=== PATIENT | female | born 1950 | race Caucasian/White ===

== ENCOUNTER 2017-10-06 12:39 | Emergency (ER) | payer OTHER ==
[2017-10-06] MEDS ORDERED: HYDROCODONE/APAP 5/325 MG TAB ONE (13:51)
[2017-10-06 14:01] LABS: Urine Blood 2+ (NEG); Urine Glucose 2+ (NEG); Urine Protein 3+ (NEG); Urine Specific Gravity 1.015 (1.005-1.030)
[2017-10-06 14:25] LABS: Urine Bacteria >50 /HPF (<20); Urine Culture Reflex Order REFLEXED; Urine RBC <5 /HPF (NONE SEEN); Urine Yeast PRESENT (NONE SEEN)
--- NOTE | 2017-10-06 14:38 | RAD REPORT ---
EXAM DESCRIPTION: CT - Thorax Wo Con - 10/06/2017 2:19 pm CLINICAL HISTORY: Chest pain status post September 2016 COMPARISON: February 02 TECHNIQUE: Computed axial tomography of the chest was obtained. Contrast was not requested. All CT scans are performed using dose optimization technique as appropriate and may include automated exposure control or mA/KV adjustment according to patient size. FINDINGS: The evaluation of mediastinum, pascual and vessels is limited secondary to lack of IV contras t administration. The lungs appear clear. A mediastinal hematoma is not seen. Coronary arterial calcifications are present. A pleural effusion is not present. A pericardial effusion is not seen IMPRESSION: No acute abnormality is displayed
--- NOTE | 2017-10-06 14:46 | RAD REPORT ---
EXAM DESCRIPTION: CT - Head C Spine Mpr Wo Con - 10/06/2017 2:37 pm CLINICAL HISTORY: Head and neck injury status post fall. Head and neck pain COMPARISON: June 1999 TECHNIQUE: Computed axial tomography of the head and cervical spine was obtained. Sagittal and coronal reconstruction was performed. All CT scans are performed using dose optimization technique as appropriate and may include automated exposure control or mA/KV adjustment according to patient size. FINDINGS: An intracranial bleed is not seen. The ventricles are normal in caliber. An extra-axial fl uid collection is not noted.Fluid within the visualized sinuses and mastoids is not seen A cervical fracture is not visualized. No dislocation is noted. A calcification within the left subma ndibular gland is again demonstrated IMPRESSION: No acute intracranial abnormality is seen. A cervical fracture is not visualized. If the patient continues to have symptoms to suggest intracra nial /spinal cord pathology then MRI would be recommended
--- NOTE | 2017-10-06 15:03 | ER ---
Nurse's Notes [facility] Name: Delmi Schultz Age: 66 yrs Sex: Female : 1950 Arrival Date: 10/06/2017 Time: 12:47 Bed 30 Private MD: Diagnosis: Contusion of other part of head;Sprain of ligaments of cervical spine;Contusion of back wall of thorax Presentation: 10/06 12:48 Presenting complaint: EMS states: Patient was lifting a box when she lost her balance aj1 and fell from standing, hitting her head. Patient denies LOC, vomiting. Patient reports back pain, denies any numbness and tingling. Transition of care: patient was not received from another setting of care. Onset of symptoms was October 06, 2017. Initial Sepsis Screen: Does the patient meet any 2 criteria? No. Patient's initial sepsis screen is negative. Does the patient have a suspected source of infection? No. Patient's initial sepsis screen is negative. Care prior to arrival: None. 12:48 Method Of Arrival: [facility] aj1 12:48 Acuity: VICTOR M 3 aj1 Triage Assessment: 12:55 General: Appears in no apparent distress. uncomfortable, Behavior is calm, cooperative. aj1 Pain: Complains of pain in thoracic area Pain does not radiate. Pain currently is 8 out of 10 on a pain scale. Quality of pain is described as sharp. Musculoskeletal: Range of motion: intact in all extremities. Historical: - Allergies: 12:55 No Known Allergies; aj1 - Home Meds: 12:55 Linzess oral oral [Active]; atorvastatin oral oral [Active]; gabapentin oral oral aj1 [Active]; Santyl Topical [Active]; Nexium 40 mg Oral cpDR 1 cap once daily [Active]; gabapentin 600 mg Oral tab 1 tab 3 times per day [Active]; Insulin: Novolog 10 units Sub-Q twice a day [Active]; sertraline 50 mg Oral tab 1 tab once daily [Active]; amlodipine 5 mg tab 1 tab once daily [Active]; amitriptyline 50 mg Oral tab 1 tab once daily [Active]; - PMHx: 12:55 Deaf; Diabetes - IDDM; Hypertension; Depression; GERD; neuropathy; Hyperlipidemia; aj1 - Immunization history:: Adult Immunizations up to date. - Social history:: Smoking status: unknown. Screenin:57 Abuse screen: Denies threats or abuse. Denies injuries from another. Nutritional aj1 screening: No deficits noted. Tuberculosis screening: No symptoms or risk factors identified. 13:43 Fall Risk None identified. tl3 Assessment: 12:57 General: Appears in no apparent distress. uncomfortable, Behavior is calm, cooperative, aj1 appropriate for age. Pain: Complains of pain in thoracic area Pain does not radiate. Pain currently is 8 out of 10 on a pain scale. Quality of pain is described as sharp. Neuro: Level of Consciousness is awake, alert, obeys commands, Speech is difficult to understand, garbled, patient is deaf. . Cardiovascular: Patient's skin is warm and dry. Respiratory: Airway is patent Respiratory effort is even, unlabored, Respiratory pattern is regular, symmetrical. GI: No signs and/or symptoms were reported involving the gastrointestinal system. : No signs and/or symptoms were reported regarding the genitourinary system. EENT: No signs and/or symptoms were reported regarding the EENT system. Derm: Skin is pink, warm \T\ dry. normal. Musculoskeletal: Range of motion: intact in all extremities. 13:43 Reassessment: No changes from previously documented assessment. Patient and/or family tl3 updated on plan of care and expected duration. Pain level reassessed. Patient is alert, oriented x 3, equal unlabored respirations, skin warm/dry/pink. pt c/o back pain and chest pain with deep breathing, Dr Michaud at bedside for assessment. Vital Signs: 12:55 BP 152 / 68; Pulse 84; Resp 18; Temp 98.2; Pulse Ox 95% on R/A; aj1 14:41 BP 163 / 96; Pulse 80; Resp 18; Pulse Ox 95% ; tl3 ED Course: 12:47 Patient arrived in ED. aj1 12:51 Triage completed. aj1 12:55 Arm band placed on. aj1 12:57 Patient has correct armband on for positive identification. Bed in low position. Call aj1 light in reach. Side rails up X 1. 12:57 No provider procedures requiring assistance completed. aj1 12:58 Farrukh Michaud MD is Attending Physician. gs 13:43 Kelly Trent, RN is Primary Nurse. tl3 13:43 Resting quietly. Awaiting for x-ray. tl3 13:43 Maintain EMS IV. Dressing intact. Good blood return noted. Site clean \T\ dry. tl3 14:[address] via wheelchair. kc3 14:19 CT Chest Wo Con In Process Unspecified. EDMS 14:36 CT Head C Spine In Process Unspecified. EDMS 14:41 Patient moved back from CT. tl3 Administered Medications: 13:54 Drug: [place] 5 mg-325 mg 1 tabs Route: PO; tl3 Outcome: 15:02 Discharge ordered by . dada 15:43 Patient left the ED. tl3 Addendum: 10/09/2017 07:44 Addendum: Culture Results: Positive urine culture. No further action required. Other: i w culture report was reviewed by Hermilo EM, pt had no urinary complaints at the time of visit, no further action needed . Patient was not prescribed antibiotics at discharge. Report given to LYUBOV for further evaluation and then to cargo mate for follow up with patient. Signatures: Dispatcher [employer] Brittaney Lagunas RN RN aj1 Denise Salamanca RN RN iw Farrukh Michaud MD MD gs Campbell, Kim kc3 Kelly Trent RN RN tl3
--- NOTE | 2017-10-06 15:03 | EDPHYS ---
Physician Documentation [facility] Name: Delmi Schultz Age: 66 yrs Sex: Female : 1950 Arrival Date: 10/06/2017 Time: 12:47 Bed 30 Private MD: ED Physician Farrukh Michaud HPI: 10/06 14:50 This 66 yrs old Female presents to ER via EMS with complaints of Back Pain. gs 14:50 The patient presents with pain that is acute, and an injury. The symptoms are located gs in the left subscapular area, right subscapular area and thoracic area. Onset: The symptoms/episode began/occurred acutely. The pain does not radiate. Associated signs and symptoms: Pertinent negatives: weakness. Severity of symptoms: At their worst the symptoms were moderate, in the emergency department the symptoms are unchanged. The patient has not experienced similar symptoms in the past. Historical: - Allergies: 12:55 No Known Allergies; aj1 - Home Meds: 12:55 Linzess oral oral [Active]; atorvastatin oral oral [Active]; gabapentin oral oral aj1 [Active]; Santyl Topical [Active]; Nexium 40 mg Oral cpDR 1 cap once daily [Active]; gabapentin 600 mg Oral tab 1 tab 3 times per day [Active]; Insulin: Novolog 10 units Sub-Q twice a day [Active]; sertraline 50 mg Oral tab 1 tab once daily [Active]; amlodipine 5 mg tab 1 tab once daily [Active]; amitriptyline 50 mg Oral tab 1 tab once daily [Active]; - PMHx: 12:55 Deaf; Diabetes - IDDM; Hypertension; Depression; GERD; neuropathy; Hyperlipidemia; aj1 - Immunization history:: Adult Immunizations up to date. - Social history:: Smoking status: unknown. ROS: 14:50 All other systems are negative. gs Exam: 14:50 Head/Face: Normocephalic, atraumatic. Eyes: Pupils equal round and reactive to light, gs extra-ocular motions intact. Lids and lashes normal. Conjunctiva and sclera are non-icteric and not injected. Cornea within normal limits. Periorbital areas with no swelling, redness, or edema. ENT: Nares patent. No nasal discharge, no septal abnormalities noted. Tympanic membranes are normal and external auditory canals are clear. Oropharynx with no redness, swelling, or masses, exudates, or evidence of obstruction, uvula midline. Mucous membranes moist. Neck: Trachea midline, no thyromegaly or masses palpated, and no cervical lymphadenopathy. Supple, full range of motion without nuchal rigidity, or vertebral point tenderness. No Meningismus. Cardiovascular: Regular rate and rhythm with a normal S1 and S2. No gallops, murmurs, or rubs. Normal PMI, no JVD. No pulse deficits. Respiratory: Lungs have equal breath sounds bilaterally, clear to auscultation and percussion. No rales, rhonchi or wheezes noted. No increased work of breathing, no retractions or nasal flaring. Abdomen/GI: Soft, non-tender, with normal bowel sounds. No distension or tympany. No guarding or rebound. No evidence of tenderness throughout. Skin: Warm, dry with normal turgor. Normal color with no rashes, no lesions, and no evidence of cellulitis. MS/ Extremity: Pulses equal, no cyanosis. Neurovascular intact. Full, normal range of motion. Neuro: Awake and alert, GCS 15, oriented to person, place, time, and situation. Cranial nerves II-XII grossly intact. Motor strength 5/5 in all extremities. Sensory grossly intact. Cerebellar exam normal. Normal gait. 14:50 Constitutional: The patient appears alert, awake. 14:50 Chest/axilla: Palpation: tenderness, that is moderate, of the left lateral posterior chest and right lateral posterior chest, that totally reproduces the patient's complaints. 14:50 Back: pain, that is moderate, of the thoracic area. Vital Signs: 12:55 BP 152 / 68; Pulse 84; Resp 18; Temp 98.2; Pulse Ox 95% on R/A; aj1 14:41 BP 163 / 96; Pulse 80; Resp 18; Pulse Ox 95% ; tl3 MDM: 13:39 Patient medically screened. 14:50 Differential diagnosis: chronic back pain, Fracture sprain. Data reviewed: vital signs, gs nurses notes. 10/06 13:46 Order name: UA MICROSCOPIC; Complete Time: 14:50 tl3 10/06 13:49 Order name: Urine Dipstick--Ancillary (enter results); Complete Time: 14:50 ag 10/06 13:40 Order name: CT Chest Wo Con; Complete Time: 14:50 10/06 14:22 Order name: CT Head C Spine; Complete Time: 14:50 10/06 14:27 Order name: Urine Culture EDID Administered Medications: 13:54 Drug: [place] 5 mg-325 mg 1 tabs Route: PO; tl3 Disposition: 10/06/17 15:02 Discharged to Home. Impression: Contusion of other part of head, Sprain of ligaments of cervical spine, Contusion of back wall of thorax. - Condition is Stable. - Discharge Instructions: Head Injury, Adult, Cervical Sprain. - Prescriptions for Tylenol- Codeine #4 300-60 mg Oral Tablet - take 1 tablet by ORAL route every 6 hours As needed; 10 tablet. - Medication Reconciliation Form, Thank You Letter, Antibiotic Education, Prescription Opioid Use form. - Follow up: Private Physician; When: 2 - 3 days; Reason: Re-evaluation by your physician. Signatures: Dispatcher [employer] EDID Brittaney Gomez RN RN aj1 Farrukh Michaud MD MD Kelly Trent RN RN tl3 Corrections: (The following items were deleted from the chart) 15:43 15:02 10/06/2017 15:02 Discharged to Home. Impression: Contusion of other part of head; tl3 Sprain of ligaments of cervical spine; Contusion of back wall of thorax. Condition is Stable. Forms are Medication Reconciliation Form, Thank You Letter, Antibiotic Education, Prescription Opioid Use. Follow up: Private Physician; When: 2 - 3 days; Reason: Re-evaluation by your physician.
[2017-10-06 15:47] VITALS: TEMP 98.2; O2SAT 95
[2017-10-06 15:48] VITALS: BP 163/96
== END 2017-10-06 15:43 | disposition home or self-care (01) ==
LOC: ER 12:39
DX: S13.4XXA Sprain of ligaments of cervical spine, initial encounter (principal); S00.83XA Contusion of other part of head, initial encounter; S20.229A Contusion of unspecified back wall of thorax, initial encounter; F32.9 Major depressive disorder, single episode, unspecified; I10 Essential (primary) hypertension; E11.9 Type 2 diabetes mellitus without complications; E78.5 Hyperlipidemia, unspecified; W18.39XA Other fall on same level, initial encounter; Y93.89 Activity, other specified; Y92.9 Unspecified place or not applicable; Z79.4 Long term (current) use of insulin
CPT/HCPCS: 70450; 71250; 72125; 81003; 81015; 87077; 87086; 87088; 87186; 99284

== ENCOUNTER 2017-12-25 20:22 | Emergency (ER) | payer OTHER ==
[2017-12-25] MEDS ORDERED: NA CHLORIDE 0.9% 500 ML ONE (20:55)
[2017-12-25 21:13] LABS: Absolute Lymphocytes (CBC) 1.7 K/uL (0.7-4.9); Absolute Monocytes 0.6 K/uL (0.1-1.3); Basophils % 0.3 % (0-1.3); Eosinophils % 0.4 % (0-4.4); Hematocrit 39.2 % (36.0-45.0); Lymphocytes % 14.9 % (15.3-44.8); MCH 29.1 pg (27.0-35.0); MCV 84.5 fL (80-100); MPV 9.2 fL (7.6-11.3); RBC Red Blood Cell Count 4.64 M/uL (3.86-4.86)
[2017-12-25 21:37] LABS: Potassium 3.9 mmol/L (3.5-5.1)
--- NOTE | 2017-12-25 22:04 | RAD REPORT ---
EXAM DESCRIPTION: RAD - Knee Left 3 View - 12/25/2017 9:48 pm CLINICAL HISTORY: slip and fall Pain COMPARISON: None FINDINGS: A fracture of the proximal fibular neck is suspected. Narrowing of the medial joint compar tment space is present with osteophytosis. A small suprapatellar joint effusion is present.
--- NOTE | 2017-12-25 22:07 | RAD REPORT ---
EXAM DESCRIPTION: RAD - Tib Fib Left - 12/25/2017 9:47 pm CLINICAL HISTORY: fall;Pain COMPARISON: <Comparisons> FINDINGS: Oblique fracture of the distal shaft of the tibia is present. Spiral fracture of the dista l fibula is also present. Fracture of the proximal fibular neck is also seen. Fusion hardware is note d in the ankle with an inferior screw noted to be fractured.
--- NOTE | 2017-12-25 22:09 | RAD REPORT ---
EXAM DESCRIPTION: RAD - Ankle Left 3 View - 12/25/2017 9:48 pm CLINICAL HISTORY: slip and fall;Pain COMPARISON: <Comparisons> FINDINGS: Spiral fracture of the distal tibia and fibula is present. Moderate displacement of the ti bial fracture seen with syndesmotic disruption suspected. Multiple screws are present within the ankl e resulting in bony fusion. The inferior screw appears fractured.
[2017-12-25] MEDS ORDERED: INSULIN -REGULAR HUMAN 50 UNIT/0.5 ML ML ONE (22:44)
[2017-12-25] MEDS ORDERED: FENTANYL CITR 100 MCG/2 ML ONE ×2 (22:44→23:58)
--- NOTE | 2017-12-25 23:00 | ER ---
Nurse's Notes [facility] Name: Delmi Schultz Age: 67 yrs Sex: Female : 1950 Arrival Date: 12/25/2017 Time: 20:23 Bed 26 Private MD: Diagnosis: Comminuted Fracture of Left Distal Tibia and Fibula Presentation: 12/25 20:23 Presenting complaint: EMS states: States patient fell at 1830 today at home, hurting mb3 her left leg, unable to bear weight at this time. Pt is deaf. Transition of care: patient was not received from another setting of care. Onset of symptoms was December 25, 2017 at 18:30. Risk Assessment: Do you want to hurt yourself or someone else? Patient reports no desire to harm self or others. Initial Sepsis Screen: Does the patient meet any 2 criteria? No. Patient's initial sepsis screen is negative. Does the patient have a suspected source of infection? No. Patient's initial sepsis screen is negative. Care prior to arrival: IV initiated. 20 GA, in the right antecubital area, Glucose check: 438. 20:23 Method Of Arrival: [facility] mb3 20:23 Acuity: VICTOR M 3 mb3 Triage Assessment: 20:26 General: Appears in no apparent distress. uncomfortable, obese, Behavior is calm, mb3 cooperative, appropriate for age. Pain: Complains of pain in left calf and left Achilles. EENT: No deficits noted. No signs and/or symptoms were reported regarding the EENT system. Neuro: No deficits noted. Level of Consciousness is awake, alert, obeys commands. Cardiovascular: No deficits noted. Heart tones S1 S2 present. Respiratory: No deficits noted. Airway is patent Respiratory effort is even, unlabored, Respiratory pattern is regular, symmetrical. GI: Abdomen is obese, Bowel sounds present X 4 quads. Abd is soft and non tender. : No deficits noted. Derm: Reports Has wound vac to right foot. did not observe wound. Musculoskeletal: Capillary refill < 3 seconds, Reports pain in left calf and left Achilles. 22:08 Injury Description: Bruise sustained to left calf and left Achilles. mb3 Historical: - Allergies: 20:26 No Known Allergies; mb3 - Immunization history:: Adult Immunizations up to date. - Social history:: Smoking status: Patient uses tobacco products, smokes one pack cigarettes per day. - Ebola Screening: : Patient denies travel to an Ebola-affected area in the 21 days before illness onset No symptoms or risks identified at this time. Screenin:32 Abuse screen: Denies threats or abuse. Nutritional screening: No deficits noted. mb3 Tuberculosis screening: No symptoms or risk factors identified. Fall Risk Fall in past 12 months (25 points). Secondary diagnosis (15 points) impaired mobility, IV access (20 points). Ambulatory Aid- Crutches/Cane/Walker (15 pts). Gait- Impaired (20 pts.). Mental Status- Oriented to own ability (0 pts). Total Vazquez Fall Scale indicates High Risk Score (45 or more points). Fall prevention measures have been instituted. Side Rails Up X 2 Placed Close to Nursing Station Frequent Obs/Assessments Occuring Family Present and informed to notify staff if the need to leave the bedside As available patient and family educated on Fall Prevention Program and Strategies. Assessment: 22:05 Reassessment: Patient and/or family updated on plan of care and expected duration. Pain mb3 level reassessed. Patient is alert, oriented x 3, equal unlabored respirations, skin warm/dry/pink. see triage assessment. 23:23 Reassessment: report called to Lisa Alaniz RN at [facility]. mb3 Vital Signs: 20:29 BP 117 / 75; Pulse 99; Resp 20; Temp 97.9; Pulse Ox 94% on R/A; Weight 108.86 kg; mb3 Height 5 ft. 6 in. (167.64 cm); Pain 7/10; 22:05 BP 157 / 69; Pulse 91; Resp 16; Pulse Ox 96% on R/A; mb3 23:25 BP 151 / 77; Pulse 106; Resp 18; Pulse Ox 98% on R/A; mb3 20:29 Body Mass Index 38.74 (108.86 kg, 167.64 cm) mb3 ED Course: 20:23 Patient arrived in ED. mb3 20:25 Triage completed. mb3 20:35 Hank Mas PA is PHCP. cp 20:35 Calvin Salazar MD is Attending Physician. cp 21:23 X-ray completed. Portable x-ray completed in exam room. jr1 21:27 XRAY Ankle LEFT 3 view In Process Unspecified. EDMS 21:27 XRAY Tib Fib LEFT In Process Unspecified. EDMS 21:27 XRAY Knee LEFT 3 view In Process Unspecified. EDMS 21:44 Notified Nurse Practitioner and/or Physician Production Operations Inspector of a critical lab result(s), glucose of 426. 22:03 Sharan Elliott, RN is Primary Nurse. mb3 22:07 Patient has correct armband on for positive identification. Placed in gown. Bed in low mb3 position. Call light in reach. Side rails up X 1. Pulse ox on. NIBP on. 22:09 Arm band placed on right wrist. mb3 23:25 No provider procedures requiring assistance completed. Patient transferred, IV remains mb3 in place. 12/26 00:00 CBC with Diff Sent. mb3 00:00 BMP Sent. mb3 Administered Medications: 12/25 20:53 Drug: NS 0.9% 500 ml Route: IV; Rate: bolus; Site: right antecubital; mg2 12/26 00:00 Follow up: IV Status: Completed infusion; IV Intake: 500ml mb3 12/25 22:47 Drug: Insulin Regular Human 10 units {Co-Signature: mg2 (Wilfredo Mcfarlane RN).} Route: mb3 IVP; Site: right antecubital; 12/26 00:00 Follow up: Response: No adverse reaction mb3 12/25 22:48 Drug: fentaNYL (PF) 25 mcg Route: IVP; Site: right antecubital; mb3 12/26 00:00 Follow up: Response: No adverse reaction mb3 12/25 23:57 Drug: fentaNYL (PF) 25 mcg Route: IVP; Site: right antecubital; mb3 23:59 Follow up: Response: Medication administered at discharge. mb3 Intake: 12/26 00:00 IV: 500ml; Total: 500ml. mb3 Outcome: 12/25 23:00 ER care complete, transfer ordered by . ramesh 23:24 Transferred by ground EMS to [facility], Transfer form completed. mb3 23:24 Condition: stable 23:24 Instructed on the need for transfer. 12/26 00:01 Patient left the ED. mb3 Signatures: Dispatcher [employer] EDAbi Armenta jr1 Yamile Pelaez RN RN fc Hank Mas PA PA cp Gardose, Michele, RN RN mg2 Sharan Elliott, RN RN mb3 Wilfredo Mcfarlane RN mg2
--- NOTE | 2017-12-25 23:00 | EDPHYS ---
Physician Documentation [facility] Name: Delmi Schultz Age: 67 yrs Sex: Female : 1950 Arrival Date: 12/25/2017 Time: 20:23 Bed 26 Private MD: ED Physician Calvin Salazar HPI: 12/25 20:42 This 67 yrs old Female presents to ER via EMS with complaints of Leg Injury. cp 20:42 The patient presents with decreased range of motion, an injury, pain, that is acute. cp The complaints affect the left adames and anterior aspect of left ankle. Context: The problem was sustained at home, resulted from the patient falling, a mis-step, on a slippery surface. Historical: - Allergies: 20:26 No Known Allergies; mb3 - Immunization history:: Adult Immunizations up to date. - Social history:: Smoking status: Patient uses tobacco products, smokes one pack cigarettes per day. - Ebola Screening: : Patient denies travel to an Ebola-affected area in the 21 days before illness onset No symptoms or risks identified at this time. ROS: 20:50 Constitutional: Negative for body aches, chills, fever, poor PO intake. cp 20:50 Eyes: Negative for injury, pain, redness, and discharge. cp 20:50 ENT: Negative for drainage from ear(s), ear pain, sore throat, difficulty swallowing, difficulty handling secretions. 20:50 Neck: Negative for pain with movement, pain at rest, stiffness, bony tenderness. 20:50 Cardiovascular: Negative for chest pain, palpitations. 20:50 Respiratory: Negative for cough, shortness of breath, wheezing. 20:50 Abdomen/GI: Negative for abdominal pain, nausea, vomiting, and diarrhea, constipation, black/tarry stool, rectal bleeding. 20:50 Back: Negative for pain at rest, pain with movement, radiated pain. 20:50 MS/extremity: Positive for injury or acute deformity, decreased range of motion, ecchymosis, pain, tenderness, of the left lower tib/fib. 20:50 Skin: Negative for laceration(s). 20:50 Neuro: Negative for altered mental status, headache, loss of consciousness, syncope, weakness. 20:50 All other systems are negative. Exam: 20:57 Constitutional: The patient appears in no acute distress, alert, awake, cp non-diaphoretic, non-toxic, well developed, well nourished, obese. 20:57 Head/Face: Normocephalic, atraumatic. cp 20:57 Eyes: Periorbital structures: appear normal, Pupils: equal, round, and reactive to light and accomodation, Extraocular movements: intact throughout, Conjunctiva: normal, no exudate, no injection, Sclera: no appreciated abnormality, Lids and lashes: appear normal, bilaterally. 20:57 ENT: External ear(s): are unremarkable, Nose: is normal, Mouth: Lips: moist, Oral mucosa: moist, Posterior pharynx: is normal, airway is patent. 20:57 Neck: C-spine: vertebral tenderness, is not appreciated, crepitus, is not appreciated, ROM/movement: is normal, is supple, without pain, no range of motions limitations, no nuchal rigidity. 20:57 Chest/axilla: Inspection: normal, Palpation: is normal, no crepitus, no tenderness. 20:57 Cardiovascular: Rate: normal, Rhythm: regular. 20:57 Respiratory: the patient does not display signs of respiratory distress, Respirations: normal, no use of accessory muscles, no retractions, no splinting, no tachypnea, labored breathing, is not present, Breath sounds: are clear throughout, no decreased breath sounds, no stridor, no wheezing. 20:57 Abdomen/GI: Inspection: obese Bowel sounds: active, all quadrants, Palpation: abdomen is soft and non-tender, in all quadrants. 20:57 Back: pain, is absent, ROM is normal. 20:57 Musculoskeletal/extremity: Extremities: grossly normal except: noted in the distal left tibia and fibula: decreased ROM, deformity, ecchymosis, pain, swelling, tenderness, Perfusion: the extremity is normally perfused throughout, Sensation intact. 20:57 Neuro: Orientation: to person, place \T\ time. Mentation: lucid, able to follow commands. Vital Signs: 20:29 BP 117 / 75; Pulse 99; Resp 20; Temp 97.9; Pulse Ox 94% on R/A; Weight 108.86 kg; mb3 Height 5 ft. 6 in. (167.64 cm); Pain 7/10; 22:05 BP 157 / 69; Pulse 91; Resp 16; Pulse Ox 96% on R/A; mb3 23:25 BP 151 / 77; Pulse 106; Resp 18; Pulse Ox 98% on R/A; mb3 20:29 Body Mass Index 38.74 (108.86 kg, 167.64 cm) 3 Procedures: 23:55 Splinting: Splint applied to left lower leg using Orthoglass splint, applied by tech. cp Examined by me, post splint application: neurovascular intact, Patient tolerated well. MDM: 20:35 Patient medically screened. cp 22:25 Data reviewed: vital signs, nurses notes, radiologic studies, plain films. cp 22:25 Test interpretation: by ED physician or midlevel provider: plain radiologic studies. cp 22:26 Physician consultation: Dave Knight MD was called at 22:27, was contacted at 22:27, cp after a discussion of the case, a recommendation for transfer for higher level of care is made. 22:56 Physician consultation: DR Barrios, hospitalist \\ [facility] will accept patient as cp transfer. 12/25 20:45 Order name: BMP cp 12/25 20:45 Order name: CBC with Diff cp 12/25 20:44 Order name: XRAY Ankle LEFT 3 view; Complete Time: 22:13 cp 12/25 20:44 Order name: XRAY Tib Fib LEFT; Complete Time: 22:13 cp 12/25 22:25 Interpretation: Report reviewed. 12/25 20:45 Order name: Basic Metabolic Panel; Complete Time: 22:13 EDMS 12/25 20:45 Order name: CBC with Automated Diff; Complete Time: 22:13 EDMS 12/25 20:44 Order name: XRAY Knee LEFT 3 view; Complete Time: 22:13 cp 12/25 20:45 Order name: IV; Complete Time: 20:51 cp 12/25 22:23 Order name: Splint - Posterior Leg; Complete Time: 23:58 cp 12/25 22:26 Order name: Splint: stirrup splint of lower leg; Complete Time: 23:58 cp Administered Medications: 20:53 Drug: NS 0.9% 500 ml Route: IV; Rate: bolus; Site: right antecubital; mg2 12/26 00:00 Follow up: IV Status: Completed infusion; IV Intake: 500ml [facility] 12/25 22:47 Drug: Insulin Regular Human 10 units {Co-Signature: mg2 (Wilfredo Mcfarlane RN).} Route: mb3 IVP; Site: right antecubital; 12/26 00:00 Follow up: Response: No adverse reaction [facility] 12/25 22:48 Drug: fentaNYL (PF) 25 mcg Route: IVP; Site: right antecubital; mb3 12/26 00:00 Follow up: Response: No adverse reaction [facility] 12/25 23:57 Drug: fentaNYL (PF) 25 mcg Route: IVP; Site: right antecubital; 3 23:59 Follow up: Response: Medication administered at discharge. mb3 Disposition: 12/26 03:06 Co-signature as Attending Physician, Calvin Salazar MD. pkl Disposition: 12/25/17 23:[address] [facility]. Diagnosis is Comminuted Fracture of Left Distal Tibia and Fibula. - Reason for transfer: Higher level of care. - Accepting physician is DR Barrios. - Condition is Stable. - Problem is new. - Symptoms have improved. Signatures: Dispatcher [employer] EDMS Calvin Salazar MD MD pkl Hank Mas PA PA cp Wilfredo Mcfarlane, JARRET RN mg2 Sharan Elliott RN RN mb3 Wilfredo Mcfarlane RN mg2 Corrections: (The following items were deleted from the chart) 12/25 22:25 22:23 Splint ordered. cp cp 12/26 00:01 12/25 23:00 12/25/2017 23:[address] [facility]. 3 Diagnosis is Comminuted Fracture of Left Distal Tibia and Fibula. Reason for transfer: Higher level of care. Accepting physician is DR Barrios. Condition is Stable. Problem is new. Symptoms have improved. cp
[2017-12-26 00:29] VITALS: TEMP 97.9
[2017-12-26 00:31] VITALS: BP 151/77; O2SAT 98
== END 2017-12-26 00:01 | disposition short-term general hospital (02) ==
LOC: ER 20:22
PROC: 2W3RX1Z Immobilization of Left Lower Leg using Splint (ICD-10-PCS; principal; 2017-12-26)
DX: S82.392A Other fracture of lower end of left tibia, initial encounter for closed fracture (principal); S82.832A Other fracture of upper and lower end of left fibula, initial encounter for closed fracture; W01.0XXA Fall on same level from slipping, tripping and stumbling without subsequent striking against object, initial encounter; Y93.89 Activity, other specified; Y92.009 Unspecified place in unspecified non-institutional (private) residence as the place of occurrence of the external cause; F17.210 Nicotine dependence, cigarettes, uncomplicated
CPT/HCPCS: 29515; 36415; 73562; 73590; 73610; 80048; 85025; 96361; 96374; 96375; 99285; J3010 ×2

== ENCOUNTER 2018-08-30 16:02 | Emergency (ER) | payer OTHER ==
[2018-08-30 16:54] LABS: Absolute Lymphocytes (CBC) 2.8 K/uL (0.7-4.9); Absolute Monocytes 0.5 K/uL (0.1-1.3); Absolute Neutrophil 5.7 K/uL (1.8-8.0); Basophils % 0.4 % (0-1.3); Eosinophils % 1.1 % (0-4.4); Hematocrit 39.2 % (36.0-45.0); Lymphocytes % 30.3 % (15.3-44.8); Monocytes % 5.1 % (3.3-12.3); RBC Red Blood Cell Count 4.74 M/uL (3.86-4.86)
[2018-08-30 17:01] LABS: Protime INR 0.99
[2018-08-30 17:13] LABS: ALT/SGPT 15 U/L (12-78); AST/SGOT 12 U/L (15-37); Albumin 2.8 g/dL (3.4-5.0); Alkaline Phosphatase 138 U/L (45-117); BUN Blood Urea Nitrogen 19 mg/dL (7-18); Bicarbonate 30 mmol/L (21-32); Bilirubin Direct 0.1 mg/dL (0-0.2); Bilirubin Total 0.4 mg/dL (0.2-1.0); Glucose Level 255 mg/dL (74-106); Magnesium 1.5 mg/dL (1.8-2.4); NT PRO-BNP 1018 pg/mL (<125); Potassium 4.1 mmol/L (3.5-5.1); Protein, Total 6.8 g/dL (6.4-8.2); Sodium Level 137 mmol/L (136-145); Troponin (Emerg Dept Use Only) < 0.02 ng/mL (0.0-0.045)
--- NOTE | 2018-08-30 17:21 | RAD REPORT ---
EXAM DESCRIPTION: RAD - Chest Single View - 08/30/2018 5:09 pm CLINICAL HISTORY: CHEST PAIN Chest pain. COMPARISON: Chest Single View dated 08/22/2016; Chest Single View dated 05/21/2016; Chest Single View dated 05/19/2016; Chest Single View dated 10/15/2015 FINDINGS: Portable technique limits examination quality. The lungs are grossly clear. The heart is normal in size. No displaced fractures. IMPRESSION: No acute intrathoracic process suspected.
[2018-08-30] MEDS ORDERED: Magnesium Sulfate 2gm IVPB 2 G/50 ML BAG IV ONE (17:44)
--- NOTE | 2018-08-30 18:03 | RAD REPORT ---
EXAM DESCRIPTION: CT - Stone Protocol - 08/30/2018 5:53 pm CLINICAL HISTORY: Flank pain. FLANK PAIN COMPARISON: Stone Protocol dated 05/19/2016Stone Protocol dated 05/19/2016; CTSTONE PROTOCOL dated TECHNIQUE: Axial images were obtained without oral or IV contrast. Lack of contrast limits solid org an and vascular assessment. The [id number] spans the entirety of the system partially obscuring uppermost abdomen and lung bases. Coronal reformatted images were obtained and reviewed. All CT scans are performed using dose optimization technique as appropriate and may include automated exposure control or mA/KV adjustment according to patient size. FINDINGS: The lower lung ingram are clear. Cholecystectomy clips. Imaged portions of the liver and spleen show no suspicious findings on non-contrast imaging. The panc reas and adrenal glands are normal. No pathologic lymphadenopathy in the abdomen or pelvis. No urinary tract stones or obstructive uropathy. No bowel obstruction, free air, free fluid or abscess. Moderate stool is present colon. Normal append ix noted. Lower lumbar degenerative changes are present, greatest at L5-S1. IMPRESSION: No urinary tract stones or obstructive uropathy.
[2018-08-30] MEDS ORDERED: HYDROCODONE/APAP 5/325 MG TAB ONE (18:12)
[2018-08-30] MEDS ORDERED: ENALAPRILAT 1.25 MG/ML VIAL IV ONE (18:12)
[2018-08-30 19:36] LABS: Urine Bacteria <20 /HPF (<20)
[2018-08-30 19:37] LABS: Urine Culture Reflex Order NOT NEEDED; Urine Mucus 1+ /HPF (NONE SEEN)
--- NOTE | 2018-08-30 19:51 | ER ---
Nurse's Notes [facility] Name: Delmi Schultz Age: 67 yrs Sex: Female : 1950 Arrival Date: 08/30/2018 Time: 16:05 Bed 13 Private MD: Diagnosis: Chest pain, unspecified;Hematuria Presentation: 08/30 16:08 Presenting complaint: Patient states: midsternal chest pain, SOB, and HTN since sv Thursday. Transition of care: patient was not received from another setting of care. Onset of symptoms was August 28, 2018. Care prior to arrival: None. 16:08 Method Of Arrival: Wheelchair sv 16:08 Acuity: VICTOR M 2 sv Triage Assessment: 16:26 General: Appears in no apparent distress. uncomfortable, Behavior is cooperative, bp appropriate for age, anxious. Pain: Complains of pain in chest. EENT: No deficits noted. 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 Cardiovascular: Rhythm is sinus rhythm. Respiratory: Airway is patent Respiratory effort is even, unlabored, Respiratory pattern is regular, symmetrical. GI: No signs and/or symptoms were reported involving the gastrointestinal system. : No signs and/or symptoms were reported regarding the genitourinary system. Derm: No deficits noted. Musculoskeletal: Circulation, motion, and sensation intact. Historical: - Allergies: 16:09 No Known Allergies; sv - PMHx: 16:09 Deaf; Depression; Diabetes - IDDM; GERD; Hyperlipidemia; Hypertension; neuropathy; sv - Immunization history:: Adult Immunizations up to date. - Social history:: Smoking status: Patient/guardian denies using tobacco. Screenin:27 Abuse screen: Denies threats or abuse. Denies injuries from another. Nutritional bp screening: No deficits noted. Tuberculosis screening: No symptoms or risk factors identified. Fall Risk None identified. Assessment: 16:27 General: SEE TRIAGE NOTE. bp 18:07 Reassessment: PT RETURNED FROM CT. UOP PENDING, ALL OTHER ORDERS IN PROCESS. bp 19:44 Reassessment: Patient appears in no apparent distress at this time. Patient and/or aa1 family updated on plan of care and expected duration. Pain level reassessed. Patient is alert, oriented x 3, equal unlabored respirations, skin warm/dry/pink. Pt states, "I need a pain shot in the ass of morphine.". 20:16 Reassessment: Patient appears in no apparent distress at this time. Patient is alert, aa1 oriented x 3, equal unlabored respirations, skin warm/dry/pink. Discussed d/c \\T\\ f/u instructions with pt \\T\\ family; denies questions or concerns at this time. Vital Signs: 16:09 BP 169 / 117; Pulse 84; Resp 20; Temp 96.8; Pulse Ox 97% ; Weight 108.86 kg; Height 5 sv ft. 6 in. (167.64 cm); 18:07 BP 181 / 81; Pulse 91; Resp 16; Pulse Ox 98% ; bp 19:44 BP 174 / 82; Pulse 81; Resp 16; Pulse Ox 99% ; aa1 16:09 Body Mass Index 38.74 (108.86 kg, 167.64 cm) sv ED Course: 16:05 Patient arrived in ED. mr 16:09 Triage completed. sv 16:09 Arm band placed on. sv 16:17 Jose Alejandro Hernandez, RN is Primary Nurse. bp 16:21 Farrukh Michaud MD is Attending Physician. gs 16:23 EKG done, by development technologist. reviewed by Farrukh Michaud MD. sm3 16:27 Patient has correct armband on for positive identification. Placed in gown. Bed in low bp position. Call light in reach. Side rails up X2. groundwater monitoring technician on. Pulse ox on. NIBP on. 16:40 Missed attempt(s): 22 gauge in right forearm. Bleeding controlled, band aid applied, dh3 catheter tip intact. 16:42 Missed attempt(s): 22 gauge in right hand. Bleeding controlled, band aid applied, dh3 catheter tip intact. 16:44 Initial lab(s) drawn, by me, sent to lab. Inserted saline lock: 20 gauge in right dh3 antecubital area, using aseptic technique. Blood collected. 17:08 X-ray completed. Portable x-ray completed in exam room. Patient tolerated procedure mh1 well. 17:10 XRAY Chest (1 view) In Process Unspecified. EDMS 17:[address] vm2 17:53 CT Stone Protocol In Process Unspecified. EDMS 19:50 Glory Ruff MD is Referral Physician. 20:16 No provider procedures requiring assistance completed. IV discontinued, intact, aa1 bleeding controlled, No redness/swelling at site. Pressure dressing applied. Administered Medications: 17:42 Drug: Magnesium Sulfate 2 grams Route: IVPB; Infused Over: 2 hrs; Site: right bp antecubital; 18:00 Drug: Enalaprilat 1.25 mg Route: IV; Rate: calculated rate; Site: right antecubital; bp 18:00 Drug: [place] 5 mg-325 mg 1 tabs Route: PO; bp Outcome: 19:50 Discharge ordered by MD. gs 20:16 Discharged to home via wheelchair, with family. aa1 20:16 Condition: good 20:16 Discharge instructions given to patient, family, Instructed on discharge instructions, follow up and referral plans. medication usage, Demonstrated understanding of instructions, follow-up care, medications. 20:18 Patient left the ED. aa1 Signatures: Dispatcher [employer] EDMI Shira Liang RN RN Graciela Curiel RN RN aa1 Mabel Beard Yariel Lastha 1 Carmen Jones 2 Citlali Adams 3 Farrukh Michaud MD MD Jose Alejandro Hernandez RN RN Jeanie Hays 3 Corrections: (The following items were deleted from the chart) 16:10 16:08 Acuity: VICTOR M 3 [facility]
--- NOTE | 2018-08-30 19:51 | EDPHYS ---
Physician Documentation [facility] Name: Delmi Schultz Age: 67 yrs Sex: Female : 1950 Arrival Date: 08/30/2018 Time: 16:05 Bed 13 Private MD: ED Physician Farrukh Michaud HPI: 08/30 19:40 This 67 yrs old Female presents to ER via Wheelchair with complaints of Chest gs Pain, High Blood Pressure. 19:40 The patient or guardian reports chest pain that is located primarily in the anterior gs chest wall, left. Onset: acutely. The pain does not radiate. Associated signs and symptoms: Pertinent negatives: shortness of breath. The chest pain is described as a heaviness. Duration: The patient or guardian reports multiple episodes, that are intermittent, that wax and wane, with no pattern, the episodes last approximately 2 minute(s). Modifying factors: The symptoms are alleviated by nothing. the symptoms are aggravated by nothing. Severity of pain: At its worst the pain was mild in the emergency department the pain has resolved. Historical: - Allergies: 16:09 No Known Allergies; sv - PMHx: 16:09 Deaf; Depression; Diabetes - IDDM; GERD; Hyperlipidemia; Hypertension; neuropathy; sv - Immunization history:: Adult Immunizations up to date. - Social history:: Smoking status: Patient/guardian denies using tobacco. ROS: 19:40 Abdomen/GI: Positive for RIGHT FLANK PAIN. gs 19:40 All other systems are negative. Exam: 19:40 Head/Face: Normocephalic, atraumatic. Eyes: Pupils equal round and reactive to light, gs extra-ocular motions intact. Lids and lashes normal. Conjunctiva and sclera are non-icteric and not injected. Cornea within normal limits. Periorbital areas with no swelling, redness, or edema. ENT: Nares patent. No nasal discharge, no septal abnormalities noted. Tympanic membranes are normal and external auditory canals are clear. Oropharynx with no redness, swelling, or masses, exudates, or evidence of obstruction, uvula midline. Mucous membranes moist. Neck: Trachea midline, no thyromegaly or masses palpated, and no cervical lymphadenopathy. Supple, full range of motion without nuchal rigidity, or vertebral point tenderness. No Meningismus. Chest/axilla: Normal chest wall appearance and motion. Nontender with no deformity. No lesions are appreciated. Cardiovascular: Regular rate and rhythm with a normal S1 and S2. No gallops, murmurs, or rubs. Normal PMI, no JVD. No pulse deficits. Respiratory: Lungs have equal breath sounds bilaterally, clear to auscultation and percussion. No rales, rhonchi or wheezes noted. No increased work of breathing, no retractions or nasal flaring. Abdomen/GI: Soft, non-tender, with normal bowel sounds. No distension or tympany. No guarding or rebound. No evidence of tenderness throughout. Skin: Warm, dry with normal turgor. Normal color with no rashes, no lesions, and no evidence of cellulitis. MS/ Extremity: Pulses equal, no cyanosis. Neurovascular intact. Full, normal range of motion. Neuro: Awake and alert, GCS 15, oriented to person, place, time, and situation. Cranial nerves II-XII grossly intact. Motor strength 5/5 in all extremities. Sensory grossly intact. Cerebellar exam normal. Normal gait. 19:40 Constitutional: The patient appears alert, awake. 19:40 Back: CVA tenderness, that is mild, is noted on the right. 19:40 ECG was reviewed by the Attending Physician. Vital Signs: 16:09 BP 169 / 117; Pulse 84; Resp 20; Temp 96.8; Pulse Ox 97% ; Weight 108.86 kg; Height 5 sv ft. 6 in. (167.64 cm); 18:07 BP 181 / 81; Pulse 91; Resp 16; Pulse Ox 98% ; bp 19:44 BP 174 / 82; Pulse 81; Resp 16; Pulse Ox 99% ; aa1 16:09 Body Mass Index 38.74 (108.86 kg, 167.64 cm) sv MDM: 17:17 Patient medically screened. 19:40 Differential diagnosis: acute myocardial infarction, coronary artery disease KIDNEY gs STONE. Data reviewed: vital signs, nurses notes, lab test result(s), EKG, radiologic studies. Counseling: I had a detailed discussion with the patient and/or guardian regarding: the historical points, exam findings, and any diagnostic results supporting the discharge/admit diagnosis, lab results, radiology results, PT REQUESTING PARENTERAL MEDS FOR PAIN STATED WAS UNABLE TO GIVE HER THOSE MEDS, HAD TRAMADOL AT HOME. 04/01 16:18 Order name: Basic Metabolic Panel; Complete Time: 17:17 bp 08/30 16:18 Order name: CBC with Diff; Complete Time: 17:17 bp 08/30 16:18 Order name: LFT's; Complete Time: 17:17 bp 08/30 16:18 Order name: Magnesium; Complete Time: 17:17 bp 08/30 16:18 Order name: NT PRO-BNP; Complete Time: 17:17 bp 08/30 16:18 Order name: PT-INR; Complete Time: 17:17 bp 08/30 16:18 Order name: Troponin (emerg Dept Use Only); Complete Time: 17:17 bp 08/30 16:18 Order name: XRAY Chest (1 view); Complete Time: 17:23 bp 08/30 17:36 Order name: CT Stone Protocol; Complete Time: 18:08 gs 08/30 17:36 Order name: Urine Microscopic Only; Complete Time: 19:40 gs 08/30 18:11 Order name: Troponin (emerg Dept Use Only); Complete Time: 19:40 gs 08/30 20:07 Order name: Urine Dipstick--Ancillary (enter results) ms 08/30 16:18 Order name: EKG; Complete Time: 16:18 bp 08/30 16:18 Order name: Cardiac monitoring; Complete Time: 16:49 bp 08/30 16:18 Order name: EKG - Nurse/Tech; Complete Time: 16:18 bp 08/30 16:18 Order name: IV Saline Lock; Complete Time: 16:49 bp 08/30 16:18 Order name: Labs collected and sent; Complete Time: 16:49 bp 08/30 16:18 Order name: O2 Per Protocol; Complete Time: 16:49 bp 08/30 16:18 Order name: O2 Sat Monitoring; Complete Time: 16:49 bp 08/30 17:36 Order name: Urine Dipstick-Ancillary (obtain specimen); Complete Time: 19:01 gs EC:40 Rate is 85 beats/min. Rhythm is regular. NE interval is normal. QRS interval is normal. gs QT interval is normal. T waves are Flattened. Clinical impression: NSR w/ Non-specific ST/T Changes. Interpreted by me. Administered Medications: 17:42 Drug: Magnesium Sulfate 2 grams Route: IVPB; Infused Over: 2 hrs; Site: right bp antecubital; 18:00 Drug: Enalaprilat 1.25 mg Route: IV; Rate: calculated rate; Site: right antecubital; bp 18:00 Drug: [place] 5 mg-325 mg 1 tabs Route: PO; bp Disposition: 08/30/18 19:50 Discharged to Home. Impression: Chest pain, unspecified, Hematuria. - Condition is Stable. - Discharge Instructions: Chronic Back Pain, Nonspecific Chest Pain, Hematuria, Adult. - Medication Reconciliation Form, Thank You Letter, Antibiotic Education, Prescription Opioid Use form. - Follow up: Private Physician; When: 1 - 2 days; Reason: Re-evaluation by your physician. Follow up: Glory Ruff MD; When: 2 - 3 days; Reason: Re-evaluation by your physician. Signatures: Dispatcher [employer] EDMS Shira Liang RN RN Graciela Curiel RN RN aa1 Farrukh Michaud MD MD Jose Alejandro Hernandez RN RN bp Corrections: (The following items were deleted from the chart) 19:50 19:50 08/30/2018 19:50 Discharged to Home. Impression: Chest pain, unspecified; gs Hematuria. Condition is Stable. Forms are Medication Reconciliation Form, Thank You Letter, Antibiotic Education, Prescription Opioid Use. Follow up: Private Physician; When: 1 - 2 days; Reason: Re-evaluation by your physician. gs 20:18 19:50 08/30/2018 19:50 Discharged to Home. Impression: Chest pain, unspecified; aa1 Hematuria. Condition is Stable. Forms are Medication Reconciliation Form, Thank You Letter, Antibiotic Education, Prescription Opioid Use. Follow up: Private Physician; When: 1 - 2 days; Reason: Re-evaluation by your physician. Follow up: Glory Ruff; When: 2 - 3 days; Reason: Re-evaluation by your physician. gs
[2018-08-30 20:16] LABS: Urine Blood 1+ (NEG); Urine Glucose TRACE (NEG); Urine Protein 3+ (NEG)
[2018-08-30 20:31] VITALS: TEMP 96.8
[2018-08-30 20:42] VITALS: BP 174/82; O2SAT 99
== END 2018-08-30 20:18 | disposition home or self-care (01) ==
LOC: ER 16:02
DX: R31.9 Hematuria, unspecified (principal); I10 Essential (primary) hypertension
CPT/HCPCS: 93005; 85025; 80048; 36415; 83735; 85610; 80076; 84484 ×2; 83880; 76377; 74176; 71045; 96375; 96374; 99285; J3475; 81003; 81015

== ENCOUNTER 2018-09-01 16:14 | Emergency (ER) | payer OTHER ==
[2018-09-01 21:24] LABS: Absolute Lymphocytes (CBC) 2.9 K/uL (0.7-4.9); Absolute Monocytes 0.5 K/uL (0.1-1.3); Absolute Neutrophil 4.8 K/uL (1.8-8.0); Basophils % 0.5 % (0-1.3); Eosinophils % 1.6 % (0-4.4); Hematocrit 38.3 % (36.0-45.0); Lymphocytes % 34.5 % (15.3-44.8); MPV 9.2 fL (7.6-11.3); Monocytes % 6.3 % (3.3-12.3); RBC Red Blood Cell Count 4.53 M/uL (3.86-4.86)
[2018-09-01 21:40] LABS: Protime INR 0.96
[2018-09-01 21:48] LABS: ALT/SGPT 16 U/L (12-78); AST/SGOT 10 U/L (15-37); Albumin 2.9 g/dL (3.4-5.0); Alkaline Phosphatase 158 U/L (45-117); BUN Blood Urea Nitrogen 28 mg/dL (7-18); Bicarbonate 29 mmol/L (21-32); Bilirubin Direct < 0.1 mg/dL (0-0.2); Bilirubin Total 0.3 mg/dL (0.2-1.0); Creatine Phosphokinase 88 U/L (26-192); Glucose Level 265 mg/dL (74-106); Lipase 42 U/L (73-393); NT PRO-BNP 273 pg/mL (<125); Potassium 4.3 mmol/L (3.5-5.1); Sodium Level 136 mmol/L (136-145); Troponin (Emerg Dept Use Only) < 0.02 ng/mL (0.0-0.045)
[2018-09-01] MEDS ORDERED: MORPHINE 4 MG/ML SYR ONE (22:34)
[2018-09-01] MEDS ORDERED: ONDANSETRON 4 MG/2 ML VIAL ONE (22:34)
[2018-09-01 23:45] LABS: Urine Blood 1+ (NEG); Urine Glucose TRACE (NEG); Urine Protein 3+ (NEG)
[2018-09-01 23:52] LABS: Urine Bacteria LOADED /HPF (<20); Urine Culture Reflex Order REFLEXED; Urine RBC <5 /HPF (NONE SEEN)
[2018-09-02] MEDS ORDERED: HYDRALAZINE HCL 20 MG/ML VIAL ONE (00:31)
--- NOTE | 2018-09-02 02:22 | ER ---
Nurse's Notes [facility] Name: Delmi Schultz Age: 67 yrs Sex: Female : 1950 Arrival Date: 09/01/2018 Time: 16:18 Bed 6 Private MD: Diagnosis: Elevated Blood Pressure;Dizziness;UTI Presentation: 09/01 16:31 Presenting complaint: Pt's granddaughter states "her blood pressure was 199/119 1 hr aa5 before coming here and her doctor said to bring her in". Pt c/o dizziness. Pt reports back pain that began approximately 1 week ago. Pt reports being seen here a few days ago. Transition of care: patient was not received from another setting of care. Onset of symptoms was September 01, 2018. Risk Assessment: Do you want to hurt yourself or someone else? Patient reports no desire to harm self or others. Initial Sepsis Screen: Does the patient meet any 2 criteria? No. Patient's initial sepsis screen is negative. Does the patient have a suspected source of infection? No. Patient's initial sepsis screen is negative. Care prior to arrival: None. 16:31 Method Of Arrival: Wheelchair aa5 16:31 Acuity: VICTOR M 2 jd3 Historical: - Allergies: 16:30 No Known Allergies; aa5 - Home Meds: 23:25 amitriptyline 50 mg Oral tab 1 tab once daily [Active]; amlodipine 5 mg tab 1 tab once tl2 daily [Active]; atorvastatin Oral [Active]; gabapentin 600 mg Oral tab 1 tab 3 times per day [Active]; gabapentin Oral [Active]; Insulin: Novolog 10 units Sub-Q twice a day [Active]; Lasix 40 mg Oral tab 1 tab once daily [Active]; Linzess Oral [Active]; loratadine 10 mg Oral TbDL 1 tab once daily [Active]; Nexium 40 mg Oral cpDR 1 cap once daily [Active]; Onglyza 5 mg Oral tab 1 tab once daily [Active]; Santyl Topical [Active]; sertraline 50 mg Oral tab 1 tab once daily [Active]; - PMHx: 16:30 Deaf; Depression; Diabetes - IDDM; GERD; Hyperlipidemia; Hypertension; neuropathy; aa5 - Immunization history:: Adult Immunizations up to date. - Social history:: Smoking status: Patient/guardian denies using tobacco. - Ebola Screening: : No symptoms or risks identified at this time. - Family history:: not pertinent. - Hospitalizations: : No recent hospitalization is reported. Screenin:22 Abuse screen: Denies threats or abuse. Nutritional screening: No deficits noted. tl2 Tuberculosis screening: No symptoms or risk factors identified. Fall Risk IV access (20 points). Ambulatory Aid- Crutches/Cane/Walker (15 pts). Assessment: 20:30 General: Appears in no apparent distress. uncomfortable, Behavior is appropriate for tl2 age, agitated. Pain: Complains of pain in back. Neuro: Level of Consciousness is awake, alert, obeys commands, Oriented to person, place, time, situation. Cardiovascular: Denies chest pain. Respiratory: Airway is patent Respiratory effort is even, unlabored, Respiratory pattern is regular, symmetrical. GI: No signs and/or symptoms were reported involving the gastrointestinal system. : No signs and/or symptoms were reported regarding the genitourinary system. Derm: No signs and/or symptoms reported regarding the dermatologic system. 22:00 Reassessment: Patient appears in no apparent distress at this time. Patient and/or tl2 family updated on plan of care and expected duration. Pain level reassessed. Patient is alert, oriented x 3, equal unlabored respirations, skin warm/dry/pink. 23:27 Reassessment: Patient appears in no apparent distress at this time. Patient and/or tl2 family updated on plan of care and expected duration. Pain level reassessed. Patient is alert, oriented x 3, equal unlabored respirations, skin warm/dry/pink. awaiting further orders Patient states feeling better. 09/02 00:05 Reassessment: Patient appears in no apparent distress at this time. Patient and/or tl2 family updated on plan of care and expected duration. Pain level reassessed. pt frustrated at wait time. notified of continued elevate BP, new order see JUL. 01:00 Reassessment: Patient appears in no apparent distress at this time. Patient and/or tl2 family updated on plan of care and expected duration. Pain level reassessed. BP decreasing, MD notified, will continue to monitor before discharge. Vital Signs: 09/01 16:32 BP 132 / 81; Pulse 90; Resp 18 S; Temp 97.1(TE); Pulse Ox 97% on R/A; Weight 108.86 kg aa5 (R); Pain 7/10; 20:08 BP 205 / 103; jd3 20:29 BP 188 / 116; Pulse 86; Resp 18; Pulse Ox 99% on R/A; mt 20:58 BP 188 / 95; Pulse 82; Resp 16; Pulse Ox 99% on R/A; mt 22:20 BP 158 / 117; Pulse 90; Resp 18; Pulse Ox 98% on R/A; tl2 23:22 BP 170 / 111; Pulse 88; Resp 18; Pulse Ox 98% on R/A; tl2 04 01:10 BP 167 / 72; Pulse 78; Resp 18; Pulse Ox 98% on R/A; tl2 01:50 BP 172 / 74; Pulse 87; Resp 18; Pulse Ox 98% on R/A; tl2 02:20 BP 178 / 84; Pulse 89; Resp 18; Pulse Ox 99% on R/A; tl2 ED Course: 09/01 16:18 Patient arrived in ED. mr 16:30 Arm band placed on. aa5 16:32 Triage completed. aa5 18:11 [facility]C [facility]. snw 18:12 Elias Elias MD is Attending Physician. snw 20:31 Yon Harman MD is Attending Physician. wa 21:13 Inserted saline lock: 22 gauge in right antecubital area, using aseptic technique. mt Blood collected. 21:30 Chest Single View XRAY In Process Unspecified. EDMS 21:37 Renetta Hoff, JARRET is Primary Nurse. tl2 21:48 Head Brain Wo Cont CT In Process Unspecified. EDMS 23:22 Patient has correct armband on for positive identification. Bed in low position. Call tl2 light in reach. Side rails up X2. Adult w/ patient. 09/02 02:59 No provider procedures requiring assistance completed. IV discontinued, intact, tl2 bleeding controlled, No redness/swelling at site. Pressure dressing applied. Administered Medications: 09/01 22:27 Drug: morphine 4 mg Route: IVP; Site: right antecubital; tl2 23:30 Follow up: Response: No adverse reaction; Pain is decreased tl2 22:27 Drug: Zofran 4 mg Route: IVP; Site: right antecubital; tl2 23:00 Follow up: Response: No adverse reaction tl2 09/02 00:27 Drug: hydrALAZINE 10 mg Route: IV; Rate: bolus; Site: right antecubital; tl2 01:00 Follow up: IV Status: Completed infusion tl2 Outcome: 02:22 Discharge ordered by . krystal 02:59 Discharged to home via wheelchair, with family. tl2 02:59 Condition: stable 02:59 Discharge instructions given to patient, family, Instructed on discharge instructions, follow up and referral plans. medication usage, Demonstrated understanding of instructions, follow-up care, medications, Prescriptions given X 1. 03:02 Patient left the ED. tl2 Addendum: 09/05/2018 11:20 Addendum: Culture Results: Positive urine culture. Phone call Attempt #1 no answer. h b Signatures: Dispatcher [employer] EDMS Digna Alejandro, KILN SETTER-C KILN SETTER-Csnw ChiragMabel mr ManCitlaly RN RN aa5 Ruth Alcazar RN RN hb Knox, Taylor, RN RN tl2 Deepika Lizama mt, William, MD MD wa Davies, Jonathon RN RN jd3 Corrections: (The following items were deleted from the chart) 09/01 16:33 16:31 Presenting complaint: Pt's granddaughter states "her blood pressure was 199/119 1 aa5 hr before coming here and her doctor said to bring her in". Pt c/o dizziness. aa5 20:08 16:31 Acuity: VICTOR M 3 aa5 jd3 09/02 02:58 02:57 Reassessment: Patient appears in no apparent distress at this time. Patient tl2 and/or family updated on plan of care and expected duration. Pain level reassessed. pt frustrated at wait time. notified of continued elevate BP, new order see MAR tl2
--- NOTE | 2018-09-02 02:22 | EDPHYS ---
Physician Documentation [facility] Name: Delmi Schultz Age: 67 yrs Sex: Female : 1950 Arrival Date: 09/01/2018 Time: 16:18 Bed 6 Private MD: ED Physician Yon Harman HPI: 09/02 09:00 This 67 yrs old Female presents to ER via Wheelchair with complaints of High wa Blood Pressure. 09:00 The patient has elevated blood pressure and discovered this at home. Onset: The wa symptoms/episode began/occurred today. Modifying factors: The symptoms are aggravated by nothing, The symptoms are alleviated by none. Associated signs and symptoms: Pertinent positives: dizziness, Pertinent negatives: chest pain, dyspnea, headache, lightheadedness, nausea, visual changes, vomiting, weakness. Severity of symptoms: At its worst the blood pressure was 212 mm Hg, in the emergency department the blood pressure is see nursing note. The patient has experienced similar episodes in the past, multiple times. The patient has been recently seen by a physician: with similar presenting complaints, this ED. admits to mild dizziness. Historical: - Allergies: 09/01 16:30 No Known Allergies; aa5 - Home Meds: 23:25 amitriptyline 50 mg Oral tab 1 tab once daily [Active]; amlodipine 5 mg tab 1 tab once tl2 daily [Active]; atorvastatin Oral [Active]; gabapentin 600 mg Oral tab 1 tab 3 times per day [Active]; gabapentin Oral [Active]; Insulin: Novolog 10 units Sub-Q twice a day [Active]; Lasix 40 mg Oral tab 1 tab once daily [Active]; Linzess Oral [Active]; loratadine 10 mg Oral TbDL 1 tab once daily [Active]; Nexium 40 mg Oral cpDR 1 cap once daily [Active]; Onglyza 5 mg Oral tab 1 tab once daily [Active]; Santyl Topical [Active]; sertraline 50 mg Oral tab 1 tab once daily [Active]; - PMHx: 16:30 Deaf; Depression; Diabetes - IDDM; GERD; Hyperlipidemia; Hypertension; neuropathy; aa5 - Immunization history:: Adult Immunizations up to date. - Social history:: Smoking status: Patient/guardian denies using tobacco. - Ebola Screening: : No symptoms or risks identified at this time. - Family history:: not pertinent. - Hospitalizations: : No recent hospitalization is reported. ROS: 09/02 09:02 Constitutional: Negative for fever, chills, and weight loss, Eyes: Negative for injury, wa pain, redness, and discharge, ENT: Negative for injury, pain, and discharge, Neck: Negative for injury, pain, and swelling, Cardiovascular: Negative for chest pain, palpitations, and edema, Respiratory: Negative for shortness of breath, cough, wheezing, and pleuritic chest pain, Abdomen/GI: Negative for abdominal pain, nausea, vomiting, diarrhea, and constipation, Back: Negative for injury and pain, : Negative for injury, bleeding, discharge, and swelling, MS/Extremity: Negative for injury and deformity, Skin: Negative for injury, rash, and discoloration, Psych: Negative for depression, anxiety, suicide ideation, homicidal ideation, and hallucinations. Neuro: Positive for dizziness, Negative for syncope, tingling, visual changes, weakness. All other systems are negative. Exam: 09:02 Constitutional: This is a well developed, well nourished patient who is awake, alert, wa and in no acute distress. Head/Face: Normocephalic, atraumatic. Eyes: Pupils equal round and reactive to light, extra-ocular motions intact. Lids and lashes normal. Conjunctiva and sclera are non-icteric and not injected. Cornea within normal limits. Periorbital areas with no swelling, redness, or edema. ENT: Nares patent. No nasal discharge, no septal abnormalities noted. Tympanic membranes are normal and external auditory canals are clear. Oropharynx with no redness, swelling, or masses, exudates, or evidence of obstruction, uvula midline. Mucous membranes moist. Neck: Trachea midline, no thyromegaly or masses palpated, and no cervical lymphadenopathy. Supple, full range of motion without nuchal rigidity, or vertebral point tenderness. No Meningismus. Chest/axilla: Normal chest wall appearance and motion. Nontender with no deformity. No lesions are appreciated. Cardiovascular: Regular rate and rhythm with a normal S1 and S2. No gallops, murmurs, or rubs. Normal PMI, no JVD. No pulse deficits. Respiratory: Lungs have equal breath sounds bilaterally, clear to auscultation and percussion. No rales, rhonchi or wheezes noted. No increased work of breathing, no retractions or nasal flaring. Abdomen/GI: Soft, non-tender, with normal bowel sounds. No distension or tympany. No guarding or rebound. No evidence of tenderness throughout. Back: No spinal tenderness. No costovertebral tenderness. Full range of motion. Skin: Warm, dry with normal turgor. Normal color with no rashes, no lesions, and no evidence of cellulitis. MS/ Extremity: Pulses equal, no cyanosis. Neurovascular intact. Full, normal range of motion. 09:02 Neuro: Orientation: is normal, Mentation: is normal, Cranial nerves: grossly normal, Cerebellar function: is grossly normal, Motor: is normal. Vital Signs: 09/01 16:32 BP 132 / 81; Pulse 90; Resp 18 S; Temp 97.1(TE); Pulse Ox 97% on R/A; Weight 108.86 kg aa5 (R); Pain 7/10; 20:08 BP 205 / 103; jd3 20:29 BP 188 / 116; Pulse 86; Resp 18; Pulse Ox 99% on R/A; mt 20:58 BP 188 / 95; Pulse 82; Resp 16; Pulse Ox 99% on R/A; mt 22:20 BP 158 / 117; Pulse 90; Resp 18; Pulse Ox 98% on R/A; tl2 23:22 BP 170 / 111; Pulse 88; Resp 18; Pulse Ox 98% on R/A; tl2 09/02 01:10 BP 167 / 72; Pulse 78; Resp 18; Pulse Ox 98% on R/A; tl2 01:50 BP 172 / 74; Pulse 87; Resp 18; Pulse Ox 98% on R/A; tl2 02:20 BP 178 / 84; Pulse 89; Resp 18; Pulse Ox 99% on R/A; tl2 MDM: 09/01 20:31 Patient medically screened. wa 09/02 09:03 Differential diagnosis: r/o end organ dysfxn. will attempt to improve with meds. Data va reviewed: vital signs, nurses notes. Test interpretation: by ED physician or midlevel provider: labs noted for UTI otherwise wnl.. Response to treatment: the patient's symptoms have markedly improved after treatment. 09/01 20:50 Order name: Basic Metabolic Panel; Complete Time: 23:33 09/01 20:50 Order name: CBC with Diff; Complete Time: 23:33 09/01 20:50 Order name: CPK; Complete Time: 23:33 09/01 20:50 Order name: Lactate; Complete Time: 23:34 09/01 20:50 Order name: LFT's; Complete Time: 23:33 09/01 20:50 Order name: Lipase; Complete Time: 23:33 09/01 20:50 Order name: Procalcitonin; Complete Time: 23:34 09/01 20:50 Order name: Protime (+inr); Complete Time: 23:34 09/01 20:50 Order name: Troponin (emerg Dept Use Only); Complete Time: 23:34 09/01 20:50 Order name: Urine Microscopic Only; Complete Time: 02:19 09/01 20:50 Order name: Flu; Complete Time: 23:34 09/01 20:51 Order name: BNP; Complete Time: 23:33 va 09/01 23:18 Order name: Urine Dipstick--Ancillary (enter results); Complete Time: 02:19 ar5 09/01 23:54 Order name: Urine Culture EDSC 09/01 20:50 Order name: Chest Single View XRAY va 09/01 20:50 Order name: Accucheck; Complete Time: 21:12 va 09/01 20:50 Order name: Cardiac monitoring; Complete Time: 20:57 va 09/01 20:50 Order name: EKG - Nurse/Tech; Complete Time: 20:57 va 09/01 20:50 Order name: Labs collected and sent; Complete Time: 21:12 va 09/01 20:50 Order name: O2 Per Protocol; Complete Time: 20:57 va 09/01 20:50 Order name: O2 Sat Monitoring; Complete Time: 20:57 va 09/01 20:50 Order name: Urine Dipstick-Ancillary (obtain specimen); Complete Time: 23:42 va 09/01 20:51 Order name: Head Brain Wo Cont CT wa Administered Medications: 09/01 22:27 Drug: morphine 4 mg Route: IVP; Site: right antecubital; tl2 23:30 Follow up: Response: No adverse reaction; Pain is decreased tl2 22:27 Drug: Zofran 4 mg Route: IVP; Site: right antecubital; tl2 23:00 Follow up: Response: No adverse reaction tl2 09/02 00:27 Drug: hydrALAZINE 10 mg Route: IV; Rate: bolus; Site: right antecubital; tl2 01:00 Follow up: IV Status: Completed infusion tl2 Disposition: 09/02/18 02:22 Discharged to Home. Impression: Elevated Blood Pressure, Dizziness, UTI. - Condition is Stable. - Discharge Instructions: Hypertension, [id number], Dizziness, [id number]. - Prescriptions for Keflex 500 mg Oral Capsule - take 1 capsule by ORAL route every 8 hours for 10 days; 30 capsule. - Medication Reconciliation Form, Thank You Letter, Antibiotic Education, Prescription Opioid Use form. - Follow up: Private Physician; When: 1 - 2 days; Reason: Recheck today's complaints, Re-evaluation by your physician. - Problem is an acute exacerbation. - Symptoms have improved. - Notes: follow up with your doctor for further evaluation. take antibiotics as prescribed Signatures: Dispatcher [employer] EDSC Citlaly Man RN RN aa5 Renetta Hoff RN RN tl2 Yon Harman MD MD wa Corrections: (The following items were deleted from the chart) 03:02 02:22 09/02/2018 02:22 Discharged to Home. Impression: Elevated Blood Pressure; tl2 Dizziness; UTI. Condition is Stable. Forms are Medication Reconciliation Form, Thank You Letter, Antibiotic Education, Prescription Opioid Use. Follow up: Private Physician; When: 1 - 2 days; Reason: Recheck today's complaints, Re-evaluation by your physician. Problem is an acute exacerbation. Symptoms have improved. wa
[2018-09-02 03:39] VITALS: TEMP 97.1
[2018-09-02 04:06] VITALS: BP 178/84; O2SAT 99
--- NOTE | 2018-09-02 08:17 | RAD REPORT ---
EXAM DESCRIPTION: RAD - Chest Single View - 09/01/2018 9:30 pm CLINICAL HISTORY: Hypertension, chest and back pain COMPARISON: August 30 TECHNIQUE: AP portable chest image was obtained 2126 hours . FINDINGS: No focal mass or consolidation. Interstitial pattern is similar to the comparison. Heart a nd vasculature are normal. No measurable pleural effusion and no pneumothorax. No acute bony abnormal ity seen. No acute aortic findings suspected. IMPRESSION: No acute cardiopulmonary process. No significant interval change.
--- NOTE | 2018-09-02 10:04 | RAD REPORT ---
EXAM DESCRIPTION: CT - Head Brain Wo Cont - 09/01/2018 10:11 pm TECHNIQUE: Axial scans of the brain without contrast including multiplanar computer-generated reform ations. Total Dose Length Product: 822. This exam was performed according to our departmental dose-op timization program, which includes automated exposure control, adjustment of the mA and/or kV accordi ng to patient size and/or use of iterative reconstruction technique. Comparison studies: None. COMPARISON: None. CLINICAL HISTORY: DIZZINESS. FINDINGS: Scalp: Multiple scalp nodules. Intracranial mass: None. Intracranial density: Unremarkable. Intracranial hemorrhage: No intracranial hemorrhage. Extra-axial fluid collection: None. Midline shift: None Ventricles, subarachnoid spaces and sulci: Normal for a. Calvarium: Unremarkable. Orbits: Cataract surgery. Left scleral band. Paranasal sinuses: Aerated. IMPRESSION: 1. No acute intracranial findings. Electronically signed by: Luiz Bruce MD 09/01/2018 9:52 PM CDT Due to temporary technical issues with the PACS/Fluency reporting system, reports are being signed by the in house radiologist as a courtesy to ensure prompt reporting. The interpreting radiologist is f ully responsible for the content of the report.
== END 2018-09-02 03:02 | disposition home or self-care (01) ==
LOC: ER 16:14
DX: I10 Essential (primary) hypertension (principal); N39.0 Urinary tract infection, site not specified; E11.9 Type 2 diabetes mellitus without complications; F32.9 Major depressive disorder, single episode, unspecified; E78.5 Hyperlipidemia, unspecified; Z79.4 Long term (current) use of insulin
CPT/HCPCS: 96365; 93005; 87088; 85025; 87086; 80048; 36415; 82550; 85610; 82962; 80076; 83605; 87077; 87186; 84484; 83690; 84145; 83880; 87804 ×2; 70450; 71045; 96375; 99284; J0360; J2405; 81003; 81015

== ENCOUNTER 2018-09-20 12:05 | Emergency (ER) | payer OTHER ==
[2018-09-20] MEDS ORDERED: ACETAMINOPHEN 500 MG TAB ONE (13:02)
[2018-09-20] MEDS ORDERED: KETOROLAC 30 MG/ML INJ ONE (13:02)
--- NOTE | 2018-09-20 13:32 | RAD REPORT ---
EXAM DESCRIPTION: RAD - Chest Pa And Lat (2 Views) - 09/20/2018 1:25 pm CLINICAL HISTORY: Back pain, hypertension COMPARISON: September 01, 2018 TECHNIQUE: PA and lateral views of the chest were obtained. FINDINGS: The lungs are clear. Lung markings are similar to comparison. Heart size is normal and ce ntral vasculature is within normal limits. No pleural effusion or pneumothorax seen. No acute bony finding noted. No aortic abnormality. No suspicious change from comparison. IMPRESSION: No acute cardiopulmonary process.
[2018-09-20 14:03] LABS: Urine RBC <5 /HPF (NONE SEEN)
[2018-09-20 14:04] LABS: Urine Bacteria 20-50 /HPF (<20); Urine Culture Reflex Order REFLEXED
[2018-09-20] MEDS ORDERED: CEFTRIAXONE/SWI 1gm 1 GM/10 ML SYR ONE (14:26)
--- NOTE | 2018-09-20 15:03 | EDPHYS ---
Physician Documentation [facility] Name: Delmi Schultz Age: 67 yrs Sex: Female : 1950 Arrival Date: 09/20/2018 Time: 12:07 Bed 2 Private MD: ED Physician Yon Harman HPI: 09/20 14:13 This 67 yrs old Female presents to ER via Ambulatory with complaints of Back wa Pain. 14:13 The patient presents with pain that is acute, with no known mechanism of injury. The wa symptoms are located in the R mid flank and lower back. Onset: The symptoms/episode began/occurred today. The pain does not radiate. Associated signs and symptoms: Pertinent negatives: abdominal pain, chest pain, hematuria, numbness, tingling, urinary retention, vomiting, weakness. The problem was sustained from unknown cause. Modifying factors: The patient symptoms are alleviated by nothing, the patient symptoms are aggravated by movement. Severity of symptoms: At their worst the symptoms were moderate, in the emergency department the symptoms are unchanged. The patient has experienced similar episodes in the past, a few times. The patient has not recently seen a physician. Historical: - Allergies: 12:17 No Known Allergies; aa5 - PMHx: 12:17 Deaf; Depression; Diabetes - IDDM; GERD; Hyperlipidemia; Hypertension; neuropathy; aa5 - Immunization history:: Adult Immunizations up to date. - Ebola Screening: : No symptoms or risks identified at this time. - Social history:: Smoking status: Patient/guardian denies using tobacco, Patient/guardian denies using alcohol. - Family history:: not pertinent. - Hospitalizations: : No recent hospitalization is reported. ROS: 14:55 Constitutional: Negative for fever, chills, and weight loss, Eyes: Negative for injury, wa pain, redness, and discharge, ENT: Negative for injury, pain, and discharge, Neck: Negative for injury, pain, and swelling, Cardiovascular: Negative for chest pain, palpitations, and edema, Respiratory: Negative for shortness of breath, cough, wheezing, and pleuritic chest pain, Abdomen/GI: Negative for abdominal pain, nausea, vomiting, diarrhea, and constipation, : Negative for injury, bleeding, discharge, and swelling, MS/Extremity: Negative for injury and deformity, Skin: Negative for injury, rash, and discoloration, Neuro: Negative for headache, weakness, numbness, tingling, and seizure, Psych: Negative for depression, anxiety, suicide ideation, homicidal ideation, and hallucinations. 14:55 Back: Positive for pain with movement, of the right mid back and right low back. 14:55 All other systems are negative. Exam: 14:55 Constitutional: This is a well developed, well nourished patient who is awake, alert, wa and in no acute distress. Head/Face: Normocephalic, atraumatic. Eyes: Pupils equal round and reactive to light, extra-ocular motions intact. Lids and lashes normal. Conjunctiva and sclera are non-icteric and not injected. Cornea within normal limits. Periorbital areas with no swelling, redness, or edema. ENT: Nares patent. No nasal discharge, no septal abnormalities noted. Tympanic membranes are normal and external auditory canals are clear. Oropharynx with no redness, swelling, or masses, exudates, or evidence of obstruction, uvula midline. Mucous membranes moist. Neck: Trachea midline, no thyromegaly or masses palpated, and no cervical lymphadenopathy. Supple, full range of motion without nuchal rigidity, or vertebral point tenderness. No Meningismus. Chest/axilla: Normal chest wall appearance and motion. Nontender with no deformity. No lesions are appreciated. Cardiovascular: Regular rate and rhythm with a normal S1 and S2. No gallops, murmurs, or rubs. Normal PMI, no JVD. No pulse deficits. Respiratory: Lungs have equal breath sounds bilaterally, clear to auscultation and percussion. No rales, rhonchi or wheezes noted. No increased work of breathing, no retractions or nasal flaring. Abdomen/GI: Soft, non-tender, with normal bowel sounds. No distension or tympany. No guarding or rebound. No evidence of tenderness throughout. Skin: Warm, dry with normal turgor. Normal color with no rashes, no lesions, and no evidence of cellulitis. MS/ Extremity: Pulses equal, no cyanosis. Neurovascular intact. Full, normal range of motion. Neuro: Awake and alert, GCS 15, oriented to person, place, time, and situation. Cranial nerves II-XII grossly intact. Motor strength 5/5 in all extremities. Sensory grossly intact. Cerebellar exam normal. Normal gait. Psych: Awake, alert, with orientation to person, place and time. Behavior, mood, and affect are within normal limits. 14:55 Back: pain, that is mild, of the right mid back and right low back. Vital Signs: 12:17 BP 158 / 86; Pulse 87; Resp 16 S; Temp 97.8(TE); Pulse Ox 98% on R/A; aa5 13:49 BP 148 / 84; Pulse 85; Resp 18; Pulse Ox 100% on R/A; hj 14:52 BP 153 / 101; Pulse 81; Resp 18; Pulse Ox 99% on R/A; hj 15:43 BP 150 / 96; Pulse 80; Resp 18; Pulse Ox 100% on R/A; hj MDM: 12:21 Patient medically screened. wy 14:56 Differential diagnosis: back pain. will r/o acute issue. check CXR. pain control. wa reassess. pain reproducible. consider musculoskeletal in origin. Data reviewed: vital signs, nurses notes, lab test result(s). Test interpretation: by ED physician or midlevel provider: CXR: no acute process. . 14:58 Test interpretation: by ED physician or midlevel provider: UA noted for pyuria wa consistent with UTI. . Response to treatment: the patient's symptoms have markedly improved after treatment. ED course: pain meds. rocephin IV given. 15:05 Test interpretation: by ED physician or midlevel provider: CXR nml. no acute process. wy 09/20 12:47 Order name: Urine Microscopic Only; Complete Time: 14:06 wy 09/20 13:33 Order name: Urine Dipstick--Ancillary (enter results) 09/20 12:47 Order name: Chest Pa And Lat (2 Views) XRAY; Complete Time: 13:55 wy 09/20 14:06 Order name: Urine Culture [facility] 09/20 12:47 Order name: Urine Dipstick-Ancillary (obtain specimen); Complete Time: 13:54 wy Administered Medications: 12:47 Drug: Tylenol 1000 mg Route: PO; hj 13:54 Follow up: Response: No adverse reaction 12:47 Drug: TORadol 30 mg Route: IVP; Site: right antecubital; hj 13:54 Follow up: Response: No adverse reaction; Pain is decreased 14:07 Drug: Rocephin - (cefTRIAXone) 1 grams Route: IVPB; Infused Over: 30 mins; Site: right hj antecubital; 14:16 Follow up: IV Status: Completed infusion Disposition: 09/20/18 15:01 Discharged to Home. Impression: Acute R lower back pain, Acute UTI. - Condition is Stable. - Discharge Instructions: Urinary Tract Infection, Adult, [id number], Back Pain, Adult, [id number]. - Prescriptions for Keflex 500 mg Oral Capsule - take 1 capsule by ORAL route every 8 hours for 5 days; 15 capsule. Tramadol 50 mg Oral Tablet - take 1 tablet by ORAL route every 8 hours as needed; 12 tablet. - Medication Reconciliation Form, Thank You Letter, Antibiotic Education, Prescription Opioid Use form. - Follow up: Private Physician; When: 2 - 3 days; Reason: Re-evaluation by your physician. - Problem is new. - Symptoms have improved. - Notes: take medication as prescribed Signatures: Dispatcher [employer] EDCitlaly Oliver RN RN aa5 Enrique White RN RN [facility] HospitalYon MD MD wy Corrections: (The following items were deleted from the chart) 15:44 15:01 09/20/2018 15:01 Discharged to Home. Impression: Acute R lower back pain; Acute hj UTI. Condition is Stable. Forms are Medication Reconciliation Form, Thank You Letter, Antibiotic Education, Prescription Opioid Use. Follow up: Private Physician; When: 2 - 3 days; Reason: Re-evaluation by your physician. Problem is new. Symptoms have improved. wa
--- NOTE | 2018-09-20 15:03 | ER ---
Nurse's Notes [facility] Name: Delmi Schultz Age: 67 yrs Sex: Female : 1950 Arrival Date: 09/20/2018 Time: 12:07 Bed 2 Private MD: Diagnosis: Acute R lower back pain;Acute UTI Presentation: 09/20 12:15 Presenting complaint: Pt's [id number] states "she told me that her blood pressure aa5 was 183/113 and her lower back is hurting". Transition of care: patient was not received from another setting of care. Onset of symptoms was August 2018. Risk Assessment: Do you want to hurt yourself or someone else? Patient reports no desire to harm self or others. Initial Sepsis Screen: Does the patient meet any 2 criteria? No. Patient's initial sepsis screen is negative. Does the patient have a suspected source of infection? No. Patient's initial sepsis screen is negative. Care prior to arrival: None. 12:15 Method Of Arrival: Ambulatory aa5 12:15 Acuity: VICTOR M 3 aa5 Triage Assessment: 12:24 General: Appears in no apparent distress. uncomfortable, Behavior is calm, cooperative, hj appropriate for age. Pain: Complains of pain in back, head. Musculoskeletal: Circulation, motion, and sensation intact. Historical: - Allergies: 12:17 No Known Allergies; aa5 - PMHx: 12:17 Deaf; Depression; Diabetes - IDDM; GERD; Hyperlipidemia; Hypertension; neuropathy; aa5 - Immunization history:: Adult Immunizations up to date. - Ebola Screening: : No symptoms or risks identified at this time. - Social history:: Smoking status: Patient/guardian denies using tobacco, Patient/guardian denies using alcohol. - Family history:: not pertinent. - Hospitalizations: : No recent hospitalization is reported. Screenin:24 Abuse screen: Denies threats or abuse. Denies injuries from another. Nutritional hj screening: No deficits noted. Tuberculosis screening: No symptoms or risk factors identified. Fall Risk None identified. Assessment: 12:17 General: Appears in no apparent distress. uncomfortable, Behavior is calm. Pain: hj Complains of pain in back, head. Neuro: Level of Consciousness is awake, alert, obeys commands, Oriented to person, place, time, situation, Appropriate for age deaf and on sign language; sister in law at bedside;. Cardiovascular: Capillary refill < 3 seconds Patient's skin is warm and dry. Respiratory: Airway is patent Respiratory effort is even, unlabored, Respiratory pattern is regular, symmetrical. GI: No signs and/or symptoms were reported involving the gastrointestinal system. : No signs and/or symptoms were reported regarding the genitourinary system. EENT: No signs and/or symptoms were reported regarding the EENT system. Derm: No signs and/or symptoms reported regarding the dermatologic system. Musculoskeletal: No signs and/or symptoms reported regarding the musculoskeletal system. 13:49 Reassessment: Patient and/or family updated on plan of care and expected duration. Pain hj level reassessed. awaiting results and POC;. 14:52 Reassessment: Patient and/or family updated on plan of care and expected duration. Pain hj level reassessed. Patient is alert, oriented x 3, equal unlabored respirations, skin warm/dry/pink. awaiting POC:. 15:22 Reassessment: per ED MD, to give home med, lisinopril 20 mg PO x 1;. hj Vital Signs: 12:17 BP 158 / 86; Pulse 87; Resp 16 S; Temp 97.8(TE); Pulse Ox 98% on R/A; aa5 13:49 BP 148 / 84; Pulse 85; Resp 18; Pulse Ox 100% on R/A; hj 14:52 BP 153 / 101; Pulse 81; Resp 18; Pulse Ox 99% on R/A; hj 15:43 BP 150 / 96; Pulse 80; Resp 18; Pulse Ox 100% on R/A; hj ED Course: 12:07 Patient arrived in ED. mr 12:15 Arm band placed on. aa5 12:17 Triage completed. aa5 12:19 Enrique White, RN is Primary Nurse. hj 12:21 Yon Harman MD is Attending Physician. wa 12:25 Patient has correct armband on for positive identification. Placed in gown. Bed in low hj position. Call light in reach. Side rails up X 1. Adult w/ patient. 12:32 Initial lab(s) drawn, by me. Inserted saline lock: 22 gauge in right antecubital area, jb1 using aseptic technique. Blood collected. 13:25 Chest Pa And Lat (2 Views) XRAY In Process Unspecified. EDMS 13:54 Urine Microscopic Only Sent. hj 15:42 No provider procedures requiring assistance completed. IV discontinued, intact, hj bleeding controlled, No redness/swelling at site. Pressure dressing applied. Administered Medications: 12:47 Drug: Tylenol 1000 mg Route: PO; hj 13:54 Follow up: Response: No adverse reaction hj 12:47 Drug: TORadol 30 mg Route: IVP; Site: right antecubital; hj 13:54 Follow up: Response: No adverse reaction; Pain is decreased hj 14:07 Drug: Rocephin - (cefTRIAXone) 1 grams Route: IVPB; Infused Over: 30 mins; Site: right hj antecubital; 14:16 Follow up: IV Status: Completed infusion Outcome: 15:01 Discharge ordered by . al 15:43 Discharged to home via wheelchair, with family. 15:43 Condition: stable 15:43 Discharge instructions given to patient, family, Instructed on discharge instructions, follow up and referral plans. medication usage, Demonstrated understanding of instructions, follow-up care, medications, Prescriptions given X 3. 15:44 Patient left the ED. Signatures: Dispatcher [employer] EDMS Bernardo Peña1 Mabel Beard mr Citlaly Man, RN RN aa5 Enrique White RN RN Yon Harman MD MD al
[2018-09-20 15:53] VITALS: TEMP 97.8
[2018-09-20 15:56] VITALS: BP 150/96; O2SAT 100
[2018-09-20 16:04] LABS: Urine Blood TRACE (NEG); Urine Glucose NEGATIVE (NEG); Urine Protein 3+ (NEG); Urine pH 5.5 (5.0-7.0)
== END 2018-09-20 15:44 | disposition home or self-care (01) ==
LOC: ER 12:05
DX: N39.0 Urinary tract infection, site not specified (principal); H91.90 Unspecified hearing loss, unspecified ear; F32.9 Major depressive disorder, single episode, unspecified; E78.5 Hyperlipidemia, unspecified; I10 Essential (primary) hypertension; E11.9 Type 2 diabetes mellitus without complications; K21.9 Gastro-esophageal reflux disease without esophagitis; Z79.4 Long term (current) use of insulin
CPT/HCPCS: 87088; 87086; 71046; 96375; 96374; 99284; J0696; 81003; 81015; 87077; 87186

== ENCOUNTER 2018-12-17 07:27 | Day surgery (SDC) | payer OTHER ==
[2018-12-17] MEDS ORDERED: NA CHLORIDE 0.9% 1,000 ML ONE (07:56)
[2018-12-17] MEDS ORDERED: PROPOFOL 200 MG/20 ML VIAL IV ONE (09:14)
--- NOTE | 2018-12-17 09:27 | ENDO RPT ---
[address], [address] COLONOSCOPY PROCEDURE REPORT EXAM DATE: 12/17/2018 PATIENT NAME: Delmi Schultz MR #: [id number] BIRTHDATE: 1950 ATTENDING: Gamal Kirk DR STATUS: outpatient CREATIVE WRITING ENGLISH PROFESSOR: Emmanuel Florian RN, Nya Alexis RN, and Trevin Mathur [facility] INDICATIONS: The patient is a 68 yr old Female here for a colonoscopy due to abdominal pain and colon cancer screening PROCEDURE PERFORMED: Screening Colonoscopy MEDICATIONS: Per Anesthesia. ESTIMATED BLOOD LOSS: None CONSENT: The patient understands the risks and benefits of the procedure and understands that these risks include, but are not limited to: sedation, allergic reaction, infection, perforation and/or bleeding. Alternative means of evaluation and treatment include, among others: physical exam, x-rays, and/or surgical intervention. The patient elects to proceed with this endoscopic procedure. DESCRIPTION OF PROCEDURE: During intra-op preparation period all mechanical medical equipment was checked for proper function. Hand hygiene and appropriate measures for infection prevention was taken. Procedure, possible complications, alternatives including, but not limited to possibility of bleeding, perforation, tear, infection, sepsis, need for surgery, need for blood transfusion, were explained to the patient. After the risks, benefits and alternatives of the procedure were thoroughly explained, Informed consent was verified, confirmed and timeout was successfully executed by the treatment team. The patient was placed in the left lateral position. A digital rectal exam was performed and revealed no abnormalities of the rectum. After appropriate level of anesthesia, the scope was passed. The EC-[id number] ([id number]) endoscope was introduced through the anus and advanced to the cecum, which was identified by both the appendix and ileocecal valve. The quality of the prep was fair. The instrument was then slowly withdrawn as the colon was fully examined. Scope withdrawal time was 10 minutes. COLON FINDINGS: Mild diverticulosis was noted in the sigmoid colon. No bleeding was noted from the diverticulosis. Retroflexed views revealed no abnormalities. The scope was then completely withdrawn from the patient and the procedure terminated. ADVERSE EVENTS: There were no complications. IMPRESSIONS: Mild diverticulosis was noted in the sigmoid colon RECOMMENDATIONS: 1. increase dietary water 2. low residue diet RECALL: Return in 10 year(s) for Colonoscopy. Gamal Kirk DR eSigned: Gamal Kirk DR 12/17/2018 9:27 AM cc: CPT CODES: ICD9 CODES: PATIENT NAME: Delmi Schultz MR#: [id number]
[2018-12-17 11:19] VITALS: BP 157/92; TEMP 97.2; O2SAT 100
== END 2018-12-17 10:11 | disposition home or self-care (01) ==
LOC: OR 07:27
PROVIDERS: ATTEND Surgery
PROC: 0DJD8ZZ Inspection of Lower Intestinal Tract, Via Natural or Artificial Opening Endoscopic (ICD-10-PCS; principal; 2018-12-17 09:15)
DX: Z12.11 Encounter for screening for malignant neoplasm of colon (principal); K57.30 Diverticulosis of large intestine without perforation or abscess without bleeding; E78.5 Hyperlipidemia, unspecified; E11.51 Type 2 diabetes mellitus with diabetic peripheral angiopathy without gangrene; K21.9 Gastro-esophageal reflux disease without esophagitis; I10 Essential (primary) hypertension; F32.9 Major depressive disorder, single episode, unspecified; Z79.4 Long term (current) use of insulin; Z79.899 Other long term (current) drug therapy
CPT/HCPCS: 82962; J2704; J7030; G0121

== ENCOUNTER 2018-12-19 22:54 | Emergency (ER) | payer OTHER ==
[2018-12-20 00:05] LABS: Absolute Lymphocytes (CBC) 3.4 K/uL (0.7-4.9); Basophils % 0.7 % (0-1.3); Hematocrit 36.7 % (36.0-45.0); Lymphocytes % 33.9 % (15.3-44.8); MPV 9.1 fL (7.6-11.3); Monocytes % 6.8 % (3.3-12.3)
[2018-12-20 00:23] LABS: Albumin 3.2 g/dL (3.4-5.0); Bilirubin Direct 0.2 mg/dL (0-0.2); Bilirubin Total 0.5 mg/dL (0.2-1.0); Protein, Total 6.8 g/dL (6.4-8.2)
[2018-12-20 00:39] LABS: Urine Bacteria >50 /HPF (<20)
[2018-12-20 00:40] LABS: Urine Culture Reflex Order REFLEXED; Urine RBC <5 /HPF (NONE SEEN)
[2018-12-20 00:41] LABS: Urine Blood 1+ (NEG); Urine Glucose TRACE (NEG); Urine Protein 3+ (NEG); Urine Specific Gravity 1.015 (1.005-1.030)
--- NOTE | 2018-12-20 01:58 | ER ---
Nurse's Notes [facility] Name: Delmi Schultz Age: 68 yrs Sex: Female : 1950 Arrival Date: 12/19/2018 Time: 22:57 Bed 7 Private MD: Diagnosis: Abdominal tenderness;Hypokalemia Presentation: 12/19 23:00 Presenting complaint: EMS states: Reports she has been having ABD pain for a month, had ea a colonoscopy done on Thursday. Pt reported to EMS she had worsening ABD pain. Pt reported nausea, vomiting and diarrhea. Transition of care: patient was not received from another setting of care. Onset of symptoms was December 20, 2018. Risk Assessment: Do you want to hurt yourself or someone else? Patient reports no desire to harm self or others. Initial Sepsis Screen: Does the patient meet any 2 criteria? No. Patient's initial sepsis screen is negative. Does the patient have a suspected source of infection? No. Patient's initial sepsis screen is negative. Care prior to arrival: None. 23:00 Method Of Arrival: EMS: [facility] ea 23:00 Acuity: VICTOR M 3 ea Historical: - Allergies: 12/20 00:30 No Known Allergies; ea - Home Meds: 00:30 amitriptyline 50 mg Oral tab 1 tab once daily [Active]; amlodipine 5 mg tab 1 tab once ea daily [Active]; atorvastatin Oral [Active]; gabapentin 600 mg Oral tab 1 tab 3 times per day [Active]; gabapentin Oral [Active]; Insulin: Novolog 10 units Sub-Q twice a day [Active]; Lasix 40 mg Oral tab 1 tab once daily [Active]; Linzess Oral [Active]; loratadine 10 mg Oral TbDL 1 tab once daily [Active]; Nexium 40 mg Oral cpDR 1 cap once daily [Active]; Onglyza 5 mg Oral tab 1 tab once daily [Active]; Santyl Topical [Active]; sertraline 50 mg Oral tab 1 tab once daily [Active]; - PMHx: 00:30 neuropathy; Hypertension; Hyperlipidemia; GERD; Diabetes - IDDM; Depression; Deaf; ea - Immunization history:: Adult Immunizations up to date. - Social history:: Smoking status: Patient/guardian denies using tobacco. - Ebola Screening: : No symptoms or risks identified at this time. Screenin/21 23:00 Abuse screen: Denies threats or abuse. Nutritional screening: No deficits noted. ea Tuberculosis screening: No symptoms or risk factors identified. Fall Risk None identified. Assessment: 23:00 General: Appears uncomfortable, Behavior is calm, cooperative, appropriate for age. ea Pain: Complains of pain in abdomen. Neuro: Level of Consciousness is awake, alert, obeys commands, Oriented to person, place, time, situation. Respiratory: Airway is patent Respiratory effort is even, unlabored, Respiratory pattern is regular, symmetrical. GI: Bowel sounds present X 4 quads. Abd is soft and non tender X 4 quads. Derm: Skin is pink, warm \T\ dry. 12/20 00:00 Reassessment: Patient and/or family updated on plan of care and expected duration. Pain ea level reassessed. Patient is alert, oriented x 3, equal unlabored respirations, skin warm/dry/pink. 01:46 Reassessment: pt c/o diarrhea requesting brief. ak1 02:39 Reassessment: Patient and/or family updated on plan of care and expected duration. Pain ea level reassessed. Patient is alert, oriented x 3, equal unlabored respirations, skin warm/dry/pink. Discharge instruction given to patient, pt verbalized the understanding of instruction. Pt reports she has to call brother to come pick her up. Slick contacted at [phone], reported he would come pick pt up. 02:45 Reassessment: Patient and/or family updated on plan of care and expected duration. Pain ea level reassessed. Patient is alert, oriented x 3, equal unlabored respirations, skin warm/dry/pink. Pt left ED via wheelchair per family, pt tolerating well. Vital Signs: 12/19 23:00 BP 128 / 104; Pulse 83; Resp 18; Temp 98; Pulse Ox 99% on R/A; Weight 97.52 kg; Height ea 5 ft. 6 in. (167.64 cm); 12/20 01:00 BP 182 / 90; Pulse 90; Resp 18; Pulse Ox 97% on R/A; ea 02:35 BP 180 / 90; Pulse 88; Resp 18; Temp 97.8(O); Pulse Ox 98% on R/A; ea 12/19 23:00 Body Mass Index 34.70 (97.52 kg, 167.64 cm) ea ED Course: 12/19 22:57 Patient arrived in ED. ds1 22:58 Syd Dean MD is Attending Physician. tw4 23:00 Arm band placed on right wrist. Patient placed in an exam room, on a stretcher, on ea pulse oximetry. 23:34 Warm blanket given. Verbal reassurance given. Pulse ox on. NIBP on. jp3 23:35 Urine collected: clean catch specimen, clear, emmy colored. Patient maintains SpO2 jp3 saturation greater than 95% on room air. 23:35 Placed in gown. Bed in low position. Call light in reach. Side rails up X 1. Side rails jp3 up X2. 23:40 Initial lab(s) drawn, by me, sent to lab. Maintain EMS IV. Dressing intact. Good blood jp3 return noted. Site clean \T\ dry. Gauge \T\ site: 20-gauge in RAC. 23:45 Initial lab(s) drawn, by me, sent to lab. jp3 23:52 Basic Metabolic Panel Sent. jp3 23:52 CBC with Diff Sent. jp3 23:52 Creatinine for Radiology Sent. jp3 23:52 Hepatic Function Sent. jp3 23:53 Lipase Sent. jp3 12/20 00:24 Yazmin Spaulding, RN is Primary Nurse. ea 00:33 Triage completed. ea 01:22 CT Abd/Pelvis - IV Contrast Only In Process Unspecified. EDMS 02:45 No provider procedures requiring assistance completed. IV discontinued, intact, ea bleeding controlled, No redness/swelling at site. Pressure dressing applied. Administered Medications: 02:09 Drug: Potassium Chloride 40 mEq Route: PO; ea 02:27 Follow up: Response: No adverse reaction ea 02:36 Drug: Bentyl 20 mg Route: PO; ea 02:47 Follow up: Response: Medication administered at discharge. ea Outcome: 01:57 Discharge ordered by . tw4 02:45 Discharged to home via wheelchair, with family. ea 02:45 Condition: stable 02:45 Discharge instructions given to patient, Instructed on discharge instructions, follow up and referral plans. medication usage, Demonstrated understanding of instructions, follow-up care, medications, Prescriptions given X 1. 02:47 Patient left the ED. ea Signatures: Dispatcher [employer] EDGayatri Quinn ds1 Emmy Dominguez RN RN ak1 Yazmin Spaulding, Syd Carson RN, ea, MD MD tw4 Rene Hutchison jp3 Corrections: (The following items were deleted from the chart) 02:47 02:40 BP 180 / 90; Pulse 88bpm; Resp 18bpm; Pulse Ox 98% RA; Temp 97.8F Oral; carla aguirre
--- NOTE | 2018-12-20 01:58 | EDPHYS ---
Physician Documentation [facility] Name: Delmi Schultz Age: 68 yrs Sex: Female : 1950 Arrival Date: 12/19/2018 Time: 22:57 Bed 7 Private MD: ED Physician Syd Dean Historical: - Allergies: 12/20 00:30 No Known Allergies; ea - Home Meds: 00:30 amitriptyline 50 mg Oral tab 1 tab once daily [Active]; amlodipine 5 mg tab 1 tab once ea daily [Active]; atorvastatin Oral [Active]; gabapentin 600 mg Oral tab 1 tab 3 times per day [Active]; gabapentin Oral [Active]; Insulin: Novolog 10 units Sub-Q twice a day [Active]; Lasix 40 mg Oral tab 1 tab once daily [Active]; Linzess Oral [Active]; loratadine 10 mg Oral TbDL 1 tab once daily [Active]; Nexium 40 mg Oral cpDR 1 cap once daily [Active]; Onglyza 5 mg Oral tab 1 tab once daily [Active]; Santyl Topical [Active]; sertraline 50 mg Oral tab 1 tab once daily [Active]; - PMHx: 00:30 neuropathy; Hypertension; Hyperlipidemia; GERD; Diabetes - IDDM; Depression; Deaf; ea - Immunization history:: Adult Immunizations up to date. - Social history:: Smoking status: Patient/guardian denies using tobacco. - Ebola Screening: : No symptoms or risks identified at this time. Vital Signs: 12/19 23:00 BP 128 / 104; Pulse 83; Resp 18; Temp 98; Pulse Ox 99% on R/A; Weight 97.52 kg; Height ea 5 ft. 6 in. (167.64 cm); 12/20 01:00 BP 182 / 90; Pulse 90; Resp 18; Pulse Ox 97% on R/A; ea 02:35 BP 180 / 90; Pulse 88; Resp 18; Temp 97.8(O); Pulse Ox 98% on R/A; ea 12/19 23:00 Body Mass Index 34.70 (97.52 kg, 167.64 cm) ea MDM: 12/19 22:58 Patient medically screened. tw4 12/19 23:03 Order name: Basic Metabolic Panel tw4 12/19 23:03 Order name: CBC with Diff tw 12/19 23:03 Order name: Creatinine for Radiology tw 12/19 23:03 Order name: Hepatic Function; Complete Time: 01:56 [facility] 12/20 01:56 Interpretation: Normal except: AST 12; ALB 3.2; GLOB 3.6; A/G 0.9. tw 12/19 23:03 Order name: Lipase; Complete Time: 01:56 tw 12/20 01:56 Interpretation: Within normal limits: LIP 25. tw 12/19 23:04 Order name: Basic Metabolic Panel; Complete Time: 01:56 EDMD 12/20 01:56 Interpretation: K 3.0; GLUC 248; GFR 59. tw4 12/19 23:03 Order name: IV Saline Lock; Complete Time: 23:52 [facility] 12/19 23:03 Order name: CT Abd/Pelvis - IV Contrast Only [facility] 12/19 23:04 Order name: CBC with Automated Diff; Complete Time: 01:56 EDMD 12/20 01:56 Interpretation: Within normal limits. tw 12/20 00:02 Order name: Urine Microscopic Only; Complete Time: 01:56 [facility] 12/20 01:56 Interpretation: Normal except: UWBC 5-10; UBACT >50. [facility] 12/20 00:26 Order name: Urine Dipstick--Ancillary (enter results); Complete Time: 01:56 cm6 12/20 00:43 Order name: Urine Culture [facility] 12/19 23:03 Order name: Labs collected and sent; Complete Time: 23:52 tw4 12/19 23:03 Order name: Urine Dipstick-Ancillary (obtain specimen); Complete Time: 23:53 tw4 Administered Medications: 12/20 02:09 Drug: Potassium Chloride 40 mEq Route: PO; ea 02:27 Follow up: Response: No adverse reaction ea 02:36 Drug: Bentyl 20 mg Route: PO; ea 02:47 Follow up: Response: Medication administered at discharge. ea Disposition: 12/20/18 01:57 Discharged to Home. Impression: Abdominal tenderness, Hypokalemia. - Condition is Stable. - Discharge Instructions: Abdominal Pain, Adult, Hypokalemia. - Prescriptions for Bentyl 20 mg Oral Tablet - take 1 tablet by ORAL route every 6 hours As needed; 20 tablet. - Medication Reconciliation Form, Thank You Letter, Antibiotic Education, Prescription Opioid Use form. - Follow up: Private Physician; When: Upon discharge from the Emergency Department; Reason: If symptoms return, Recheck today's complaints, Continuance of care. - Problem is an ongoing problem. - Symptoms have improved. Signatures: Dispatcher [employer] EDYazmin Stein RN RN ea Wadley, Terrence, MD MD tw4 Corrections: (The following items were deleted from the chart) 01:58 01:57 12/20/2018 01:57 Discharged to Home. Impression: Abdominal tenderness. Condition tw4 is Stable. Forms are Medication Reconciliation Form, Thank You Letter, Antibiotic Education, Prescription Opioid Use. Follow up: Private Physician; When: Upon discharge from the Emergency Department; Reason: If symptoms return, Recheck today's complaints, Continuance of care. Problem is an ongoing problem. Symptoms have improved. tw4 02:47 01:58 12/20/2018 01:57 Discharged to Home. Impression: Abdominal tenderness; ea Hypokalemia. Condition is Stable. Discharge Instructions: Abdominal Pain, Adult, Hypokalemia. Prescriptions for Bentyl 20 mg Oral Tablet - take 1 tablet by ORAL route every 6 hours As needed; 20 tablet. and Forms are Medication Reconciliation Form, Thank You Letter, Antibiotic Education, Prescription Opioid Use. Follow up: Private Physician; When: Upon discharge from the Emergency Department; Reason: If symptoms return, Recheck today's complaints, Continuance of care. Problem is an ongoing problem. Symptoms have improved. tw4
[2018-12-20] MEDS ORDERED: POTASSIUM CL SA 10 MEQ TAB PO ONE (02:22)
[2018-12-20] MEDS ORDERED: DICYCLOMINE HCL 10 MG CAP ONE (02:47)
[2018-12-20 03:07] VITALS: BP 180/90; TEMP 97.8; O2SAT 98
--- NOTE | 2018-12-20 10:13 | RAD REPORT ---
EXAM DESCRIPTION: CT - Abdomen Pelvis W Contrast - 12/20/2018 4:48 am CLINICAL HISTORY: The patient is 68 years old and is Female; ABD PAIN TECHNIQUE: Axial computed tomography images of the abdomen and pelvis with intravenous contrast. S agittal and coronal reformatted images were created and reviewed. This CT exam was performed using one or more of the following dose reduction techniques: automated exposure control, adjustment of t he mA and/or kV according to patient size, and/or use of iterative reconstruction technique. COMPARISON: CT of the abdomen and pelvis August 30, 2018. FINDINGS: ARTIFACTS: The exam is suboptimal secondary to motion artifact. LUNG BASES: Unremarkable. No mass. No consolidation. ABDOMEN: LIVER: The liver is prominent. GALLBLADDER AND BILE DUCTS: Surgical clips are present in the right upper quadrant, consistent w ith previous cholecystectomy. PANCREAS: The pancreas is atrophic. SPLEEN: Unremarkable. ADRENALS: Unremarkable. No mass. KIDNEYS AND URETERS: Unremarkable. No solid mass. No hydronephrosis. STOMACH AND BOWEL: The stomach is minimally distended. The small bowel is relatively normal in c aliber. Colonic diverticula are noted within the left colon. Majority the colon is decompressed with suggestion of mild mucosal thickening. PELVIS: APPENDIX: The appendix is normal in caliber without surrounding inflammation. BLADDER: The bladder is nearly empty. Mild bladder wall thickening with surrounding inflammation is noted. REPRODUCTIVE: Unremarkable as visualized. ABDOMEN and PELVIS: INTRAPERITONEAL SPACE: Unremarkable. No free air. No significant fluid collection. BONES/JOINTS: There are degenerative changes of the spine. SOFT TISSUES: The soft tissues are normal. VASCULATURE: Atherosclerosis of the vasculature is present. The vessels are normal in caliber. No abdominal aortic aneurysm. LYMPH NODES: Unremarkable. No enlarged lymph nodes. IMPRESSION: 1. Suggestion of mild diffuse mucosal thickening throughout the colon which may be sec ondary to incomplete distention; however, mild colitis is within the differential. 2. Mild bladder wall thickening with surrounding inflammation which may be secondary to cystitis. Electronically signed by: Chata Marti MD 12/20/2018 1:50 AM CDT Due to temporary technical issues with the PACS/Fluency reporting system, reports are being signed by the in house radiologist as a courtesy to ensure prompt reporting. The interpreting radiologist is f ully responsible for the content of the report.
== END 2018-12-20 02:47 | disposition home or self-care (01) ==
LOC: ER 22:54
DX: E87.6 Hypokalemia (principal); R10.9 Unspecified abdominal pain; I10 Essential (primary) hypertension; E78.5 Hyperlipidemia, unspecified; K21.9 Gastro-esophageal reflux disease without esophagitis; E11.9 Type 2 diabetes mellitus without complications; F32.9 Major depressive disorder, single episode, unspecified; Z79.4 Long term (current) use of insulin
CPT/HCPCS: 87088; 85025; 87086; 80048; 36415; 80076; 83690; 74177; 99284; Q9967; 81003; 81015; 87077; 87186

== ENCOUNTER 2020-01-28 14:39 | Inpatient (IN) | payer OTHER ==
--- NOTE | 2020-01-28 16:43 | RAD REPORT ---
EXAM DESCRIPTION: RAD - Chest Single View - 01/28/2020 4:03 pm CLINICAL HISTORY: SOB COMPARISON: Two view chest August 2018 TECHNIQUE: AP portable chest image was obtained 01/28/2020 4:03 pm . FINDINGS: Lung volumes are low. Interstitial opacification is increased and there is vascular engorg ement. Heart size is increased from comparison. Left pleural effusion is present. No acute bony abnor mality seen. No acute aortic findings suspected. IMPRESSION: Mild to moderate CHF/ volume overload pattern.
[2020-01-28 17:20] LABS: Protime INR 1.07
[2020-01-28 17:34] LABS: ALT/SGPT 20 U/L (12-78); AST/SGOT 11 U/L (15-37); Albumin 1.9 g/dL (3.4-5.0); Alkaline Phosphatase 179 U/L (45-117); BUN Blood Urea Nitrogen 49 mg/dL (7-18); Bicarbonate 18 mmol/L (21-32); Bilirubin Direct < 0.1 mg/dL (0-0.2); Bilirubin Total 0.2 mg/dL (0.2-1.0); Glucose Level 145 mg/dL (74-106); Magnesium 1.9 mg/dL (1.8-2.4); NT PRO-BNP 5809 pg/mL (<125); Potassium 5.1 mmol/L (3.5-5.1); Protein, Total 5.8 g/dL (6.4-8.2); Sodium Level 141 mmol/L (136-145); Troponin (Emerg Dept Use Only) < 0.02 ng/mL (0.0-0.045)
[2020-01-28 17:41] LABS: Absolute Lymphocytes (CBC) 1.7 K/uL (0.7-4.9); Basophils % 0.5 % (0-1.3); Hematocrit 24.5 % (36.0-45.0); Lymphocytes % 19.9 % (15.3-44.8); MPV 9.3 fL (7.6-11.3); RBC Red Blood Cell Count 2.85 M/uL (3.86-4.86)
[2020-01-28] MEDS ORDERED: CEFTRIAXONE/SWI 1gm 1 GM/10 ML SYR ONE (17:47)
[2020-01-28] MEDS ORDERED: FUROSEMIDE 40 MG/4 ML VIAL ONE (17:47)
--- NOTE | 2020-01-28 17:52 | RAD REPORT ---
EXAM DESCRIPTION: US - Extrem Venous W Compress Pola - 01/28/2020 4:55 pm CLINICAL HISTORY: SWELLING, bilateral leg pain COMPARISON: None. TECHNIQUE: Real-time sonographic evaluation of the bilateral lower extremity common femoral, superfi cial femoral, popliteal and posterior tibial veins was performed. FINDINGS: Normal compressibility, flow augmentation, phasic flow and spontaneous flow are identified in the left and right lower extremity common femoral, superficial femoral, popliteal and posterior t ibial veins. No intraluminal filling defects seen. IMPRESSION: No DVT in either lower extremity.
--- NOTE | 2020-01-28 18:17 | ER ---
Nurse's Notes [facility] Jin Name: Delmi Schultz Age: 69 yrs Sex: Female : 1950 Arrival Date: 01/28/2020 Time: 14:50 Bed 13 Private MD: Diagnosis: Acute kidney failure;Unspecified combined systolic (congestive) and diastolic (congestive) heart failure;Orthopnea Presentation: 01/27 14:50 Chief complaint: EMS states: Family was instructed by home health nurse to come to [facility] ER for L foot wound reevaluation. Coronavirus screen: Client denies travel out of the [place] in the last 14 days. At this time, the client does not indicate any symptoms associated with coronavirus-19. Ebola Screen: Patient denies exposure to infectious person. Patient denies travel to an Ebola-affected area in the 21 days before illness onset. Initial Sepsis Screen: Does the patient meet any 2 criteria? No. Patient's initial sepsis screen is negative. Does the patient have a suspected source of infection? Yes: Skin breakdown/wound. Risk Assessment: Do you want to hurt yourself or someone else? Patient reports no desire to harm self or others. Onset of symptoms is unknown. 14:50 Method Of Arrival: EMS: [facility] 14:50 Acuity: VICTOR M 3 Triage Assessment: 15:01 General: Appears obese, unkempt, Behavior is fussy, restless. ls4 15:01 Pain: Denies pain. ls4 Historical: - Allergies: 14:55 No Known Allergies; ss - PMHx: 14:55 Deaf; Depression; Diabetes - IDDM; GERD; Hyperlipidemia; Hypertension; neuropathy; ss - Immunization history:: Adult Immunizations up to date. - Social history:: Smoking status: Patient denies any tobacco usage or history of. Screenin:03 Abuse screen: Denies threats or abuse. Denies injuries from another. Nutritional ls4 screening: No deficits noted. Tuberculosis screening: No symptoms or risk factors identified. Fall Risk None identified. Assessment: 15:00 Derm: Wound noted left calf Wound is wound vac in place and draining. ls4 15:32 Reassessment: Patient appears in no apparent distress at this time. Patient and/or ls4 family updated on plan of care and expected duration. Pain level reassessed. Patient is alert, oriented x 3, equal unlabored respirations, skin warm/dry/pink. 16:30 Reassessment: Patient appears in no apparent distress at this time. Patient and/or ls4 family updated on plan of care and expected duration. Pain level reassessed. Patient is alert, oriented x 3, equal unlabored respirations, skin warm/dry/pink. 18:44 Reassessment: Patient appears in no apparent distress at this time. Patient and/or ls4 family updated on plan of care and expected duration. Pain level reassessed. Patient is alert, oriented x 3, equal unlabored respirations, skin warm/dry/pink. Vital Signs: 14:50 BP 130 / 58 LA (auto/lg); Pulse 69; Resp 18 S; Temp 99.1(O); Pulse Ox 95% on R/A; jp3 18:42 BP 153 / 98; Pulse 69; Resp 20; Pulse Ox 97% on R/A; Pain 0/10; ls4 ED Course: 14:50 Patient arrived in ED. ss 14:51 Patient has correct armband on for positive identification. Bed in low position. Call jp3 light in reach. Side rails up X 1. Side rails up X2. Warm blanket given. Pillow given. Verbal reassurance given. Pulse ox on. NIBP on. 14:51 Patient maintains SpO2 saturation greater than 95% on room air. jp3 14:53 Hank Mas PA is PHCP. cp 14:53 Sofi Khoury MD is Attending Physician. cp 14:55 Triage completed. ss 14:55 Arm band placed on right wrist. ss 15:02 Indu Schmidt, JARRET is Primary Nurse. ls4 16:04 XRAY Chest (1 view) In Process Unspecified. EDMS 16:51 Ultrasound completed. Patient tolerated well. Notified Primary Nurse sidra. sg3 16:52 US Extremity Venous W Compression Pola In Process Unspecified. EDMS 17:10 No provider procedures requiring assistance completed. Inserted saline lock: 22 gauge ls4 in left wrist, using aseptic technique. Blood collected. 18:16 Berlin Fitzgerald MD is Hospitalizing Provider. cp 18:28 EKG done, by ED staff, reviewed by Hank EM. dh3 19:37 Pt swabbed for COVID-19. jp3 Administered Medications: 18:00 Drug: Rocephin - (cefTRIAXone) 1 grams Route: IVPB; Infused Over: 10 mins; Site: right ls4 antecubital; 18:41 Follow up: Response: No adverse reaction; IV Status: Completed infusion; IV Intake: [id number] 18:00 Drug: Lasix 40 mg Route: IVP; Site: right antecubital; ls4 19:56 Follow up: Response: No adverse reaction vc Intake: 18:41 IV: 10ml; Total: 10ml. ls4 Outcome: 18:17 Decision to Hospitalize by Provider. cp 21:12 Patient left the ED. ls4 Signatures: Dispatcher [employer] EDMS Shanna Salmon RN RN ss Hank Mas PA PA Citlali Jones [facility] Fatuma Ross 3 Rene Hutchison 3 Indu Schmidt RN RN ls4 Gely Youngblood RN RN vc Corrections: (The following items were deleted from the chart) 16:52 16:51 Notified Primary Nurse . 3 sg3 19:04 18:42 BP 153 / 98; Pulse 127bpm; Resp 20bpm; Pulse Ox 97% RA; Pain 0/10; ls4 ls4
--- NOTE | 2020-01-28 18:17 | EDPHYS ---
Physician Documentation [facility] Name: Delmi Schultz Age: 69 yrs Sex: Female : 1950 Arrival Date: 01/28/2020 Time: 14:50 Bed 13 Private MD: ED Physician Sofi Khoury HPI: 01/27 15:40 This 69 yrs old Female presents to ER via EMS with complaints of Wound cp Recheck. 15:40 The patient presents with swelling, chronic wound of left heel. cp 15:40 Family called EMS with concern for worsening infection of left foot. Son reports foul cp smelling drainage from wound, increased swelling, and shortness of breath when patient lays flat. Historical: - Allergies: 14:55 No Known Allergies; ss - PMHx: 14:55 Deaf; Depression; Diabetes - IDDM; GERD; Hyperlipidemia; Hypertension; neuropathy; ss - Immunization history:: Adult Immunizations up to date. - Social history:: Smoking status: Patient denies any tobacco usage or history of. ROS: 15:45 Respiratory: Positive for shortness of breath. cp 15:45 Constitutional: Negative for body aches, chills, fever, poor PO intake. cp 15:45 Cardiovascular: Negative for chest pain. 15:45 Abdomen/GI: Negative for abdominal pain, nausea, vomiting, and diarrhea. 15:45 All other systems are negative. Exam: 15:50 Constitutional: The patient appears in no acute distress, alert, awake, cp non-diaphoretic, non-toxic, well developed, well nourished, obese. 15:50 Head/Face: Normocephalic, atraumatic. cp 15:50 Eyes: Periorbital structures: appear normal, Conjunctiva: normal, no exudate, no injection, Sclera: no appreciated abnormality, Lids and lashes: appear normal, bilaterally. 15:50 ENT: External ear(s): are unremarkable, Nose: is normal, Mouth: is normal, Posterior pharynx: Airway: no evidence of obstruction, patent. 15:50 Chest/axilla: Inspection: normal. 15:50 Cardiovascular: Rate: normal, Rhythm: regular. 15:50 Respiratory: the patient does not display signs of respiratory distress, Respirations: normal, no use of accessory muscles, no retractions, labored breathing, is not present, Breath sounds: decreased breath sounds, are not appreciated, stridor, is not appreciated, wheezing: is not appreciated. 15:50 Abdomen/GI: Exam negative for discomfort, distension, guarding, Inspection: abdomen appears normal. 15:50 Musculoskeletal/extremity: chronic wound noted left heel with wound vac in place, noted mild erythema of left foot, bilateral pedal and ankle edema. 15:50 Neuro: Orientation: to person, place \T\ time. Mentation: is normal, Motor: moves all cp fours. 18:35 ECG was reviewed by the Attending Physician. Vital Signs: 14:50 BP 130 / 58 LA (auto/lg); Pulse 69; Resp 18 S; Temp 99.1(O); Pulse Ox 95% on R/A; jp3 18:42 BP 153 / 98; Pulse 69; Resp 20; Pulse Ox 97% on R/A; Pain 0/10; ls4 MDM: 14:59 Patient medically screened. cp 15:45 Differential diagnosis: sepsis, CHF exacerbation, DVT, pulmonary edema. cp 16:57 ED course: received phone report from [facility] that patient negative for DVT. 18:20 Data reviewed: vital signs, nurses notes, lab test result(s), EKG, radiologic studies, cp plain films, ultrasound, I have discussed the patient's presentation/case with the attending Emergency Department Physician;. 18:20 Physician consultation: Jonathan EM was called at 18:15, was contacted at 18:15, regarding admission, to the telemetry unit. patient's condition, and will see patient in ED, shortly. 01/27 15:36 Order name: Basic Metabolic Panel; Complete Time: 17:43 01/27 17:43 Interpretation: Normal except: CL 114; CO2 18; GLUC 145; BUN 49; CRE 2.52; GFR 19; CA cp 7.7. 01/27 15:36 Order name: CBC with Diff; Complete Time: 17:43 01/27 17:43 Interpretation: Normal except: RBC 2.85; HGB 8.2; HCT 24.5; RDW 18.6. cp 01/27 15:36 Order name: LFT's; Complete Time: 17:43 01/27 17:45 Interpretation: Normal except: AST 11; ALK 179; TP 5.8; ALB 1.9; GLOB 3.9; A/G 0.5. cp 01/27 15:36 Order name: Magnesium; Complete Time: 17:43 cp 01/27 15:36 Order name: NT PRO-BNP; Complete Time: 17:43 cp 01/27 17:45 Interpretation: Abnormal: NT PRO-BNP 5809. cp 01/27 15:36 Order name: PT-INR; Complete Time: 17:27 cp 01/27 15:36 Order name: Troponin (emerg Dept Use Only); Complete Time: 17:43 cp 01/27 19:11 Order name: COVID-19 bb 01/27 19:19 Order name: Urinalysis EDMS 01/27 19:19 Order name: Basic Metabolic Panel EDMS 01/27 19:19 Order name: Basic Metabolic Panel EDMS 01/27 19:19 Order name: CBC with Automated Diff EDMS 01/27 19:19 Order name: CBC with Automated Diff EDMS 01/27 19:19 Order name: Magnesium EDMS 01/27 15:36 Order name: XRAY Chest (1 view); Complete Time: 16:45 cp 01/27 17:28 Interpretation: Report review. 01/27 15:36 Order name: EKG; Complete Time: 15:37 cp 01/27 15:36 Order name: Cardiac monitoring; Complete Time: 15:59 cp 01/27 15:36 Order name: EKG - Nurse/Tech; Complete Time: 18:35 cp 01/27 15:36 Order name: IV Saline Lock; Complete Time: 15:59 cp 01/27 15:36 Order name: Labs collected and sent; Complete Time: 15:59 cp 01/27 15:36 Order name: O2 Per Protocol; Complete Time: 17:19 cp 01/27 15:36 Order name: O2 Sat Monitoring; Complete Time: 17:19 cp 01/27 15:36 Order name: US Extremity Venous W Compression Pola; Complete Time: 18:12 cp 01/27 19:19 Order name: Consistent Carb (ADA) 1800 Joseph EDMS 01/27 19:19 Order name: Magnesium EDMS 01/27 19:36 Order name: Social Service Consult EDMS EC:35 Rate is 72 beats/min. Rhythm is regular. ID interval is normal. QRS interval is normal. cp QT interval is normal. T waves are Inverted in lead aVR. Interpreted by me. Reviewed by me. Administered Medications: 18:00 Drug: Rocephin - (cefTRIAXone) 1 grams Route: IVPB; Infused Over: 10 mins; Site: right ls4 antecubital; 18:41 Follow up: Response: No adverse reaction; IV Status: Completed infusion; IV Intake: [id number] 18:00 Drug: Lasix 40 mg Route: IVP; Site: right antecubital; ls4 19:56 Follow up: Response: No adverse reaction vc Disposition: 18:30 Chart complete. cp Disposition: 01/28/20 18:17 Hospitalization ordered by Berlin Fitzgerald for Inpatient Admission. Preliminary diagnosis are Acute kidney failure, Unspecified combined systolic (congestive) and diastolic (congestive) heart failure, Orthopnea. - Bed requested for Telemetry/MedSurg (observation). - Status is Inpatient Admission. ls4 - Condition is Stable. - Problem is new. - Symptoms have improved. Signatures: Dispatcher [employer] EDMS Keturah York RN RN Shanna Salmon RN RN Hank Mas PA PA cp Sofi Khoury MD MD ma2 Indu Schmidt RN RN 4 Gely Youngblood RN vc Corrections: (The following items were deleted from the chart) 17:43 17:43 Normal except: CL 114; CO2 18; GLUC 145; BUN 49; CRE 2.52; GFR 19. cp cp 19:23 18:17 Hospitalization Ordered by Berlin Fitzgerald MD for Inpatient Admission. Preliminary dw diagnosis is Acute kidney failure; Unspecified combined systolic (congestive) and diastolic (congestive) heart failure; Orthopnea. Bed requested for Telemetry/MedSurg (observation). Status is Inpatient Admission. Condition is Stable. Problem is new. Symptoms have improved. cp 21:12 19:23 01/28/2020 18:17 Hospitalization Ordered by Berlin Fitzgerald MD for Inpatient ls4 Admission. Preliminary diagnosis is Acute kidney failure; Unspecified combined systolic (congestive) and diastolic (congestive) heart failure; Orthopnea. Bed requested for Telemetry/MedSurg (observation). Status is Inpatient Admission. Condition is Stable. Problem is new. Symptoms have improved. dw 01/28 19:53 01/27 15:40 Family called EMS with concern for worsening infection of left foot. Son cp reports foul smelling drainage from wound, increased swelling. cp
--- NOTE | 2020-01-28 19:26 | P.HP ---
Certification for Inpatient With expected LOS: >2 Midnights Patient will require the following post-hospital care: [facility] Practitioner: I am a practitioner with admitting privileges, knowledge of patient current condition, hospital course, and medical plan of care. Services: Services provided to patient in accordance with Admission requirements found in Title 42 Section 412.3 of the Code of Federal Regulations <Jonathan Moy - Last Filed: 01/28/20 19:21> Patient History Date of Service: 01/28/20 Reason for admission: Congestive heart failure with acute exacerbation History of Present Illness: 69-year-old female with past medical history of chronic systolic and diastolic heart failure, chronic kidney disease stage 4, orthopnea, type 2 diabetes mellitus, hyperlipidemia, essential hypertension, neuropathy, left heel wound with wound VAC and patient is deaf is brought to the emergency room by family after home health nurse instructed them to bring her to the emergency room to have her left heel evaluated. Per nursing staff. Family indicated that they could no longer take care patient and will likely need [facility] facility. In the emergency room patient's left heel has a wound VAC. Her legs are edema does and despite having adequate oxygenation at room air. She is mildly labored breathing. She is alert and oriented x3, pleasant and cooperative and in no distress. She is deaf. Only communicates in handwriting on a piece of paper. Blood work shows a creatinine of 2.5. Patient's baseline November of 2018 was 0.9. She is also noted to have a BNP of 5809. Hemoglobin of 8.2 with a hematocrit of 24.5. Patient will be admitted and further evaluated. Home medications list reviewed: No - Past Medical/Surgical History Diabetic: Yes -: diabetes -: HTN -: GERD -: Depression -: Hyperlipidemia -: Insomnia -: Chronic back pain -: DM -: abdominal hernia -: heel surgery 2007 -: abdominal hernia repair -: amptuation of 5th digit on L foot 2012 -: Cholecystectomy 2012 Psychosocial/ Personal History: Lives at home. Family and home health nurse take care of patient. - Family History Father -: Heart disease Mother -: Diabetes - Social History Smoking Status: Never smoker Alcohol use: No CD- Drugs: Yes Caffeine use: Yes Place of Residence: Home <ChinmayJonathan - Last Filed: 01/28/20 19:21> Date of Service: 01/29/20 <Andreas Hale - Last Filed: 01/29/20 08:27> Allergies adhesive Allergy (Verified 01/28/20 21:31) Itching/Hives/Rash No Known Drug Allergies Allergy (Verified 01/28/20 21:31) Unknown Home Medications: Amlodipine [Norvasc*] 10 mg PO DAILY 01/28/20 Atorvastatin Calcium [Lipitor*] 20 mg PO BEDTIME 01/28/20 Carvedilol [Coreg] 25 mg PO BID 01/28/20 Cetirizine HCl 10 mg PO DAILY 01/28/20 Ferrous Sulfate [Ferrous Sulfate*] 325 mg PO BID 01/28/20 Gabapentin 600 mg PO BIDP PRN 01/28/20 Hydralazine HCl [Apresoline] 50 mg PO TID 01/28/20 Review of Systems General: As per HPI Eyes: Unremarkable ENT: Unremarkable Respiratory: Shortness of Breath, As per HPI Cardiovascular: Unremarkable Gastrointestinal: Unremarkable Genitourinary: Unremarkable Musculoskeletal: Pedal edema, As per HPI Integumentary: As per HPI Neurological: Unremarkable Lymphatics: Unremarkable <MichelleJonathan green - Last Filed: 01/28/20 19:21> Physical Examination - Vital Signs Temperature: 99.1 F Blood Pressure: 130/58 Pulse: 69 Respirations: 18 Pulse Ox (%): 95 (RA) - Physical Exam General: Alert, In no apparent distress, Oriented x3, Obese, Other HEENT: Atraumatic, Normocephalic, PERRLA, Mucous membr. moist/pink, Other (Deaf) Neck: Supple, Other (Trachea midline) Respiratory: Clear to auscultation bilaterally, Other (Shallow breather) Cardiovascular: Normal pulses, Regular rate/rhythm, Edema Capillary refill: <2 Seconds Gastrointestinal: Normal bowel sounds, Soft and benign, Non-distended Musculoskeletal: No clubbing, No contractures, No erythema, Swelling Integumentary: No breakdown, No significant lesion, No tenderness/swelling Neurological: Normal strength at 5/5 x4 extr, Normal tone, Abnormal speech (Deaf/ None Verbal) - Studies Laboratory Data (last 24 hrs) 01/28/20 16:41: PT 12.6 H, INR 1.07 01/28/20 16:41: WBC 8.4, Hgb 8.2 L, Hct 24.5 L, Plt Count 221 01/28/20 16:41: Sodium 141, Potassium 5.1, BUN 49 H, Creatinine 2.52 H, Glucose 145 H, Magnesium 1.9, Total Bilirubin 0.2, AST 11 L, ALT 20, Alkaline Phosphatase 179 H <Jonathan Moy - Last Filed: 01/28/20 19:21> - Studies Laboratory Data (last 24 hrs) 01/28/20 16:41: PT 12.6 H, INR 1.07 01/28/20 16:41: WBC 8.4, Hgb 8.2 L, Hct 24.5 L, Plt Count 221 01/28/20 16:41: Sodium 141, Potassium 5.1, BUN 49 H, Creatinine 2.52 H, Glucose 145 H, Magnesium 1.9, Total Bilirubin 0.2, AST 11 L, ALT 20, Alkaline Phosphatase 179 H <Andreas Hale - Last Filed: 01/29/20 08:27> Assessment and Plan - Plan Impression: Chronic systolic and diastolic congestive heart failure with acute exacerbation: Acute on chronic kidney injury: Type 2 diabetes mellitus: Left heel pressure ulcer with wound VAC in place: Deafness: Essential hypertension: Plan: Chronic systolic and diastolic congestive heart failure with acute exacerbation: ER blood work shows a BNP of 5809. Chest x-ray shows congestive heart failure with volume overload. Venous Doppler was negative for DVT. Will start patient on IV Lasix 40 mg b.i.d.. Patient is nonverbal. Her can intake worker is not known at this time. Acute on chronic kidney injury: Creatinine of 2.5 on admission. Patient's baseline was 0.9 on 11/2018. Unknown sign artist or if the patient has seen a sign artist. Monitor creatinine. Type 2 diabetes mellitus: Will start sliding scale insulin and Accu-Cheks a.c. HS. Will start patient on a diabetic diet. Left heel pressure ulcer with wound VAC in place: Per nursing staff in the ED patient is seen by Dr. Monroe. Wound VAC in place in the pressure ulcer on her left heel. Per nursing staff in the ED patient has not followed up with her doctor because the family cannot take her to her doctor visits. Home health nurse concerned about left heel. Deafness: Patient is deaf and nonverbal. Communicates with handwriting on piece of paper. Has limited information of her health, medications and specialists. No family bedside. Essential hypertension: Will resume all medications once verified. Monitor blood pressure. Discharge Plan: Shelter Plan to discharge in: Greater than 2 days - Advance Directives Does patient have a Living Will: No Does patient have a Durable POA for Healthcare: No - Code Status/Comfort Care Code Status Assessed: Yes Time Spent Managing Pts Care (In Minutes): 55 <Jonathan Moy - Last Filed: 01/28/20 19:21> - Plan Case discussed with physician office support assistant in detail. Agree with evaluation and assessment. Patient with acute on chronic diastolic CHF. Will continue diuresis. Patient with acute on chronic renal disease is well stage II. Will consult Nephrology. Obtain a renal ultrasound. Patient with chronic left heel wound. Patient will need to continue with wound VAC. Will consult infectious disease for further recommendation and treatment. Patient likely require skilled placement at discharge at his be coming more difficult to take care at home. Will need to obtain more information from family. Spoke with brother. Not able to reach daughter. Continue with progress note recommendations. <Andreas Hale - Last Filed: 01/29/20 08:27>
[2020-01-28] MEDS: FUROSEMIDE 40 MG/4 ML VIAL IV SCH (20:37)
[2020-01-28] MEDS: INSULIN -REGULAR HUMAN 50 UNIT/0.5 ML ML SQ SCH (21:00)
[2020-01-28 22:45] VITALS: BMI 42.7
[2020-01-28 22:46] LABS: Urine Appearance CLOUDY; Urine Bilirubin NEGATIVE (NEG); Urine Blood NEGATIVE (NEG); Urine Color YELLOW; Urine Glucose NEGATIVE (NEG); Urine Protein 2+ (NEG); Urine Specific Gravity <=1.005 (1.005-1.030); Urine Urobilinogen 0.2 mg/dL (0.2-1.0)
[2020-01-28 22:51] LABS: Urine Microscopic Reflex ORDER UMIC
[2020-01-28 23:06] LABS: Urine Bacteria LOADED /HPF (<20); Urine Culture Reflex Order REFLEXED; Urine Mucus 1+ /HPF (NONE SEEN); Urine RBC <5 /HPF (NONE SEEN)
[2020-01-29] MEDS: HEPARIN 5000 UNIT/ML 1 ML VIAL SQ SCH ×3 (00:40→20:52)
[2020-01-29 06:37] LABS: Absolute Lymphocytes (CBC) 1.3 K/uL (0.7-4.9); Basophils % 0.7 % (0-1.3); MPV 8.9 fL (7.6-11.3); RBC Red Blood Cell Count 2.31 M/uL (3.86-4.86)
[2020-01-29 06:53] LABS: Magnesium 1.9 mg/dL (1.8-2.4); Potassium 5.1 mmol/L (3.5-5.1)
[2020-01-29 06:55] LABS: Hematocrit 19.8 % (36.0-45.0)
[2020-01-29] MEDS: INSULIN -REGULAR HUMAN 50 UNIT/0.5 ML ML SQ SCH ×4 (07:30→21:00)
--- NOTE | 2020-01-29 08:20 | P.PN ---
Subjective Date of Service: 01/29/20 Primary Care Provider: Unknown Chief Complaint: Congestive heart failure with acute exacerbation Subjective: Other (Not able to reach daughter. Spoke with brother. Brother reports patient has been in and out of hospitals, long-term care facility and skilled facility for her chronic wound over the past year. Patient is deaf) Physical Examination - Vital Signs Temperature: 97.5 F Blood Pressure: 131/61 Pulse: 68 Respirations: 20 Pulse Ox (%): 95 - Physical Exam General: Alert HEENT: Other (Patient is deaf but able to understand hand writing.) Neck: Supple Respiratory: Clear to auscultation bilaterally Cardiovascular: Normal pulses, Regular rate/rhythm Gastrointestinal: Normal bowel sounds Integumentary: Tenderness/swelling (1 to 2+ pitting edema to the lower extremities bilateral), Other (Left heel bandage in place, no drainage noted.) Neurological: Normal strength at 5/5 x4 extr, Normal tone - Studies Laboratory Data (last 24 hrs) 01/28/20 16:41: PT 12.6 H, INR 1.07 01/28/20 16:41: WBC 8.4, Hgb 8.2 L, Hct 24.5 L, Plt Count 221 01/28/20 16:41: Sodium 141, Potassium 5.1, BUN 49 H, Creatinine 2.52 H, Glucose 145 H, Magnesium 1.9, Total Bilirubin 0.2, AST 11 L, ALT 20, Alkaline Phosphatase 179 H Medications List Reviewed: Yes Assessment & Plan Discharge Plan: Other ([facility] facility) Plan to discharge in: Greater than 2 days Physician Review Additional Text: Impression: Acute on chronic diastolic CHF Acute on chronic renal failure stage 2 Chronic left heel wound with wound VAC Anemia likely of chronic disease Diabetes mellitus type 2 insulin-dependent Hypertension Hyperlipidemia Patient is deaf Plan: Acute on chronic diastolic CHF: Continue with IV diuretic therapy. Continue fluid restriction. Will order echocardiogram to further evaluate. Will consult cardiology for further recommendation. Will need to review home medication. Patient with history recently at long-term acute care facility, skilled placement facility and discharged home for chronic left heel wound. Will consult infectious disease for further recommendation and treatment. What physical therapy assess ambulation. Patient likely requires skilled placement. Will need to discuss with family further. It appears family not able to take care of her at this time. Will discuss with older adult social work specialist. Will also consult nephrology to address chronic renal disease. Acute on chronic renal failure stage 2: Will order renal ultrasound. Continue diuresis. Will consult nephrology for further recommendation. Chronic left heel wound with wound VAC: Continue current wound care. Will consult infectious disease for recommendations and care. Wound VAC will need to be placed. Will need to obtain wound VAC from home. Anemia likely of chronic disease: Will obtain further lab to evaluate. Patient may require transfusion if hemoglobin below 8.0. Diabetes mellitus type 2 insulin-dependent: Will check A1c. Continue Accu- Cheks and verify home medication. Hypertension: Blood pressure stable this time. Obtain and verify home medication. No need for medication at this time. Hyperlipidemia: Continue medication Patient is deaf: Patient able to communicate through writing. Time Spent Managing Pts Care (In Minutes): 55
[2020-01-29] MEDS ORDERED: HYDRALAZINE HCL 20 MG/ML VIAL IV PRN (08:29)
[2020-01-29] MEDS: FERROUS SULFATE 325 MG TAB PO SCH ×2 (08:46→20:52)
[2020-01-29] MEDS: FUROSEMIDE 40 MG/4 ML VIAL IV SCH ×2 (08:46→20:55)
[2020-01-29 08:58] LABS: Hematocrit 19.9 % (36.0-45.0)
[2020-01-29 09:52] LABS: Thyroid Stimulating Hormone 1.97 uIU/mL (0.360-3.740)
[2020-01-29] MEDS ORDERED: NA CHLORIDE 0.9% 250 ML ONE ×2 (13:51→22:51)
[2020-01-29] MEDS: FUROSEMIDE 20 MG/ 2ML VIAL IV SCH (17:36)
--- NOTE | 2020-01-29 20:33 | RAD REPORT ---
EXAM DESCRIPTION: US - Renal Ultrasound-Complete - 01/29/2020 7:45 pm CLINICAL HISTORY: . Acute and chronic renal disease COMPARISON: 2013 FINDINGS: The right kidney measures 10 cm with a normal echotexture. The patient was uncooperative so images of the left kidney and bladder were not obtained IMPRESSION: Unremarkable right renal ultrasound. The left kidney was not evaluated
[2020-01-29] MEDS: ATORVASTATIN 20 MG TAB PO SCH (20:52)
[2020-01-30] MEDS: FUROSEMIDE 20 MG/ 2ML VIAL IV SCH (03:30)
[2020-01-30 06:20] LABS: Absolute Lymphocytes (CBC) 1.5 K/uL (0.7-4.9); Basophils % 0.7 % (0-1.3); Hematocrit 27.3 % (36.0-45.0); Lymphocytes % 18.4 % (15.3-44.8); MPV 8.5 fL (7.6-11.3); RBC Red Blood Cell Count 3.15 M/uL (3.86-4.86)
[2020-01-30 07:03] LABS: Magnesium 1.8 mg/dL (1.8-2.4); Potassium 4.5 mmol/L (3.5-5.1)
[2020-01-30] MEDS: INSULIN -REGULAR HUMAN 50 UNIT/0.5 ML ML SQ SCH ×4 (07:30→21:00)
[2020-01-30] MEDS: FUROSEMIDE 40 MG/4 ML VIAL IV SCH ×2 (08:44→21:28)
[2020-01-30] MEDS: HEPARIN 5000 UNIT/ML 1 ML VIAL SQ SCH ×2 (08:44→21:27)
[2020-01-30] MEDS: FERROUS SULFATE 325 MG TAB PO SCH ×2 (08:44→21:27)
[2020-01-30] MEDS ORDERED: MAGNESIUM SULFATE 1 gm IVPB 1 GM/100 ML BAG IV ONE (09:00)
[2020-01-30 14:10] LABS: Ferritin 166.5 ng/mL (8-388)
--- NOTE | 2020-01-30 14:36 | P.PN ---
Subjective Date of Service: 01/30/20 Primary Care Provider: Unknown Chief Complaint: Congestive heart failure with acute exacerbation Subjective: Improving, Doing well Physical Examination - Vital Signs Temperature: 97.5 F Blood Pressure: 195/82 Pulse: 77 Respirations: 18 Pulse Ox (%): 96 - Physical Exam General: Alert, Cooperative HEENT: Atraumatic Neck: Supple Respiratory: Clear to auscultation bilaterally, Normal air movement Cardiovascular: Normal pulses, Regular rate/rhythm Integumentary: Tenderness/swelling (Edema to the lower extremity noted but improved) Neurological: Normal speech, Normal strength at 5/5 x4 extr, Normal tone, Normal affect - Studies Medications List Reviewed: Yes Assessment & Plan Discharge Plan: Other (assisted facility) Plan to discharge in: 48 Hours Physician Review Additional Text: Impression: Acute on chronic diastolic CHF Acute on chronic renal failure stage 2 Chronic left heel wound with wound VAC Anemia likely of chronic disease Diabetes mellitus type 2 insulin-dependent Hypertension Hyperlipidemia Patient is deaf Plan: Acute on chronic diastolic CHF: Overall this is improved. Continue to wean off oxygen. Patient will likely require oxygen at discharge. Continue with IV diuretic therapy. Continue fluid restriction. Echo ordered. Await recommendations from cardiology. Will pursue skilled placement. Will discuss with family. Continue physical therapy. Case also discuss with nephrology. Continue with diuresis. Anticipate improvement over the next 48 hr. Acute on chronic renal failure stage 2: Ultrasound obtained Continue diuresis. Continue with nephrology recommendation. Chronic left heel wound with wound VAC: Continue current wound care. Will consult infectious disease for recommendations and care. Wound VAC will need to be placed. Will need to obtain wound VAC from home. Anemia likely of chronic disease: Will obtain further lab to evaluate. Patient may require transfusion if hemoglobin below 8.0. Diabetes mellitus type 2 insulin-dependent: Will check A1c. Continue Accu- Cheks and verify home medication. Hypertension: Blood pressure elevated. Restart home medication of Norvasc and carvedilol. Hyperlipidemia: Continue medication Patient is deaf: Patient able to communicate through writing. Time Spent Managing Pts Care (In Minutes): 55
--- NOTE | 2020-01-30 14:43 | P.CNS ---
Date of Consult: 01/30/20 Requesting Physician: Andreas Hale Primary Care Provider: Unknown Chief Complaint: Congestive heart failure with acute exacerbation History of Present Illness: Reports taking ibuprofen 4-5 times per day but stopped it last month on the advice of her PCP. No urinary difficulties. 69-year-old female with past medical history of chronic systolic and diastolic heart failure, chronic kidney disease stage 4, orthopnea, type 2 diabetes mellitus, hyperlipidemia, essential hypertension, neuropathy, left heel wound with wound VAC and patient is deaf is brought to the emergency room by family after home health nurse instructed them to bring her to the emergency room to have her left heel evaluated. Per nursing staff. Family indicated that they could no longer take care patient and will likely need [facility] facility. 15:40 This 69 yrs old Female presents to ER via EMS with complaints of Wound cp Recheck. 15:40 The patient presents with swelling, chronic wound of left heel. cp 15:40 Family called EMS with concern for worsening infection of left foot. Son reports foul cp smelling drainage from wound, increased swelling, and shortness of breath when patient lays flat. Allergies adhesive Allergy (Verified 01/28/20 21:31) Itching/Hives/Rash No Known Drug Allergies Allergy (Verified 01/28/20 21:31) Unknown Home Medications: Amlodipine [Norvasc*] 10 mg PO DAILY 01/28/20 Atorvastatin Calcium [Lipitor*] 20 mg PO BEDTIME 01/28/20 Carvedilol [Coreg] 25 mg PO BID 01/28/20 Cetirizine HCl 10 mg PO DAILY 01/28/20 Ferrous Sulfate [Ferrous Sulfate*] 325 mg PO BID 01/28/20 Gabapentin 600 mg PO BIDP PRN 01/28/20 Hydralazine HCl [Apresoline] 50 mg PO TID 01/28/20 - Past Medical/Surgical History Diabetic: Yes -: diabetes -: HTN -: GERD -: Depression -: Hyperlipidemia -: Insomnia -: Chronic back pain -: DM -: abdominal hernia -: heel surgery 2007 -: abdominal hernia repair -: amptuation of 5th digit on L foot 2012 -: Cholecystectomy 2013 Psychosocial/ Personal History: Lives at home. Family and home health nurse take care of patient. - Family History Father Medical History: Heart disease Mother Medical History: Diabetes - Social History Smoking Status: Current every day smoker Alcohol use: No CD- Drugs: Yes Caffeine use: Yes Place of Residence: Home Physical Examination Temp Pulse Resp BP Pulse Ox 97.5 F 77 18 195/82 H 96 01/30/20 14:36 01/30/20 14:36 01/30/20 14:36 01/30/20 14:36 01/30/20 14:36 General: In no apparent distress, Oriented x3, Cooperative HEENT: Atraumatic Neck: Supple Respiratory: Clear to auscultation bilaterally Cardiovascular: Regular rate/rhythm, Edema Gastrointestinal: Soft and benign, Non-distended Musculoskeletal: No clubbing, No contractures Integumentary: No rashes, Skin breakdown, Skin lesion Neurological: Abnormal speech Blood work reviewed in the chart. Imagings Data: EXAM DESCRIPTION: US - Renal Ultrasound-Complete - 01/29/2020 7:45 pm CLINICAL HISTORY: . Acute and chronic renal disease COMPARISON: 2013 FINDINGS: The right kidney measures 10 cm with a normal echotexture. The patient was uncooperative so images of the left kidney and bladder were not obtained IMPRESSION: Unremarkable right renal ultrasound. The left kidney was not evaluated. EXAM DESCRIPTION: RAD - Chest Single View - 01/28/2020 4:03 pm CLINICAL HISTORY: SOB COMPARISON: Two view chest August 2018 TECHNIQUE: AP portable chest image was obtained 01/28/2020 4:03 pm . FINDINGS: Lung volumes are low. Interstitial opacification is increased and there is vascular engorgement. Heart size is increased from comparison. Left pleural effusion is present. No acute bony abnormality seen. No acute aortic findings suspected. IMPRESSION: Mild to moderate CHF/ volume overload pattern. Conclusions/Impression: A/ KIKO likely CRS. CKD IV complicated by chronic ibuprofen. P/ Continue current POC and Medications. Continue furosemide. No NSAIDs. AM labs. Daily weight. Thank you kindly for the consultation.
[2020-01-30] MEDS: carvediloL 25 MG TAB PO SCH ×2 (15:36→21:25)
[2020-01-30] MEDS: AMLODIPINE 10 MG TAB PO SCH (15:36)
--- NOTE | 2020-01-30 16:36 | P.CNS ---
Date of Consult: 01/30/20 Subjective: Patient is a 69-year-old female who was brought into the emergency room by her family after her home health nurse instructed them to bring her here for evaluation of left heel wound. Patient reports left heel wound for the past 4 months s/p I&D. Wound VAC was placed approximately 1 month ago. Patient examined at bedside. 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 I was consulted for left heel wound. Past medical/surgical history: Diabetes mellitus, hypertension, GERD, depression, hyperlipidemia, insomnia, chronic back pain, abdominal hernia, heel surgery in 2007, abdominal hernia repair, amputation of 5th digit on left foot in 2012, cholecystectomy in 2012 Family history: Father with heart disease, mother with diabetes Social history: Reports smokes cigarettes half pack per day Allergies: NKDA Active Medications Amlodipine Besylate (Norvasc) 10 mg PO DAILY [facility] Stop: 02/29/20 15:01 Last Admin: 01/30/20 15:36 Dose: 10 mg Documented by: Atorvastatin Calcium (Lipitor) 20 mg PO BEDTIME [facility] Stop: 02/28/20 21:01 Last Admin: 01/29/20 20:52 Dose: 20 mg Documented by: Carvedilol (Coreg) 25 mg PO BID [facility] Stop: 02/29/20 15:01 Last Admin: 01/30/20 15:36 Dose: 25 mg Documented by: Ferrous Sulfate (Feosol) 325 mg PO BID [facility] Stop: 02/28/20 09:01 Last Admin: 01/30/20 08:44 Dose: 325 mg Documented by: Furosemide (Lasix) 40 mg IV BID [facility] Stop: 02/27/20 21:01 Last Admin: 01/30/20 08:44 Dose: 40 mg Documented by: Furosemide (Lasix) 20 mg IV PRBCS [facility] Stop: 02/28/20 14:01 Last Admin: 01/30/20 03:30 Dose: 20 mg Documented by: Heparin Sodium (Porcine) (Heparin 5,000 Units/Ml) 5,000 unit SQ Q12HR [facility] Stop: 02/28/20 21:01 Last Admin: 01/30/20 08:44 Dose: 5,000 unit Documented by: Hydralazine HCl (Apresoline) 10 mg IV Q6HP PRN PRN Reason: FOR SBP>160 OR DBP>100 MMHG Stop: 02/28/20 08:30 Insulin Human Regular (Novolin -R) 0 unit SQ ACHS [facility]; Protocol Stop: 02/27/20 21:01 Last Admin: 01/30/20 11:30 Dose: Not Given Documented by: L-Arginine/L-Glutamine/HMB (Rohan) 1 pkt PO BID [facility] Stop: 02/29/20 21:01 Sodium Chloride (Normal Saline Flush) 10 ml IV BID [facility] Stop: 02/27/20 21:01 Last Admin: 01/30/20 08:45 Dose: 10 ml Documented by: Objective: Temp Pulse Resp BP Pulse Ox 97.5 F 84 18 184/78 H 96 01/30/20 14:36 01/30/20 15:36 01/30/20 14:36 01/30/20 15:36 01/30/20 14:36 Labs: Sodium 144, potassium 4.5, BUN 45, creatinine 2.37, his A1c 6.5, WBC 7.9, hemoglobin 9.3, hematocrit 27.3, platelets 267 Chest xray 01/27: EXAM DESCRIPTION: RAD - Chest Single View - 01/28/2020 4:03 pm CLINICAL HISTORY: SOB COMPARISON: Two view chest August 2018 TECHNIQUE: AP portable chest image was obtained 01/28/2020 4:03 pm . FINDINGS: Lung volumes are low. Interstitial opacification is increased and there is vascular engorgement. Heart size is increased from comparison. Left pleural effusion is present. No acute bony abnormality seen. No acute aortic findings suspected. IMPRESSION: Mild to moderate CHF/ volume overload pattern. ROS: General: Awake, alert, oriented CV: S1,S2 RESP: Diminished breath sounds Extremities: Pitting edema to BLLE Skin: Left heel with diabetic foot ulcer, wound bed with granulation tissue and moderate amount of green drainage. [place] area callused Assessment and plan: Left heel diabetic foot ulcer, can leave wound vac off and clean with acetic acid and apply PrismaAg daily UTI, urine show gram negative rods Will start on Cipro Diabetes mellitus, A1c 6.5 Protein calorie malnourished Will continue to monitor Thank you for consult Patient discussed with Dr. Pollock
[2020-01-30] MEDS: ACETIC ACID 0.25% IRRIG IRR SCH (18:00)
[2020-01-30] MEDS ORDERED: TRAMADOL HCL 50 MG TAB PO PRN (20:41)
--- NOTE | 2020-01-30 20:51 | P.PN ---
Date of Service: 01/30/20 Vital Signs Temp Pulse Resp BP Pulse Ox 97.9 F 83 18 184/78 H 93 01/30/20 16:00 01/30/20 16:00 01/30/20 16:00 01/30/20 16:00 01/30/20 16:00 Medications Hydrocodone Bitart/Acetaminophen ([place] 7.5/325 Mg) 1 tab PO Q6H PRN PRN Reason: Pain scale 5-7 (Moderate) Stop: 02/29/20 20:41 Acetic Acid (Acetic Acid 0.25%) 1,000 ml IRR DAILY [facility] Stop: 02/29/20 18:01 Last Admin: 01/30/20 18:00 Dose: Not Given Documented by: Amlodipine Besylate (Norvasc) 10 mg PO DAILY [facility] Stop: 02/29/20 15:01 Last Admin: 01/30/20 15:36 Dose: 10 mg Documented by: Atorvastatin Calcium (Lipitor) 20 mg PO BEDTIME [facility] Stop: 02/28/20 21:01 Last Admin: 01/29/20 20:52 Dose: 20 mg Documented by: Carvedilol (Coreg) 25 mg PO BID [facility] Stop: 02/29/20 15:01 Last Admin: 01/30/20 15:36 Dose: 25 mg Documented by: Ciprofloxacin (Cipro) 250 mg PO DAILY [facility]; Protocol Stop: 02/29/20 20:01 Ferrous Sulfate (Feosol) 325 mg PO BID [facility] Stop: 02/28/20 09:01 Last Admin: 01/30/20 08:44 Dose: 325 mg Documented by: Furosemide (Lasix) 40 mg IV BID [facility] Stop: 02/27/20 21:01 Last Admin: 01/30/20 08:44 Dose: 40 mg Documented by: Furosemide (Lasix) 20 mg IV PRBCS [facility] Stop: 02/28/20 14:01 Last Admin: 01/30/20 03:30 Dose: 20 mg Documented by: Heparin Sodium (Porcine) (Heparin 5,000 Units/Ml) 5,000 unit SQ Q12HR [facility] Stop: 02/28/20 21:01 Last Admin: 01/30/20 08:44 Dose: 5,000 unit Documented by: Hydralazine HCl (Apresoline) 10 mg IV Q6HP PRN PRN Reason: FOR SBP>160 OR DBP>100 MMHG Stop: 02/28/20 08:30 Insulin Human Regular (Novolin -R) 0 unit SQ ACHS [facility]; Protocol Stop: 02/27/20 21:01 Last Admin: 01/30/20 16:30 Dose: Not Given Documented by: L-Arginine/L-Glutamine/HMB (Rohan) 1 pkt PO BID [facility] Stop: 02/29/20 21:01 Sodium Chloride (Normal Saline Flush) 10 ml IV BID [facility] Stop: 02/27/20 21:01 Last Admin: 01/30/20 08:45 Dose: 10 ml Documented by: Tramadol HCl (Ultram) 50 mg PO Q6H PRN PRN Reason: Pain scale 5-7 (Moderate) Stop: 02/29/20 20:42 Assessment/ Plan: Nephrology CPS stable without CP or SOB. Feeling better. No acute events overnight. Reports a history of 4-5 ibuprofen per day but stopped a month ago on the advice of her PCP. Vitals, medications, blood work and imaging reviewed in the chart. NAD. MMM. Neck supple. CTA. RRR. Soft Abd. No C/C. LE Edema 1-2+ No rash. LLE ulcer. AAO. No Speech. Obese. A/ KIKO in the setting of chronic ibuprofen Acidosis Hypocalcemia CKD IV DM II with CKD Severe malnutrition Anemia in chronic illness Iron deficiency P/ Continue current POC and Medications. Continue furosemide. Start oral bicarb. Start Vitamin D. AM labs. Daily weight. No NSAIDs.
[2020-01-30] MEDS: HYDROCODONE/APAP 7.5/325 MG TAB PO PRN (21:27)
[2020-01-30] MEDS: CIPROFLOXACIN HCL 250 MG TAB PO SCH (21:27)
[2020-01-30] MEDS: ATORVASTATIN 20 MG TAB PO SCH (21:27)
[2020-01-30] MEDS: JUVEN PACKET PO SCH (21:40)
[2020-01-31 05:40] LABS: Magnesium 1.9 mg/dL (1.8-2.4); Potassium 4.4 mmol/L (3.5-5.1)
[2020-01-31 05:41] LABS: Absolute Lymphocytes (CBC) 1.8 K/uL (0.7-4.9); Basophils % 0.7 % (0-1.3); Hematocrit 26.5 % (36.0-45.0); Lymphocytes % 24.3 % (15.3-44.8); MPV 8.4 fL (7.6-11.3); RBC Red Blood Cell Count 3.06 M/uL (3.86-4.86)
[2020-01-31] MEDS: INSULIN -REGULAR HUMAN 50 UNIT/0.5 ML ML SQ SCH ×4 (07:30→21:00)
--- NOTE | 2020-01-31 08:22 | ECHO ---
HEIGHT: 5 ft 6 in WEIGHT: 264 lb 9.6 oz DATE OF STUDY: 01/30/[address]: Andreas Hale DO 2-DIMENSIONAL: YES M.MODE: YES DOPPLER: YES COLOR FLOW: YES TDS: NO PORTABLE: NO DEFINITY: NO BUBBLE STUDY: NO DIAGNOSIS: EVALUATE FOR CONGESTIVE HEART FAILURE CARDIAC HISTORY: CATHERIZATION: NO SURGERY: NO PROSTHETIC VALVE: NO PACEMAKER: NO MEASUREMENTS (cm) DIASTOLIC (NORMALS) SYSTOLIC (NORMALS) IVSd 1.0 (0.6-1.2) LA Diam 3.0 (1.9-4.0) LVEF 56% LVIDd 4.2 (3.5-5.7) LVIDs 3.0 (2.0-3.5) %FS 29% LVPWd 1.2 (0.6-1.2) Ao Diam 3.0 (2.0-3.7) 2 DIMENSIONAL ASSESSMENT: RIGHT ATRIUM: NORMAL LEFT ATRIUM: NORMAL RIGHT VENTRICLE: NORMAL LEFT VENTRICLE: NORMAL TRICUSPID VALVE: NORAML MITRAL VALVE: MITRAL ANNULAR CALCIFICATION PULMONIC VALVE: NOT SEEN WELL AORTIC VALVE: NORMAL PERICARDIAL EFFUSION: NONE AORTIC ROOT: NORMAL LEFT VENTRICULAR WALL MOTION: NORMAL DOPPLER/COLOR FLOW: DIASTOLIC DYSFUNCTION WITH ELEVATED FILLING PRESSURE. COMMENTS: NORMAL LEFT VENTRICULAR EJECTION FRACTION 55-60% WITH NORMAL WALL MOTION. CALCIFIED MITRAL VALVE WITH MITRAL ANNULAR CALCIFICATION AND MILD MITRAL REGURGITATION. ELEVATED RIGHT ATRIAL PRESSURE >20 mmHg. DIASTOLIC DYSFUNCTION WITH ELEVATED FILLING PRESSURE. TECHNOLOGIST: Juan ESCUDERO
[2020-01-31] MEDS: SODIUM BICARB 325 MG TAB PO SCH ×3 (08:23→16:42)
[2020-01-31] MEDS: CALCITROL 0.25 MCG CAP PO SCH (08:23)
[2020-01-31] MEDS: CIPROFLOXACIN HCL 250 MG TAB PO SCH (08:24)
[2020-01-31] MEDS: FERROUS SULFATE 325 MG TAB PO SCH ×2 (08:24→21:17)
[2020-01-31] MEDS: FUROSEMIDE 40 MG/4 ML VIAL IV SCH ×2 (08:24→21:17)
[2020-01-31] MEDS: HEPARIN 5000 UNIT/ML 1 ML VIAL SQ SCH ×2 (08:24→21:19)
[2020-01-31] MEDS: AMLODIPINE 10 MG TAB PO SCH (08:25)
[2020-01-31] MEDS: carvediloL 25 MG TAB PO SCH ×2 (08:25→21:17)
[2020-01-31] MEDS: ACETIC ACID 0.25% IRRIG IRR SCH (08:26)
[2020-01-31] MEDS: JUVEN PACKET PO SCH ×2 (08:26→21:19)
[2020-01-31] MEDS: VITAMIN D 5,000 UNIT CAP PO SCH (08:26)
--- NOTE | 2020-01-31 09:36 | CON ---
Date of Consultation: 01/29/2020 Reason For Consultation: Congestive heart failure. History Of Present Illness: Ms. Schultz is a 69-year-old white woman. She has multiple medical pro blems. She mainly is deaf, has a history of hypertension, dyslipidemia, chronic anemia, neuropathy, diabetes, and depression, came in with shortness of breath. X-ray showed congestive heart failure. She had pedal edema with a negative venous Doppler. Had PND, orthopnea, pedal edema, but no palpitat ion or syncope. Denied any chest pain, nausea, vomiting, or diaphoresis. Denied any fever or chills . Allergies: SHE IS ALLERGIC TO ADHESIVE TAPE. Review of Systems: Negative. Social History: Negative. Family History: Negative. Medications: At home include Neurontin, iron, Norvasc, Lipitor, Coreg and hydralazine. Physical Examination: General: She weighed 264 pounds. HEENT: Negative. Neck: Supple. No bruit. Chest: Clear on the right. She had rales on the left base. Cardiac: Exam revealed a regular rhythm and rate. No murmurs, gallops, or rubs. Abdomen: Obese, but benign. Extremities: Revealed 2+ edema. Diagnostic Data: Creatinine is 2.41. Hemoglobin 6.7. Her calcium was low. Her BNP was 1809. She had a UTI on urinalysis. Chest x-ray showed CHF. Impression And Plan: Probable diastolic congestive heart failure that is acute, most likely secondar y to anemia and renal failure. She needs to be transfused. Nephrology is involved. Echocardiogram is pending. She needs to have her calcium supplemented. Wound care has been ordered. She needs to be diuresed while watching her kidney function. Her other problems including hypertension and dyslip idemia both are well controlled. Her diabetes is fairly well controlled. She has neuropathy and dep ression. We will continue to follow along. NB/MODL Voice ID: [id number] Report ID: [id number]
[2020-01-31] MEDS: HYDROCODONE/APAP 7.5/325 MG TAB PO PRN ×2 (11:57→21:18)
[2020-01-31] MEDS ORDERED: Meropenem 1000 MG/VIAL IV SCH (13:02)
--- NOTE | 2020-01-31 13:02 | P.PN ---
Subjective Date of Service: 01/31/20 Primary Care Provider: Unknown Chief Complaint: Congestive heart failure with acute exacerbation Subjective: Improving, Doing well Physical Examination - Vital Signs Temperature: 97.7 F Blood Pressure: 175/78 Pulse: 69 Respirations: 19 Pulse Ox (%): 95 - Physical Exam General: Alert, In no apparent distress, Oriented x3, Cooperative HEENT: Atraumatic Neck: Supple Respiratory: Clear to auscultation bilaterally, Normal air movement Cardiovascular: Normal pulses, Regular rate/rhythm Neurological: Normal strength at 5/5 x4 extr, Normal tone, Normal affect, Abnormal speech (Patient is deaf) - Studies Medications List Reviewed: Yes Assessment & Plan Discharge Plan: Other (halfway facility) Plan to discharge in: 24 Hours Physician Review Additional Text: Impression: Acute on chronic diastolic CHF Acute on chronic renal failure stage 2 Chronic left heel wound with wound VAC UTI, urine culture positive for Klebsiella with multiple resistance Anemia likely of chronic disease Diabetes mellitus type 2 insulin-dependent Hypertension Hyperlipidemia Patient is deaf Plan: Acute on chronic diastolic CHF: Patient has significantly improved. Continue IV diuresis. Continue fluid restriction. Overall this is improved. Continue to wean off oxygen. Patient will likely require oxygen at discharge. Continue with IV diuretic therapy. Continue fluid restriction. Echo shows normal ejection fraction with diastolic dysfunction. Urine culture positive for Klebsiella. This has multiple resistance. Will discuss with infectious disease. Patient will likely require IV meropenem and PICC line for at least 7 days. Will discuss further with Infectious Disease. If so will need to arranged prior to discharge to skilled facility. Acute on chronic renal failure stage 2: Continue diuresis. Continue with nephrology recommendation. UTI, urine culture positive for Klebsiella with multiple resistance: Discontinue Cipro. Will start meropenem. Will discuss further with infectious disease on whether to continue IV meropenem for 7 days. Patient will likely require PICC line. Will need to arrange at skilled facility. Chronic left heel wound with wound VAC: Continue current wound care. Continue with infectious disease recommendations. Anemia likely of chronic disease: Patient received transfusion during the course of her stay. Overall stable. Diabetes mellitus type 2 insulin-dependent: Continue Accu-Cheks and verify home medication. Hypertension: Home medications restarted Hyperlipidemia: Continue medication Patient is deaf: Patient able to communicate through writing. Time Spent Managing Pts Care (In Minutes): 55
[2020-01-31] MEDS: Meropenem 500 MG in NA CHLORIDE 0.9% 100 ML IV SCH ×2 (14:04→21:18)
--- NOTE | 2020-01-31 16:06 | P.PN ---
Date of Service: 01/31/20 Subjective: Patient is a 69-year-old female who was brought into the emergency room by her family after her home health nurse instructed them to bring her here for evaluation of left heel wound. Patient reports left heel wound for the past 4 months s/p I&D. Wound VAC was placed approximately 1 month ago. 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 I was consulted for left heel wound. Patient examined at the bedside. Currently being treated for UTI and left heel wound. Objective: Temp Pulse Resp BP Pulse Ox 97.7 F 69 19 175/78 H 95 01/31/20 13:02 01/31/20 13:02 01/31/20 13:02 01/31/20 13:02 01/31/20 13:02 Labs: Sodium 144, potassium 4.4, BUN 43, creatinine 2.31, A1c 6.5, WBC 7.3, hemoglobin 8.9, hematocrit 26.5, platelets 271 Chest xray 01/27: EXAM DESCRIPTION: RAD - Chest Single View - 01/28/2020 4:03 pm CLINICAL HISTORY: SOB COMPARISON: Two view chest August 2018 TECHNIQUE: AP portable chest image was obtained 01/28/2020 4:03 pm . FINDINGS: Lung volumes are low. Interstitial opacification is increased and there is vascular engorgement. Heart size is increased from comparison. Left pleural effusion is present. No acute bony abnormality seen. No acute aortic findings suspected. IMPRESSION: Mild to moderate CHF/ volume overload pattern. ROS: General: Awake, alert, oriented CV: S1,S2 RESP: Diminished breath sounds Extremities: Pitting edema to BLLE Skin: Left heel with diabetic foot ulcer, with dressing CDI Assessment and plan: Left heel diabetic foot ulcer, can leave wound vac off and clean with acetic acid and apply PrismaAg daily UTI, urine culture shows Klebsiella Cipro changed to Merrem, recommend to continue for 5 days Diabetes mellitus, A1c 6.5 Protein calorie malnourished Will continue to monitor Patient discussed with Dr. Pollock
[2020-01-31] MEDS ORDERED: Meropenem 500 MG VIAL IV SCH (21:00)
[2020-01-31] MEDS: ATORVASTATIN 20 MG TAB PO SCH (21:17)
--- NOTE | 2020-01-31 22:00 | P.PN ---
Date of Service: 01/31/20 Vital Signs Temp Pulse Resp BP Pulse Ox 98 F 78 18 173/70 H 93 01/31/20 16:00 01/31/20 21:17 01/31/20 21:18 01/31/20 21:17 01/31/20 21:18 Medications Hydrocodone Bitart/Acetaminophen ([place] 7.5/325 Mg) 1 tab PO Q6H PRN PRN Reason: Pain scale 5-7 (Moderate) Stop: 02/29/20 20:41 Last Admin: 01/31/20 21:18 Dose: 1 tab Documented by: Acetic Acid (Acetic Acid 0.25%) 1,000 ml IRR DAILY [facility] Stop: 02/29/20 18:01 Last Admin: 01/31/20 08:26 Dose: 1,000 ml Documented by: Amlodipine Besylate (Norvasc) 10 mg PO DAILY [facility] Stop: 02/29/20 15:01 Last Admin: 01/31/20 08:25 Dose: 10 mg Documented by: Atorvastatin Calcium (Lipitor) 20 mg PO BEDTIME [facility] Stop: 02/28/20 21:01 Last Admin: 01/31/20 21:17 Dose: 20 mg Documented by: Calcitriol (Rocaltrol) 0.5 mcg PO DAILY [facility] Stop: 03/01/20 09:01 Last Admin: 01/31/20 08:23 Dose: 0.5 mcg Documented by: Carvedilol (Coreg) 25 mg PO BID [facility] Stop: 02/29/20 15:01 Last Admin: 01/31/20 21:17 Dose: 25 mg Documented by: Cholecalciferol (Vitamin D 5,000 Iu Cap) 5,000 unit PO DAILY [facility] Stop: 03/01/20 09:01 Last Admin: 01/31/20 08:26 Dose: 5,000 unit Documented by: Ferrous Sulfate (Feosol) 325 mg PO BID [facility] Stop: 02/28/20 09:01 Last Admin: 01/31/20 21:17 Dose: 325 mg Documented by: Furosemide (Lasix) 40 mg IV BID [facility] Stop: 02/27/20 21:01 Last Admin: 01/31/20 21:17 Dose: 40 mg Documented by: Furosemide (Lasix) 20 mg IV PRBCS [facility] Stop: 02/28/20 14:01 Last Admin: 01/30/20 03:30 Dose: 20 mg Documented by: Heparin Sodium (Porcine) (Heparin 5,000 Units/Ml) 5,000 unit SQ Q12HR [facility] Stop: 02/28/20 21:01 Last Admin: 01/31/20 21:19 Dose: 5,000 unit Documented by: Hydralazine HCl (Apresoline) 10 mg IV Q6HP PRN PRN Reason: FOR SBP>160 OR DBP>100 MM[facility] Stop: 02/28/20 08:30 Meropenem 500 mg/ Sodium (Chloride) 100 mls @ 100 mls/hr IV Q12HR [facility] Stop: 03/01/20 13:31 Last Admin: 01/31/20 21:18 Dose: 100 mls Documented by: Insulin Human Regular (Novolin -R) 0 unit SQ ACHS [facility]; Protocol Stop: 02/27/20 21:01 Last Admin: 01/31/20 21:00 Dose: Not Given Documented by: L-Arginine/L-Glutamine/HMB (Rohan) 1 pkt PO BID [facility] Stop: 02/29/20 21:01 Last Admin: 01/31/20 21:19 Dose: 1 pkt Documented by: Sodium Bicarbonate (Sodium Bicarb 325 Mg) 650 mg PO TIDWM [facility] Stop: 03/01/20 08:01 Last Admin: 01/31/20 16:42 Dose: 650 mg Documented by: Sodium Chloride (Normal Saline Flush) 10 ml IV BID [facility] Stop: 02/27/20 21:01 Last Admin: 01/31/20 21:17 Dose: 10 ml Documented by: Tramadol HCl (Ultram) 50 mg PO Q6H PRN PRN Reason: Pain scale 5-7 (Moderate) Stop: 02/29/20 20:42 Assessment/ Plan: Nephrology CPS stable without CP or SOB. Feeling better. No acute events overnight. Reports a history of 4-5 ibuprofen per day but stopped a month ago on the advice of her PCP. Vitals, medications, blood work and imaging reviewed in the chart. NAD. MMM. Neck supple. CTA. RRR. Soft Abd. No C/C. LE Edema 1+ No rash. LLE ulcer. AAO. No Speech. Obese. A/ KIKO in the setting of chronic ibuprofen Acidosis Hypocalcemia CKD IV DM II with CKD Severe malnutrition Anemia in chronic illness Iron deficiency P/ Continue current POC and Medications. Continue furosemide. Discontinue bicarb. Continue abx. AM labs. Daily weight. No NSAIDs.
[2020-02-01 05:59] LABS: Absolute Lymphocytes (CBC) 1.9 K/uL (0.7-4.9); Basophils % 0.8 % (0-1.3); Hematocrit 25.7 % (36.0-45.0); MPV 8.4 fL (7.6-11.3); RBC Red Blood Cell Count 2.95 M/uL (3.86-4.86)
[2020-02-01 06:41] LABS: Magnesium 1.7 mg/dL (1.8-2.4); Potassium 4.1 mmol/L (3.5-5.1)
[2020-02-01] MEDS: INSULIN -REGULAR HUMAN 50 UNIT/0.5 ML ML SQ SCH ×4 (07:30→20:16)
[2020-02-01] MEDS ORDERED: MAGNESIUM SULFATE 1 gm IVPB 1 GM/100 ML BAG IV ONE (08:00)
[2020-02-01] MEDS: JUVEN PACKET PO SCH ×2 (09:00→20:15)
[2020-02-01] MEDS: METOLAZONE 5 MG TABLET PO SCH ×2 (09:00→13:09)
[2020-02-01] MEDS: ACETIC ACID 0.25% IRRIG IRR SCH (09:00)
[2020-02-01] MEDS: HYDROCODONE/APAP 7.5/325 MG TAB PO PRN ×2 (10:32→20:14)
[2020-02-01] MEDS: FUROSEMIDE 40 MG/4 ML VIAL IV SCH ×2 (10:36→20:15)
[2020-02-01] MEDS: VITAMIN D 5,000 UNIT CAP PO SCH (10:36)
[2020-02-01] MEDS: Meropenem 500 MG in NA CHLORIDE 0.9% 100 ML IV SCH ×2 (10:36→20:14)
[2020-02-01] MEDS: HEPARIN 5000 UNIT/ML 1 ML VIAL SQ SCH ×2 (10:36→20:15)
[2020-02-01] MEDS: CALCITROL 0.25 MCG CAP PO SCH (10:37)
[2020-02-01] MEDS: carvediloL 25 MG TAB PO SCH ×2 (10:37→20:14)
[2020-02-01] MEDS: FERROUS SULFATE 325 MG TAB PO SCH ×2 (10:37→20:15)
[2020-02-01] MEDS: AMLODIPINE 10 MG TAB PO SCH (10:37)
--- NOTE | 2020-02-01 12:06 | RAD REPORT ---
EXAM DESCRIPTION: RAD - Chest Single View - 01/31/2020 11:27 pm CLINICAL HISTORY: Picc line placement COMPARISON: None. TECHNIQUE: XR CHEST 1 VIEW 01/31/2020 10:28 PM CDT FINDINGS: The heart is enlarged. There is moderate left basilar airspace disease. There are small pl eural effusions. There is no pneumothorax. There are no acute osseous findings. Right PICC line tip i s in the mid SVC. IMPRESSION: PICC line tip in the mid SVC. Electronically signed by: Arnel Greer MD 01/31/2020 11:53 PM CDT Due to temporary technical issues with the PACS/Fluency reporting system, reports are being signed by the in house radiologist without review as a courtesy to ensure prompt reporting. The interpreting r adiologist is fully responsible for the content of the report.
--- NOTE | 2020-02-01 14:22 | P.DS ---
Admission Date: 01/28/20 Discharge Date: 02/01/20 Primary Care Provider: Unknown Disposition: TRANSFER TO SNF - MEDICAL Discharge Condition: GOOD Reason for Admission: Congestive heart failure with acute exacerbation Consultations: Infectious disease-Dr. Pollock Nephrology-Dr. Hickman Cardiology-Dr. Hernandez Procedures: ECHO: EF 56% LEFT VENTRICULAR WALL MOTION: NORMAL DOPPLER/COLOR FLOW: DIASTOLIC DYSFUNCTION WITH ELEVATED FILLING PRESSURE. COMMENTS: NORMAL LEFT VENTRICULAR EJECTION FRACTION 55-60% WITH NORMAL WALL MOTION. CALCIFIED MITRAL VALVE WITH MITRAL ANNULAR CALCIFICATION AND MILD MITRAL REGURGITATION. ELEVATED RIGHT ATRIAL PRESSURE >20 mmHg. DIASTOLIC DYSFUNCTION WITH ELEVATED FILLING PRESSURE. Renal US: FINDINGS: The right kidney measures 10 cm with a normal echotexture. The patient was uncooperative so images of the left kidney and bladder were not obtained IMPRESSION: Unremarkable right renal ultrasound. The left kidney was not evaluated Medical problem list: Acute on chronic diastolic CHF Acute on chronic renal failure stage 2 Chronic left heel wound with wound VAC UTI, urine culture positive for Klebsiella with multiple resistance Anemia likely of chronic disease with iron deficiency Diabetes mellitus type 2 diet controlled Hypertension Hyperlipidemia Patient is deaf Brief History of Present Illness: 69-year-old female with multiple medical problems presented to the emergency room with dyspnea. Patient found to have acute on chronic systolic CHF and acute on chronic renal failure. Patient has left heel wound. Patient admitted for further evaluation and treatment. Hospital Course: Patient presented with dyspnea secondary to acute on chronic diastolic CHF. The patient was admitted for diuresis. Patient was placed on a fluid restriction and continued with therapy. Patient has done well. During the course of her stay she was found to have UTI. Urine culture was positive for Klebsiella. Multiple resistance was noted. Consultation with Infectious Disease was done. Infectious disease recommended meropenem. This required placement of PICC line. This was done without any problems. At discharge patient will continue with IV meropenem 500 mg twice daily for 7 days. Recommend to recheck urine culture after that time. If negative PICC line can be discontinued. At discharge patient will continue with UTI prevention. For her diastolic CHF, patient will continue with a 1500 cc per day fluid restriction and low-salt diet. Recommend to monitor her weight daily. If her weight increases by more than 5 lb she is to contact her PCP for further instruction. At discharge patient will continue with Lasix 40 mg 1 pill twice daily. Recommend to recheck lab-BMP in 1-2 weeks to monitor her progress. Patient also found to have acute on chronic renal failure stage 2. Nephrology was consulted. Medications were adjusted. At discharge patient will continue with fluid restriction. Recommend no further use of nonsteroidal anti - inflammatories. Future medications may need to be renally dose. Recommend follow up with Nephrology in 2-4 weeks to monitor her progress. At discharge patient will continue with Calcitrol 0.5 mcg daily and vitamin-D 5000 units once daily. Further adjustment can be done by nephrology. Patient with chronic left heel wound. Patient has wound VAC in place. This was evaluated by infectious disease. Infectious Disease recommends to continue current wound care. This includes cleaning with acetic acid daily and placing Prismag daily. No need for wound VAC at this time. Wound care will be continued at the skilled facility. Patient [facility] in 1-2 weeks to further address her care. Prevention of heel ulcers will need to be continued at the skilled facility. Patient with anemia of chronic disease with iron deficiency. Patient did receive transfusion of blood. Hemoglobin now stable. Patient may continue with iron 325 mg 1 pill twice daily. Recommend to recheck lab-CBC in 2-4 weeks to monitor progress. This can be further monitored by her PCP. Patient with diabetes mellitus type 2. this is diet controlled. Hemoglobin A1c 6.5. At discharge she will continue with her diet to control diabetes. Recommend to maintain blood sugar less than 140 fasting and less than 200 after meals. If significantly elevated patient may require medication in the future. This can be further addressed by her PCP. Recommend to recheck A1c in 3 months to monitor progress. Patient with hypertension. Medications were adjusted during the course of her stay. Hydralazine was discontinued. At discharge patient will continue with Norvasc 10 mg daily and carvedilol 25 mg 1 pill twice daily. Recommend to maintain blood pressure less 150/80. Further adjustment can be done by her PCP. If blood pressure remains elevated greater than 140 consistently then her PCP or nephrology can add additional medication. . Patient with hyperlipidemia. At discharge she will continue with her current medication Lipitor 20 mg daily. Patient with diabetic neuropathy. At discharge patient may continue with gabapentin 600 mg twice daily as needed. Patient will be game and a limited supply of tramadol 50 mg 1 pill 3 times a day as needed for pain. Patient is deaf but able to communicate well through writing. Vital Signs/Physical Exam: Temp Pulse Resp BP Pulse Ox 97.6 F 75 20 142/64 H 95 02/01/20 08:00 02/01/20 13:09 02/01/20 11:32 02/01/20 13:02/01/20 11:32 General: Alert, In no apparent distress, Oriented x3, Cooperative HEENT: Atraumatic, Other (Patient is deaf but able to communicate well) Neck: Supple Respiratory: Clear to auscultation bilaterally, Normal air movement Cardiovascular: Normal pulses, Regular rate/rhythm Gastrointestinal: Normal bowel sounds, Soft and benign, Non-distended, No masses, No rebound, No guarding Integumentary: Other (Lower extremity edema improved. Bandages to the left heel noted) Neurological: Normal strength at 5/5 x4 extr, Normal tone, Normal affect Laboratory Data at Discharge: WBC 6.7 K/uL (4.3-10.9) 02/01/20 05:00 Hgb 8.6 g/dL (12.0-15.0) L 02/01/20 05:00 Hct 25.7 % (36.0-45.0) L 02/01/20 05:00 Plt Count 255 K/uL (152-406) 02/01/20 05:00 PT 12.6 SECONDS (9.5-12.5) H 01/28/20 16:41 INR 1.07 01/28/20 16:41 Sodium 145 mmol/L (136-145) 02/01/20 05:00 Potassium 4.1 mmol/L (3.5-5.1) 02/01/20 05:00 BUN 41 mg/dL (7-18) H 02/01/20 05:00 Creatinine 2.17 mg/dL (0.55-1.3) H 02/01/20 05:00 Glucose 110 mg/dL (74-106) H 02/01/20 05:00 Magnesium 1.7 mg/dL (1.8-2.4) L 02/01/20 05:00 Total Bilirubin 0.2 mg/dL (0.2-1.0) 01/28/20 16:41 AST 11 U/L (15-37) L 01/28/20 16:41 ALT 20 U/L (12-78) 01/28/20 16:41 Alkaline Phosphatase 179 U/L (45-117) H 01/28/20 16:41 Triglycerides 76 mg/dL (<150) 01/30/20 05:33 Cholesterol 98 mg/dL (<200) 01/30/20 05:33 HDL Cholesterol 44 mg/dL (40-60) 01/30/20 05:33 Cholesterol/HDL Ratio 2.23 01/30/20 05:33 Home Medications: Amlodipine [Norvasc*] 10 mg PO DAILY 01/28/20 Atorvastatin Calcium [Lipitor*] 20 mg PO BEDTIME 01/28/20 Carvedilol [Coreg] 25 mg PO BID 01/28/20 Ferrous Sulfate [Ferrous Sulfate*] 325 mg PO BID 01/28/20 Gabapentin 600 mg PO BIDP PRN 01/28/20 Acetic Acid 0.25% [Acetic Acid 0.25%*] 1,000 ml IRR DAILY #1 btl 02/01/20 Calcitrol [Rocaltrol*] 0.5 mcg PO DAILY #60 cap 02/01/20 Cholecalciferol (Vitamin D3) [Vitamin D 5,000 IU Cap*] 5,000 unit PO DAILY #30 cap 02/01/20 Furosemide [Lasix] 40 mg PO BIDL #60 tab 02/01/20 Rohan [Rohan*] 1 pkt PO BID #60 powd.pack 02/01/20 traMADol HCL [Ultram*] 50 mg PO Q6H PRN #15 tab 02/01/20 New Medications: Acetic Acid 0.25% [Acetic Acid 0.25%*] 1,000 ml IRR DAILY #1 btl Rohan [Rohan*] 1 pkt PO BID #60 powd.pack Furosemide [Lasix] 40 mg PO BIDL #60 tab Calcitrol [Rocaltrol*] 0.5 mcg PO DAILY #60 cap traMADol HCL [Ultram*] 50 mg PO Q6H PRN #15 tab PRN Reason: Pain Scale 5-7 (Moderate) Cholecalciferol (Vitamin D3) [Vitamin D 5,000 IU Cap*] 5,000 unit PO DAILY #30 cap Patient Discharge Instructions: 1. Patient will go to skilled facility to continue rehab and treatment of her UTI with IV antibiotic therapy. 2. Patient presented with dyspnea secondary to acute on chronic diastolic CHF. The patient was admitted for diuresis. Patient was placed on a fluid restriction and continued with therapy. Patient has done well. During the course of her stay she was found to have UTI. Urine culture was positive for Klebsiella. Multiple resistance was noted. Consultation with Infectious Disease was done. Infectious disease recommended meropenem. This required placement of PICC line. This was done without any problems. At discharge patient will continue with IV meropenem 500 mg twice daily for 7 days. Recommend to recheck urine culture after that time. If negative PICC line can be discontinued. At discharge patient will continue with UTI prevention. 3. For her diastolic CHF, patient will continue with a 1500 cc per day fluid restriction and low-salt diet. Recommend to monitor her weight daily. If her weight increases by more than 5 lb she is to contact her PCP for further instruction. At discharge patient will continue with Lasix 40 mg 1 pill twice daily. Recommend to recheck lab-BMP in 1-2 weeks to monitor her progress. 4. Patient also found to have acute on chronic renal failure stage 2. Nephrology was consulted. Medications were adjusted. At discharge patient will continue with fluid restriction. Recommend no further use of nonsteroidal anti -inflammatories. Future medications may need to be renally dose. Recommend follow up with Nephrology in 2-4 weeks to monitor her progress. At discharge patient will continue with Calcitrol 0.5 mcg daily and vitamin-D 5000 units once daily. Further adjustment can be done by nephrology. 5. Patient with chronic left heel wound. Patient has wound VAC in place. This was evaluated by infectious disease. Infectious Disease recommends to continue current wound care. This includes cleaning with acetic acid daily and placing Prismag daily. No need for wound VAC at this time. Wound care will be continued at the skilled facility. Patient may follow up at [facility] in 1-2 weeks to further address her care. Prevention of heel ulcers will need to be continued at the skilled facility. 6. Patient with anemia of chronic disease with iron deficiency. Patient did receive transfusion of blood. Hemoglobin now stable. Patient may continue with iron 325 mg 1 pill twice daily. Recommend to recheck lab-CBC in 2-4 weeks to monitor progress. This can be further monitored by her PCP. 7. Patient with diabetes mellitus type 2. this is diet controlled. Hemoglobin A1c 6.5. At discharge she will continue with her diet to control diabetes. Recommend to maintain blood sugar less than 140 fasting and less than 200 after meals. If significantly elevated patient may require medication in the future. This can be further addressed by her PCP. Recommend to recheck A1c in 3 months to monitor progress. 8. Patient with hypertension. Medications were adjusted during the course of her stay. Hydralazine was discontinued. At discharge patient will continue with Norvasc 10 mg daily and carvedilol 25 mg 1 pill twice daily. Recommend to maintain blood pressure less 150/80. Further adjustment can be done by her PCP. If blood pressure remains elevated greater than 140 consistently then her PCP or nephrology can add additional medication. . 8. Patient with hyperlipidemia. At discharge she will continue with her current medication Lipitor 20 mg daily. 9. Patient with diabetic neuropathy. At discharge patient may continue with gabapentin 600 mg twice daily as needed. Patient will be game and a limited supply of tramadol 50 mg 1 pill 3 times a day as needed for pain. 10. Patient is deaf but able to communicate well through writing. Diet: ADA Activity: Fall precautions Time spent managing pt's care (in minutes): 55
--- NOTE | 2020-02-01 14:43 | P.PN ---
Date of Service: 02/01/20 Subjective: Patient is a 69-year-old female who was brought into the emergency room by her family after her home health nurse instructed them to bring her here for evaluation of left heel wound. Patient reports left heel wound for the past 4 months s/p I&D. Wound VAC was placed approximately 1 month ago. 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 I was consulted for left heel wound. Patient examined at the bedside. Currently being treated for UTI and left heel wound. Objective: Temp Pulse Resp BP Pulse Ox 97.8 F 75 19 142/64 H 93 02/01/20 12:00 02/01/20 13:09 02/01/20 12:00 02/01/20 13:09 02/01/20 12:00 Labs: Sodium 145, potassium 4.1, BUN 41, creatinine 2.17, A1c 6.5, WBC 6.7, hemoglobin 8.6, hematocrit 25.7, platelets 255 Chest xray 01/27: EXAM DESCRIPTION: RAD - Chest Single View - 01/28/2020 4:03 pm CLINICAL HISTORY: SOB COMPARISON: Two view chest August 2018 TECHNIQUE: AP portable chest image was obtained 01/28/2020 4:03 pm . FINDINGS: Lung volumes are low. Interstitial opacification is increased and there is vascular engorgement. Heart size is increased from comparison. Left pleural effusion is present. No acute bony abnormality seen. No acute aortic findings suspected. IMPRESSION: Mild to moderate CHF/ volume overload pattern. ROS: General: Awake, alert, oriented CV: S1,S2 RESP: Diminished breath sounds Extremities: Pitting edema to BLLE Skin: Left heel with diabetic foot ulcer, with dressing CDI Assessment and plan: Left heel diabetic foot ulcer, continue to clean with acetic acid and apply PrismaAg daily UTI, urine culture shows Klebsiella Merrem day 2/5 Diabetes mellitus, A1c 6.5 Protein calorie malnourished Will continue to monitor Patient discussed with Dr. Pollock
[2020-02-01 16:48] VITALS: TEMP 97.7
[2020-02-01] MEDS: ATORVASTATIN 20 MG TAB PO SCH (20:15)
[2020-02-01 20:17] VITALS: BP 176/77
--- NOTE | 2020-02-01 21:38 | P.PN ---
Date of Service: 02/01/20 Vital Signs Temp Pulse Resp BP Pulse Ox 97.7 F 74 18 176/77 H 95 02/01/20 16:00 02/01/20 20:15 02/01/20 20:14 02/01/20 20:15 02/01/20 20:14 Assessment/ Plan: Nephrology CPS stable without CP or SOB. Feeling better. No acute events overnight. Reports a history of 4-5 ibuprofen per day but stopped a month ago on the advice of her PCP. Vitals, medications, blood work and imaging reviewed in the chart. NAD. MMM. Neck supple. CTA. RRR. Soft Abd. No C/C. LE Edema 1+ No rash. LLE ulcer. AAO. No Speech. Obese. A/ KIKO in the setting of chronic ibuprofen Acidosis Hypocalcemia CKD IV DM II with CKD Severe malnutrition Anemia in chronic illness Iron deficiency P/ Continue current POC and Medications. Continue furosemide. Continue abx. AM labs prn. Daily weight. No NSAIDs.
[2020-02-02 00:41] VITALS: O2SAT 95
== END 2020-02-01 20:51 | DRG 291 ==
LOC: ER 14:39 → ERHOLD 19:09 → 2ND 20:02
PROVIDERS: ADMIT Family Medicine; ATTEND Family Medicine
PROC: 30233N1 Transfusion of Nonautologous Red Blood Cells into Peripheral Vein, Percutaneous Approach (ICD-10-PCS; 2020-01-29)
PROC: 02HV33Z Insertion of Infusion Device into Superior Vena Cava, Percutaneous Approach (ICD-10-PCS; principal; 2020-01-31)
DX: I13.0 Hypertensive heart and chronic kidney disease with heart failure and stage 1 through stage 4 chronic kidney disease, or unspecified chronic kidney disease (principal); L89.623 Pressure ulcer of left heel, stage 3; I50.33 Acute on chronic diastolic (congestive) heart failure; E43 Unspecified severe protein-calorie malnutrition; E87.2 Acidosis; L97.429 Non-pressure chronic ulcer of left heel and midfoot with unspecified severity; N39.0 Urinary tract infection, site not specified; Z16.29 Resistance to other single specified antibiotic; N17.9 Acute kidney failure, unspecified; E11.621 Type 2 diabetes mellitus with foot ulcer; E11.22 Type 2 diabetes mellitus with diabetic chronic kidney disease; E78.5 Hyperlipidemia, unspecified; E11.40 Type 2 diabetes mellitus with diabetic neuropathy, unspecified; H91.90 Unspecified hearing loss, unspecified ear; K21.9 Gastro-esophageal reflux disease without esophagitis; G89.29 Other chronic pain; M54.9 Dorsalgia, unspecified; Z89.422 Acquired absence of other left toe(s); Z90.49 Acquired absence of other specified parts of digestive tract; Z91.048 Other nonmedicinal substance allergy status; Z79.899 Other long term (current) drug therapy; E66.9 Obesity, unspecified; Z68.39 Body mass index [BMI] 39.0-39.9, adult; D63.8 Anemia in other chronic diseases classified elsewhere; E83.51 Hypocalcemia; B96.1 Klebsiella pneumoniae [K. pneumoniae] as the cause of diseases classified elsewhere; F32.9 Major depressive disorder, single episode, unspecified; N18.2 Chronic kidney disease, stage 2 (mild)
CPT/HCPCS: 36415; 36430; 36569; 71045; 76770; 80048; 80061; 80076; 81003; 81015; 82607; 82728; 82947; 83036; 83540; 83735; 83880; 84145; 84439; 84443; 84466; 84484; 85014; 85018; 85025; 85610; 86850; 86900; 86901; 87077; 87086; 87088; 87186; 93005; 93306; 93970; 96365; 96375; 97161; 99285; J0696; J1644; J1940; J3475; J7050; P9016; U0002; U0003

== ENCOUNTER 2020-07-15 15:33 | Emergency (ER) | payer OTHER ==
--- NOTE | 2020-07-15 16:34 | RAD REPORT ---
EXAM DESCRIPTION: CT - Stone Protocol - 07/15/2020 4:17 pm CLINICAL HISTORY: Abdominal pain. Flank pain COMPARISON: 2018 TECHNIQUE: Computed axial tomography of the abdomen pelvis was obtained without oral or IV contrast. Lack of IV and oral contrast limits evaluation of solid organs, bowel, and vessels. Coronal reformat dahiana images were obtained and reviewed. All CT scans are performed using dose optimization technique as appropriate and may include automated exposure control or mA/KV adjustment according to patient size. FINDINGS: 1 millimeter calculus left kidney. No hydronephrosis. No right ureteral calculus. . An ure teral calculus is not noted. A bladder calculus is not present. The liver, spleen, pancreas and adrenals appear grossly normal There is no evidence of diverticulitis. Vascular calcifications. Cholecystectomy IMPRESSION: 1 millimeter nonobstructing left renal calculus
[2020-07-15 17:00] LABS: Absolute Lymphocytes (CBC) 2.4 K/uL (0.7-4.9); Basophils % 0.7 % (0-1.3); Hematocrit 27.6 % (36.0-45.0); Lymphocytes % 26.2 % (15.3-44.8); MPV 8.8 fL (7.6-11.3); RBC Red Blood Cell Count 3.17 M/uL (3.86-4.86)
[2020-07-15 17:10] LABS: Albumin 2.9 g/dL (3.4-5.0); Bilirubin Direct 0.1 mg/dL (0-0.2); Bilirubin Total 0.3 mg/dL (0.2-1.0); Potassium 4.7 mmol/L (3.5-5.1); Protein, Total 6.3 g/dL (6.4-8.2)
[2020-07-15] MEDS ORDERED: MORPHINE 4 MG/ML SYR ONE (17:31)
[2020-07-15] MEDS ORDERED: ONDANSETRON 4 MG/2 ML VIAL ONE (17:31)
[2020-07-15 19:46] LABS: Urine Blood 1+ (NEG); Urine Glucose TRACE (NEG); Urine Protein 3+ (NEG); Urine Specific Gravity 1.025 (1.005-1.030)
--- NOTE | 2020-07-15 20:01 | ER ---
Nurse's Notes [facility] Name: Delmi Schultz Age: 69 yrs Sex: Female : 1950 Arrival Date: 07/15/2020 Time: 15:38 Bed 6 Private MD: Diagnosis: Unspecified abdominal pain Presentation: 07/15 15:41 Chief complaint: EMS states: C/O R sided abdominal/flank pain, denies N/V/D, hx of ph ESRD, hypertensive at 225/97, HR 82, Spo2 97%, pt is hearing impaired. Coronavirus screen: Client denies travel out of the [place] in the last 14 days. Ebola Screen: No symptoms or risks identified at this time. Initial Sepsis Screen: Does the patient meet any 2 criteria? No. Patient's initial sepsis screen is negative. Does the patient have a suspected source of infection? No. Patient's initial sepsis screen is negative. Risk Assessment: Do you want to hurt yourself or someone else? Patient reports no desire to harm self or others. Onset of symptoms was July 15, 2020. 15:41 Method Of Arrival: EMS: [facility] 15:41 Acuity: VICTOR M 2 ph Historical: - Allergies: 15:45 No Known Drug Allergies; ph - PMHx: 15:45 Deaf; Depression; Diabetes - IDDM; GERD; Hyperlipidemia; Hypertension; neuropathy; ESRD;ph - Immunization history:: Adult Immunizations unknown. - Social history:: Smoking status: Patient denies any tobacco usage or history of. Screenin:55 Abuse screen: Denies threats or abuse. Denies injuries from another. Nutritional ph screening: No deficits noted. Tuberculosis screening: No symptoms or risk factors identified. Fall Risk None identified. Assessment: 16:00 General: Appears in no apparent distress. uncomfortable, Behavior is calm, cooperative, ph appropriate for age. Pain: Complains of pain in anterior aspect of left lateral abdomen and left lower quadrant. Neuro: Level of Consciousness is awake, alert, obeys commands, Oriented to person, place, time, situation. Cardiovascular: Capillary refill < 3 seconds in bilateral fingers Patient's skin is warm and dry. Respiratory: Airway is patent Respiratory effort is even, unlabored, Respiratory pattern is regular, symmetrical. GI: Abdomen is non-distended, Reports lower abdominal pain. : Reports pain in left flank(s). Derm: Skin is intact, is healthy with good turgor, Skin is pink, warm \T\ dry. Musculoskeletal: Circulation, motion, and sensation intact. Range of motion: intact in all extremities. 16:54 Reassessment: Pt up to the BSC with standby assist. sv 19:00 Reassessment: Patient appears in no apparent distress at this time. Patient and/or jb4 family updated on plan of care and expected duration. Pain level reassessed. Patient is alert, oriented x 3, equal unlabored respirations, skin warm/dry/pink. 19:14 Reassessment: PT assisted to bedside commode. jb4 21:14 GI: Bowel sounds present X 4 quads. Abd is soft and non tender X 4 quads. rv Vital Signs: 15:41 BP 205 / 91; Pulse 82; Resp 18; Pulse Ox 100% on R/A; ph 16:00 BP 170 / 91; Pulse 18; Resp 18; Pulse Ox 99% on R/A; ph 17:55 BP 165 / 90; Pulse 76; Resp 18; Pulse Ox 98% on R/A; ph 20:00 BP 145 / 86; Pulse 77; Resp 18; Pulse Ox 98% on R/A; rv 21:00 BP 147 / 88; Pulse 76; Resp 17; Pulse Ox 98% on R/A; rv ED Course: 15:38 Patient arrived in ED. ds1 15:41 Trudy Gupta, RN is Primary Nurse. ph 15:43 Triage completed. ph 15:45 Arm band placed on Patient placed in an exam room, on a stretcher, on pulse oximetry. ph 15:45 Patient has correct armband on for positive identification. Bed in low position. Call sv light in reach. Side rails up X2. Pulse ox on. NIBP on. Door closed. Head of bed elevated. 15:51 Jamey Hicks NP is PHCP. pm1 15:51 Syd Dean MD is Attending Physician. pm1 16:45 Inserted saline lock: 20 gauge in right hand, using aseptic technique. Blood collected. sv Flushed right hand with 5 ml normal saline. 16:53 Basic Metabolic Panel Sent. sv 16:53 CBC with Diff Sent. sv 16:53 Hepatic Function Sent. sv 16:53 Lipase Sent. sv 16:53 CT Stone Protocol Sent. sv 19:14 Primary Nurse role handed off by Trudy Gupta RN mw2 21:14 No provider procedures requiring assistance completed. IV discontinued, intact, rv bleeding controlled, No redness/swelling at site. Pressure dressing applied. Administered Medications: 17:13 Drug: Zofran (Ondansetron) 4 mg Route: IVP; Site: right hand; ph 18:22 Follow up: Response: No adverse reaction ph 17:15 Drug: morphine 4 mg Route: IVP; Site: right hand; ph 18:21 Follow up: Response: No adverse reaction ph 21:00 Drug: [place] 5 mg-325 mg 1 tabs {Note: RASS 0.} Route: PO; rv 21:13 Follow up: Response: Medication administered at discharge. rv Output: 16:53 Urine: 300ml (Voided); Total: 300ml. sv Outcome: 20:01 Discharge ordered by MD. pm1 21:15 Discharged to home WITH TAXI rv 21:15 Condition: good 21:15 Discharge instructions given to patient, Instructed on discharge instructions, follow up and referral plans. medication usage, Demonstrated understanding of instructions, follow-up care, medications, Prescriptions given X 1. 21:15 Patient left the ED. rv Signatures: Shira Liang RN RN Gayatri Valencia ds1 Trudy Gupta, JARRET WHEAT Jamey Hicks, KEV CREDIT SPECIALIST pm1 Eb Olivas RN RN jb4 Rajeev Pulido mw2 Juan Payton RN RN rv Corrections: (The following items were deleted from the chart) 17:55 17:00 General: Appears in no apparent distress. uncomfortable, Behavior is calm, ph cooperative, appropriate for age, ph 17:55 17:00 Pain: Complains of pain in anterior aspect of left lateral abdomen and left lower ph quadrant ph 17:55 17:00 Neuro: Level of Consciousness is awake, alert, obeys commands, Oriented to ph person, place, time, situation, ph 17:55 17:00 Cardiovascular: Capillary refill < 3 seconds in bilateral fingers Patient's skin ph is warm and dry. ph 17:55 17:00 Respiratory: Airway is patent Respiratory effort is even, unlabored, Respiratory ph pattern is regular, symmetrical, ph 17:55 17:00 GI: Abdomen is non-distended, Reports lower abdominal pain, ph ph 17:55 17:00 : Reports pain in left flank(s), ph ph 17:55 17:00 Derm: Skin is intact, is healthy with good turgor, Skin is pink, warm \T\ dry. ph ph 17:55 17:00 Musculoskeletal: Circulation, motion, and sensation intact. Range of motion: ph intact in all extremities, ph
--- NOTE | 2020-07-15 20:02 | EDPHYS ---
Physician Documentation [facility] Name: Delmi Schultz Age: 69 yrs Sex: Female : 1950 Arrival Date: 07/15/2020 Time: 15:38 Bed 6 Private MD: ED Physician Syd Dean HPI: 07/16 01:55 This 69 yrs old Female presents to ER via EMS with complaints of Left flank pm1 pain. 01:55 The patient complains of pain in the left mid back. The pain does not radiate. Onset: pm1 The symptoms/episode began/occurred today. Modifying factors: The symptoms are alleviated by nothing. the symptoms are aggravated by nothing. 01:55 Associated signs and symptoms: Pertinent negatives: diarrhea, fever, nausea, vomiting. pm1 The patient has experienced similar episodes in the past, a few times. The patient has not recently seen a physician. Historical: - Allergies: 07/15 15:45 No Known Drug Allergies; ph - PMHx: 15:45 Deaf; Depression; Diabetes - IDDM; GERD; Hyperlipidemia; Hypertension; neuropathy; ESRD;ph - Immunization history:: Adult Immunizations unknown. - Social history:: Smoking status: Patient denies any tobacco usage or history of. ROS: 07/16 01:57 Constitutional: Negative for fever, chills, and weight loss, Cardiovascular: Negative pm1 for chest pain, palpitations, and edema, Respiratory: Negative for shortness of breath, cough, wheezing, and pleuritic chest pain, Abdomen/GI: Negative for abdominal pain, nausea, vomiting, diarrhea, and constipation. : Negative for injury, bleeding, discharge, and swelling, MS/Extremity: Negative for injury and deformity, Skin: Negative for injury, rash, and discoloration, Neuro: Negative for headache, weakness, numbness, tingling, and seizure. Back: Positive for flank pain, on the left. Exam: 01:57 Constitutional: This is a well developed, well nourished patient who is awake, alert, pm1 and in no acute distress. Head/Face: Normocephalic, atraumatic. 01:57 Skin: Warm, dry with normal turgor. Normal color with no rashes, no lesions, and no evidence of cellulitis. MS/ Extremity: Pulses equal, no cyanosis. Neurovascular intact. Full, normal range of motion. 01:57 Cardiovascular: Exam negative for acute changes, Rate: normal, Rhythm: regular, Pulses: no pulse deficits are appreciated. 01:57 Respiratory: Exam negative for acute changes, respiratory distress, shortness of breath. 01:57 Abdomen/GI: Inspection: abdomen appears normal, Palpation: abdomen is soft and non-tender, in all quadrants. 01:57 Back: pain, that is mild, of the left mid back. 01:57 Neuro: Exam negative for acute changes, Orientation: is normal, Mentation: is normal, Motor: is normal, moves all fours. Vital Signs: 07/15 15:41 BP 205 / 91; Pulse 82; Resp 18; Pulse Ox 100% on R/A; ph 16:00 BP 170 / 91; Pulse 18; Resp 18; Pulse Ox 99% on R/A; ph 17:55 BP 165 / 90; Pulse 76; Resp 18; Pulse Ox 98% on R/A; ph 20:00 BP 145 / 86; Pulse 77; Resp 18; Pulse Ox 98% on R/A; rv 21:00 BP 147 / 88; Pulse 76; Resp 17; Pulse Ox 98% on R/A; rv MDM: 15:57 Patient medically screened. pm1 20:00 Data reviewed: vital signs. Data interpreted: Pulse oximetry: on room air is 98 %. pm1 Interpretation: normal. Counseling: I had a detailed discussion with the patient and/or guardian regarding: the historical points, exam findings, and any diagnostic results supporting the discharge/admit diagnosis, lab results, radiology results, the need for outpatient follow up, to return to the emergency department if symptoms worsen or persist or if there are any questions or concerns that arise at home. 07/15 15:52 Order name: Basic Metabolic Panel pm07/15 15:52 Order name: CBC with Diff pm07/15 15:52 Order name: Hepatic Function pm07/15 15:52 Order name: Lipase pm07/15 17:09 Order name: CBC with Automated Diff; Complete Time: 17:12 EDMS 07/15 17:10 Order name: Basic Metabolic Panel; Complete Time: 17:12 EDMS 07/15 15:56 Order name: CT Stone Protocol pm07/15 16:34 Order name: CT; Complete Time: 16:48 EDMS 07/15 17:10 Order name: Liver (Hepatic) Function; Complete Time: 17:12 EDNC 07/15 17:10 Order name: Lipase; Complete Time: 17:12 EDNC 07/15 19:31 Order name: Urine Dipstick--Ancillary (enter results) 2 07/15 19:46 Order name: Urine Dipstick-Ancillary; Complete Time: 19:59 EDNC 07/15 15:52 Order name: IV Saline Lock; Complete Time: 16:53 pm1 07/15 15:52 Order name: Labs collected and sent; Complete Time: 16:53 pm1 07/15 17:12 Order name: Urine Dipstick-Ancillary (obtain specimen); Complete Time: 20:24 pm1 Administered Medications: 17:13 Drug: Zofran (Ondansetron) 4 mg Route: IVP; Site: right hand; ph 18:22 Follow up: Response: No adverse reaction ph 17:15 Drug: morphine 4 mg Route: IVP; Site: right hand; ph 18:21 Follow up: Response: No adverse reaction ph 21:00 Drug: [place] 5 mg-325 mg 1 tabs {Note: RASS 0.} Route: PO; rv 21:13 Follow up: Response: Medication administered at discharge. rv Disposition: 07/15/20 20:01 Discharged to Home. Impression: Unspecified abdominal pain. - Condition is Stable. - Discharge Instructions: Abdominal Pain, Adult. - Prescriptions for Bentyl 20 mg Oral Tablet - take 1 tablet by ORAL route every 6 hours As needed; 20 tablet. - Medication Reconciliation Form, Thank You Letter, Antibiotic Education, Prescription Opioid Use form. - Follow up: Emergency Department; When: As needed; Reason: Worsening of condition. Follow up: Private Physician; When: 2 - 3 days; Reason: Recheck today's complaints, Continuance of care, Re-evaluation by your physician. - Problem is new. - Symptoms have improved. Addendum: 07/20/2020 19:20 Co-signature as Attending Physician, Syd Dean MD I agree with the assessment and t w4 plan of care. Signatures: Dispatcher [employer] [facility] Trudy Gupta RN RN ph Jamey Hicks, BUSINESS PROCESS REPRESENTATIVE BUSINESS PROCESS REPRESENTATIVE pm1 Syd Dean MD MD tw4 Fito, Juan, RN RN rv Corrections: (The following items were deleted from the chart) 07/15 21:15 20:01 07/15/2020 20:01 Discharged to Home. Impression: Unspecified abdominal pain. rv Condition is Stable. Forms are Medication Reconciliation Form, Thank You Letter, Antibiotic Education, Prescription Opioid Use. Follow up: Emergency Department; When: As needed; Reason: Worsening of condition. Follow up: Private Physician; When: 2 - 3 days; Reason: Recheck today's complaints, Continuance of care, Re-evaluation by your physician. Problem is new. Symptoms have improved. pm1
[2020-07-15] MEDS ORDERED: HYDROCODONE/APAP 5/325 MG TAB ONE (21:09)
[2020-07-15 21:26] VITALS: O2SAT 98
[2020-07-15 21:29] VITALS: BP 147/88
== END 2020-07-15 21:15 | disposition home or self-care (01) ==
LOC: ER 15:33
DX: R10.9 Unspecified abdominal pain (principal); E11.22 Type 2 diabetes mellitus with diabetic chronic kidney disease; I12.0 Hypertensive chronic kidney disease with stage 5 chronic kidney disease or end stage renal disease; N18.6 End stage renal disease
CPT/HCPCS: 85025; 80048; 36415; 80076; 81003; 83690; 76377; 74176; 96375; 96374; 99284; J2405

== ENCOUNTER 2020-09-17 15:16 | Emergency (ER) | payer OTHER ==
[2020-09-17 17:04] LABS: Absolute Lymphocytes (CBC) 1.6 K/uL (0.7-4.9); Basophils % 0.5 % (0-1.3); Hematocrit 26.7 % (36.0-45.0); Lymphocytes % 19.6 % (15.3-44.8); MPV 8.5 fL (7.6-11.3); RBC Red Blood Cell Count 2.98 M/uL (3.86-4.86)
[2020-09-17 17:20] LABS: Protime INR 1.02
[2020-09-17 17:29] LABS: ALT/SGPT 13 U/L (12-78); AST/SGOT 21 U/L (15-37); Albumin 2.6 g/dL (3.4-5.0); Alkaline Phosphatase 131 U/L (45-117); BUN Blood Urea Nitrogen 48 mg/dL (7-18); Bicarbonate 18 mmol/L (21-32); Bilirubin Direct 0.1 mg/dL (0-0.2); Bilirubin Total 0.3 mg/dL (0.2-1.0); Glucose Level 91 mg/dL (74-106); Magnesium 1.8 mg/dL (1.8-2.4); NT PRO-BNP 16281 pg/mL (<125); Potassium 4.6 mmol/L (3.5-5.1); Protein, Total 5.8 g/dL (6.4-8.2); Sodium Level 137 mmol/L (136-145); Troponin (Emerg Dept Use Only) < 0.02 ng/mL (0.0-0.045)
--- NOTE | 2020-09-17 18:27 | RAD REPORT ---
EXAM DESCRIPTION: CT - Head C Spine Cap Wo Con - 09/17/2020 6:05 pm TECHNIQUE: Computed axial tomography of the head and cervical spine was obtained. Coronal and sagitt al reconstruction was performed Computed axial tomography of the chest, abdomen and pelvis was obtained. Contrast was not requested. All CT scans are performed using dose optimization technique as appropriate and may include automated exposure control or mA/KV adjustment according to patient size. CLINICAL HISTORY: Head and neck injury with chest and abdominal pain status post fall COMPARISON: CT 2017, 2018 2020 FINDINGS: An intracranial bleed is not seen. The ventricles are normal in caliber. An extra-axial fluid collection is not noted. . Fluid within the sinuses/mastoids is not seen. A cervical fracture is not seen. No dislocation is noted. The evaluation of mediastinum, pascual, vessels, solid organs and bowel are limited secondary to the lac k of contrast administration. A mediastinal hematoma is not noted. Small bilateral pleural effusions. A lung contusion is not prese nt. The liver,spleen, pancreas, adrenals,kidneys and bladder do not demonstrate a traumatic injury. Air bubbles are present within the bladder. Diffuse edema is present within the subcutaneous tissues. Mild thickening of the wall of right colon. Mild compression fracture involves the T11 vertebral body. No retropulsion bone into the spinal canal . Small amount of pelvic ascites IMPRESSION: 1. No acute intracranial abnormality is seen. 2. A cervical fracture is not visualized. If the patient continues have symptoms to suggest intracran ial/spinal cord pathology MRI be recommended 3. Mild compression fracture involves the T11 vertebral body which appears acute 4. Small bilateral pleural effusions 5. Air bubbles within the bladder would be normal for the patient has had recent instrumentation. Inf ection can also result in this appearance 6. Mild thickening of the wall of the right colon may indicate colitis
--- NOTE | 2020-09-17 18:30 | RAD REPORT ---
EXAM DESCRIPTION: CT - Facial Bones W/ Mpr - 09/17/2020 6:05 pm CLINICAL HISTORY: Facial injury status post fall. Facial pain COMPARISON: 2018 TECHNIQUE: Computed axial tomography of the face was obtained. Coronal and sagittal reconstruction w as performed. All CT scans are performed using dose optimization technique as appropriate and may include automated exposure control or mA/KV adjustment according to patient size. FINDINGS: A fracture is not seen. A TMJ dislocation is not noted. Nasal septum is deviated towards the right The globes are intact. Fluid within the sinuses is not seen. IMPRESSION: Negative for a facial fracture.
--- NOTE | 2020-09-17 18:31 | RAD REPORT ---
EXAM DESCRIPTION: Luis Single View09/17/2020 4:27 pm CLINICAL HISTORY: Chest pain COMPARISON: 2019 FINDINGS: The lungs appear clear of acute infiltrate. The heart is mildly to moderately enlarged. Small bilateral pleural effusions
[2020-09-17] MEDS ORDERED: MORPHINE 4 MG/ML SYR ONE (18:51)
[2020-09-17] MEDS ORDERED: ONDANSETRON 4 MG/2 ML VIAL ONE (18:51)
[2020-09-17 20:07] LABS: Urine Blood Trace-intact (Negative); Urine Glucose Negative (Negative); Urine Protein 3+ (Negative); Urine pH 5.5 (5.0-7.0)
[2020-09-17 20:37] LABS: Urine Bacteria 20-50 /HPF (<20); Urine Mucus 1+ /HPF (NONE SEEN); Urine RBC <5 /HPF (NONE SEEN)
[2020-09-17] MEDS ORDERED: CEFTRIAXONE/SWI 1gm 1 GM/10 ML SYR ONE (21:27)
--- NOTE | 2020-09-17 21:55 | ER ---
Nurse's Notes [facility] Name: Delmi Schultz Age: 69 yrs Sex: Female : 1950 Arrival Date: 09/17/2020 Time: 15:48 Bed 13 Private MD: Diagnosis: Urinary tract infection, site not specified;Fall on same level, unspecified;Mild compression fracture T11 ;Superficial injury of head-contusion left eyebrow Presentation: 09/17 15:49 Chief complaint: EMS states: Patient had multiple falls today, last fall was around vg1 1300. Pt fell from chair to bed in the same room. Denies LOC. Stated pt has been feeling week for about 3 days. Edema is noted BRYANNA lower extremities. 15:49 Coronavirus screen: Client denies travel out of the [place] in the last 14 days. Ebola vg1 Screen: Patient negative for fever greater than or equal to 101.5 degrees Fahrenheit, and additional compatible Ebola Virus Disease symptoms. Initial Sepsis Screen: Does the patient meet any 2 criteria? No. Patient's initial sepsis screen is negative. Does the patient have a suspected source of infection? No. Patient's initial sepsis screen is negative. Risk Assessment: Do you want to hurt yourself or someone else? Patient reports no desire to harm self or others. Onset of symptoms was September 17, 2020. 15:49 Method Of Arrival: EMS: [facility] 1 15:49 Acuity: VICTOR M 3 vg1 Historical: - Allergies: 15:50 No Known Allergies; vg1 - Home Meds: 15:50 amlodipine oral [Active]; atorvastatin oral oral [Active]; carvedilol oral oral vg1 [Active]; Furosemide Oral [Active]; gabapentin oral oral [Active]; Hydralazine Oral [Active]; sertraline oral oral [Active]; Trazodone Oral [Active]; - PMHx: 15:50 Deaf; Depression; Diabetes - IDDM; ESRD; GERD; Hypertension; Hyperlipidemia; vg1 neuropathy; Anemia; Kidney Disease; - Immunization history:: Adult Immunizations up to date. - Social history:: Smoking status: unknown. Screenin:25 Abuse screen: Denies threats or abuse. Nutritional screening: No deficits noted. vg1 Tuberculosis screening: No symptoms or risk factors identified. Fall Risk Fall in past 12 months (25 points). No secondary diagnosis (0 pts). IV access (20 points). Ambulatory Aid- None/Bed Rest/Nurse Assist (0 pts). Gait- Weak (10 pts.). Mental Status- Oriented to own ability (0 pts). Total Vazquez Fall Scale indicates High Risk Score (45 or more points). Fall prevention measures have been instituted. Side Rails Up X 2 Placed Close to Nursing Station. Assessment: 16:22 General: Appears in no apparent distress. comfortable, Behavior is calm, cooperative. vg1 Pain: Complains of pain in Left side rib cage and c/o headache Pain currently is 8 out of 10 on a pain scale. Neuro: Level of Consciousness is awake, alert, obeys commands, Oriented to person, place, time, situation. Cardiovascular: Patient's skin is warm and dry. Cardiovascular:. Cardiovascular: Edema BRYANNA lower extremities. Respiratory: Airway is patent Respiratory effort is even, unlabored, Breath sounds are clear. GI: Reports nausea. : No signs and/or symptoms were reported regarding the genitourinary system. EENT: No signs and/or symptoms were reported regarding the EENT system. Derm: Bruising that is on left side of eye. Derm: Skin is pale. Musculoskeletal: Circulation, motion, and sensation intact. 18:22 Reassessment: Received VO from Fabiola ANGULO to administer Morphin 4 mg IVP x1 and Zofran vg1 4 mg IVP x1. 18:41 Reassessment: Patient appears in no apparent distress at this time. No changes from vg1 previously documented assessment. Patient and/or family updated on plan of care and expected duration. Pain level reassessed. Patient is alert, oriented x 3, equal unlabored respirations, skin warm/dry/pink. Rated pain 10/10. 20:20 Reassessment: Patient appears in no apparent distress at this time. Patient and/or vg1 family updated on plan of care and expected duration. Pain level reassessed. Patient is alert, oriented x 3, equal unlabored respirations, skin warm/dry/pink. Reassessed pain level, pt stated 6/10. 21:22 Reassessment: Patient appears in no apparent distress at this time. No changes from vg1 previously documented assessment. Patient and/or family updated on plan of care and expected duration. Pain level reassessed. Patient is alert, oriented x 3, equal unlabored respirations, skin warm/dry/pink. 22:24 Reassessment: Patient appears in no apparent distress at this time. Patient and/or jb4 family updated on plan of care and expected duration. Pain level reassessed. Patient is alert, oriented x 3, equal unlabored respirations, skin warm/dry/pink. Pt D/c pending ride home. 23:08 Reassessment: Patient appears in no apparent distress at this time. Patient and/or jb4 family updated on plan of care and expected duration. Pain level reassessed. Patient is alert, oriented x 3, equal unlabored respirations, skin warm/dry/pink. PT assisted to lobby to wait for ride via wheel chair. Vital Signs: 15:49 BP 172 / 77; Pulse 65; Resp 18; Temp 97.8; Pulse Ox 100% ; Weight 90.26 kg; Height 5 vg1 ft. 6 in. (167.64 cm); Pain 8/10; 17:03 BP 159 / 100; Pulse 70; Resp 15; Pulse Ox 99% on R/A; mh5 18:41 BP 197 / 90; Pulse 72; Resp 16; Pulse Ox 100% on R/A; vg1 20:20 BP 186 / 80; Pulse 70; Resp 16; Pulse Ox 98% ; Pain 6/10; vg1 21:00 BP 154 / 55; Pulse 70; Resp 14; Pulse Ox 98% on R/A; vg1 22:00 BP 186 / 77; Pulse 69; Resp 18; Pulse Ox 99% on R/A; jb4 15:49 Body Mass Index 32.12 (90.26 kg, 167.64 cm) vg1 [place] Coma Score: 16:26 Eye Response: spontaneous(4). Verbal Response: oriented(5). Motor Response: obeys vg1 commands(6). Total: 15. ED Course: 15:48 Patient arrived in ED. ss 15:52 Jamey Hicks NP is PHCP. pm1 15:52 Syd Dean MD is Attending Physician. pm1 16:04 Carmen Grant, RN is Primary Nurse. vg1 16:17 Triage completed. vg1 16:25 Arm band placed on. vg1 16:25 Patient maintains SpO2 saturation greater than 95% on room air. vg1 16:26 Patient has correct armband on for positive identification. Bed in low position. Call vg1 light in reach. Side rails up X2. 16:27 XRAY Chest (1 view) In Process Unspecified. EDMS 17:00 Basic Metabolic Panel Sent. 5 17:00 CBC with Diff Sent. 5 17:01 LFT's Sent. 5 17:01 Magnesium Sent. 5 17:01 NT PRO-BNP Sent. 5 17:01 PT-INR Sent. 5 17:01 Troponin (emerg Dept Use Only) Sent. 5 17:01 Initial lab(s) drawn, by me, sent to lab. EKG done, by ED staff, reviewed by Syd Dean MD. Inserted saline lock: 22 gauge in right antecubital area, using aseptic technique. Blood collected. 17:05 Placed in gown. Warm blanket given. hall monitor on. Pulse ox on. NIBP on. 5 18:09 CT Facial Bones W/O Con In Process Unspecified. EDMS 18:09 Head C Spine Cap Wo Con In Process Unspecified. EDMS 20:00 Urine collected: straight cath specimen, cloudy, tea colored, Amount Returned: 500mL. jp3 Straight cath inserted, using sterile technique, 16 Fr. Specimen obtained. Returned cloudy urine. Patient tolerated well. 22:13 Report given to JARRET Valente. vg1 23:09 No provider procedures requiring assistance completed. IV discontinued, intact, jb4 bleeding controlled, No redness/swelling at site. Pressure dressing applied. Administered Medications: 18:39 Drug: morphine 4 mg {Note: RASS 0 .} Route: IVP; Site: right antecubital; vg1 20:19 Follow up: Response: No adverse reaction; Pain is decreased vg1 18:39 Drug: Zofran (Ondansetron) 4 mg Route: IVP; Site: right antecubital; vg1 20:19 Follow up: Response: Nausea is decreased vg1 21:21 Drug: Rocephin (cefTRIAXone) 1 grams Route: IV; Rate: calculated rate; Site: left vg1 antecubital; 22:00 Follow up: Response: No adverse reaction; IV Status: Completed infusion; IV Intake: [id number] 22:55 Drug: [place] (HYDROcodone-acetaminophen) 5 mg-325 mg 1 tabs Route: PO; jb4 23:10 Follow up: Response: Medication administered at discharge. jb4 Intake: 22:00 IV: 10ml; Total: 10ml. jb4 Outcome: 21:54 Discharge ordered by . pm1 23:09 Discharged to home ambulatory. jb4 23:09 Condition: stable 23:09 Discharge instructions given to patient, Instructed on discharge instructions, follow up and referral plans. medication usage, Demonstrated understanding of instructions, follow-up care, medications, Prescriptions given X 2. 23:11 Patient left the ED. jb4 Addendum: 09/20/2020 09:30 Addendum: Culture Results: Positive urine culture. Bacteria is resistant to, has a a5 intermediate sensitivity, or is not tested against prescribed antibiotics. Report given to LYUBOV for further evaluation and then to reinsurance clerk for follow up with patient. Phone call Attempt #1 left voice mail. Signatures: Dispatcher [employer] EDMS Citlaly Man RN RN aa5 Shanna Salmon RN RN Jamey Sen, RESEARCH METHODOLOGIST RESEARCH METHODOLOGIST pm1 Eb Olivas RN RN jb4 Martinez, Maria mh5 Pisarski, Jacob jp3 Carmen Grant RN RN vg1
--- NOTE | 2020-09-17 21:55 | EDPHYS ---
Physician Documentation [facility] Name: Delmi Schultz Age: 69 yrs Sex: Female : 1950 Arrival Date: 09/17/2020 Time: 15:48 Bed 13 Private MD: ED Physician Syd Dean HPI: 09/17 17:06 This 69 yrs old Female presents to ER via EMS with complaints of Fall Injury. pm1 17:06 Details of fall: The patient fell from an upright position, while standing. Onset: The pm1 symptoms/episode began/occurred today. Associated injuries: The patient sustained injury to the head, contusion, upper back injury. The patient has experienced similar episodes in the past, a few times. The patient has not recently seen a physician. Patient fell today 3 times transferring from her chair to bed. No chest pain, shortness of brreath, dizziness, headache. No neck pain. No LOC. Patient reports generalized weakness. Historical: - Allergies: 15:50 No Known Allergies; vg1 - Home Meds: 15:50 amlodipine oral [Active]; atorvastatin oral oral [Active]; carvedilol oral oral vg1 [Active]; Furosemide Oral [Active]; gabapentin oral oral [Active]; Hydralazine Oral [Active]; sertraline oral oral [Active]; Trazodone Oral [Active]; - PMHx: 15:50 Deaf; Depression; Diabetes - IDDM; ESRD; GERD; Hypertension; Hyperlipidemia; vg1 neuropathy; Anemia; Kidney Disease; - Immunization history:: Adult Immunizations up to date. - Social history:: Smoking status: unknown. ROS: 17:06 Constitutional: Negative for fever, chills, and weight loss, Neck: Negative for injury, pm1 pain, and swelling, Cardiovascular: Negative for chest pain, palpitations, and edema, Respiratory: Negative for shortness of breath, cough, wheezing, and pleuritic chest pain, Abdomen/GI: Negative for abdominal pain, nausea, vomiting, diarrhea, and constipation. 17:06 : Negative for injury, bleeding, discharge, and swelling, MS/Extremity: Negative for injury and deformity, Skin: Negative for injury, rash, and discoloration. 17:06 Back: Positive for of the lumbar area, Negative for radiated pain. 17:06 Neuro: Positive for weakness, Negative for altered mental status, headache, numbness. Exam: 17:06 Constitutional: This is a well developed, well nourished patient who is awake, alert, pm1 and in no acute distress. Neck: Trachea midline, no thyromegaly or masses palpated, and no cervical lymphadenopathy. Supple, full range of motion without nuchal rigidity, or vertebral point tenderness. No Meningismus. 17:06 Skin: Warm, dry with normal turgor. Normal color with no rashes, no lesions, and no evidence of cellulitis. MS/ Extremity: Pulses equal, no cyanosis. Neurovascular intact. Full, normal range of motion. 17:06 Head/face: Noted is no obvious of injury or deformity except contusion, that is superficial, of the outer aspect of left eyebrow. 17:06 Cardiovascular: Exam negative for acute changes, Rate: normal, Rhythm: regular, Pulses: no pulse deficits are appreciated. 17:06 Respiratory: Exam negative for acute changes, respiratory distress, shortness of breath. 17:06 Abdomen/GI: Exam negative for acute changes, Inspection: abdomen appears normal, Palpation: abdomen is soft and non-tender, in all quadrants. 17:06 Back: vertebral tenderness, is appreciated at lumbar spine. 17:06 Neuro: Exam negative for acute changes, Orientation: is normal, Mentation: is normal, Motor: is normal, moves all fours, Sensation: is normal, no obvious gross deficits. Vital Signs: 15:49 BP 172 / 77; Pulse 65; Resp 18; Temp 97.8; Pulse Ox 100% ; Weight 90.26 kg; Height 5 vg1 ft. 6 in. (167.64 cm); Pain 8/10; 17:03 BP 159 / 100; Pulse 70; Resp 15; Pulse Ox 99% on R/A; mh5 18:41 BP 197 / 90; Pulse 72; Resp 16; Pulse Ox 100% on R/A; vg1 20:20 BP 186 / 80; Pulse 70; Resp 16; Pulse Ox 98% ; Pain 6/10; vg1 21:00 BP 154 / 55; Pulse 70; Resp 14; Pulse Ox 98% on R/A; vg1 22:00 BP 186 / 77; Pulse 69; Resp 18; Pulse Ox 99% on R/A; jb4 15:49 Body Mass Index 32.12 (90.26 kg, 167.64 cm) vg1 [place] Coma Score: 16:26 Eye Response: spontaneous(4). Verbal Response: oriented(5). Motor Response: obeys vg1 commands(6). Total: 15. MDM: 15:57 Patient medically screened. pm1 21:44 Data reviewed: vital signs. Data interpreted: Pulse oximetry: on room air is 98 %. pm1 Interpretation: normal. Counseling: I had a detailed discussion with the patient and/or guardian regarding: the historical points, exam findings, and any diagnostic results supporting the discharge/admit diagnosis, lab results, radiology results, the need for outpatient follow up, to return to the emergency department if symptoms worsen or persist or if there are any questions or concerns that arise at home. 09/17 16:11 Order name: Basic Metabolic Panel; Complete Time: 17:37 pm1 09/17 16:11 Order name: CBC with Diff; Complete Time: 17:27 pm09/17 16:11 Order name: LFT's; Complete Time: 17:37 pm1 09/17 16:11 Order name: Magnesium; Complete Time: 17:37 pm1 09/17 16:11 Order name: NT PRO-BNP; Complete Time: 17:37 pm1 09/17 16:11 Order name: PT-INR; Complete Time: 17:27 pm09/17 16:11 Order name: Troponin (emerg Dept Use Only); Complete Time: 17:37 pm1 09/17 16:11 Order name: XRAY Chest (1 view); Complete Time: 19:03 pm09/17 16:19 Order name: CT Facial Bones W/O Con; Complete Time: 19:03 pm09/17 19:04 Order name: Urine Microscopic Only; Complete Time: 20:39 pm1 09/17 20:07 Order name: Urine Dipstick-Ancillary EDMS 09/17 20:39 Order name: Urine Culture EDMS 09/17 16:11 Order name: EKG; Complete Time: 16:13 pm09/17 16:11 Order name: Cardiac monitoring; Complete Time: 17:10 pm1 09/17 16:11 Order name: EKG - Nurse/Tech; Complete Time: 17:10 pm09/17 16:11 Order name: IV Saline Lock; Complete Time: 16:29 pm1 09/17 16:11 Order name: Labs collected and sent; Complete Time: 16:59 pm1 09/17 16:11 Order name: O2 Per Protocol; Complete Time: 16:29 pm1 09/17 16:11 Order name: O2 Sat Monitoring; Complete Time: 16:29 pm1 09/17 17:38 Order name: Head C Spine Cap Wo Con; Complete Time: 19:03 EDMS 09/17 19:04 Order name: Urine Dipstick-Ancillary (obtain specimen); Complete Time: 20:18 pm1 09/17 19:53 Order name: Straight Cath - Urine; Complete Time: 20:18 pm1 Administered Medications: 18:39 Drug: morphine 4 mg {Note: RASS 0 .} Route: IVP; Site: right antecubital; vg1 20:19 Follow up: Response: No adverse reaction; Pain is decreased vg1 18:39 Drug: Zofran (Ondansetron) 4 mg Route: IVP; Site: right antecubital; vg1 20:19 Follow up: Response: Nausea is decreased vg1 21:21 Drug: Rocephin (cefTRIAXone) 1 grams Route: IV; Rate: calculated rate; Site: left vg1 antecubital; 22:00 Follow up: Response: No adverse reaction; IV Status: Completed infusion; IV Intake: [id number] 22:55 Drug: [place] (HYDROcodone-acetaminophen) 5 mg-325 mg 1 tabs Route: PO; jb4 23:10 Follow up: Response: Medication administered at discharge. jb4 Disposition: 09/17/20 21:54 Discharged to Home. Impression: Urinary tract infection, site not specified, Fall on same level, unspecified, Mild compression fracture T11 , Superficial injury of head - contusion left eyebrow. - Condition is Stable. - Discharge Instructions: Spinal Compression Fracture, Facial or Scalp Contusion, Head Injury, Adult, Fall Prevention in the Home, Urinary Tract Infection, Adult. - Prescriptions for Keflex 500 mg Oral Capsule - take 1 capsule by ORAL route every 8 hours for 10 days; 30 capsule. Tylenol- Codeine #3 300-30 mg Oral Tablet - take 2 tablets by ORAL route every 4-6 hours As needed; 20 tablet. - Medication Reconciliation Form, Thank You Letter, Antibiotic Education, Prescription Opioid Use form. - Follow up: Emergency Department; When: As needed; Reason: Worsening of condition. Follow up: Private Physician; When: 2 - 3 days; Reason: Recheck today's complaints, Continuance of care, Re-evaluation by your physician. - Problem is new. - Symptoms have improved. Addendum: 09/19/2020 10:07 Co-signature as Attending Physician, Syd Dean MD I agree with the assessment and t w4 plan of care. Signatures: Dispatcher [employer] EDKY Jamey Hicks, SOLUTIONS EXECUTIVE CLOUD SALES SOLUTIONS EXECUTIVE CLOUD SALES pm1 Eb Olivas, RN RN jb4 Syd Dean MD MD tw4 Carmen Grant, RN RN vg1 Corrections: (The following items were deleted from the chart) 09/17 16:20 16:13 Head C Spine MPR Wo Con+CT.RAD.BRZ ordered. EDKY EDKY 17:38 16:19 Head C Spine CAP W Con+CT.RAD.BRZ ordered. [facility] EDKY 23:11 21:54 09/17/2020 21:54 Discharged to Home. Impression: Urinary tract infection, site jb4 not specified; Fall on same level, unspecified; Mild compression fracture T11 ; Superficial injury of head - contusion left eyebrow. Condition is Stable. Forms are Medication Reconciliation Form, Thank You Letter, Antibiotic Education, Prescription Opioid Use. Follow up: Emergency Department; When: As needed; Reason: Worsening of condition. Follow up: Private Physician; When: 2 - 3 days; Reason: Recheck today's complaints, Continuance of care, Re-evaluation by your physician. Problem is new. Symptoms have improved. pm1
[2020-09-17] MEDS ORDERED: HYDROCODONE/APAP 5/325 MG TAB ONE (23:12)
[2020-09-17 23:20] VITALS: TEMP 97.8
[2020-09-17 23:28] VITALS: BP 186/77; O2SAT 99
--- NOTE | 2020-09-18 12:15 | EKG ---
Test Date: 2020-09-17 Test Time: 17:08:06 Dead Mail Checker: LYNNETTE MEASUREMENT RESULTS: Intervals: Rate: 71 CO: QRSD: 78 QT: 406 QTc: 441 [place]: P: CO: QRS: 69 T: 67 INTERPRETIVE STATEMENTS: Atrial fibrillation with a competing junctional pacemaker Inferior infarct, age undetermined Cannot rule out Anterior infarct, age undetermined Abnormal ECG Compared to ECG 01/28/2020 18:28:27 Myocardial infarct finding now present Sinus rhythm no longer present Electronically Signed On 09-18-20 12:13:26 CDT by Ender Hernandez
== END 2020-09-17 23:11 | disposition home or self-care (01) ==
LOC: ER 15:16
DX: S22.089A Unspecified fracture of T11-T12 vertebra, initial encounter for closed fracture (principal); N39.0 Urinary tract infection, site not specified; W18.39XA Other fall on same level, initial encounter; Y93.89 Activity, other specified; Y92.9 Unspecified place or not applicable; E11.22 Type 2 diabetes mellitus with diabetic chronic kidney disease; I12.0 Hypertensive chronic kidney disease with stage 5 chronic kidney disease or end stage renal disease; N18.6 End stage renal disease; F32.9 Major depressive disorder, single episode, unspecified; Z99.2 Dependence on renal dialysis
CPT/HCPCS: 87088; 85025; 87086; 80048; 36415; 83735; 85610; 80076; 84484; 83880; 70450; 71250; 72125; 70486; 76377; 71045; J0696; J2405; 51702; 81003; 81015; 87077; 87186; 93005; 96365; 96375; 99285

== ENCOUNTER 2020-11-12 13:42 | Inpatient (IN) | payer OTHER ==
[2020-11-12 15:45] LABS: Absolute Lymphocytes (CBC) 1.9 K/uL (0.7-4.9); Basophils % 0.9 % (0-1.3); Hematocrit 29.6 % (36.0-45.0); Lymphocytes % 18.4 % (15.3-44.8); MPV 9.8 fL (7.6-11.3); RBC Red Blood Cell Count 3.23 M/uL (3.86-4.86)
[2020-11-12 15:59] LABS: Protime INR 1.31
[2020-11-12 16:01] LABS: ALT/SGPT 14 U/L (12-78); AST/SGOT 23 U/L (15-37); Albumin 2.1 g/dL (3.4-5.0); Alkaline Phosphatase 144 U/L (45-117); BUN Blood Urea Nitrogen 32 mg/dL (7-18); Bicarbonate 19 mmol/L (21-32); Bilirubin Direct < 0.1 mg/dL (0-0.2); Bilirubin Total 0.2 mg/dL (0.2-1.0); Glucose Level 98 mg/dL (74-106); Magnesium 2.1 mg/dL (1.8-2.4); NT PRO-BNP 3467 pg/mL (<125); Potassium 4.5 mmol/L (3.5-5.1); Protein, Total 5.2 g/dL (6.4-8.2); Sodium Level 143 mmol/L (136-145); Troponin (Emerg Dept Use Only) 0.02 ng/mL (0.0-0.045)
--- NOTE | 2020-11-12 16:34 | RAD REPORT ---
EXAM DESCRIPTION: RAD - Chest Single View - 11/12/2020 3:59 pm CLINICAL HISTORY: flank pain COMPARISON: Portable September 17 TECHNIQUE: AP portable chest image was obtained 11/12/2020 3:59 pm . FINDINGS: Right hemithorax lung volume is low compared to prior imaging. Overall interstitial patter n not clearly different. No focal consolidation or acute focal lung parenchymal process seen. Mediast inum is distorted by rotation. Heart and vasculature are normal. No measurable pleural effusion and n o pneumothorax. No acute bony abnormality seen. No acute aortic findings suspected. IMPRESSION: No acute cardiopulmonary process. Above detailed findings not significantly different from comparison.
[2020-11-12] MEDS ORDERED: NA CHLORIDE 0.9% 250 ML ONE (17:43)
[2020-11-12 17:45] LABS: Urine Blood 1+ (Negative); Urine Glucose Negative (Negative); Urine Protein 3+ (Negative); Urine Specific Gravity >=1.030 (1.005-1.030)
[2020-11-12 18:17] LABS: Urine Bacteria >50 /HPF (<20); Urine RBC <5 /HPF (NONE SEEN)
[2020-11-12 18:18] LABS: Urine Yeast PRESENT (NONE SEEN); Urine Yeast with Hyphae PRESENT
--- NOTE | 2020-11-12 18:29 | ER ---
Nurse's Notes [facility] Jin Name: Delmi Schultz Age: 70 yrs Sex: Female : 1950 Arrival Date: 11/12/2020 Time: 13:54 Bed 14 Private MD: Diagnosis: Unspecified kidney failure;Urinary tract infection, site not specified Presentation: 11/12 13:55 Chief complaint: EMS states: pt was sent over for abnormal labs, elevated creatinine iw and GFR, pt has hx of CKD, also currently has UTI with ESBL , on antibiotics via PICC line, also has CDIFF, pt is deaf/mute, c/o weakness, diarrhea, pain with urination. Coronavirus screen: At this time, the client does not indicate any symptoms associated with coronavirus-19. Ebola Screen: Patient negative for fever greater than or equal to 101.5 degrees Fahrenheit, and additional compatible Ebola Virus Disease symptoms Patient denies exposure to infectious person. Patient denies travel to an Ebola-affected area in the 21 days before illness onset. No symptoms or risks identified at this time. Initial Sepsis Screen: Does the patient meet any 2 criteria? No. Patient's initial sepsis screen is negative. Does the patient have a suspected source of infection? No. Patient's initial sepsis screen is negative. Risk Assessment: Do you want to hurt yourself or someone else? Patient reports no desire to harm self or others. Onset of symptoms was November 12, 2020. 13:55 Method Of Arrival: EMS: [facility] iw 13:55 Acuity: VICTOR M 3 iw 13:57 Transition of care: patient was received from another setting of care (long-term care facility). Triage Assessment: 19:00 General: Appears in no apparent distress. Behavior is calm, cooperative, appropriate ad5 for age. Historical: - Allergies: 14:00 No Known Allergies; iw - Home Meds: 14:12 amlodipine 10 mg oral tab once daily [Active]; ascorbic acid (vitamin C) 500 mg tab iw daily [Active]; aspirin 81 mg Oral chew 1 tab once daily [Active]; atorvastatin 20 mg oral tab once daily [Active]; calcitriol 0.5 mcg oral cap 1 cap once daily [Active]; carvedilol 25 mg oral tab every 12 hours [Active]; cholecalciferol (vitamin D3) 5,000 unit oral cap daily [Active]; Eliquis 2.5 mg oral tab 1 tab 2 times per day [Active]; gabapentin 600 mg oral tab 3 times per day [Active]; hydralazine 25 mg oral tab three times a day [Active]; hydroxyzine HCl 50 mg Oral tab 1 tab 4 times per day [Active]; Imodium Oral 2 mg every 6 hours [Active]; Lasix 20 mg Oral tab 1 tab once daily [Active]; losartan 50 mg oral tab 1 tab once daily [Active]; Merrem 500 mg intravenous solr twice a day [Active]; potassium chloride 20 mEq Oral TbER once daily [Active]; sertraline 100 mg oral tab 1 tab once daily [Active]; trazodone 100 mg Oral tab nightly [Active]; zinc sulfate 220 mg Oral tab daily [Active]; - PMHx: 14:00 Anemia; Deaf; Depression; Diabetes - IDDM; ESRD; GERD; Hyperlipidemia; Hypertension; iw kidney disease; neuropathy; - Immunization history:: Adult Immunizations not up to date, Client reports having NOT received the Covid vaccine. - Social history:: Smoking status: Patient reports the use of cigarette tobacco products, smokes one-half pack cigarettes per day. Screenin:29 Abuse screen: Denies threats or abuse. Denies injuries from another. Nutritional ad5 screening: No deficits noted. Tuberculosis screening: No symptoms or risk factors identified. Fall Risk Fall in past 12 months (25 points). Secondary diagnosis (15 points) IV access (20 points). Ambulatory Aid- None/Bed Rest/Nurse Assist (0 pts). Gait- Weak (10 pts.). Mental Status- Oriented to own ability (0 pts). Total Vazquez Fall Scale indicates High Risk Score (45 or more points). Fall prevention measures have been instituted. Side Rails Up X 2 Frequent Obs/Assessments Occuring As available patient and family educated on Fall Prevention Program and Strategies. Assessment: 16:29 Reassessment: attempt straight cath along with JARRET Bedolla. Catheter left in for now as tr6 pt had no urine output. Will continue to monitor. 19:24 Reassessment: Patient appears in no apparent distress at this time. Patient and/or ad5 family updated on plan of care and expected duration. Pain level reassessed. Patient is alert, oriented x 3, equal unlabored respirations, skin warm/dry/pink. 20:15 Reassessment: Pt cleaned of loose stool, new brief applied. Pt repositioned for ad5 comfort. Denies other needs. NAD noted, will continue to monitor. 22:11 Reassessment: Patient appears in no apparent distress at this time. Patient and/or ad5 family updated on plan of care and expected duration. Pain level reassessed. Pt cleaned of loose stool and new brief applied. Pt tolerated well. Repositioned for comfort. Informed of bed assignment. Awaiting floor RN to call back for report at this time. Vital Signs: 13:55 BP 112 / 72; Pulse 65; Resp 16; Temp 97.1; Pulse Ox 98% ; Weight 90.26 kg; Height 5 ft. iw 6 in. (167.64 cm); Pain 0/10; 19:24 BP 133 / 66; Pulse 64; Resp 15 S; Pulse Ox 98% on R/A; ad5 20:07 BP 125 / 53 Supine (auto/reg); Pulse 68 MON; Pulse Ox 97% ; mb4 22:12 BP 129 / 56; Pulse 70; Resp 15 S; Pulse Ox 96% on R/A; ad5 13:55 Body Mass Index 32.12 (90.26 kg, 167.64 cm) iw ED Course: 13:54 Patient arrived in ED. iw 13:57 Triage completed. iw 14:03 Arm band placed on. iw 14:54 Hank Mas PA is PHCP. cp 14:54 Hank Cisneros MD is Attending Physician. cp 15:05 Shasha Chauhan, JARRET is Primary Nurse. tr6 15:26 Inserted saline lock: 20 gauge in left antecubital area, using aseptic technique. Blood tr6 collected. 15:59 XRAY Chest (1 view) In Process Unspecified. EDMS 18:27 Alverto Bowers is Hospitalizing Provider. cp 19:00 Patient has correct armband on for positive identification. Placed in gown. Bed in low ad5 position. Call light in reach. Side rails up X2. radiation monitor on. Pulse ox on. NIBP on. 22:30 No provider procedures requiring assistance completed. Patient admitted, IV remains in ad5 place. Administered Medications: 17:26 Drug: NS 0.9% 250 ml Route: IV; Rate: bolus; Site: left antecubital; tr6 19:25 Follow up: IV Status: Completed infusion; IV Intake: 250ml ad5 Intake: 19:25 IV: 250ml; Total: 250ml. ad5 Outcome: 18:29 Decision to Hospitalize by Provider. cp 22:30 Admitted to Med/surg via stretcher, Report called to receiving RN on floor, ad5 questions/concerns addressed 22:30 Condition: stable 22:30 Instructed on the need for admit, Demonstrated understanding of instructions. 23:01 Patient left the ED. ad5 Signatures: Dispatcher [employer] EDMS Denise Salamanca RN RN iw Hank Mas PA PA cp Wendy Alcazar mb4 Shasha Chauhan RN RN tr6 [place] ad5 Corrections: (The following items were deleted from the chart) 19:51 19:24 Pulse 64bpm; Resp 15bpm; Spontaneous; Pulse Ox 98% RA; ad5 ad5
--- NOTE | 2020-11-12 18:29 | EDPHYS ---
Physician Documentation [facility] Jin Name: Delmi Schultz Age: 70 yrs Sex: Female : 1950 Arrival Date: 11/12/2020 Time: 13:54 Bed 14 Private MD: ED Physician Hank Cisneros HPI: 11/12 15:10 This 70 yrs old Female presents to ER via EMS with complaints of Abnormal Lab cp Results. 15:10 abnormal labs. cp 15:10 Patient reported referred to ED for evaluation of worsening kidney function. Patient cp with history of uti and currently receiving IV antibiotics for esbl uti. Historical: - Allergies: 14:00 No Known Allergies; iw - Home Meds: 14:12 amlodipine 10 mg oral tab once daily [Active]; ascorbic acid (vitamin C) 500 mg tab iw daily [Active]; aspirin 81 mg Oral chew 1 tab once daily [Active]; atorvastatin 20 mg oral tab once daily [Active]; calcitriol 0.5 mcg oral cap 1 cap once daily [Active]; carvedilol 25 mg oral tab every 12 hours [Active]; cholecalciferol (vitamin D3) 5,000 unit oral cap daily [Active]; Eliquis 2.5 mg oral tab 1 tab 2 times per day [Active]; gabapentin 600 mg oral tab 3 times per day [Active]; hydralazine 25 mg oral tab three times a day [Active]; hydroxyzine HCl 50 mg Oral tab 1 tab 4 times per day [Active]; Imodium Oral 2 mg every 6 hours [Active]; Lasix 20 mg Oral tab 1 tab once daily [Active]; losartan 50 mg oral tab 1 tab once daily [Active]; Merrem 500 mg intravenous solr twice a day [Active]; potassium chloride 20 mEq Oral TbER once daily [Active]; sertraline 100 mg oral tab 1 tab once daily [Active]; trazodone 100 mg Oral tab nightly [Active]; zinc sulfate 220 mg Oral tab daily [Active]; - PMHx: 14:00 Anemia; Deaf; Depression; Diabetes - IDDM; ESRD; GERD; Hyperlipidemia; Hypertension; iw kidney disease; neuropathy; - Immunization history:: Adult Immunizations not up to date, Client reports having NOT received the Covid vaccine. - Social history:: Smoking status: Patient reports the use of cigarette tobacco products, smokes one-half pack cigarettes per day. ROS: 15:20 Constitutional: Positive for poor PO intake, Negative for body aches, chills, fever. cp 15:20 Eyes: Negative for injury, pain, redness, and discharge. cp 15:20 ENT: Negative for ear pain, sore throat, difficulty swallowing, difficulty handling secretions. 15:20 Cardiovascular: Negative for chest pain. 15:20 Respiratory: Negative for cough, shortness of breath, wheezing. 15:20 Abdomen/GI: Negative for abdominal pain, nausea, vomiting, and diarrhea, black/tarry stool. 15:20 : Positive for urinary symptoms. 15:20 Neuro: Negative for altered mental status, headache. 15:20 All other systems are negative. Exam: 15:25 Constitutional: The patient appears in no acute distress, alert, awake, cp non-diaphoretic, non-toxic, well developed, well nourished. 15:25 Head/Face: Normocephalic, atraumatic. cp 15:25 Eyes: Periorbital structures: appear normal, Pupils: equal, round, and reactive to light and accomodation, Extraocular movements: intact throughout, Conjunctiva: normal, no exudate, no injection, Sclera: no appreciated abnormality, Lids and lashes: appear normal, bilaterally. 15:25 ENT: External ear(s): are unremarkable, Nose: is normal, Mouth: Lips: moist, Oral mucosa: moist, Posterior pharynx: Airway: no evidence of obstruction, patent. 15:25 Neck: ROM/movement: is normal, is supple, without pain, no range of motions limitations. 15:25 Chest/axilla: Inspection: normal, Palpation: is normal, no crepitus, no tenderness. 15:25 Cardiovascular: Rate: normal, Rhythm: regular, Edema: is not appreciated, JVD: is not appreciated. 15:25 Respiratory: the patient does not display signs of respiratory distress, Respirations: normal, no use of accessory muscles, no retractions, labored breathing, is not present, Breath sounds: are clear throughout, no decreased breath sounds. 15:25 Abdomen/GI: Inspection: abdomen appears normal, Bowel sounds: active, all quadrants, Palpation: abdomen is soft and non-tender, in all quadrants. 15:25 Back: CVA tenderness, is absent. 15:25 Skin: no rash present. 15:25 Neuro: Orientation: to person, place \T\ time. Mentation: is normal, Motor: moves all fours, strength is normal. Vital Signs: 13:55 BP 112 / 72; Pulse 65; Resp 16; Temp 97.1; Pulse Ox 98% ; Weight 90.26 kg; Height 5 ft. iw 6 in. (167.64 cm); Pain 0/10; 19:24 BP 133 / 66; Pulse 64; Resp 15 S; Pulse Ox 98% on R/A; ad5 20:07 BP 125 / 53 Supine (auto/reg); Pulse 68 MON; Pulse Ox 97% ; mb4 22:12 BP 129 / 56; Pulse 70; Resp 15 S; Pulse Ox 96% on R/A; ad5 13:55 Body Mass Index 32.12 (90.26 kg, 167.64 cm) iw MDM: 14:56 Patient medically screened. [facility] 18:30 Data reviewed: vital signs, nurses notes, lab test result(s), EKG, radiologic studies, cp plain films, I have discussed the patient's presentation/case with the attending Emergency Department Physician; and as a result, I will admit patient. 18:30 Test interpretation: by ED physician or midlevel provider: ECG, plain radiologic cp studies. Counseling: I had a detailed discussion with the patient and/or guardian regarding: the historical points, exam findings, and any diagnostic results supporting the discharge/admit diagnosis, lab results, radiology results. 18:30 Physician consultation: Jj EM was called at 18:15, was contacted at 18:15, regarding admission, to the medical/surgical unit. patient's condition. 11/12 15:05 Order name: Basic Metabolic Panel; Complete Time: 17:18 11/12 17:20 Interpretation: Normal except: CL 115; CO2 19; BUN 32; CRE 4.26; GFR 10; CA 7.6. 11/12 15:05 Order name: CBC with Diff; Complete Time: 17:18 11/12 17:18 Interpretation: Normal except: WBC 10.50; RBC 3.23; HGB 9.6; HCT 29.6; PLT 206. 11/12 15:05 Order name: LFT's; Complete Time: 17:18 11/12 17:19 Interpretation: Normal except: ALK 144; TP 5.2; ALB 2.1; A/G 0.7. cp 11/12 15:05 Order name: Magnesium; Complete Time: 17:18 11/12 15:05 Order name: NT PRO-BNP; Complete Time: 17:18 cp 11/12 15:05 Order name: PT-INR; Complete Time: 17:18 11/12 17:19 Interpretation: Abnormal: PT 15.1. cp 11/12 15:05 Order name: Troponin (emerg Dept Use Only); Complete Time: 17:18 11/12 15:05 Order name: Procalcitonin; Complete Time: 17:18 11/12 15:05 Order name: Lactate; Complete Time: 17:18 11/12 15:05 Order name: Blood Culture Adult (2) 11/12 15:05 Order name: Urine Microscopic Only; Complete Time: 18:26 11/12 17:45 Order name: Urine Dipstick-Ancillary; Complete Time: 18:26 [facility] 11/12 18:19 Order name: Urine Culture EDMD 11/12 15:05 Order name: XRAY Chest (1 view); Complete Time: 17:18 11/12 15:05 Order name: EKG; Complete Time: 15:06 11/12 15:05 Order name: Cardiac monitoring; Complete Time: 15:26 11/12 15:05 Order name: EKG - Nurse/Tech; Complete Time: 17:27 11/12 15:05 Order name: IV Saline Lock; Complete Time: 15:26 11/12 15:05 Order name: Labs collected and sent; Complete Time: 15:26 11/12 15:05 Order name: O2 Per Protocol; Complete Time: 15:06 11/12 15:05 Order name: O2 Sat Monitoring; Complete Time: 15:06 11/12 15:05 Order name: Cath; Complete Time: 17:27 11/12 15:05 Order name: Urine Dipstick-Ancillary (obtain specimen); Complete Time: 17:27 11/12 19:08 Order name: CONS Physician Consult EDMD 11/12 21:30 Order name: SARS-COV-2 RT PCR EDMS Administered Medications: 17:26 Drug: NS 0.9% 250 ml Route: IV; Rate: bolus; Site: left antecubital; tr6 19:25 Follow up: IV Status: Completed infusion; IV Intake: 250ml ad5 Disposition: 11/13 07:21 Co-signature as Attending Physician, Hank Cisneros MD I agree with the assessment and eloy plan of care. Disposition: 11/12/20 18:29 Hospitalization ordered by Alverto Bowers for Observation. Preliminary diagnosis are Unspecified kidney failure, Urinary tract infection, site not specified. - Bed requested for Telemetry/MedSurg (observation). - Status is Observation. ad5 - Condition is Stable. - Problem is new. - Symptoms are unchanged. Signatures: Dispatcher [employer] [facility] Hank Cisneros MD MD cha Williams, Irene, RN RN Hank Mas PA PA cp Garcia, Cindy, RN RN cg Ramnanan, Tiffany, RN RN tr6 [place] ad5 Corrections: (The following items were deleted from the chart) 11/12 17:20 17:18 Normal except: CL 115; CO2 19; BUN 32; CRE 4.26; GFR 10. cp cp 20:18 18:31 CORONAVIRUS+MR.LAB.BRZ ordered. [facility] EDMS 21:55 18:29 Hospitalization Ordered by Alverto Bowers for Observation. Preliminary diagnosis cg is Unspecified kidney failure; Urinary tract infection, site not specified. Bed requested for Telemetry/MedSurg (observation). Status is Observation. Condition is Stable. Problem is new. Symptoms are unchanged. cp 23:01 21:55 11/12/2020 18:29 Hospitalization Ordered by Alverto Bowers for Observation. ad5 Preliminary diagnosis is Unspecified kidney failure; Urinary tract infection, site not specified. Bed requested for Telemetry/MedSurg (observation). Status is Observation. Condition is Stable. Problem is new. Symptoms are unchanged. cg
--- NOTE | 2020-11-12 20:52 | P.HP ---
Certification for Inpatient Patient admitted to: Inpatient With expected LOS: >2 Midnights Patient will require the following post-hospital care: None Practitioner: I am a practitioner with admitting privileges, knowledge of patient current condition, hospital course, and medical plan of care. Services: Services provided to patient in accordance with Admission requirements found in Title 42 Section 412.3 of the Code of Federal Regulations Patient History Date of Service: 11/12/20 Primary Care Provider: Derek Reason for admission: KIKO on CKD, UTI History of Present Illness: Ms. Schultz is a 70 yo F with CHF, CKD4, T2DM, HLD, HTN brought in today from [facility] for elevated Cr on labs this AM. She is deaf and mute, but communicates via white board. She reports nausea, back pain and diarrhea. Denies all other symptoms. She has an ESBL Ecoli UTI and was being treated with meropenem at [facility]. She will finished anti biotics on 11/16/2020. She is AOx4, vitals are stable. H/H 9.6. BNP 3467. Allergies adhesive Allergy (Verified 01/28/20 21:31) Itching/Hives/Rash No Known Drug Allergies Allergy (Verified 01/28/20 21:31) Unknown Home Medications: Amlodipine [Norvasc*] 10 mg PO DAILY 01/28/20 Atorvastatin Calcium [Lipitor*] 20 mg PO BEDTIME 01/28/20 Carvedilol [Coreg] 25 mg PO BID 01/28/20 Ferrous Sulfate [Ferrous Sulfate*] 325 mg PO BID 01/28/20 Gabapentin 600 mg PO BIDP PRN 01/28/20 Acetic Acid 0.25% [Acetic Acid 0.25%*] 1,000 ml IRR DAILY #1 btl 02/01/20 Calcitrol [Rocaltrol*] 0.5 mcg PO DAILY #60 cap 02/01/20 Cholecalciferol (Vitamin D3) [Vitamin D 5,000 IU Cap*] 5,000 unit PO DAILY #30 cap 02/01/20 Furosemide [Lasix] 40 mg PO BIDL #60 tab 02/01/20 Rohan [Rohan*] 1 pkt PO BID #60 powd.pack 02/01/20 traMADol HCL [Ultram*] 50 mg PO Q6H PRN #15 tab 02/01/20 - Past Medical/Surgical History Diabetic: Yes -: diabetes -: HTN -: GERD -: Depression -: Hyperlipidemia -: Insomnia -: Chronic back pain -: DM -: abdominal hernia -: heel surgery 2007 -: abdominal hernia repair -: amptuation of 5th digit on L foot 2012 -: Cholecystectomy 2012 Psychosocial/ Personal History: LJ - Family History Father -: Heart disease Mother -: Diabetes - Social History Smoking Status: Never smoker Alcohol use: No CD- Drugs: Yes Caffeine use: Yes Place of Residence: Shelter Review of Systems 10-point ROS is otherwise unremarkable Gastrointestinal: Nausea, Diarrhea Musculoskeletal: Back Pain Physical Examination - Physical Exam General: Alert, In no apparent distress HEENT: Atraumatic, PERRLA, Mucous membr. moist/pink, EOMI, Sclerae nonicteric Neck: Supple, 2+ carotid pulse no bruit, No LAD, Without JVD or thyroid abnormality Respiratory: Clear to auscultation bilaterally, Normal air movement Cardiovascular: Regular rate/rhythm, Normal S1 S2 Gastrointestinal: Normal bowel sounds, No tenderness Musculoskeletal: No clubbing, No tenderness Integumentary: No rashes Neurological: Normal gait, Normal strength at 5/5 x4 extr, Normal tone, Normal affect Lymphatics: No axilla or inguinal lymphadenopathy - Studies Laboratory Data (last 24 hrs) 11/12/20 15:21: PT 15.1 H, INR 1.31 11/12/20 15:21: WBC 10.50 D, Hgb 9.6 L, Hct 29.6 L D, Plt Count 206 D 11/12/20 15:21: Sodium 143, Potassium 4.5, BUN 32 H, Creatinine 4.26 H, Glucose 98, Magnesium 2.1, Total Bilirubin 0.2, AST 23, ALT 14, Alkaline Phosphatase 144 H Assessment and Plan - Problems (Diagnosis) (1) Urinary tract infection due to ESBL Klebsiella Current Visit: Yes Status: Chronic (2) Acute kidney injury superimposed on CKD Current Visit: Yes Status: Acute (3) CHF (congestive heart failure) Current Visit: Yes Status: Chronic Qualifiers: Heart failure type: unspecified Heart failure chronicity: chronic Qualified Code(s): I50.9 - Heart failure, unspecified (4) Low back pain Current Visit: No Status: Chronic (5) Deaf Current Visit: No Status: Chronic Qualifiers: Hearing loss type: unspecified Laterality: bilateral Qualified Code(s): H91.93 - Unspecified hearing loss, bilateral (6) Depressive disorder Current Visit: No Status: Chronic (7) Diabetes mellitus Onset Date: 10/16/15 Current Visit: No Status: Chronic Qualifiers: Diabetes mellitus type: type 2 Diabetes mellitus termite control service representative insulin use: without group home use Diabetes mellitus complication status: with kidney complications Diabetes mellitus complication detail: with chronic kidney disease Chronic kidney disease stage: stage 4 (severe) Qualified Code(s): E11.22 - Type 2 diabetes mellitus with diabetic chronic kidney disease; N18.4 - Chronic kidney disease, stage 4 (severe) (8) Hyperlipidemia Current Visit: No Status: Chronic Qualifiers: Hyperlipidemia type: unspecified Qualified Code(s): E78.5 - Hyperlipidemia, unspecified (9) Hypertension Current Visit: No Status: Chronic Qualifiers: Hypertension type: essential hypertension Qualified Code(s): I10 - Essential (primary) hypertension (10) Iron deficiency anemia Current Visit: No Status: Chronic Qualifiers: Iron deficiency anemia type: unspecified iron deficiency Qualified Code(s): D50.9 - Iron deficiency anemia, unspecified (11) Diarrhea Onset Date: 10/16/15 Current Visit: No Status: Chronic Qualifiers: Diarrhea type: unspecified type Qualified Code(s): R19.7 - Diarrhea, unspecified - Plan nephrology consulted continue LR at 75cc/hr strict I/Os, no NSAIDs, hold losartan continue daily Lasix, continue to monitor to volume overload continue meropenem BID until 11/16, renally dosed anemia stable, continue to monitor BP stable, will reconcile home medications Accuchecks and sliding scale insulin for DM stool cultures and cdiff sent for diarrhea antiemetics PRN, pain management as needed will reconcile and continue home medications Discharge Plan: Home Plan to discharge in: 48 Hours - Advance Directives Does patient have a Living Will: No Does patient have a Durable POA for Healthcare: No - Code Status/Comfort Care Code Status Assessed: Yes (full code) Critical Care: No Time Spent Managing Pts Care (In Minutes): 70
[2020-11-12] MEDS: INSULIN -REGULAR HUMAN 50 UNIT/0.5 ML ML SQ SCH (22:58)
[2020-11-12] MEDS ORDERED: ACETAMINOPHEN 500 MG TAB PO PRN (22:58)
[2020-11-12] MEDS ORDERED: PROMETHAZINE 25 MG TABLET PO PRN (22:58)
[2020-11-13 00:54] VITALS: BMI 32.1
[2020-11-13] MEDS: Meropenem 500 MG/100 ML BAG IV SCH ×3 (01:13→20:13)
[2020-11-13] MEDS ORDERED: Ringers Lactate 1,000 ML IV SCH (01:15)
[2020-11-13 06:12] LABS: Absolute Lymphocytes (CBC) 2.4 K/uL (0.7-4.9); Lymphocytes % 24.7 % (15.3-44.8); MPV 9.4 fL (7.6-11.3); RBC Red Blood Cell Count 2.87 M/uL (3.86-4.86)
[2020-11-13 06:29] LABS: Bilirubin Total 0.2 mg/dL (0.2-1.0); Phosphorus 5.7 mg/dL (2.5-4.9); Potassium 4.6 mmol/L (3.5-5.1); Protein, Total 4.7 g/dL (6.4-8.2)
[2020-11-13] MEDS: INSULIN -REGULAR HUMAN 50 UNIT/0.5 ML ML SQ SCH ×4 (07:30→20:13)
[2020-11-13] MEDS ORDERED: PROMETHAZINE 25 MG TABLET PO PRN (08:35)
[2020-11-13] MEDS ORDERED: FUROSEMIDE 20 MG TABLET PO SCH (09:00)
[2020-11-13] MEDS ORDERED: HOME MED 1 EA UNK (Gabapentin [Gabapentin] 600 MG Tablet) PO SCH (09:00)
--- NOTE | 2020-11-13 10:28 | EKG ---
Test Date: 2020-11-12 Test Time: 16:11:08 Laydown Machine Operator: TTR MEASUREMENT RESULTS: Intervals: Rate: 63 WI: 128 QRSD: 74 QT: 430 QTc: 440 [place]: P: 27 WI: 128 QRS: 22 T: -4 INTERPRETIVE STATEMENTS: Normal sinus rhythm Cannot rule out Anterior infarct, age undetermined Abnormal ECG Compared to ECG 09/17/2020 17:08:06 Atrial fibrillation no longer present Myocardial infarct finding still present Electronically Signed On 11-13-20 10:25:46 CDT by Ender Hernandez
[2020-11-13] MEDS: ASCORBIC ACID 500 MG TABLET PO SCH (11:39)
[2020-11-13] MEDS: CALCITROL 0.25 MCG CAP PO SCH (11:39)
[2020-11-13] MEDS: SERTRALINE HCL 100 MG TAB PO SCH (11:39)
[2020-11-13] MEDS: ASPIRIN 81 MG CHEWABLE TABLET PO SCH (11:39)
[2020-11-13] MEDS: VITAMIN D 5,000 UNIT CAP PO SCH (11:39)
[2020-11-13] MEDS: ZINC SULFATE 220 MG CAP PO SCH (11:39)
[2020-11-13] MEDS: APIXABAN 2.5 MG TABLET PO SCH ×2 (11:40→20:12)
[2020-11-13] MEDS: CLOTRIMAZ/BETAMETH CREAM 15GM TOP SCH ×2 (11:40→20:13)
[2020-11-13] MEDS ORDERED: EPOETIN ALFA-EPBX 4,000 UNIT/ML VIAL SQ ONE (12:00)
--- NOTE | 2020-11-13 12:12 | CON ---
History Of Present Illness: The patient seen in room 206 at [facility]. The p atient is alert, awake. She is not able to speak or hear. She is deaf, communicates via writing, ab le to understand writing well, and responds by shaking her head positive or negative. She is able to write also and communicate that way. Communication was done via writing. The patient does not look uncomfortable. She denies any pain currently. She denies any difficulty breathing. She has no swe lling in her legs. Her lungs are clear. She has been recently admitted to [facility] where she was treated for ESBL. She continues to be on meropenem. She also has some yeast in the urine and h er calcium is slightly on the lower side. Phosphorus is slightly on the higher side. Her bicarb is also low at 18. She has some anemia with history of chronic kidney disease with a hemoglobin of 8.9. Her creatinine baseline runs between 3.5 to 4 range. Currently, it is at 4.31 and BUN is 35. This is relatively stable compared to yesterday. Physical Examination: Vital Signs: On evaluation; vitals look stable. Blood pressure last one was 122/50, pulse 70, respi rations around 16. Pain level was at 0 and then it is 6. At times, the patient mainly complains of muscular aches. O2 sats were in mid 90s on room air. Lungs: Clear to auscultation. Abdomen: Soft. Extremities: Reveal no edema. Skin: Dry. Heart: Sounds are regular. Past Medical History: Consistent with history of recent admission to the hospital with urinary tract infection ESBL requiring meropenem and also the patient has had history of congestive heart failure in the past, CKD stage 4/5, hypertension. The patient also has had anemia. Past medical history is also consistent with diabetes, chronic back aches and muscular aches. Allergies: TO ADHESIVE CAUSES ITCHING. OTHERWISE, NO ALLERGIES TO MEDICATIONS. Medications: Home medications are in the chart and reviewed. Current medications are reviewed. Social History: The patient is living at [place] [facility]. She does not drink alcohol, use drugs, or smoke cigarettes. 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 Laboratory Data: Reviewed. The patient's labs from today show WBC count of 9.5, hemoglobin 8.9, hem atocrit 26, platelet count of 172. The patient has had some volume repletion with lactated Ringer's overnight. Chemistry shows sodium 143, potassium 4.6, chloride 115, bicarb is 18, BUN is 35, creatin ine 4.31, glucose is 70, calcium 7.8, phosphorus 5.7, magnesium 2.0. AST 21, ALT 14, alkaline phosph atase is 125. Albumin is 2.0. Assessment And Plan: The patient with chronic kidney disease in the setting of chronic kidney diseas e. The patient also has acute kidney injury, seems to be volume depleted. Has not been eating and d rinking that well. She does have some anemia of chronic kidney disease. She also has elevated phosp horus, reduced calcium, and her bicarb is low. She has urinary tract infection with ESBL, on meropen em, also has yeast in the urine. At this point, we will go ahead and start her on PhosLo with each m eal. We will start her on bicarb twice a day. We will give her a shot of Retacrit 4000 units once. We will start on fluconazole 100 mg for 5 days, stop the Lasix, and change her IV fluids to half-nor mal saline at 75 mL an hour. The patient does not have any edema. Her skin is dry. Lungs are clear and she has not been eating and drinking that well. /JODEE Voice ID: [id number] Report ID: [id number]
[2020-11-13] MEDS: CALCIUM ACETATE 667 MG TAB PO SCH ×2 (12:16→17:47)
[2020-11-13] MEDS: NACHLORIDE 0.45% 1,000 ML IV SCH (12:16)
[2020-11-13] MEDS: HYDROCODONE/APAP 5/325 MG TAB PO PRN (12:26)
[2020-11-13 12:38] LABS: C.diff Antigen/Toxin Ag neg : Tox neg (NEG : NEG)
--- NOTE | 2020-11-13 13:50 | P.PN ---
Subjective Date of Service: 11/13/20 Primary Care Provider: Derek Chief Complaint: KIKO on CKD, UTI Patient is deaf and dumb and communicate by writing. She reports the diarrhea frequency has decreased. Patient with a prior history of C. Diff She is complaining of bilateral flank pain which per nephrology is chronic. Physical Examination - Vital Signs Temperature: 98.2 F Blood Pressure: 145/62 Pulse: 73 Respirations: 16 Pulse Ox (%): 95 - Physical Exam General: Alert, In no apparent distress, Oriented x3 HEENT: Mucous membr. moist/pink Neck: JVD not distended Respiratory: Clear to auscultation bilaterally, Normal air movement Cardiovascular: No edema, Regular rate/rhythm, Normal S1 S2 Gastrointestinal: Normal bowel sounds, Soft and benign, Non-distended, No tenderness Musculoskeletal: No swelling Integumentary: No rashes Neurological: Other (No focal motor deficit) - Studies Laboratory Data (last 24 hrs) 11/12/20 15:21: PT 15.1 H, INR 1.31 11/12/20 15:21: WBC 10.50 D, Hgb 9.6 L, Hct 29.6 L D, Plt Count 206 D 11/12/20 15:21: Sodium 143, Potassium 4.5, BUN 32 H, Creatinine 4.26 H, Glucose 98, Magnesium 2.1, Total Bilirubin 0.2, AST 23, ALT 14, Alkaline Phosphatase 144 H Assessment And Plan - Current Problems (Diagnosis) (1) Acute worsening of stage 4 chronic kidney disease Current Visit: Yes Status: Acute (2) History of Clostridioides difficile colitis Current Visit: Yes Status: Acute (3) Anemia in chronic kidney disease Current Visit: Yes Status: Acute (4) Obesity (BMI 30-39.9) Current Visit: No Status: Acute (5) Deaf Current Visit: No Status: Chronic Qualifiers: Hearing loss type: unspecified Laterality: bilateral Qualified Code(s): H91.93 - Unspecified hearing loss, bilateral (6) Diabetes mellitus Onset Date: 10/16/15 Current Visit: No Status: Chronic Qualifiers: Diabetes mellitus type: type 2 Diabetes mellitus meterman insulin use: without meterman use Diabetes mellitus complication status: with kidney complications Diabetes mellitus complication detail: with chronic kidney disease Chronic kidney disease stage: stage 4 (severe) Qualified Code(s): E11.22 - Type 2 diabetes mellitus with diabetic chronic kidney disease; N18.4 - Chronic kidney disease, stage 4 (severe) (7) Diarrhea Onset Date: 10/16/15 Current Visit: No Status: Chronic Qualifiers: Diarrhea type: unspecified type Qualified Code(s): R19.7 - Diarrhea, unspecified - Plan Nephrology input appreciated. Oral Lasix discontinued. Nephrology changed IV fluid to normal saline. Continue IV meropenem for history of ESBL UTI. Nephrology added fluconazole for her yeast UTI. Procrit for anemia of chronic kidney disease. Follow cultures. Monitor renal function on IV fluid. Monitor closely for volume overload. Stool for C. diff is negative. Will add probiotics. Low threshold for adding Flagyl to maintain GI micro ecosystem.
[2020-11-13 15:02] LABS: Magnesium 1.9 mg/dL (1.8-2.4); Phosphorus 5.7 mg/dL (2.5-4.9)
[2020-11-13] MEDS: ONDANSETRON 4 MG/2 ML VIAL IV PRN (17:47)
[2020-11-13] MEDS: LACTOBACILLUS/ACIDOPHILUS TAB PO SCH ×2 (17:47→20:12)
[2020-11-13] MEDS: GABAPENTIN 100 MG CAP PO SCH (20:12)
[2020-11-13] MEDS: SODIUM BICARB 325 MG TAB PO SCH (20:12)
[2020-11-13] MEDS: TRAZODONE 50 MG TABLET PO SCH (20:12)
[2020-11-13] MEDS: ATORVASTATIN 20 MG TAB PO SCH (20:12)
[2020-11-14] MEDS: NACHLORIDE 0.45% 1,000 ML IV SCH ×2 (00:20→04:06)
[2020-11-14 05:46] LABS: Absolute Lymphocytes (CBC) 2.8 K/uL (0.7-4.9); Basophils % 1.1 % (0-1.3); Lymphocytes % 36.3 % (15.3-44.8); MPV 9.4 fL (7.6-11.3); RBC Red Blood Cell Count 2.54 M/uL (3.86-4.86)
[2020-11-14 05:59] LABS: Albumin 1.6 g/dL (3.4-5.0); Phosphorus 5.4 mg/dL (2.5-4.9); Potassium 4.6 mmol/L (3.5-5.1)
[2020-11-14] MEDS: INSULIN -REGULAR HUMAN 50 UNIT/0.5 ML ML SQ SCH ×4 (07:30→20:57)
[2020-11-14] MEDS: ASPIRIN 81 MG CHEWABLE TABLET PO SCH (09:00)
[2020-11-14] MEDS: APIXABAN 2.5 MG TABLET PO SCH ×2 (09:00→20:57)
[2020-11-14] MEDS ORDERED: VANCOMYCIN 1 GM in NA CHLORIDE 0.9% 250 ML IVPB SCH (09:00)
[2020-11-14] MEDS: LACTOBACILLUS/ACIDOPHILUS TAB PO SCH ×3 (09:33→20:56)
[2020-11-14] MEDS: ZINC SULFATE 220 MG CAP PO SCH (09:33)
[2020-11-14] MEDS: SERTRALINE HCL 100 MG TAB PO SCH (09:33)
[2020-11-14] MEDS: CALCITROL 0.25 MCG CAP PO SCH (09:33)
[2020-11-14] MEDS: VITAMIN D 5,000 UNIT CAP PO SCH (09:33)
[2020-11-14] MEDS: SODIUM BICARB 325 MG TAB PO SCH ×4 (09:33→20:56)
[2020-11-14] MEDS: FLUCONAZOLE 100 MG TAB PO SCH (09:33)
[2020-11-14] MEDS: ASCORBIC ACID 500 MG TABLET PO SCH (09:33)
[2020-11-14] MEDS: CALCIUM ACETATE 667 MG TAB PO SCH ×3 (09:33→17:06)
[2020-11-14] MEDS: Meropenem 500 MG/100 ML BAG IV SCH (09:34)
[2020-11-14] MEDS: CLOTRIMAZ/BETAMETH CREAM 15GM TOP SCH ×2 (09:34→20:57)
[2020-11-14] MEDS: HYDROCODONE/APAP 5/325 MG TAB PO PRN (09:35)
[2020-11-14] MEDS ORDERED: VANCOMYCIN 1.5 GM in NA CHLORIDE 0.9% 500 ML IVPB SCH (10:00)
--- NOTE | 2020-11-14 10:36 | P.PN ---
Date of Service: 11/14/20 Vital Signs Temp Pulse Resp BP Pulse Ox 98.9 F 66 20 144/79 H 95 11/14/20 08:00 11/14/20 08:00 11/14/20 08:00 11/14/20 08:00 11/14/20 08:00 Medications Acetaminophen (Acetaminophen 500 Mg Tab) 500 mg PO Q4HP PRN PRN Reason: Pain scale 2-4 (Mild) Hydrocodone Bitart/Acetaminophen (Hydrocodone/Apap 5/325 Mg Tab) 1 tab PO Q6H PRN PRN Reason: Pain scale 5-7 (Moderate) Last Admin: 11/14/20 09:35 Dose: 1 tab Documented by: Apixaban (Apixaban 2.5 Mg Tablet) 2.5 mg PO BID [facility] Last Admin: 11/14/20 09:00 Dose: Not Given Documented by: Ascorbic Acid (Ascorbic Acid 500 Mg Tablet) 500 mg PO DAILY [facility] Last Admin: 11/14/20 09:33 Dose: 500 mg Documented by: Aspirin (Aspirin 81 Mg Chewable Tablet) 81 mg PO DAILY [facility] Last Admin: 11/14/20 09:00 Dose: Not Given Documented by: Atorvastatin Calcium (Atorvastatin 20 Mg Tab) 20 mg PO BEDTIME [facility] Last Admin: 11/13/20 20:12 Dose: 20 mg Documented by: Calcitriol (Calcitrol 0.25 Mcg Cap) 0.5 mcg PO DAILY [facility] Last Admin: 11/14/20 09:33 Dose: 0.5 mcg Documented by: Calcium Acetate (Calcium Acetate 667 Mg Tab) 667 mg PO TIDWM [facility] Last Admin: 11/14/20 09:33 Dose: 667 mg Documented by: Cholecalciferol (Vitamin D 5,000 Unit Cap) 5,000 unit PO DAILY [facility] Last Admin: 11/14/20 09:33 Dose: 5,000 unit Documented by: Clotrimazole (Clotrimaz/Betameth Cream 15gm) 1 appl TOP BID [facility] Last Admin: 11/14/20 09:34 Dose: 1 appl Documented by: Fluconazole (Fluconazole 100 Mg Tab) 100 mg PO DAILY [facility]; Protocol Stop: 11/18/20 23:59 Last Admin: 11/14/20 09:33 Dose: 100 mg Documented by: Gabapentin (Gabapentin 100 Mg Cap) 100 mg PO BEDTIME [facility] Last Admin: 11/13/20 20:12 Dose: 100 mg Documented by: Hydralazine HCl (Hydralazine Hcl 20 Mg/Ml Vial) 10 mg IV Q6HP PRN PRN Reason: Titrate to SBP (MUST DEFINE) Meropenem (Merrem 500 Mg/100 Ml Ns Ivpb) 500 mg in 100 mls @ 200 mls/hr IV Q12HR [facility] Last Admin: 11/14/20 09:34 Dose: 100 mls Documented by: Sodium Chloride (Sodium Chloride 0.45%) 1,000 mls @ 75 mls/hr IV .[id number] [facility] Stop: 11/14/20 11:00 Last Admin: 11/14/20 04:06 Dose: 1,000 mls Documented by: Vancomycin HCl 1.5 gm/ Sodium (Chloride) 500 mls @ 250 mls/hr IVPB Q48H [facility] Insulin Human Regular (Insulin -Regular Human 50 Unit/0.5 Ml Ml) 0 unit SQ ACHS [facility]; Protocol Last Admin: 11/14/20 07:30 Dose: Not Given Documented by: Lactobacillus Acidoph/Bulgaricus (Lactobacillus/Acidophilus Tab) 1 tab PO TID [facility] Last Admin: 11/14/20 09:33 Dose: 1 tab Documented by: Ondansetron HCl (Ondansetron 4 Mg/2 Ml Vial) 4 mg IV Q6HP PRN PRN Reason: NAUSEA / VOMITING Last Admin: 11/13/20 17:47 Dose: 4 mg Documented by: Promethazine HCl (Promethazine 25 Mg Tablet) 25 mg PO Q8H PRN PRN Reason: NAUSEA / VOMITING Sertraline HCl (Sertraline Hcl 100 Mg Tab) 100 mg PO DAILY [facility] Last Admin: 11/14/20 09:33 Dose: 100 mg Documented by: Sodium Bicarbonate (Sodium Bicarb 325 Mg Tab) 650 mg PO BID [facility] Last Admin: 11/14/20 09:33 Dose: 650 mg Documented by: Sodium Chloride (Flush Normal Saline 10 Ml) 10 ml IV BID [facility] Last Admin: 11/14/20 09:00 Dose: 10 ml Documented by: Trazodone HCl (Trazodone 50 Mg Tablet) 100 mg PO BEDTIME [facility] Last Admin: 11/13/20 20:12 Dose: 100 mg Documented by: Zinc Sulfate (Zinc Sulfate 220 Mg Cap) 220 mg PO DAILY [facility] Last Admin: 11/14/20 09:33 Dose: 220 mg Documented by: Microbiology Results 11/12/20 17:43 Clean Catch Urine [place] Count - Preliminary BETWEEN 10,000 & 100,000 CFU/ML 11/12/20 17:43 Clean Catch Urine - Preliminary 11/12/20 15:35 Blood - Blood Aerobic Blood Culture - Preliminary No growth in 24 hours. 11/12/20 15:35 Blood - Blood Anaerobic Blood Culture - Preliminary 11/12/20 15:35 Blood - Blood Gram Stain - Final 11/12/20 15:45 Blood - Blood Aerobic Blood Culture - Preliminary No growth in 24 hours. 11/12/20 15:45 Blood - Blood Anaerobic Blood Culture - Preliminary No growth in 24 hours. Assessment/ Plan: Nephrology No complaints today. No acute events overnight. Vitals, medications, blood work and imaging reviewed in the chart. NAD. Obese. CTA. LE Edema trace. No speech. AAO. No rash. KIKO CKD V with proteinuria -No NSAIDs -Discontinue IVF Acidosis -Increase sodium bicarb QID Severe Malnutrition -Start Nepro -Give IV Albumin X2 Anemia in chronic illness/ CKD -Continue Retacrit FLORENCIO/ Secondary HyperPTH -Continue Calcitriol -Continue Phoslo Acute cystitis -Contnue Meropenem Case reviewed with Dr. Bowers
--- NOTE | 2020-11-14 15:13 | P.PN ---
Subjective Date of Service: 11/14/20 Primary Care Provider: Derek Chief Complaint: KIKO on CKD, UTI Patient reports diarrhea with every meal. Patient with a prior history of C. Diff. Current stool for C. diff is negative Physical Examination - Vital Signs Temperature: 97 F Blood Pressure: 172/63 Pulse: 78 Respirations: 20 Pulse Ox (%): 96 - Physical Exam General: Alert, In no apparent distress, Oriented x3 HEENT: Mucous membr. moist/pink Neck: JVD not distended Respiratory: Clear to auscultation bilaterally, Normal air movement Cardiovascular: No edema, Regular rate/rhythm, Normal S1 S2 Gastrointestinal: Normal bowel sounds, Soft and benign, Non-distended, No tenderness Musculoskeletal: No swelling Integumentary: No rashes Neurological: Normal strength at 5/5 x4 extr - Studies Microbiology Data (last 24 hrs): 11/12/20 15:35 Blood - Blood Gram Stain - Final Assessment And Plan - Current Problems (Diagnosis) (1) Acute worsening of stage 4 chronic kidney disease Current Visit: Yes Status: Acute (2) History of Clostridioides difficile colitis Current Visit: Yes Status: Acute (3) Anemia in chronic kidney disease Current Visit: Yes Status: Acute (4) Obesity (BMI 30-39.9) Current Visit: No Status: Acute (5) Deaf Current Visit: No Status: Chronic Qualifiers: Hearing loss type: unspecified Laterality: bilateral Qualified Code(s): H91.93 - Unspecified hearing loss, bilateral (6) Diabetes mellitus Onset Date: 10/16/15 Current Visit: No Status: Chronic Qualifiers: Diabetes mellitus type: type 2 Diabetes mellitus long-term insulin use: without termination clerk use Diabetes mellitus complication status: with kidney complications Diabetes mellitus complication detail: with chronic kidney disease Chronic kidney disease stage: stage 4 (severe) Qualified Code(s): E11.22 - Type 2 diabetes mellitus with diabetic chronic kidney disease; N18.4 - Chronic kidney disease, stage 4 (severe) (7) Diarrhea Onset Date: 10/16/15 Current Visit: No Status: Chronic Qualifiers: Diarrhea type: unspecified type Qualified Code(s): R19.7 - Diarrhea, unspecified - Plan Nephrology is following. Metabolic acidosis persist and related to a combination of chronic kidney disease and diarrhea. Patient is on bicarb replacement. Oral Lasix discontinued. Off IV fluid Urine culture: Yeast Nephrology added fluconazole for yeast UTI. Discontinue meropenem given history of C. diff. Procrit for anemia of chronic kidney disease. 1 blood culture bottle grew coagulase-negative Staph. Patient placed on vancomycin. Repeat blood culture is pending. Renal function unchanged from yesterday. Monitor closely for volume overload. Stool for C. diff is negative. Check stool for WBC and culture and if negative will start loperamide.
[2020-11-14] MEDS: GABAPENTIN 100 MG CAP PO SCH (20:56)
[2020-11-14] MEDS: ATORVASTATIN 20 MG TAB PO SCH (20:57)
[2020-11-14] MEDS: TRAZODONE 50 MG TABLET PO SCH (20:57)
[2020-11-14] MEDS ORDERED: EPOETIN ALFA-EPBX 4,000 UNIT/ML VIAL SQ SCH (21:30)
[2020-11-14] MEDS ORDERED: EPOETIN ALFA-EPBX 10,000 UNIT/ML VIAL ONE (22:06)
[2020-11-14] MEDS: ALBUMIN HUMAN 25% 100 ML IV SCH (22:08)
[2020-11-14] MEDS: NEPRO SHAKE 237 ML CAN PO SCH (22:10)
[2020-11-15] MEDS: ALBUMIN HUMAN 25% 100 ML IV SCH (04:15)
[2020-11-15 05:56] LABS: Absolute Lymphocytes (CBC) 1.5 K/uL (0.7-4.9); Basophils % 0.6 % (0-1.3); Hematocrit 21.2 % (36.0-45.0); Lymphocytes % 23.3 % (15.3-44.8); MPV 9.4 fL (7.6-11.3); RBC Red Blood Cell Count 2.33 M/uL (3.86-4.86)
[2020-11-15 06:07] LABS: Albumin 2.4 g/dL (3.4-5.0); Phosphorus 5.3 mg/dL (2.5-4.9); Potassium 4.6 mmol/L (3.5-5.1)
[2020-11-15] MEDS: INSULIN -REGULAR HUMAN 50 UNIT/0.5 ML ML SQ SCH ×4 (07:30→20:33)
[2020-11-15] MEDS: NEPRO SHAKE 237 ML CAN PO SCH ×3 (09:00→20:47)
[2020-11-15] MEDS: ONDANSETRON 4 MG/2 ML VIAL IV PRN (09:44)
[2020-11-15] MEDS: APIXABAN 2.5 MG TABLET PO SCH ×2 (09:45→20:47)
[2020-11-15] MEDS: SERTRALINE HCL 100 MG TAB PO SCH (09:45)
[2020-11-15] MEDS: LACTOBACILLUS/ACIDOPHILUS TAB PO SCH ×3 (09:45→20:40)
[2020-11-15] MEDS: ZINC SULFATE 220 MG CAP PO SCH (09:45)
[2020-11-15] MEDS: CALCITROL 0.25 MCG CAP PO SCH (09:45)
[2020-11-15] MEDS: ASCORBIC ACID 500 MG TABLET PO SCH (09:45)
[2020-11-15] MEDS: CALCIUM ACETATE 667 MG TAB PO SCH ×3 (09:45→15:58)
[2020-11-15] MEDS: FLUCONAZOLE 100 MG TAB PO SCH (09:46)
[2020-11-15] MEDS: VITAMIN D 5,000 UNIT CAP PO SCH (09:46)
[2020-11-15] MEDS: SODIUM BICARB 325 MG TAB PO SCH ×4 (09:46→20:41)
[2020-11-15] MEDS: ASPIRIN 81 MG CHEWABLE TABLET PO SCH (09:46)
[2020-11-15] MEDS: CLOTRIMAZ/BETAMETH CREAM 15GM TOP SCH ×2 (09:46→20:41)
[2020-11-15] MEDS ORDERED: EPOETIN ALFA-EPBX 10,000 UNIT/ML VIAL SQ ONE (10:15)
[2020-11-15] MEDS ORDERED: NA CHLORIDE 0.9% 250 ML IV SCH (11:00)
--- NOTE | 2020-11-15 12:21 | P.DS ---
Admission Date: 11/12/20 Discharge Date: 11/16/20 Primary Care Provider: Derek Disposition: TRANSFER TO CORRECTION Discharge Condition: FAIR Reason for Admission: KIKO on CKD, UTI Consultations: Renal - Problems (1) Acute worsening of stage 4 chronic kidney disease Current Visit: Yes Status: Acute (2) History of Clostridioides difficile colitis Current Visit: Yes Status: Acute (3) Anemia in chronic kidney disease Current Visit: Yes Status: Acute (4) Obesity (BMI 30-39.9) Current Visit: No Status: Acute (5) Deaf Current Visit: No Status: Chronic Qualifiers: Hearing loss type: unspecified Laterality: bilateral Qualified Code(s): H91.93 - Unspecified hearing loss, bilateral (6) Diabetes mellitus Onset Date: 10/16/15 Current Visit: No Status: Chronic Qualifiers: Diabetes mellitus type: type 2 Diabetes mellitus nursing home insulin use: without watermaster use Diabetes mellitus complication status: with kidney complications Diabetes mellitus complication detail: with chronic kidney disease Chronic kidney disease stage: stage 4 (severe) Qualified Code(s): E11.22 - Type 2 diabetes mellitus with diabetic chronic kidney disease; N18.4 - Chronic kidney disease, stage 4 (severe) (7) Diarrhea Onset Date: 10/16/15 Current Visit: No Status: Chronic Qualifiers: Diarrhea type: unspecified type Qualified Code(s): R19.7 - Diarrhea, unspecified Brief History of Present Illness: 70-year-old woman with a history of CHF, chronic kidney disease stage 4, type 2 diabetes, hyperlipidemia and hypertension [facility] due to elevated creatinine. Patient is deaf and mute and communicating by writing. She also reported chronic back pain nausea and diarrhea. She is being treated for years believe coli with meropenem and supposed to finish antibiotics on 11/16/2020. Blood work showed elevated creatinine up to 4.26. Patient was hospitalized for further management. Hospital Course: Patient admitted to the medical floor. She is on Lasix which was held. Nephrology was consulted and patient was treated with IV fluid briefly. Her serum creatinine did not significantly improve with hydration. Patient diagnosis chronic kidney disease stage 4. She was placed on sodium bicarb for metabolic acidosis. Patient reports diarrhea with her meals. She has a history of C. diff. Stool studies were negative for C. diff and for WBC indicating that diarrhea is not likely due to infection. Patient discharged with a trial of Lomotil. She will continue her meropenem and finish on 11/16/2020. She complained of generalized weakness likely secondary to anemia. Her hemoglobin was down to 7.0. Stool for occult blood negative. Patient given 1 unit PRBC transfusion. Posttransfusion hemoglobin is up to 8.4. Vital Signs/Physical Exam: Temp Pulse Resp BP Pulse Ox 98.8 F 76 17 140/64 97 11/15/20 12:00 11/15/20 12:00 11/15/20 12:00 11/15/20 12:00 11/15/20 12:00 General: Alert, In no apparent distress, Oriented x3 HEENT: Mucous membr. moist/pink Neck: JVD not distended Respiratory: Clear to auscultation bilaterally, Normal air movement Cardiovascular: No edema, Regular rate/rhythm, Normal S1 S2 Gastrointestinal: Normal bowel sounds, Soft and benign, Non-distended, No tenderness Musculoskeletal: No swelling Integumentary: No rashes Neurological: Normal strength at 5/5 x4 extr, Cranial nerves 3-12 intact Laboratory Data at Discharge: WBC 6.50 K/uL (4.3-10.9) D 11/15/20 05:24 Hgb 7.0 g/dL (12.0-15.0) L 11/15/20 05:24 Hct 21.2 % (36.0-45.0) L 11/15/20 05:24 Plt Count 134 K/uL (152-406) L 11/15/20 05:24 PT 15.1 SECONDS (9.5-12.5) H 11/12/20 15:21 INR 1.31 11/12/20 15:21 Sodium 141 mmol/L (136-145) 11/15/20 05:24 Potassium 4.6 mmol/L (3.5-5.1) 11/15/20 05:24 BUN 36 mg/dL (7-18) H 11/15/20 05:24 Creatinine 4.34 mg/dL (0.55-1.3) H 11/15/20 05:24 Glucose 84 mg/dL (74-106) 11/15/20 05:24 Phosphorus 5.3 mg/dL (2.5-4.9) H 11/15/20 05:24 Magnesium 1.9 mg/dL (1.8-2.4) 11/13/20 14:33 Total Bilirubin 0.2 mg/dL (0.2-1.0) 11/13/20 05:43 AST 21 U/L (15-37) 11/13/20 05:43 ALT 14 U/L (12-78) 11/13/20 05:43 Alkaline Phosphatase 125 U/L (45-117) H 11/13/20 05:43 Home Medications: Atorvastatin Calcium [Lipitor*] 20 mg PO BEDTIME 01/28/20 Carvedilol [Coreg] 25 mg PO BID 01/28/20 Amlodipine Besylate 10 mg PO DAILY 11/12/20 Ascorbic Acid [Vitamin C*] 500 mg PO DAILY 11/12/20 Aspirin [Sean Chewable Aspirin] 81 mg PO DAILY 11/12/20 calcitrioL [Rocaltrol] 0.5 mcg PO DAILY 11/12/20 Apixaban [Eliquis *] 2.5 mg PO BID 11/13/20 Cholecalciferol (Vitamin D3) [Vitamin D 5,000 IU Cap*] 5,000 unit PO DAILY 11/13/20 Clotrim/Betameth Cream [Lotrisone Cream*] 1 appl TP BID 11/13/20 Hydralazine HCl 25 mg PO TID 11/13/20 Insulin Regular, Human [Novolin R Flexpen] See Protocol SQ BID 11/13/20 Losartan Potassium [Cozaar*] 50 mg PO DAILY 11/13/20 Meropenem [Merrem*] 500 mg IV Q12H 11/13/20 Promethazine HCl 25 mg PO Q8HP PRN 11/13/20 Sertraline HCl 100 mg PO DAILY 11/13/20 Trazodone HCl 100 mg PO BEDTIME 11/13/20 Zinc Sulfate [Zinc Sulfate*] 220 mg PO DAILY 11/13/20 Calcium Acetate [Phoslo*] 667 mg PO TIDWM tab 11/15/20 Diphenox/Atropine [Lomotil] 1 tab PO TIDP PRN #30 tab 11/15/20 Epoetin Juan Jose-Epbx [Retacrit] 4,000 unit SQ M,W,F vial 11/15/20 Fluconazole [Diflucan] 100 mg PO DAILY #11 tablet 11/15/20 Gabapentin [Neurontin*] 100 mg PO BEDTIME cap 11/15/20 Na Bicarb Tab [Sodium Bicarb 325 MG Tab*] 650 mg PO QID tab 11/15/20 Nepro Shake [Nepro*] 237 ml PO TID can 11/15/20 New Medications: Fluconazole [Diflucan] 100 mg PO DAILY #11 tablet Diphenox/Atropine [Lomotil] 1 tab PO TIDP PRN #30 tab PRN Reason: Diarrhea Diet: Renal Activity: Ad ca Followup: Unknown,U [Primary Care Provider] -
--- NOTE | 2020-11-15 17:14 | P.PN ---
Subjective Date of Service: 11/15/20 Primary Care Provider: Derek Chief Complaint: KIKO on CKD, UTI Patient reports diarrhea with her meals. She is also reporting fatigue. Physical Examination - Vital Signs Temperature: 98.2 F Blood Pressure: 139/60 Pulse: 88 Respirations: 17 Pulse Ox (%): 94 - Physical Exam General: Alert, In no apparent distress, Oriented x3 HEENT: Mucous membr. moist/pink Neck: Supple, JVD not distended Respiratory: Clear to auscultation bilaterally, Normal air movement Cardiovascular: No edema, Regular rate/rhythm, Normal S1 S2 Gastrointestinal: Normal bowel sounds, Soft and benign, Non-distended, No tenderness Musculoskeletal: No swelling Integumentary: No rashes Neurological: Normal strength at 5/5 x4 extr - Studies Microbiology Data (last 24 hrs): 11/12/20 17:43 Clean Catch Urine [place] Count - Final >100,000 CFU/ML. 11/12/20 17:43 Clean Catch Urine - Final 11/12/20 15:35 Blood - Blood Gram Stain - Final Assessment And Plan - Current Problems (Diagnosis) (1) Acute worsening of stage 4 chronic kidney disease Current Visit: Yes Status: Acute (2) History of Clostridioides difficile colitis Current Visit: Yes Status: Acute (3) Anemia in chronic kidney disease Current Visit: Yes Status: Acute (4) Obesity (BMI 30-39.9) Current Visit: No Status: Acute (5) Deaf Current Visit: No Status: Chronic Qualifiers: Hearing loss type: unspecified Laterality: bilateral Qualified Code(s): H91.93 - Unspecified hearing loss, bilateral (6) Diabetes mellitus Onset Date: 10/16/15 Current Visit: No Status: Chronic Qualifiers: Diabetes mellitus type: type 2 Diabetes mellitus fci insulin use: without assistant terminal manager use Diabetes mellitus complication status: with kidney complications Diabetes mellitus complication detail: with chronic kidney disease Chronic kidney disease stage: stage 4 (severe) Qualified Code(s): E11.22 - Type 2 diabetes mellitus with diabetic chronic kidney disease; N18.4 - Chronic kidney disease, stage 4 (severe) (7) Diarrhea Onset Date: 10/16/15 Current Visit: No Status: Chronic Qualifiers: Diarrhea type: unspecified type Qualified Code(s): R19.7 - Diarrhea, unspec ified - Plan Nephrology is following. Metabolic acidosis persist and related to a combination of chronic kidney disease and diarrhea. Continue bicarb replacement Oral Lasix is on hold. Off IV fluid Urine culture: Yeast Nephrology added fluconazole for yeast UTI. Continue meropenem. Procrit for anemia of chronic kidney disease. 1 blood culture bottle grew coagulase-negative Staph. Patient placed on vancomycin. Repeat blood culture shows no growth. Discontinue vancomycin. Monitor closely for volume overload. Stool for C. diff is negative. Fecal leukocytes is negative. Start Lomotil p.r.n. for diarrhea. Transfuse 1 unit PRBC for symptomatic anemia.
[2020-11-15] MEDS ORDERED: Meropenem 500 MG/100 ML BAG IV SCH (17:15)
[2020-11-15] MEDS: HYDRALAZINE HCL 20 MG/ML VIAL IV PRN (17:27)
[2020-11-15] MEDS: HYDROCODONE/APAP 5/325 MG TAB PO PRN (20:39)
[2020-11-15] MEDS: TRAZODONE 50 MG TABLET PO SCH (20:40)
[2020-11-15] MEDS: ATORVASTATIN 20 MG TAB PO SCH (20:41)
[2020-11-15] MEDS: GABAPENTIN 100 MG CAP PO SCH (20:41)
[2020-11-15] MEDS: Meropenem 500 MG/100 ML BAG IV SCH (20:50)
--- NOTE | 2020-11-15 21:19 | P.PN ---
Date of Service: 11/15/20 Vital Signs Temp Pulse Resp BP Pulse Ox 97.6 F 84 17 171/72 H 95 11/15/20 20:00 11/15/20 20:00 11/15/20 20:39 11/15/20 20:00 11/15/20 20:39 Medications Acetaminophen (Acetaminophen 500 Mg Tab) 500 mg PO Q4HP PRN PRN Reason: Pain scale 2-4 (Mild) Last Admin: 11/15/20 09:44 Dose: 500 mg Documented by: Hydrocodone Bitart/Acetaminophen (Hydrocodone/Apap 5/325 Mg Tab) 1 tab PO Q6H PRN PRN Reason: Pain scale 5-7 (Moderate) Last Admin: 11/15/20 20:39 Dose: 1 tab Documented by: Apixaban (Apixaban 2.5 Mg Tablet) 2.5 mg PO BID [facility] Last Admin: 11/15/20 20:47 Dose: Not Given Documented by: Ascorbic Acid (Ascorbic Acid 500 Mg Tablet) 500 mg PO DAILY [facility] Last Admin: 11/15/20 09:45 Dose: 500 mg Documented by: Aspirin (Aspirin 81 Mg Chewable Tablet) 81 mg PO DAILY [facility] Last Admin: 11/15/20 09:46 Dose: 81 mg Documented by: Atorvastatin Calcium (Atorvastatin 20 Mg Tab) 20 mg PO BEDTIME [facility] Last Admin: 11/15/20 20:41 Dose: 20 mg Documented by: Calcitriol (Calcitrol 0.25 Mcg Cap) 0.5 mcg PO DAILY [facility] Last Admin: 11/15/20 09:45 Dose: 0.5 mcg Documented by: Calcium Acetate (Calcium Acetate 667 Mg Tab) 667 mg PO TIDWM [facility] Last Admin: 11/15/20 15:58 Dose: 667 mg Documented by: Cholecalciferol (Vitamin D 5,000 Unit Cap) 5,000 unit PO DAILY [facility] Last Admin: 11/15/20 09:46 Dose: 5,000 unit Documented by: Clotrimazole (Clotrimaz/Betameth Cream 15gm) 1 appl TOP BID [facility] Last Admin: 11/15/20 20:41 Dose: 1 appl Documented by: Enteral Nutritional Formula (Nepro Shake 237 Ml Can) 237 ml PO TID [facility] Last Admin: 11/15/20 20:47 Dose: 237 ml Documented by: Fluconazole (Fluconazole 100 Mg Tab) 100 mg PO DAILY [facility]; Protocol Stop: 11/18/20 23:59 Last Admin: 11/15/20 09:46 Dose: 100 mg Documented by: Gabapentin (Gabapentin 100 Mg Cap) 100 mg PO BEDTIME [facility] Last Admin: 11/15/20 20:41 Dose: 100 mg Documented by: Hydralazine HCl (Hydralazine Hcl 20 Mg/Ml Vial) 10 mg IV Q6HP PRN PRN Reason: Titrate to SBP (MUST DEFINE) Last Admin: 11/15/20 17:27 Dose: 10 mg Documented by: Sodium Chloride (Sodium Chloride) 250 mls @ 0 mls/hr IV .Q0M [facility] Last Admin: 11/15/20 15:57 Dose: 250 mls Documented by: Meropenem (Merrem 500 Mg/100 Ml Ns Ivpb) 500 mg in 100 mls @ 200 mls/hr IV Q12HR [facility] Last Admin: 11/15/20 20:50 Dose: 100 mls Documented by: Insulin Human Regular (Insulin -Regular Human 50 Unit/0.5 Ml Ml) 0 unit SQ ACHS [facility]; Protocol Last Admin: 11/15/20 20:33 Dose: Not Given Documented by: Lactobacillus Acidoph/Bulgaricus (Lactobacillus/Acidophilus Tab) 1 tab PO TID [facility] Last Admin: 11/15/20 20:40 Dose: 1 tab Documented by: Ondansetron HCl (Ondansetron 4 Mg/2 Ml Vial) 4 mg IV Q6HP PRN PRN Reason: NAUSEA / VOMITING Last Admin: 11/15/20 09:44 Dose: 4 mg Documented by: Promethazine HCl (Promethazine 25 Mg Tablet) 25 mg PO Q8H PRN PRN Reason: NAUSEA / VOMITING Sertraline HCl (Sertraline Hcl 100 Mg Tab) 100 mg PO DAILY [facility] Last Admin: 11/15/20 09:45 Dose: 100 mg Documented by: Sodium Bicarbonate (Sodium Bicarb 325 Mg Tab) 650 mg PO QID [facility] Last Admin: 11/15/20 20:41 Dose: 650 mg Documented by: Sodium Chloride (Flush Normal Saline 10 Ml) 10 ml IV BID [facility] Last Admin: 11/15/20 20:41 Dose: 10 ml Documented by: Trazodone HCl (Trazodone 50 Mg Tablet) 100 mg PO BEDTIME [facility] Last Admin: 11/15/20 20:40 Dose: 100 mg Documented by: Zinc Sulfate (Zinc Sulfate 220 Mg Cap) 220 mg PO DAILY [facility] Last Admin: 11/15/20 09:45 Dose: 220 mg Documented by: Microbiology Results 11/12/20 17:43 Clean Catch Urine [place] Count - Final >100,000 CFU/ML. 11/12/20 17:43 Clean Catch Urine - Final 11/12/20 15:35 Blood - Blood Aerobic Blood Culture - Preliminary No growth in 24 hours. 11/12/20 15:35 Blood - Blood Anaerobic Blood Culture - Preliminary 11/12/20 15:35 Blood - Blood Gram Stain - Final 11/12/20 15:45 Blood - Blood Aerobic Blood Culture - Preliminary No growth in 24 hours. 11/12/20 15:45 Blood - Blood Anaerobic Blood Culture - Preliminary No growth in 24 hours. Assessment/ Plan: Nephrology No complaints today. No acute events overnight. Vitals, medications, blood work and imaging reviewed in the chart. NAD. Obese. CTA. LE Edema trace. No speech. AAO. No rash. KIKO CKD V with proteinuria -No NSAIDs Acidosis -Continue sodium bicarb QID Severe Malnutrition -Continue Nepro -IV Albumin PRN Anemia in chronic illness/ CKD -Continue Retacrit -Transfuse PRBC as needed FLORENCIO/ Secondary HyperPTH -Continue Calcitriol -Continue Phoslo Acute cystitis -Contnue Meropenem
[2020-11-15 21:24] LABS: Hematocrit 25.7 % (36.0-45.0)
[2020-11-16 06:35] LABS: Basophils % 0.6 % (0-1.3); Hematocrit 25.4 % (36.0-45.0); Lymphocytes % 28.3 % (15.3-44.8); MPV 9.4 fL (7.6-11.3); RBC Red Blood Cell Count 2.81 M/uL (3.86-4.86)
[2020-11-16 06:46] LABS: Albumin 1.9 g/dL (3.4-5.0); Phosphorus 5.4 mg/dL (2.5-4.9); Potassium 4.8 mmol/L (3.5-5.1)
[2020-11-16] MEDS: INSULIN -REGULAR HUMAN 50 UNIT/0.5 ML ML SQ SCH ×2 (07:30→11:30)
[2020-11-16] MEDS: APIXABAN 2.5 MG TABLET PO SCH (09:00)
[2020-11-16] MEDS: Meropenem 500 MG/100 ML BAG IV SCH (09:08)
[2020-11-16] MEDS: SODIUM BICARB 325 MG TAB PO SCH ×2 (09:10→13:33)
[2020-11-16] MEDS: CALCIUM ACETATE 667 MG TAB PO SCH ×2 (09:10→13:33)
[2020-11-16] MEDS: FLUCONAZOLE 100 MG TAB PO SCH (09:11)
[2020-11-16] MEDS: CALCITROL 0.25 MCG CAP PO SCH (09:11)
[2020-11-16] MEDS: ASPIRIN 81 MG CHEWABLE TABLET PO SCH (09:11)
[2020-11-16] MEDS: VITAMIN D 5,000 UNIT CAP PO SCH (09:11)
[2020-11-16] MEDS: ASCORBIC ACID 500 MG TABLET PO SCH (09:11)
[2020-11-16] MEDS: NEPRO SHAKE 237 ML CAN PO SCH ×2 (09:12→14:00)
[2020-11-16] MEDS: CLOTRIMAZ/BETAMETH CREAM 15GM TOP SCH (09:12)
[2020-11-16] MEDS: SERTRALINE HCL 100 MG TAB PO SCH (09:13)
[2020-11-16] MEDS: LACTOBACILLUS/ACIDOPHILUS TAB PO SCH ×2 (09:16→13:33)
[2020-11-16] MEDS: ZINC SULFATE 220 MG CAP PO SCH (09:33)
[2020-11-16 10:51] VITALS: O2SAT 94
[2020-11-16 10:55] VITALS: TEMP 98
[2020-11-16] MEDS: HYDRALAZINE HCL 20 MG/ML VIAL IV PRN (13:33)
[2020-11-16 14:50] VITALS: BP 130/60
--- NOTE | 2020-11-16 20:08 | P.PN ---
Date of Service: 11/16/20 Vital Signs Temp Pulse Resp BP Pulse Ox 98.0 F 74 16 130/60 95 11/16/20 08:00 11/16/20 08:00 11/16/20 08:00 11/16/20 14:00 11/16/20 08:00 Microbiology Results 11/12/20 17:43 Clean Catch Urine [place] Count - Final >100,000 CFU/ML. 11/12/20 17:43 Clean Catch Urine - Final 11/12/20 15:35 Blood - Blood Aerobic Blood Culture - Preliminary No growth in 24 hours. 11/12/20 15:35 Blood - Blood Anaerobic Blood Culture - Preliminary 11/12/20 15:35 Blood - Blood Gram Stain - Final 11/12/20 15:45 Blood - Blood Aerobic Blood Culture - Preliminary No growth in 24 hours. 11/12/20 15:45 Blood - Blood Anaerobic Blood Culture - Preliminary No growth in 24 hours. Assessment/ Plan: Nephrology No complaints today. No acute events overnight. Vitals, medications, blood work and imaging reviewed in the chart. NAD. Obese. CTA. LE Edema trace. No speech. AAO. No rash. KIKO CKD V with proteinuria -No NSAIDs Acidosis -Continue sodium bicarb QID Severe Malnutrition -Continue Nepro -IV Albumin PRN Anemia in chronic illness/ CKD -Continue Retacrit -Transfuse PRBC as needed FLORENCIO/ Secondary HyperPTH -Continue Calcitriol -Continue Phoslo Acute cystitis -Contnue Meropenem
== END 2020-11-16 16:10 | DRG 682 ==
LOC: ER 13:42 → ERHOLD 19:07 → 2ND 22:00
PROVIDERS: ADMIT Internal Medicine; ATTEND Internal Medicine
PROC: 30233N1 Transfusion of Nonautologous Red Blood Cells into Peripheral Vein, Percutaneous Approach (ICD-10-PCS; principal; 2020-11-15)
DX: I13.10 Hypertensive heart and chronic kidney disease without heart failure, with stage 1 through stage 4 chronic kidney disease, or unspecified chronic kidney disease (principal); E43 Unspecified severe protein-calorie malnutrition; N30.00 Acute cystitis without hematuria; Z16.12 Extended spectrum beta lactamase (ESBL) resistance; N18.4 Chronic kidney disease, stage 4 (severe); N17.9 Acute kidney failure, unspecified; E87.2 Acidosis; B37.49 Other urogenital candidiasis; B96.1 Klebsiella pneumoniae [K. pneumoniae] as the cause of diseases classified elsewhere; D63.1 Anemia in chronic kidney disease; E11.22 Type 2 diabetes mellitus with diabetic chronic kidney disease; R80.9 Proteinuria, unspecified; Z68.32 Body mass index [BMI] 32.0-32.9, adult; H91.3 Deaf nonspeaking, not elsewhere classified; R19.7 Diarrhea, unspecified; Z20.822 Contact with and (suspected) exposure to COVID-19
CPT/HCPCS: 36415; 36430; 71045; 80048; 80053; 80069; 80076; 81003; 81015; 82274; 82947; 83605; 83735; 83880; 84100; 84145; 84484; 85014; 85018; 85025; 85610; 86850; 86900; 86901; 87040; 87045; 87046; 87077; 87086; 87088; 87186; 87205; 87324; 87449; 89055; 93005; 94760; 96365; 96366; 99285; J0360; J2185; J2405; J3370; J7040; J7050; J7120; P9016; P9047; Q5106; U0003

== ENCOUNTER 2020-11-20 06:49 | Emergency (ER) | payer OTHER ==
[2020-11-20] MEDS ORDERED: HYDROCODONE/APAP 7.5/325 MG TAB ONE (08:11)
--- NOTE | 2020-11-20 08:21 | RAD REPORT ---
EXAM DESCRIPTION: CT - Chest Abd Pelvis Wo Con - 11/20/2020 8:02 am CLINICAL HISTORY: Chest and abdominal pain. Rib pain COMPARISON: July 2020 TECHNIQUE: Computed axial tomography of the chest, abdomen and pelvis was obtained. Oral contrast wa s given. IV contrast was not requested. All CT scans are performed using dose optimization technique as appropriate and may include automated exposure control or mA/KV adjustment according to patient size. FINDINGS: The evaluation of mediastinum, pascual, vessels and solid organs is limited secondary to the lack of IV contrast administration Small to moderate pleural effusions left greater than right. Mild bibasilar atelectasis. No pericardial effusion. Coronary arterial calcifications. A left rib fracture is not seen. The liver, spleen, pancreas, adrenals and right kidney appear grossly normal. 1 millimeter nonobstruc ting left renal calculus Air bubble within the bladder. Diffuse edema within the subcutaneous tissues. Small amount of ascites There is no evidence of diverticulitis. Cholecystectomy. Vascular calcifications Approximately 40% compression fracture T11 vertebral body has developed since July 2020 IMPRESSION: Small to moderate bilateral pleural effusions left greater than right Acute/subacute fracture T11 vertebral body estimated to be 40% compression. No retropulsion of fract ure fragment into the spinal canal Air bubble within bladder may be secondary to recent instrumentation or infection
[2020-11-20 09:20] LABS: Urine Blood Negative (Negative); Urine Glucose Negative (Negative); Urine Protein 3+ (Negative); Urine Specific Gravity 1.015 (1.005-1.030); Urine pH 5.5 (5.0-7.0)
--- NOTE | 2020-11-20 09:37 | ER ---
Nurse's Notes [facility] Name: Delmi Schultz Age: 70 yrs Sex: Female : 1950 Arrival Date: 11/20/2020 Time: 06:50 Bed 7 Private MD: Diagnosis: Low back pain;T-11 Compression Fracture: old Presentation: 11/20 06:50 Chief complaint: EMS states: Toned out to [facility] staff reported pt fell onto her ea knees, was assisted by facility staff prior to EMS arrival pt complaining of gamal knee pain and back pain. Coronavirus screen: At this time, the client does not indicate any symptoms associated with coronavirus-19. Ebola Screen: No symptoms or risks identified at this time. Initial Sepsis Screen: Does the patient meet any 2 criteria? No. Patient's initial sepsis screen is negative. Does the patient have a suspected source of infection? No. Patient's initial sepsis screen is negative. Risk Assessment: Do you want to hurt yourself or someone else? Patient reports no desire to harm self or others. Onset of symptoms was November 20, 2020. 06:50 Method Of Arrival: EMS: [facility] ea 06:50 Acuity: VICTOR M 3 ea Triage Assessment: 06:58 General: Appears in no apparent distress. Behavior is calm, cooperative, appropriate ea for age. Pain: Complains of pain in back. Respiratory: Airway is patent Respiratory effort is even, unlabored, Respiratory pattern is regular, symmetrical. Historical: - Allergies: 06:58 adhesive; ea - Home Meds: 06:58 zinc sulfate 220 mg Oral tab daily [Active]; Trazodone Oral [Active]; trazodone 100 mg ea Oral tab nightly [Active]; sertraline 100 mg Oral tab 1 tab once daily [Active]; Eliquis 2.5 mg Oral tab 1 tab 2 times per day [Active]; gabapentin 600 mg Oral tab 3 times per day [Active]; sertraline Oral [Active]; potassium chloride 20 mEq Oral TbER once daily [Active]; losartan 50 mg Oral tab 1 tab once daily [Active]; Merrem 500 mg intravenous solr twice a day [Active]; Lasix 20 mg Oral tab 1 tab once daily [Active]; Imodium Oral 2 mg every 6 hours [Active]; hydroxyzine HCl 50 mg Oral tab 1 tab 4 times per day [Active]; hydralazine 25 mg Oral tab three times a day [Active]; amlodipine 10 mg tab once daily [Active]; ascorbic acid (vitamin C) 500 mg tab daily [Active]; aspirin 81 mg Oral chew 1 tab once daily [Active]; atorvastatin 20 mg Oral tab once daily [Active]; calcitriol 0.5 mcg Oral cap 1 cap once daily [Active]; carvedilol 25 mg Oral tab every 12 hours [Active]; cholecalciferol (vitamin D3) 5,000 unit Oral cap daily [Active]; Furosemide Oral [Active]; - PMHx: 06:58 neuropathy; kidney disease; Hypertension; Hyperlipidemia; ESRD; GERD; Diabetes - IDDM; ea Depression; Deaf; Anemia; - Immunization history:: Adult Immunizations up to date. - Social history:: Smoking status: Patient denies any tobacco usage or history of. Screenin:54 Abuse screen: Denies threats or abuse. Nutritional screening: No deficits noted. ea Tuberculosis screening: No symptoms or risk factors identified. Fall Risk None identified. Assessment: 07:00 General: RECD REPORT FROM YAZMIN WHEAT. 70YO WF P/W S/P FALL AT [facility]. PT C/O bp INCREASING GEN WEAKNESS x WEEKS, WITH ASSOCIATED FALLS.. 08:45 Reassessment: PT RETURNED FORM CT. RESULTS PENDING FOR DISPO. bp 09:49 Reassessment: PT TBDC. [facility] CONTACTED, NO TRANSPORT AVAILABLE. D/C ON HOLD bp PENDING TRANSPORT ARRANGEMENT. 10:08 Reassessment: [facility] AT B/S FOR TRANSPORT. bp Vital Signs: 06:57 BP 144 / 61; Pulse 67; Resp 18; Temp 97.4(O); Pulse Ox 97% on R/A; oe 08:43 BP 152 / 58; Pulse 67; Resp 16; Pulse Ox 99% ; bp 09:18 BP 131 / 56; Pulse 66; Resp 15; Pulse Ox 97% ; jl7 ED Course: 06:50 Patient arrived in ED. ea 06:54 Triage completed. ea 06:54 Patient has correct armband on for positive identification. Bed in low position. Call ea light in reach. Side rails up X2. 06:54 Arm band placed on right wrist. Patient placed in an exam room, on a stretcher, on ea pulse oximetry. 06:59 Jovanny Galindo MD is Attending Physician. kdr 07:00 Pulse ox on. NIBP on. Warm blanket given. jl7 07:01 Marni Olivas, RN is Primary Nurse. jl7 07:53 CT Chest Abdomen Pelvis W/O Contrast Sent. bp 08:44 No provider procedures requiring assistance completed. Patient did not have IV access bp during this emergency room visit. 09:18 Straight cath inserted, using sterile technique, 14 Fr. Specimen obtained. Returned jl7 cloudy urine. Patient tolerated well. 09:18 Urine collected: straight cath specimen, cloudy. jl7 Administered Medications: 07:48 Drug: [place] (HYDROcodone-acetaminophen) (7.5 mg-325 mg) 1 tabs Route: PO; bp 09:50 Follow up: Response: Pain is decreased bp Outcome: 09:36 Discharge ordered by . kdr 09:50 Discharged to intermediate. Report called to [facility] bp 09:50 Condition: stable 09:50 Instructed on discharge instructions, follow up and referral plans. 10:08 Patient left the ED. bp Signatures: Jovanny Galindo MD MD [facility] Nabil Joyner Marni Olivas, RN RN jl7 Yazmin Spaulding, Jose Alejandro Swanson RN, ea, RN RN bp Corrections: (The following items were deleted from the chart) 08:44 08:39 BP 126 / 91; Pulse 70bpm; Resp 11bpm; Pulse Ox 95% RA; bp bp
--- NOTE | 2020-11-20 09:38 | EDPHYS ---
Physician Documentation [facility] Name: Delmi Schultz Age: 70 yrs Sex: Female : 1950 Arrival Date: 11/20/2020 Time: 06:50 Bed 7 Private MD: ED Physician Jovanny Galindo HPI: 11/20 07:43 This 70 yrs old Female presents to ER via EMS with complaints of Fall Injury. kdr 07:43 Details of fall: The patient fell from an upright position, while standing. Onset: The kdr symptoms/episode began/occurred suddenly, just prior to arrival. Associated injuries: The patient sustained injury to the low back, injury to the chest, specifically the left lateral posterior chest and left lateral anterior chest, pain with breathing, pain with movement, tenderness. Severity of symptoms: At their worst the symptoms were mild, in the emergency department the symptoms are unchanged. The patient has experienced similar episodes in the past, a few times. The patient has been recently seen by a physician: The patient had a recent fall and low back injury. States she has a known T-11 fracture. Historical: - Allergies: 06:58 adhesive; ea - Home Meds: 06:58 zinc sulfate 220 mg Oral tab daily [Active]; Trazodone Oral [Active]; trazodone 100 mg ea Oral tab nightly [Active]; sertraline 100 mg Oral tab 1 tab once daily [Active]; Eliquis 2.5 mg Oral tab 1 tab 2 times per day [Active]; gabapentin 600 mg Oral tab 3 times per day [Active]; sertraline Oral [Active]; potassium chloride 20 mEq Oral TbER once daily [Active]; losartan 50 mg Oral tab 1 tab once daily [Active]; Merrem 500 mg intravenous solr twice a day [Active]; Lasix 20 mg Oral tab 1 tab once daily [Active]; Imodium Oral 2 mg every 6 hours [Active]; hydroxyzine HCl 50 mg Oral tab 1 tab 4 times per day [Active]; hydralazine 25 mg Oral tab three times a day [Active]; amlodipine 10 mg tab once daily [Active]; ascorbic acid (vitamin C) 500 mg tab daily [Active]; aspirin 81 mg Oral chew 1 tab once daily [Active]; atorvastatin 20 mg Oral tab once daily [Active]; calcitriol 0.5 mcg Oral cap 1 cap once daily [Active]; carvedilol 25 mg Oral tab every 12 hours [Active]; cholecalciferol (vitamin D3) 5,000 unit Oral cap daily [Active]; Furosemide Oral [Active]; - PMHx: 06:58 neuropathy; kidney disease; Hypertension; Hyperlipidemia; ESRD; GERD; Diabetes - IDDM; ea Depression; Deaf; Anemia; - Immunization history:: Adult Immunizations up to date. - Social history:: Smoking status: Patient denies any tobacco usage or history of. ROS: 07:43 Constitutional: Negative for fever, chills, and weight loss, Eyes: Negative for injury, kdr pain, redness, and discharge. 07:43 Cardiovascular: Positive for chest pain, of the left lateral posterior chest and left lateral anterior chest. 07:43 Back: Positive for pain at rest, pain with movement, of the low back area. Exam: 07:43 Constitutional: This is a well developed, well nourished patient who is awake, alert, kdr and in no acute distress. Head/Face: Normocephalic, atraumatic. Eyes: Pupils equal round and reactive to light, extra-ocular motions intact. Lids and lashes normal. Conjunctiva and sclera are non-icteric and not injected. Cornea within normal limits. Periorbital areas with no swelling, redness, or edema. Neck: Trachea midline, no thyromegaly or masses palpated, and no cervical lymphadenopathy. Supple, full range of motion without nuchal rigidity, or vertebral point tenderness. No Meningismus. Cardiovascular: Regular rate and rhythm with a normal S1 and S2. No gallops, murmurs, or rubs. Normal PMI, no JVD. No pulse deficits. Respiratory: Lungs have equal breath sounds bilaterally, clear to auscultation and percussion. No rales, rhonchi or wheezes noted. No increased work of breathing, no retractions or nasal flaring. Abdomen/GI: Soft, non-tender, with normal bowel sounds. No distension or tympany. No guarding or rebound. No evidence of tenderness throughout. 07:43 Chest/axilla: Inspection: normal, Palpation: crepitus, is not appreciated, tenderness, that is mild, of the left lateral posterior chest and left lateral anterior chest. Vital Signs: 06:57 BP 144 / 61; Pulse 67; Resp 18; Temp 97.4(O); Pulse Ox 97% on R/A; oe 08:43 BP 152 / 58; Pulse 67; Resp 16; Pulse Ox 99% ; bp 09:18 BP 131 / 56; Pulse 66; Resp 15; Pulse Ox 97% ; jl7 MDM: 07:43 Differential diagnosis: contusion, fracture, sprain, strain. Data reviewed: vital kdr signs, nurses notes, lab test result(s), radiologic studies. Counseling: I had a detailed discussion with the patient and/or guardian regarding: the historical points, exam findings, and any diagnostic results supporting the discharge/admit diagnosis, lab results, radiology results, the need for outpatient follow up. 09:36 Patient medically screened. [facility] 11/20 09:21 Order name: Urine Dipstick-Ancillary; Complete Time: 09:35 [facility] 11/20 07:36 Order name: CT Chest Abdomen Pelvis W/O Contrast [facility] 11/20 08:21 Order name: CT; Complete Time: 08:47 [facility] 11/20 08:47 Order name: Urine Dipstick-Ancillary (obtain specimen): cath; Complete Time: 09:17 kdr Administered Medications: 07:48 Drug: [place] (HYDROcodone-acetaminophen) (7.5 mg-325 mg) 1 tabs Route: PO; bp 09:50 Follow up: Response: Pain is decreased bp Disposition: 11/20/20 09:36 Discharged to Home. Impression: Low back pain, T-11 Compression Fracture: old. - Condition is Stable. - Discharge Instructions: Musculoskeletal Pain, Back Pain, Adult, [id number]. - Medication Reconciliation Form, Thank You Letter form. - Follow up: Private Physician; When: 2 - 3 days; Reason: If symptoms return, Further diagnostic work-up, Recheck today's complaints, Continuance of care, Re-evaluation by your physician. - Problem is an acute exacerbation. - Symptoms have improved. Signatures: Dispatcher [employer] EDHI Jovanny Galindo MD MD kdr Yazmin Spaulding RN RN ea Peltier, Brian, RN RN bp Corrections: (The following items were deleted from the chart) 10:08 09:36 11/20/2020 09:36 Discharged to Home. Impression: Low back pain; T-11 Compression bp Fracture: old. Condition is Stable. Forms are Medication Reconciliation Form, Thank You Letter, Antibiotic Education, Prescription Opioid Use. Follow up: Private Physician; When: 2 - 3 days; Reason: If symptoms return, Further diagnostic work-up, Recheck today's complaints, Continuance of care, Re-evaluation by your physician. Problem is an acute exacerbation. Symptoms have improved. kdr
[2020-11-20 10:17] VITALS: TEMP 97.4
[2020-11-20 10:19] VITALS: BP 131/56; O2SAT 97
== END 2020-11-20 10:08 | disposition home or self-care (01) ==
LOC: ER 06:49
DX: M48.54XA Collapsed vertebra, not elsewhere classified, thoracic region, initial encounter for fracture (principal); E11.22 Type 2 diabetes mellitus with diabetic chronic kidney disease; I12.0 Hypertensive chronic kidney disease with stage 5 chronic kidney disease or end stage renal disease; N18.6 End stage renal disease; W18.39XA Other fall on same level, initial encounter; Y92.129 Unspecified place in nursing home as the place of occurrence of the external cause; Z79.01 Long term (current) use of anticoagulants; Z79.82 Long term (current) use of aspirin; Z91.048 Other nonmedicinal substance allergy status
CPT/HCPCS: 51702; 71250; 74176; 81003; 99284

== ENCOUNTER 2020-12-05 23:48 | Inpatient (IN) | payer OTHER ==
[2020-12-06 00:26] LABS: Absolute Lymphocytes (CBC) 1.7 K/uL (0.7-4.9); Basophils % 0.6 % (0-1.3); Lymphocytes % 21.6 % (15.3-44.8); RBC Red Blood Cell Count 3.56 M/uL (3.86-4.86)
[2020-12-06 00:27] LABS: Protime INR 1.31
--- NOTE | 2020-12-06 00:28 | EDPHYS ---
Physician Documentation [facility] Name: Delmi Schultz Age: 70 yrs Sex: Female : 1950 Arrival Date: 12/05/2020 Time: 23:50 Bed 4 Private MD: ED Physician Syd Dean HPI: 12/06 01:39 This 70 yrs old Female presents to ER via EMS with complaints of ELEVATED tw4 POTASSIUM. 01:39 pt sent from a nursing secondary to high potassium. Onset: The symptoms/episode tw4 began/occurred today. The patient has experienced a previous episode. Historical: - Allergies: 12/05 23:53 adhesive; bb - Home Meds: 23:53 amlodipine 10 mg tab once daily [Active]; ascorbic acid (vitamin C) 500 mg tab daily bb [Active]; aspirin 81 mg Oral chew 1 tab once daily [Active]; atorvastatin 20 mg Oral tab once daily [Active]; calcitriol 0.5 mcg Oral cap 1 cap once daily [Active]; carvedilol 25 mg Oral tab every 12 hours [Active]; cholecalciferol (vitamin D3) 5,000 unit Oral cap daily [Active]; Eliquis 2.5 mg Oral tab 1 tab 2 times per day [Active]; Furosemide Oral [Active]; gabapentin 600 mg Oral tab 3 times per day [Active]; hydralazine 25 mg Oral tab three times a day [Active]; hydroxyzine HCl 50 mg Oral tab 1 tab 4 times per day [Active]; Imodium Oral 2 mg every 6 hours [Active]; Lasix 20 mg Oral tab 1 tab once daily [Active]; losartan 50 mg Oral tab 1 tab once daily [Active]; Merrem 500 mg intravenous solr twice a day [Active]; potassium chloride 20 mEq Oral TbER once daily [Active]; sertraline Oral [Active]; sertraline 100 mg Oral tab 1 tab once daily [Active]; trazodone 100 mg Oral tab nightly [Active]; Trazodone Oral [Active]; zinc sulfate 220 mg Oral tab daily [Active]; - PMHx: 23:53 Anemia; Deaf; Depression; Diabetes - IDDM; ESRD; GERD; Hyperlipidemia; Hypertension; bb kidney disease; neuropathy; - Immunization history:: Adult Immunizations up to date. - Social history:: Smoking status: unknown. ROS: 12/06 01:39 Constitutional: Negative for fever, chills, and weight loss, Eyes: Negative for injury, tw4 pain, redness, and discharge, Cardiovascular: Negative for chest pain, palpitations, and edema, Respiratory: Negative for shortness of breath, cough, wheezing, and pleuritic chest pain, Abdomen/GI: Negative for abdominal pain, nausea, vomiting, diarrhea, and constipation, Back: Negative for injury and pain, MS/Extremity: Negative for injury and deformity, Skin: Negative for injury, rash, and discoloration, Neuro: Negative for headache, weakness, numbness, tingling, and seizure. Exam: 01:39 Constitutional: This is a well developed, well nourished patient who is awake, alert, tw4 and in no acute distress. Head/Face: Normocephalic, atraumatic. Chest/axilla: Normal chest wall appearance and motion. Nontender with no deformity. No lesions are appreciated. Cardiovascular: Regular rate and rhythm with a normal S1 and S2. No gallops, murmurs, or rubs. Normal PMI, no JVD. No pulse deficits. Respiratory: Lungs have equal breath sounds bilaterally, clear to auscultation and percussion. No rales, rhonchi or wheezes noted. No increased work of breathing, no retractions or nasal flaring. Abdomen/GI: Soft, non-tender, with normal bowel sounds. No distension or tympany. No guarding or rebound. No evidence of tenderness throughout. Back: No spinal tenderness. No costovertebral tenderness. Full range of motion. MS/ Extremity: Pulses equal, no cyanosis. Neurovascular intact. Full, normal range of motion. Neuro: Awake and alert, GCS 15, oriented to person, place, time, and situation. Cranial nerves II-XII grossly intact. Motor strength 5/5 in all extremities. Sensory grossly intact. Cerebellar exam normal. Normal gait. Vital Signs: 12/05 23:59 BP 106 / 51; Pulse 70; Resp 12 S; Temp 96.7(TE); Pulse Ox 93% on R/A; Weight 99.79 kg bb (R); 12/06 01:52 BP 112 / 52; Pulse 71; Resp 18; Pulse Ox 95% on R/A; ea 02:13 Temp 97.2; carla MDM: 00:03 Patient medically screened. tw4 01:39 Data reviewed: vital signs, nurses notes. Data reviewed: lab test result(s), CBC, tw4 electrolytes. Data interpreted: vehicle monitor technician: not applicable for this patient encounter. Pulse oximetry: Interpretation: normal. Test interpretation: by ED physician or midlevel provider: ECG, plain radiologic studies. Counseling: I had a detailed discussion with the patient and/or guardian regarding: the historical points, exam findings, and any diagnostic results supporting the discharge/admit diagnosis, lab results. Physician consultation: Andreas Hale DO regarding admission, to the telemetry unit. patient's condition, and will see patient in ED. 12/06 00:08 Order name: Basic Metabolic Panel; Complete Time: 00:51 12/06 01:46 Interpretation: Normal except: K 5.9; CL 110; CO2 17; BUN 58; GFR 5. 12/06 00:08 Order name: CBC with Diff; Complete Time: 00:41 12/06 01:46 Interpretation: Normal except: RBC 3.56; HGB 10.6; HCT 33.0. 12/06 00:08 Order name: LFT's; Complete Time: 00:51 12/06 01:46 Interpretation: Normal except: AST 13; ALT 11; ALB 1.7; TP 4.5; A/G 0.6. 12/06 00:08 Order name: Magnesium; Complete Time: 00:51 12/06 00:08 Order name: NT PRO-BNP; Complete Time: 00:51 12/06 01:46 Interpretation: Normal except: NT PRO-BNP 5626. 12/06 00:08 Order name: PT-INR; Complete Time: 00:39 12/06 01:46 Interpretation: Normal except: PT 15.1. 12/06 00:08 Order name: Troponin (emerg Dept Use Only); Complete Time: 00:51 12/06 01:47 Interpretation: Abnormal: TROPED 0.09. 12/06 00:08 Order name: XRAY Chest (1 view) 12/06 01:34 Order name: SARS-COV-2 RT PCR; Complete Time: 01:46 EDIA 12/06 00:08 Order name: EKG; Complete Time: 00: ad5 12/06 00:08 Order name: Cardiac monitoring; Complete Time: 00: ad5 07 00:08 Order name: EKG - Nurse/Tech; Complete Time: 00: ad5 12/06 00:08 Order name: IV Saline Lock; Complete Time: 00: ad5 12/06 00:08 Order name: Labs collected and sent; Complete Time: : ad5 12/06 00:08 Order name: O2 Per Protocol; Complete Time: ad5 12/06 00:08 Order name: O2 Sat Monitoring; Complete Time: ad5 EC:21 Rate is 70 beats/min. Rhythm is regular. QRS [place] is Normal. LA interval is normal. QRS tw4 interval is normal. QT interval is normal. No Q waves. T waves are Flattened in lead III. No ST changes noted. Clinical impression: NSR w/ Non-specific ST/T Changes. Interpreted by me. Reviewed by me. Administered Medications: 01:45 Drug: Calcium Gluconate 1 grams Route: IVPB; Infused Over: 60 mins; Site: right ea antecubital; 02:14 Follow up: Response: No adverse reaction; IV Status: Completed infusion ea 01:51 Drug: traMADol 50 mg Route: PO; ea 02:14 Follow up: Response: No adverse reaction ea 02:11 Drug: Lasix (furosemide) 40 mg Route: IVP; Site: right antecubital; ea 02:36 Follow up: Response: No adverse reaction ea 02:12 Drug: Kayexalate (polystyrene) 45 grams Route: PO; ea 02:36 Follow up: Response: No adverse reaction ea 02:12 Drug: Insulin Regular Human 10 units {Co-Signature: bb (Danita Li RN).} Route: ea IVP; Site: right antecubital; 02:36 Follow up: Response: No adverse reaction ea 02:12 Drug: D50W 50 ml Route: IVP; Site: right antecubital; ea 02:36 Follow up: Response: No adverse reaction ea Disposition Summary: 12/06/20 00:27 Hospitalization Ordered Hospitalization Status: Inpatient Admission tw4 Provider: Andreas Hale tw4 Location: Telemetry/MedSurg (Inpatient) tw4 Condition: Fair tw4 Problem: new tw4 Symptoms: have improved tw4 Bed/Room Type: Standard 4 Room Assignment: 201(12/06/20 01:51) tl1 Diagnosis - Hyperkalemia tw4 - Chronic kidney disease, stage 5 tw4 Forms: - Medication Reconciliation Form tw4 - SBAR form tw4 Signatures: Dispatcher [employer] Danita Oconnell RN RN bb Attema, Lee, COPPERSMITH APPRENTICE-C COPPERSMITH APPRENTICE-Cla1 Chloe Koenig RN RN tl1 Yazmin Spaulding RN RN ea Wadley, Terrence, MD MD tw4 Rancho Dougherty RN Corrections: (The following items were deleted from the chart) 00:40 00:17 CORONAVIRUS+[id number].BRZ ordered. EDIA EDMS 01:51 00:27 tw4 tl1
--- NOTE | 2020-12-06 00:28 | ER ---
Nurse's Notes [facility] Kevin Name: Delmi Schultz Age: 70 yrs Sex: Female : 1950 Arrival Date: 12/05/2020 Time: 23:50 Bed 4 Private MD: Diagnosis: Hyperkalemia;Chronic kidney disease, stage 5 Presentation: 12/05 23:52 Chief complaint: [facility] called with report of pt having abnormal lab bb results Potassium of 6.0 and Creatinine of 8.22. Coronavirus screen: At this time, the client does not indicate any symptoms associated with coronavirus-19. Ebola Screen: No symptoms or risks identified at this time. Onset of symptoms was December 05, 2020. 23:52 Method Of Arrival: EMS: [facility] bb 23:52 Acuity: VICTOR M 2 bb 23:59 Initial Sepsis Screen: Does the patient meet any 2 criteria? No. Patient's initial bb sepsis screen is negative. Does the patient have a suspected source of infection? No. Patient's initial sepsis screen is negative. Risk Assessment: Do you want to hurt yourself or someone else? Patient reports no desire to harm self or others. Historical: - Allergies: 23:53 adhesive; bb - Home Meds: 23:53 amlodipine 10 mg tab once daily [Active]; ascorbic acid (vitamin C) 500 mg tab daily bb [Active]; aspirin 81 mg Oral chew 1 tab once daily [Active]; atorvastatin 20 mg Oral tab once daily [Active]; calcitriol 0.5 mcg Oral cap 1 cap once daily [Active]; carvedilol 25 mg Oral tab every 12 hours [Active]; cholecalciferol (vitamin D3) 5,000 unit Oral cap daily [Active]; Eliquis 2.5 mg Oral tab 1 tab 2 times per day [Active]; Furosemide Oral [Active]; gabapentin 600 mg Oral tab 3 times per day [Active]; hydralazine 25 mg Oral tab three times a day [Active]; hydroxyzine HCl 50 mg Oral tab 1 tab 4 times per day [Active]; Imodium Oral 2 mg every 6 hours [Active]; Lasix 20 mg Oral tab 1 tab once daily [Active]; losartan 50 mg Oral tab 1 tab once daily [Active]; Merrem 500 mg intravenous solr twice a day [Active]; potassium chloride 20 mEq Oral TbER once daily [Active]; sertraline Oral [Active]; sertraline 100 mg Oral tab 1 tab once daily [Active]; trazodone 100 mg Oral tab nightly [Active]; Trazodone Oral [Active]; zinc sulfate 220 mg Oral tab daily [Active]; - PMHx: 23:53 Anemia; Deaf; Depression; Diabetes - IDDM; ESRD; GERD; Hyperlipidemia; Hypertension; bb kidney disease; neuropathy; - Immunization history:: Adult Immunizations up to date. - Social history:: Smoking status: unknown. Screenin/08 00:16 Abuse screen: Denies threats or abuse. Denies injuries from another. Nutritional ad5 screening: No deficits noted. Tuberculosis screening: No symptoms or risk factors identified. Fall Risk Fall in past 12 months (25 points). Secondary diagnosis (15 points) IV access (20 points). Ambulatory Aid- None/Bed Rest/Nurse Assist (0 pts). Gait- Impaired (20 pts.). Mental Status- Oriented to own ability (0 pts). Total Vazquez Fall Scale indicates High Risk Score (45 or more points). Fall prevention measures have been instituted. Side Rails Up X 2 Placed Close to Nursing Station Frequent Obs/Assessments Occuring As available patient and family educated on Fall Prevention Program and Strategies. Assessment: 00:09 General: Appears in no apparent distress. Behavior is calm, cooperative, appropriate ad5 for age. Pain: Denies pain. Neuro: No deficits noted. Level of Consciousness is awake, alert, obeys commands, pt deaf/mute, able to communicate with reading lips/writing. Oriented to person, place, time, situation, Appropriate for age Wide Area Network Engineer are equal bilaterally Weakness Gait is non-ambulatory. Cardiovascular: No deficits noted. Heart tones present Capillary refill < 3 seconds Patient's skin is warm and dry. generalized edema noted. Rhythm is regular. Respiratory: No deficits noted. Airway is patent Respiratory effort is even, unlabored, Respiratory pattern is regular, symmetrical. GI: No deficits noted. No signs and/or symptoms were reported involving the gastrointestinal system. : pt with ryan catheter in place. Derm: Skin is dry, Skin is normal, Skin temperature is warm. 01:53 Reassessment: Patient and/or family updated on plan of care and expected duration. Pain ea level reassessed. Patient is alert, oriented x 3, equal unlabored respirations, skin warm/dry/pink. Vital Signs: 12/05 23:59 BP 106 / 51; Pulse 70; Resp 12 S; Temp 96.7(TE); Pulse Ox 93% on R/A; Weight 99.79 kg bb (R); 12/06 01:52 BP 112 / 52; Pulse 71; Resp 18; Pulse Ox 95% on R/A; ea 02:13 Temp 97.2; ea ED Course: 12/05 23:50 Patient arrived in ED. cf2 23:51 Syd Dean MD is Attending Physician. tw4 23:53 Triage completed. bb 23:53 Arm band placed on Patient placed in an exam room, on a stretcher, on secured entrance monitor, bb on pulse oximetry. 12/06 00:00 Patient has correct armband on for positive identification. Bed in low position. Call ea light in reach. Side rails up X2. 00:07 Rancho Dougherty is Primary Nurse. ad5 00:09 Initial lab(s) drawn, by me, sent to lab. EKG done, by ED staff, reviewed by Syd Dean MD. Inserted saline lock: 20 gauge in right antecubital area, using aseptic technique. Blood collected. 00:27 Andreas Hale DO is Hospitalizing Provider. tw4 00:28 XRAY Chest (1 view) In Process Unspecified. EDMS 01:52 No provider procedures requiring assistance completed. Patient admitted, IV remains in ea place. Administered Medications: 01:45 Drug: Calcium Gluconate 1 grams Route: IVPB; Infused Over: 60 mins; Site: right ea antecubital; 02:14 Follow up: Response: No adverse reaction; IV Status: Completed infusion ea 01:51 Drug: traMADol 50 mg Route: PO; ea 02:14 Follow up: Response: No adverse reaction ea 02:11 Drug: Lasix (furosemide) 40 mg Route: IVP; Site: right antecubital; ea 02:36 Follow up: Response: No adverse reaction ea 02:12 Drug: Kayexalate (polystyrene) 45 grams Route: PO; ea 02:36 Follow up: Response: No adverse reaction ea 02:12 Drug: Insulin Regular Human 10 units {Co-Signature: bb (Danita Li RN).} Route: ea IVP; Site: right antecubital; 02:36 Follow up: Response: No adverse reaction ea 02:12 Drug: D50W 50 ml Route: IVP; Site: right antecubital; ea 02:36 Follow up: Response: No adverse reaction ea Outcome: 00:27 Decision to Hospitalize by Provider. tw4 01:52 Instructed on the need for admit, Demonstrated understanding of instructions. ea 02:13 Admitted to Med/surg accompanied by nurse, via stretcher, room 201, with chart, Report ea called to Receiving nurse on fourth floor 02:13 Condition: stable 02:36 Patient left the ED. ea Signatures: Dispatcher [employer] EDDanita Johnson RN RN Yazmin Pittman RN RN Syd Kimball MD MD tw4 Anabela Banda [facility] Rancho Dougherty RN
[2020-12-06 00:39] LABS: ALT/SGPT 11 U/L (12-78); AST/SGOT 13 U/L (15-37); Albumin 1.7 g/dL (3.4-5.0); Alkaline Phosphatase 115 U/L (45-117); BUN Blood Urea Nitrogen 58 mg/dL (7-18); Bicarbonate 17 mmol/L (21-32); Bilirubin Direct < 0.1 mg/dL (0-0.2); Bilirubin Total 0.2 mg/dL (0.2-1.0); Glucose Level 88 mg/dL (74-106); Magnesium 1.8 mg/dL (1.8-2.4); NT PRO-BNP 5626 pg/mL (<125); Protein, Total 4.5 g/dL (6.4-8.2); Sodium Level 137 mmol/L (136-145); Troponin (Emerg Dept Use Only) 0.09 ng/mL (0.0-0.045)
[2020-12-06 00:47] LABS: Potassium 5.9 mmol/L (3.5-5.1)
[2020-12-06] MEDS ORDERED: FUROSEMIDE 40 MG/4 ML VIAL ONE (01:46)
[2020-12-06] MEDS ORDERED: SOD POLYSTYREN SUL 15 GM/60 ML UCUP ONE (01:47)
[2020-12-06] MEDS ORDERED: INSULIN -REGULAR HUMAN 50 UNIT/0.5 ML ML ONE (01:47)
[2020-12-06] MEDS ORDERED: CALCIUM GLUCONATE 1 GM IVPB 1 GM/50 ML BAG IV ONE (01:47)
[2020-12-06] MEDS ORDERED: D50W 25 GM/50 ML SYRINGE IV ONE (01:47)
[2020-12-06] MEDS ORDERED: TRAMADOL HCL 50 MG TAB ONE (01:56)
--- NOTE | 2020-12-06 01:59 | P.HP ---
Certification for Inpatient Patient admitted to: Inpatient With expected LOS: >2 Midnights Patient will require the following post-hospital care: None Practitioner: I am a practitioner with admitting privileges, knowledge of patient current condition, hospital course, and medical plan of care. Services: Services provided to patient in accordance with Admission requirements found in Title 42 Section 412.3 of the Code of Federal Regulations Patient History Date of Service: 12/06/20 Primary Care Provider: correction doctor, nephrology Dr. Hickman Reason for admission: ESRD/hyperkalemia History of Present Illness: 70 year old female with history of chronic diastolic congestive heart failure, CKD 5, hypertension, hyperlipidemia, id a/anemia chronic disease presents emergency department for abnormal labs. [facility], at discharge creatinine was 4.34 potassium 4.6 and GFR was 10. Patient had labs done today at custodial which revealed creatinine of 8 and potassium of 6.0, GFR 5, these labs were repeated in the emergency department, sodium 137 potassium 5.9, chloride 110 carbon dioxide 17 BUN 58 creatinine 8.19 GFR 5 troponin 0.09 BNP 5626 hemoglobin 10.6 hematocrit 33.0. Patient is also deaf/mute, communicated with patient via writing and she was amendable to dialysis if this was needed. ED provider wishes to admit for acute on chronic ESRD with hyperkalemia. EKG without changes. Patient was given Kayexalate, calcium, Lasix, insulin/dextrose in the ER. Patient also with recent history of C. diff in September has persisted with diarrhea since then. Most recent C. diff test negative during previous admission in mid-october. Allergies adhesive Allergy (Verified 01/28/20 21:31) Itching/Hives/Rash No Known Drug Allergies Allergy (Verified 01/28/20 21:31) Unknown Home Medications: Atorvastatin Calcium [Lipitor*] 20 mg PO BEDTIME 01/28/20 Carvedilol [Coreg] 25 mg PO BID 01/28/20 Amlodipine Besylate 10 mg PO DAILY 11/12/20 Ascorbic Acid [Vitamin C*] 500 mg PO DAILY 11/12/20 Aspirin [Sean Chewable Aspirin] 81 mg PO DAILY 11/12/20 calcitrioL [Rocaltrol] 0.5 mcg PO DAILY 11/12/20 Apixaban [Eliquis *] 2.5 mg PO BID 11/13/20 Cholecalciferol (Vitamin D3) [Vitamin D 5,000 IU Cap*] 5,000 unit PO DAILY 11/13/20 Clotrim/Betameth Cream [Lotrisone Cream*] 1 appl TP BID 11/13/20 Hydralazine HCl 25 mg PO TID 11/13/20 Insulin Regular, Human [Novolin R Flexpen] See Protocol SQ BID 11/13/20 Losartan Potassium [Cozaar*] 50 mg PO DAILY 11/13/20 Meropenem [Merrem*] 500 mg IV Q12H 11/13/20 Promethazine HCl 25 mg PO Q8HP PRN 11/13/20 Sertraline HCl 100 mg PO DAILY 11/13/20 Trazodone HCl 100 mg PO BEDTIME 11/13/20 Zinc Sulfate [Zinc Sulfate*] 220 mg PO DAILY 11/13/20 Calcium Acetate [Phoslo*] 667 mg PO TIDWM tab 11/15/20 Diphenox/Atropine [Lomotil] 1 tab PO TIDP PRN #30 tab 11/15/20 Epoetin Juan Jose-Epbx [Retacrit] 4,000 unit SQ M,W,F vial 11/15/20 Fluconazole [Diflucan] 100 mg PO DAILY #11 tablet 11/15/20 Gabapentin [Neurontin*] 100 mg PO BEDTIME cap 11/15/20 Na Bicarb Tab [Sodium Bicarb 325 MG Tab*] 650 mg PO QID tab 11/15/20 Nepro Shake [Nepro*] 237 ml PO TID can 11/15/20 - Past Medical/Surgical History Diabetic: Yes -: Diabetes mellitus type 2 -: HTN -: GERD -: Depression -: Hyperlipidemia -: Chronic diastolic congestive heart failure -: Chronic back pain -: abdominal hernia -: heel surgery 2007 -: abdominal hernia repair -: amptuation of 5th digit on L foot 2012 -: Cholecystectomy 2012 Psychosocial/ Personal History: [facility] - Family History Father -: Heart disease Mother -: Diabetes - Social History Smoking Status: Never smoker Alcohol use: No CD- Drugs: Yes Caffeine use: Yes Place of Residence: Assisted Review of Systems 10-point ROS is otherwise unremarkable General: Weakness, Malaise Gastrointestinal: Diarrhea Musculoskeletal: Back Pain Physical Examination - Physical Exam General: Alert, In no apparent distress, Oriented x3, Obese, Other (Deaf/mute) HEENT: Atraumatic, Normocephalic, PERRLA Neck: Supple Respiratory: Clear to auscultation bilaterally, Diminished (Bilaterally) Cardiovascular: No edema, Normal S1 S2 Capillary refill: <2 Seconds Gastrointestinal: Normal bowel sounds, No tenderness, No masses, No rebound Musculoskeletal: No contractures, No erythema, No tenderness Integumentary: No tenderness/swelling, No erythema, No warmth Neurological: Normal tone, Sensation intact Urinary: Hickman catheter - Studies Laboratory Data (last 24 hrs) 12/06/20 00:00: PT 15.1 H, INR 1.31 12/06/20 00:00: WBC 8.10, Hgb 10.6 L, Hct 33.0 L, Plt Count 235 12/06/20 00:00: Sodium 137, Potassium 5.9 H*, BUN 58 H, Creatinine 8.19 H*, Glucose 88, Magnesium 1.8, Total Bilirubin 0.2, AST 13 L, ALT 11 L, Alkaline Phosphatase 115 Assessment and Plan - Plan Assessment Acute worsening of CKD 5 with hyperkalemia Diabetes mellitus type 2 Chronic diastolic congestive heart failure Diarrhea-history of C. diff Hypertension Hyperlipidemia Deaf/mute Obesity ALL/anemia of chronic disease Plan Acute worsening of CKD 5 with hyperkalemia: Patient given calcium, Kayexalate, insulin/dextrose, Lasix in the emergency department will recheck chemistry with morning labs. Nephrology consulted for additional assistance, patient may likely require dialysis during this hospitalization, patient is amenable to this if it is required. Will keep patient NPO, DVT prophylaxis with SCDs in case of need for dialysis access. Diabetes mellitus type 2: Q.6h Accu-Chek, sliding scale insulin therapy. Chronic diastolic congestive heart failure: Appears stable, will continue gentle hydration to encourage some renal recovery. Monitor volume status closely. Diarrhea-history of C. diff: Patient still persistently having diarrhea, no fevers or leukocytosis noted will obtain stool studies/C diff. Hypertension: Obtain and continue home medications, hold for now as patient's blood pressure is rather soft. Will likely need to be adjusted. Hyperlipidemia: Continue home medications Deaf/mute : Communicates best with writing. Obesity: Address lifestyle changes. ALL/anemia of chronic disease: Transfuse to maintain hemoglobin greater than 8. Stable this time. Discharge Plan: Assisted Plan to discharge in: Greater than 2 days - Advance Directives Does patient have a Living Will: No Does patient have a Durable POA for Healthcare: No - Code Status/Comfort Care Code Status Assessed: Yes (Full code) Critical Care: No Time Spent Managing Pts Care (In Minutes): 55
[2020-12-06] MEDS ORDERED: ACETAMINOPHEN 500 MG TAB PO PRN (02:56)
[2020-12-06] MEDS ORDERED: ONDANSETRON 4 MG/2 ML VIAL IV PRN (02:56)
[2020-12-06] MEDS ORDERED: NA CHLORIDE 0.9% 1,000 ML IV SCH (02:56)
[2020-12-06 04:30] VITALS: BMI 35.5
[2020-12-06] MEDS ORDERED: DIPHENOX/ATROP SULF 1 TAB PO PRN (04:31)
[2020-12-06 04:49] LABS: Urine Bacteria >50 /HPF (<20); Urine RBC <5 /HPF (NONE SEEN)
[2020-12-06] MEDS ORDERED: TRAMADOL HCL 50 MG TAB PO SCH (05:00)
--- NOTE | 2020-12-06 05:59 | P.PN ---
Subjective Date of Service: 12/06/20 Primary Care Provider: [facility] doctor, nephrology Dr. Hickman Chief Complaint: ESRD/hyperkalemia Subjective: Improving, Doing well Physical Examination - Vital Signs Temperature: 97.2 F Blood Pressure: 112/52 Pulse: 71 Respirations: 18 - Studies Laboratory Data (last 24 hrs) 12/06/20 00:00: PT 15.1 H, INR 1.31 12/06/20 00:00: WBC 8.10, Hgb 10.6 L, Hct 33.0 L, Plt Count 235 12/06/20 00:00: Sodium 137, Potassium 5.9 H*, BUN 58 H, Creatinine 8.19 H*, Glucose 88, Magnesium 1.8, Total Bilirubin 0.2, AST 13 L, ALT 11 L, Alkaline Phosphatase 115 Assessment & Plan Discharge Plan: Home Plan to discharge in: Greater than 2 days Physician Review Additional Text: Physical Exam: General: Alert, In no apparent distress, Oriented x3, Obese, Other (Deaf/mute) HEENT: Atraumatic, Normocephalic, PERRLA Neck: Supple Respiratory: Clear to auscultation bilaterally, Diminished (Bilaterally) Cardiovascular: No edema, Normal S1 S2 Capillary refill: <2 Seconds Gastrointestinal: Normal bowel sounds, No tenderness, No masses, No rebound Musculoskeletal: No contractures, No erythema, No tenderness Integumentary: No tenderness/swelling, No erythema, No warmth Neurological: Normal tone, Sensation intact Urinary: Hickman catheter Impression: Acute worsening of CKD 5 with hyperkalemia Diabetes mellitus type 2 Chronic diastolic congestive heart failure Diarrhea-history of C. diff Hypertension Hyperlipidemia Deaf/mute Obesity ALL/anemia of chronic disease Plan: Acute worsening of CKD 5 with hyperkalemia: Patient overall stable. Spoke with nephrology at length. Nephrology recommends for dialysis catheter placement to initiate dialysis and likely chronic dialysis. This was addressed in detail with the patient who understands. Patient agreeable. Surgery to place catheter tomorrow. Likely initiation of dialysis again tomorrow. DVT prophylaxisSCDs. Await further recommendations from nephrology. Anticipate home likely early next week after outpatient dialysis arranged. Diabetes mellitus type 2: Continue Accu-Cheks. Sliding scale in place. Chronic diastolic congestive heart failure: Appears stable, will continue gentle hydration to encourage some renal recovery. Monitor volume status closely. Diarrhea-history of C. diff: Cultures obtained. Will monitor closely. Hypertension: Review and restart home medication Hyperlipidemia: Review and restart home medication Deaf/mute : Communicates best with writing. Obesity: Address lifestyle changes. ALL/anemia of chronic disease: Transfuse to maintain hemoglobin greater than 8. Stable this time. DVT Prophylaxis: SCD Code Status: Full code Advanced Care planning-30 min: Back to [facility] Time Spent Managing Pts Care (In Minutes): 55
[2020-12-06 06:44] LABS: Albumin 1.7 g/dL (3.4-5.0); Bilirubin Total 0.3 mg/dL (0.2-1.0); Potassium 5.4 mmol/L (3.5-5.1); Protein, Total 4.4 g/dL (6.4-8.2); Troponin I 0.12 ng/mL (0.0-0.045)
[2020-12-06 06:45] LABS: Thyroid Stimulating Hormone 7.57 uIU/mL (0.360-3.740)
[2020-12-06] MEDS: INSULIN -REGULAR HUMAN 50 UNIT/0.5 ML ML SQ SCH ×4 (07:30→21:27)
[2020-12-06] MEDS: CALCIUM ACETATE 667 MG TAB PO SCH ×3 (08:00→17:00)
[2020-12-06] MEDS: carvediloL 25 MG TAB PO SCH ×2 (08:00→12:46)
--- NOTE | 2020-12-06 08:04 | EKG ---
Test Date: 2020-12-06 Test Time: 00:03:29 [employer]er Operator [employer]: NOMAN MEASUREMENT RESULTS: Intervals: Rate: 70 HI: 170 QRSD: 88 QT: 410 QTc: 442 [place]: P: 34 HI: 170 QRS: -12 T: 27 INTERPRETIVE STATEMENTS: Normal sinus rhythm Low voltage QRS Cannot rule out Anteroseptal infarct, age undetermined Abnormal ECG Compared to ECG 11/12/2020 16:11:08 Low QRS voltage now present Myocardial infarct finding still present Electronically Signed On 12-06-20 08:03:30 CDT by Ender Hernandez
--- NOTE | 2020-12-06 08:06 | RAD REPORT ---
EXAM DESCRIPTION: RAD - Chest Single View - 12/06/2020 12:27 am CLINICAL HISTORY: elevated potassium COMPARISON: CT chest November 20, portable chest November 12 TECHNIQUE: AP portable chest image was obtained 12/06/2020 12:27 am . FINDINGS: Lung volumes are low. No dense consolidation in either lung field. Bilateral pleural effus ions are present, larger on the left with left base atelectasis. Heart and vasculature are normal. No pneumothorax. No acute bony abnormality seen. No acute aortic findings suspected. IMPRESSION: Left greater than right pleural effusions with left lung base atelectasis.
[2020-12-06] MEDS: SODIUM BICARB 325 MG TAB PO SCH ×4 (09:00→21:00)
[2020-12-06] MEDS: CHOLESTYRAMINE/ASP 4 GM/PKT PO SCH (09:00)
[2020-12-06] MEDS: SERTRALINE HCL 100 MG TAB PO SCH (09:00)
[2020-12-06] MEDS: CALCITROL 0.25 MCG CAP PO SCH (09:00)
[2020-12-06] MEDS: ASPIRIN 81 MG CHEWABLE TABLET PO SCH (09:00)
[2020-12-06] MEDS: ZINC SULFATE 220 MG CAP PO SCH (09:00)
[2020-12-06] MEDS: ASCORBIC ACID 500 MG TABLET PO SCH (09:00)
[2020-12-06] MEDS ORDERED: HYDRALAZINE HCL 25 MG TABLET PO SCH (09:00)
[2020-12-06] MEDS: VITAMIN D 5,000 UNIT CAP PO SCH (09:00)
[2020-12-06] MEDS ORDERED: D50W 25 GM/50 ML SYRINGE IV PRN (10:12)
--- NOTE | 2020-12-06 10:14 | P.CNS ---
Date of Consult: 12/06/20 Reason for Consult: KIKO/ CKD concerninig ESRD Requesting Physician: Andreas Hale Primary Care Provider: [facility] doctor, nephrology Dr. Hickman Chief Complaint: ESRD/hyperkalemia History of Present Illness: 70 year old female with history of chronic diastolic congestive heart failure, CKD 5, hypertension, hyperlipidemia, id a/anemia chronic disease presents emergency department for abnormal labs. Patient was discharged to [facility] on 11/16/2020, at discharge creatinine was 4.34 potassium 4.6 and GFR was 10. Patient had labs done today at [facility] which revealed creatinine of 8 and potassium of 6.0, GFR 5, these labs were repeated in the emergency department, sodium 137 potassium 5.9, chloride 110 carbon dioxide 17 BUN 58 creatinine 8.19 GFR 5 troponin 0.09 BNP 5626 hemoglobin 10.6 hematocrit 33.0. Patient is also deaf/mute, communicated with patient via writing and she was amendable to dialysis if this was needed. ED provider wishes to admit for acute on chronic ESRD with hyperkalemia. EKG without changes. Patient was given Kayexalate, calcium, Lasix, insulin/dextrose in the ER. Patient also with recent history of C. diff in September has persisted with di arrhea since then. Most recent C. diff test negative during previous admission in mid-october. 01:39 This 70 yrs old Female presents to ER via EMS with complaints of ELEVATED tw4 POTASSIUM. 01:39 pt sent from a nursing secondary to high potassium. Onset: The symptoms/episode tw4 began/occurred today. The patient has experienced a previous episode. Allergies adhesive Allergy (Verified 01/28/20 21:31) Itching/Hives/Rash No Known Drug Allergies Allergy (Verified 01/28/20 21:31) Unknown Home medications list reviewed: Yes Home Medications: Atorvastatin Calcium [Lipitor*] 20 mg PO BEDTIME 01/28/20 Carvedilol [Coreg] 25 mg PO BID 01/28/20 Ascorbic Acid [Vitamin C*] 500 mg PO DAILY 11/12/20 Aspirin [Sean Chewable Aspirin] 81 mg PO DAILY 11/12/20 calcitrioL [Rocaltrol] 0.5 mcg PO DAILY 11/12/20 Apixaban [Eliquis *] 2.5 mg PO BID 11/13/20 Cholecalciferol (Vitamin D3) [Vitamin D 5,000 IU Cap*] 5,000 unit PO DAILY 11/13/20 Hydralazine HCl 25 mg PO TID 11/13/20 Insulin Regular, Human [Novolin R Flexpen] See Protocol SQ BID 11/13/20 Losartan Potassium [Cozaar*] 50 mg PO DAILY 11/13/20 Promethazine HCl 25 mg PO Q8HP PRN 11/13/20 Sertraline HCl 100 mg PO DAILY 11/13/20 Trazodone HCl 100 mg PO BEDTIME 11/13/20 Zinc Sulfate [Zinc Sulfate*] 220 mg PO DAILY 11/13/20 Calcium Acetate [Phoslo*] 667 mg PO TIDWM tab 11/15/20 Diphenox/Atropine [Lomotil] 1 tab PO TIDP PRN #30 tab 11/15/20 Epoetin Juan Jose-Epbx [Retacrit] 4,000 unit SQ M,W,F vial 11/15/20 Gabapentin [Neurontin*] 100 mg PO BEDTIME cap 11/15/20 Na Bicarb Tab [Sodium Bicarb 325 MG Tab*] 650 mg PO QID tab 11/15/20 Bumetanide 1 mg PO DAILY 12/06/20 Cholestyramine (with Sugar) [Cholestyramine Packet] 4 gm PO DAILY 12/06/20 traMADol HCL [Ultram*] 50 mg PO Q8HP 12/06/20 - Past Medical/Surgical History Diabetic: Yes -: Diabetes mellitus type 2 -: HTN -: GERD -: Depression -: Hyperlipidemia -: Chronic diastolic congestive heart failure -: Chronic back pain -: abdominal hernia -: heel surgery 2007 -: abdominal hernia repair -: amptuation of 5th digit on L foot 2012 -: Cholecystectomy 2012 Psychosocial/ Personal History: [facility] - Family History Father Medical History: Heart disease Mother Medical History: Diabetes - Social History Smoking Status: Unknown if ever smoked Alcohol use: No CD- Drugs: Yes Caffeine use: Yes Place of Residence: [facility] Review of Systems 10-point ROS is otherwise unremarkable General: Weakness, Malaise Respiratory: SOB with Excertion Cardiovascular: Edema Neurological: Weakness Physical Examination Temp Pulse Resp BP Pulse Ox 97.2 F 71 18 112/52 L 94 12/06/20 05:59 12/06/20 05:59 07/08/21 05:59 12/06/20 08:00 12/06/20 04:00 General: In no apparent distress, Oriented x3, Cooperative Neck: Supple Respiratory: Diminished Cardiovascular: Regular rate/rhythm, Edema Gastrointestinal: Soft and benign, Non-distended Musculoskeletal: No clubbing, No contractures Integumentary: No rashes, No cyanosis Neurological: Abnormal speech Laboratory Data (last 24 hrs) 12/06/20 00:00: PT 15.1 H, INR 1.31 12/06/20 00:00: WBC 8.10, Hgb 10.6 L, Hct 33.0 L, Plt Count 235 12/06/20 00:00: Sodium 137, Potassium 5.9 H*, BUN 58 H, Creatinine 8.19 H*, Glucose 88, Magnesium 1.8, Total Bilirubin 0.2, AST 13 L, ALT 11 L, Alkaline Phosphatase 115 Imagings Data: EXAM DESCRIPTION: RAD - Chest Single View - 12/06/2020 12:27 am CLINICAL HISTORY: elevated potassium COMPARISON: CT chest November 20, portable chest November 12 TECHNIQUE: AP portable chest image was obtained 12/06/2020 12:27 am . FINDINGS: Lung volumes are low. No dense consolidation in either lung field. Bilateral pleural effusions are present, larger on the left with left base atelectasis. Heart and vasculature are normal. No pneumothorax. No acute bony abnormality seen. No acute aortic findings suspected. IMPRESSION: Left greater than right pleural effusions with left lung base atelectasis. Conclusions/Impression: ESRD -Plan to initiate dialysis during this admission -NPO -Dr. Case consulted for CVC placement -No NSAIDs -Draw Hepatitis panel -Arrange for dialysis placement Hyperkalemia -Renal diet -Initiate dialysis Acidosis -Initiate dialysis -Continue oral bicarb HTN with CKD/ CHF -Continue Coreg Diastolic CHF, A/C -Low sodium diet -Initiate HD with UF Moderate malnutrition -Encourage nutrition/ Renal diet -Give IV Albumin with HD Anemia in CKD -Start Retacrit TIW FLORENCIO/ Secondary HyperPTH -Continue Phoslo -Start Vitamin D Acute Cystitis -Follow up urine culture Thank you kindly for the consultation. Case reviewed with Dr. Hale
[2020-12-06] MEDS ORDERED: HYDROCODONE/APAP 5/325 MG TAB PO PRN (10:16)
[2020-12-06] MEDS: HYDRALAZINE HCL 25 MG TABLET PO SCH ×2 (12:43→21:39)
[2020-12-06] MEDS ORDERED: D50W 25 GM/50 ML VIAL IV PRN (14:00)
--- NOTE | 2020-12-06 20:32 | CON ---
Reason For Consult: Evaluation for hemodialysis catheter. History Of Present Illness: This is a case of a 70-year-old patient with multiple medical problems a nd admitted also for renal failure. The renal doctor evaluated the patient and believe the patient w ill benefit from hemodialysis and they called me to evaluate for placement. Most of the information is obtained from the chart and the primary since the communication with the patient's limited since w e have to write everything for her to understand and also to communicate with us, although she is rito y patient and she has been doing doing that. Allergies: NONE. Medications: Include Lipitor, Coreg, aspirin, Eliquis, . Social History: She does smoke. She does not drink alcohol. Family History: Heart disease. Past Medical History: Includes diabetes, hypertension, GERD, depression, hyperlipidemia, congestive heart failure. Past Surgical History: Includes cholecystectomy, abdominal hernia repair, amputation of digits. Review of Systems: Unable to be obtained. Physical Examination: General: Patient is awake, alert, anicteric. Neck: Supple. Chest: Clear. Abdomen: Soft and depressible. Extremities: Good capillary refill. Laboratory Data: Blood work shows a WBC count of 8, hemoglobin of 10.6. INR of 1.31. Potassium is 5.4 and BUN is 60. Glucose from 88 to 48 range. Creatinine is 8.4. Chest x-ray shows left greater than right pleural effusion. Assessment: A 70-year-old patient needed hemodialysis. The patient explained obviously with limitat ions that we have but well explained the benefits, alternatives, and risks of hemodialysis catheter p andi. She understands catheter request by another physician and itself my part is not treatment itself, but the dialysis will be the treatment I had to put the catheter within. Benefits, alternati ves, and risks including, but not limited to infection, bleeding, damage to adjacent structures, hemo thorax, pneumothorax, SC, and even . The patient will be kept n.p.o. now and proceed accordingyamini FARIAS/JODEE Voice ID: [id number] Report ID: [id number]
[2020-12-06] MEDS ORDERED: GABAPENTIN 100 MG CAP PO SCH (21:00)
[2020-12-06] MEDS: TRAZODONE 50 MG TABLET PO SCH (21:00)
[2020-12-06] MEDS: ATORVASTATIN 20 MG TAB PO SCH (21:38)
--- NOTE | 2020-12-07 05:55 | P.PN ---
Subjective Date of Service: 12/07/20 Primary Care Provider: senior care doctor, nephrology Dr. Hickman Chief Complaint: ESRD/hyperkalemia Subjective: No new changes, Doing well Physical Examination - Vital Signs Temperature: 97.3 F Blood Pressure: 133/71 Pulse: 71 Respirations: 16 Pulse Ox (%): 98 Assessment & Plan Discharge Plan: Home Plan to discharge in: Greater than 2 days Physician Review Additional Text: Physical Exam: General: Alert, In no apparent distress, Oriented x3, Obese, Other (Deaf/mute) HEENT: Atraumatic, Normocephalic, PERRLA Neck: Supple Respiratory: Clear to auscultation bilaterally, Diminished (Bilaterally) Cardiovascular: No edema, Normal S1 S2 Capillary refill: <2 Seconds Gastrointestinal: Normal bowel sounds, No tenderness, No masses, No rebound Musculoskeletal: No contractures, No erythema, No tenderness Integumentary: No tenderness/swelling, No erythema, No warmth Neurological: Normal tone, Sensation intact Urinary: Hickman catheter Impression: Acute worsening of CKD 5 with hyperkalemia Diabetes mellitus type 2 Chronic diastolic congestive heart failure Diarrhea-history of C. diff Hypertension Hyperlipidemia Deaf/mute Obesity ALL/anemia of chronic disease Plan: Acute worsening of CKD 5 with hyperkalemia: Patient overall stable. Spoke with nephrology at length yesterday. Nephrology recommends for dialysis catheter placement to initiate dialysis and likely chronic dialysis. This will occur today. Surgery to place dialysis catheter today. Patient is in agreement with plan of care. DVT prophylaxisSCDs. Await further recommendations from nephrology. Anticipate home likely early next week after outpatient dialysis arranged. Diabetes mellitus type 2: Continue Accu-Cheks. Sliding scale in place. Chronic diastolic congestive heart failure: Appears stable. Monitor volume status closely. Diarrhea-history of C. diff: Cultures obtained. Will monitor closely. Hypertension: Continue home medication Hyperlipidemia: Continue home medication Deaf/mute : Communicates best with writing. Obesity: Address lifestyle changes. ALL/anemia of chronic disease: Transfuse to maintain hemoglobin greater than 8. Stable this time. CHronic pain: Patient reports that Tramadol is not strong enough. Will adjust medication. Increase Lawrence and Gabapentin. DVT Prophylaxis: SCD Code Status: Full code Advanced Care planning-30 min: Back to senior care Time Spent Managing Pts Care (In Minutes): 55
[2020-12-07] MEDS: INSULIN -REGULAR HUMAN 50 UNIT/0.5 ML ML SQ SCH ×4 (06:00→20:58)
[2020-12-07 06:09] LABS: Absolute Lymphocytes (CBC) 1.7 K/uL (0.7-4.9); Basophils % 1.3 % (0-1.3); Hematocrit 31.8 % (36.0-45.0); Lymphocytes % 19.5 % (15.3-44.8); MPV 7.9 fL (7.6-11.3); RBC Red Blood Cell Count 3.45 M/uL (3.86-4.86)
[2020-12-07 07:07] LABS: Albumin 1.7 g/dL (3.4-5.0); Bilirubin Total 0.2 mg/dL (0.2-1.0); Protein, Total 4.5 g/dL (6.4-8.2)
[2020-12-07 07:09] LABS: Potassium 5.7 mmol/L (3.5-5.1)
[2020-12-07] MEDS ORDERED: SOD POLYSTYREN SUL 15 GM/60 ML UCUP PO ONE (07:17)
[2020-12-07] MEDS: carvediloL 25 MG TAB PO SCH ×2 (08:00→16:35)
[2020-12-07] MEDS: CALCIUM ACETATE 667 MG TAB PO SCH ×3 (08:00→16:34)
[2020-12-07] MEDS: MORPHINE 2 MG/ML SYR IV PRN ×3 (08:30→20:38)
[2020-12-07] MEDS: ASPIRIN 81 MG CHEWABLE TABLET PO SCH (08:32)
[2020-12-07] MEDS: HYDRALAZINE HCL 25 MG TABLET PO SCH ×3 (08:32→20:47)
[2020-12-07] MEDS: SODIUM BICARB 325 MG TAB PO SCH ×4 (08:33→20:41)
[2020-12-07] MEDS: CHOLESTYRAMINE/ASP 4 GM/PKT PO SCH (08:33)
[2020-12-07] MEDS: ZINC SULFATE 220 MG CAP PO SCH (08:33)
[2020-12-07] MEDS: ASCORBIC ACID 500 MG TABLET PO SCH (08:33)
[2020-12-07] MEDS: VITAMIN D 5,000 UNIT CAP PO SCH (08:33)
[2020-12-07] MEDS: CALCITROL 0.25 MCG CAP PO SCH (08:33)
[2020-12-07] MEDS: SERTRALINE HCL 100 MG TAB PO SCH (08:33)
[2020-12-07] MEDS: GABAPENTIN 100 MG CAP PO SCH ×3 (08:33→20:41)
[2020-12-07] MEDS ORDERED: NA CHLORIDE 0.9% 100 ML IV ONE (12:26)
[2020-12-07] MEDS ORDERED: NS 0.9% VIAL 10 ML ONE (12:26)
[2020-12-07] MEDS: HEPARIN 5000 UNIT/ML 1 ML VIAL ONE ×2 (12:47→12:48)
[2020-12-07] MEDS ORDERED: NA CHLORIDE 0.9% 500 ML ONE (12:50)
[2020-12-07] MEDS ORDERED: LIDOCAINE 2% MPF 5 ML VIAL ONE (13:12)
[2020-12-07] MEDS ORDERED: FENTANYL CITR 100 MCG/2 ML ONE (13:12)
[2020-12-07] MEDS ORDERED: propofoL 200 MG/20 ML VIAL IV ONE (13:12)
[2020-12-07] MEDS ORDERED: MIDAZOLAM HCL 2 MG/2 ML INJ ONE (13:13)
[2020-12-07] MEDS ORDERED: ONDANSETRON 4 MG/2 ML VIAL ONE (13:14)
[2020-12-07] MEDS ORDERED: CEFAZOLIN/SWI 1gm 1 GM/10 ML SYR ONE (13:23)
[2020-12-07] MEDS ORDERED: dexAMETHasone 10 MG/ML VIAL ONE (13:41)
[2020-12-07] MEDS ORDERED: EPHEDRINE SULF 50 MG/ML VIAL ONE (13:42)
--- NOTE | 2020-12-07 13:43 | P.BOP ---
Preoperative diagnosis: ESRD Postoperative diagnosis: same Primary procedure: 1. Placement of tunneled Hemodialysis catheter Secondary procedure: 2. Interpretation of fluoroscopy Other procedure(s): 3. Right neck ultrasound Estimated blood loss: <10cc Specimen: none Findings: as above Anesthesia: General Complications: None Drain(s): Other Implants: hemosplit Transferred to: Recovery Room Condition: Good
--- NOTE | 2020-12-07 14:33 | RAD REPORT ---
EXAM DESCRIPTION: RAD - Fluoroscopy <1 Hour - 12/07/2020 1:52 pm CLINICAL HISTORY: HD CATH PLACEMENT COMPARISON: Chest Single View dated 12/07/2020 FINDINGS: Intraoperative fluoroscopic images were submitted during placement of a hemodialysis magda ter. A guidewire can be seen traversing the SVC and IVC. Cardiomegaly. No other significant focal abn ormality. . IMPRESSION: Intraoperative fluoroscopic images during placement of a right IJ approach hemodialysis catheter. A subsequent chest radiograph demonstrated position of the HD catheter in the proximal SVC
--- NOTE | 2020-12-07 14:34 | RAD REPORT ---
EXAM DESCRIPTION: Richardt Single View12/07/2020 2:17 pm CLINICAL HISTORY: Device placement/central venous catheter placement IMPRESSION: Central venous catheter with its tip in the superior vena cava No pneumothorax
[2020-12-07] MEDS ORDERED: MANNITOL 25% 12.5 GM/50 ML VIAL IV PRN (14:52)
[2020-12-07] MEDS ORDERED: NA CHLORIDE 0.9% 1,000 ML IV PRN (14:52)
--- NOTE | 2020-12-07 15:04 | P.PN ---
Date of Service: 12/07/20 Vital Signs Temp Pulse Resp BP Pulse Ox 97.5 F 67 16 138/63 94 12/07/20 14:22 12/07/20 14:22 12/07/20 14:22 12/07/20 14:22 12/07/20 12:00 Medications Acetaminophen (Acetaminophen 500 Mg Tab) 500 mg PO Q4HP PRN PRN Reason: Pain scale 2-4 (Mild) Hydrocodone Bitart/Acetaminophen (Hydrocodone/Apap 7.5/325 Mg Tab) 1 tab PO Q6H PRN PRN Reason: Pain scale 5-7 (Moderate) Ascorbic Acid (Ascorbic Acid 500 Mg Tablet) 500 mg PO DAILY [facility] Last Admin: 12/07/20 08:33 Dose: Not Given Documented by: Aspirin (Aspirin 81 Mg Chewable Tablet) 81 mg PO DAILY [facility] Last Admin: 12/07/20 08:32 Dose: Not Given Documented by: Atorvastatin Calcium (Atorvastatin 20 Mg Tab) 20 mg PO BEDTIME [facility] Last Admin: 12/06/20 21:38 Dose: 20 mg Documented by: Calcitriol (Calcitrol 0.25 Mcg Cap) 0.5 mcg PO DAILY [facility] Last Admin: 12/07/20 08:33 Dose: Not Given Documented by: Calcium Acetate (Calcium Acetate 667 Mg Tab) 667 mg PO TIDWM [facility] Last Admin: 12/07/20 12:00 Dose: Not Given Documented by: Carvedilol (Carvedilol 25 Mg Tab) 25 mg PO BIDWM [facility] Last Admin: 12/07/20 08:00 Dose: Not Given Documented by: Cholecalciferol (Vitamin D 5,000 Unit Cap) 5,000 unit PO DAILY [facility] Last Admin: 12/07/20 08:33 Dose: Not Given Documented by: Cholestyramine Resin (Cholestyramine/Asp 4 Gm/Pkt) 4 gm PO DAILY [facility] Last Admin: 12/07/20 08:33 Dose: Not Given Documented by: Dextrose (D50w 25 Gm/50 Ml Vial) 12.5 gm IV PRN PRN; Protocol PRN Reason: HYPOGLYCEMIA Last Admin: 12/07/20 04:21 Dose: 12.5 gm Documented by: Diphenoxylate HCl/Atropine (Diphenox/Atrop Sulf 1 Tab) 1 tab PO TIDP PRN PRN Reason: DIARRHEA Epoetin Juan Jose (Epoetin Juan Jose 4,000 Unit/Ml Vial) 4,000 unit SQ M,W,F [facility] Gabapentin (Gabapentin 100 Mg Cap) 100 mg PO TID [facility] Last Admin: 12/07/20 14:00 Dose: Not Given Documented by: Heparin Sodium (Porcine) (Heparin 1,000 Unit/Ml Vial) 6,000 unit IJ EVERY HD PRN PRN Reason: AFTER EACH Hydralazine HCl (Hydralazine Hcl 25 Mg Tablet) 25 mg PO TID [facility] Last Admin: 12/07/20 14:00 Dose: Not Given Documented by: Sodium Chloride (Ns 1000 Ml Ivbag) 1,000 mls @ 0 mls/hr IV .Q0M PRN PRN Reason: Priming and BP support at HD Stop: 12/07/20 23:59 Albumin Human (Albumin 25%) 50 mls @ 100 mls/hr IV EVERY HD [facility] Insulin Human Regular (Insulin -Regular Human 50 Unit/0.5 Ml Ml) 0 unit SQ Q6HR [facility]; Protocol Last Admin: 12/07/20 12:00 Dose: Not Given Documented by: Mannitol (Mannitol 25% 12.5 Gm/50 Ml Vial) 12.5 gm IV EVERY HD PRN PRN Reason: Titrate to SBP (MUST DEFINE) Morphine Sulfate (Morphine 2 Mg/Ml Syr) 2 mg IV Q4H PRN PRN Reason: Pain scale 5-7 (Moderate) Last Admin: 12/07/20 08:30 Dose: 2 mg Documented by: Ondansetron HCl (Ondansetron 4 Mg/2 Ml Vial) 4 mg IV Q6HP PRN PRN Reason: NAUSEA / VOMITING Sertraline HCl (Sertraline Hcl 100 Mg Tab) 100 mg PO DAILY [facility] Last Admin: 12/07/20 08:33 Dose: Not Given Documented by: Sodium Bicarbonate (Sodium Bicarb 325 Mg Tab) 650 mg PO QID [facility] Last Admin: 12/07/20 13:00 Dose: Not Given Documented by: Sodium Chloride (Flush Normal Saline 10 Ml) 10 ml IV BID [facility] Last Admin: 12/07/20 08:33 Dose: 10 ml Documented by: Trazodone HCl (Trazodone 50 Mg Tablet) 100 mg PO BEDTIME [facility] Last Admin: 12/06/20 21:00 Dose: Not Given Documented by: Zinc Sulfate (Zinc Sulfate 220 Mg Cap) 220 mg PO DAILY [facility] Last Admin: 12/07/20 08:33 Dose: Not Given Documented by: Assessment/ Plan: Nephrology Seen and examined in post-op Limited IH/ ROS due to post-operative AMS No acute events overnight Vitals, medications, blood work and imaging reviewed in the chart. General: In no apparent distress, Oriented x3, Cooperative Neck: Supple Respiratory: Diminished Cardiovascular: Regular rate/rhythm, Edema Gastrointestinal: Soft and benign, Non-distended Musculoskeletal: No clubbing, No contractures Integumentary: No rashes, No cyanosis Neurological: Abnormal speech Laboratory Data (last 24 hrs) 12/06/20 00:00: PT 15.1 H, INR 1.31 12/06/20 00:00: WBC 8.10, Hgb 10.6 L, Hct 33.0 L, Plt Count 235 12/06/20 00:00: Sodium 137, Potassium 5.9 H*, BUN 58 H, Creatinine 8.19 H*, Glucose 88, Magnesium 1.8, Total Bilirubin 0.2, AST 13 L, ALT 11 L, Alkaline Phosphatase 115 Imagings Data: EXAM DESCRIPTION: RAD - Chest Single View - 12/06/2020 12:27 am CLINICAL HISTORY: elevated potassium COMPARISON: CT chest November 20, portable chest November 12 TECHNIQUE: AP portable chest image was obtained 12/06/2020 12:27 am . FINDINGS: Lung volumes are low. No dense consolidation in either lung field. Bilateral pleural effusions are present, larger on the left with left base atelectasis. Heart and vasculature are normal. No pneumothorax. No acute bony abnormality seen. No acute aortic findings suspected. IMPRESSION: Left greater than right pleural effusions with left lung base atelectasis. Conclusions/Impression: ESRD -First HD ordered for today 12-07-20 -CVC placed today -No NSAIDs -Hepatitis panel pending -Arrange for dialysis placement Hyperkalemia -Renal diet -HD today -Kayexalate 15g X1 dose today Acidosis -HD today -Continue oral bicarb HTN with CKD/ CHF -Continue Coreg Diastolic CHF, A/C -Low sodium diet -HD with UF today Moderate to severe malnutrition -Encourage nutrition/ Renal diet -Give IV Albumin with HD Anemia in CKD -Continue Retacrit TIW FLORENCIO/ Secondary HyperPTH -Continue Phoslo -Continue Vitamin D Acute GNR Cystitis -Follow up urine culture -Send repeat UA & culture today prior to abx -Start Rocephin
[2020-12-07] MEDS ORDERED: ALBUMIN HUMAN 25% 50 ML IV ONE (16:34)
[2020-12-07] MEDS: CEFTRIAXONE/SWI 1gm 1 GM/10 ML SYR IV SCH (16:41)
[2020-12-07] MEDS: EPOETIN ALFA 4,000 UNIT/ML VIAL SQ SCH (16:56)
[2020-12-07] MEDS: TRAZODONE 50 MG TABLET PO SCH (20:41)
[2020-12-07] MEDS: ATORVASTATIN 20 MG TAB PO SCH (20:41)
[2020-12-07 22:40] LABS: Urine Appearance TURBID (Clear); Urine Bilirubin NEGATIVE (Negative); Urine Blood 2+ (Negative); Urine Color YELLOW (Yellow); Urine Glucose NEGATIVE (Negative); Urine Protein 3+ (Negative); Urine Specific Gravity 1.015 (1.005-1.030); Urine Urobilinogen 0.2 mg/dL (0.2-1.0); Urine pH 6.5 (5.0-7.0)
[2020-12-07 23:06] LABS: Urine Bacteria LOADED /HPF (<20); Urine Mucus 2+ /HPF (NONE SEEN)
[2020-12-07] MEDS: HYDROCODONE/APAP 7.5/325 MG TAB PO PRN (23:21)
--- NOTE | 2020-12-08 05:48 | P.PN ---
Subjective Date of Service: 12/08/20 Primary Care Provider: care home doctor, nephrology Dr. Hickman Chief Complaint: ESRD/hyperkalemia Subjective: Improving, Doing well Physical Examination - Vital Signs Temperature: 97.2 F Blood Pressure: 141/60 Pulse: 84 Respirations: 16 Pulse Ox (%): 95 Assessment & Plan Discharge Plan: Correction Plan to discharge in: 72 Hours Physician Review Additional Text: Physical Exam: General: Alert, In no apparent distress, Oriented x3, Obese, Other (Deaf/mute) HEENT: Atraumatic, Normocephalic, PERRLA Neck: Supple Respiratory: Clear to auscultation bilaterally, Diminished (Bilaterally) Cardiovascular: No edema, Normal S1 S2 Capillary refill: <2 Seconds Gastrointestinal: Normal bowel sounds, No tenderness, No masses, No rebound Musculoskeletal: No contractures, No erythema, No tenderness Integumentary: No tenderness/swelling, No erythema, No warmth Neurological: Normal tone, Sensation intact Urinary: Hickman catheter Impression: Acute on chronic kidney disease stage V now with end-stage renal disease on hemodialysis with hyperkalemia Diabetes mellitus type 2 Chronic diastolic congestive heart failure Diarrhea-history of C. diff UTI, urine culture positive for E. coliESBL, multidrug-resistant Hypertension Hyperlipidemia Deaf/mute Obesity ALL/anemia of chronic disease Chronic pain Depression with anxiety Plan: Acute on chronic kidney disease stage V now with end-stage renal disease on hemodialysis with hyperkalemia: Patient doing well. Dialysis catheter placed yesterday. Patient initiated dialysis. Continue with dialysis as recommended by nephrology. Nephrology and case management to work on outpatient dialysis. Continue to monitor the patient closely. Overall stable. Anticipate back to the half-way on Thursday if arrangements for outpatient dialysis are approved. Diabetes mellitus type 2: Continue Accu-Cheks. Sliding scale in place. Will check hemoglobin A1c. Chronic diastolic congestive heart failure: Appears stable. Monitor volume status closely. Diarrhea-history of C. diff: Cultures obtained. Will monitor closely. Overall improved. Will add lactobacillus. UTI, urine culture positive for E. coliESBL, multidrug-resistant: Will consult infectious disease for recommendation on treatment. Will need to adjust medication pending recommendation. Hypertension: Continue home medicationcarvedilol 25 mg 1 pill twice daily and hydralazine 25 mg 1 pill 3 times a day Hyperlipidemia: Continue home medicationLipitor 20 mg daily Deaf/mute : Communicates best with writing. Obesity: Address lifestyle changes. ALL/anemia of chronic disease: Transfuse to maintain hemoglobin greater than 8. Stable this time. Chronic pain: Increase [place] given yesterday. Continue gabapentin 100 mg 3 times a day. Depression with anxiety: Continue Zoloft 100 mg daily DVT Prophylaxis: Heparin Code Status: Full code Advanced Care planning-30 min: Back to care home Time Spent Managing Pts Care (In Minutes): 55
[2020-12-08 06:13] LABS: Absolute Lymphocytes (CBC) 0.7 K/uL (0.7-4.9); Basophils % 0.2 % (0-1.3); Hematocrit 32.3 % (36.0-45.0); Lymphocytes % 15.7 % (15.3-44.8); RBC Red Blood Cell Count 3.52 M/uL (3.86-4.86)
[2020-12-08 06:38] LABS: Bilirubin Total 0.3 mg/dL (0.2-1.0); Potassium 5.4 mmol/L (3.5-5.1); Protein, Total 4.8 g/dL (6.4-8.2)
[2020-12-08] MEDS: INSULIN -REGULAR HUMAN 50 UNIT/0.5 ML ML SQ SCH ×4 (07:30→21:00)
[2020-12-08] MEDS: carvediloL 25 MG TAB PO SCH ×2 (08:00→16:29)
[2020-12-08] MEDS: CALCIUM ACETATE 667 MG TAB PO SCH ×3 (08:45→16:28)
[2020-12-08] MEDS: HYDRALAZINE HCL 25 MG TABLET PO SCH ×3 (09:00→20:56)
[2020-12-08] MEDS: VITAMIN D 5,000 UNIT CAP PO SCH (09:50)
[2020-12-08] MEDS: CEFTRIAXONE/SWI 1gm 1 GM/10 ML SYR IV SCH (09:50)
[2020-12-08] MEDS: SERTRALINE HCL 100 MG TAB PO SCH (09:50)
[2020-12-08] MEDS: HYDROCODONE/APAP 7.5/325 MG TAB PO PRN ×3 (09:50→21:49)
[2020-12-08] MEDS: GABAPENTIN 100 MG CAP PO SCH ×3 (09:50→20:57)
[2020-12-08] MEDS: SODIUM BICARB 325 MG TAB PO SCH ×4 (09:50→20:57)
[2020-12-08] MEDS: CHOLESTYRAMINE/ASP 4 GM/PKT PO SCH (09:50)
[2020-12-08] MEDS: HEPARIN 5000 UNIT/ML 1 ML VIAL SQ SCH ×2 (09:51→20:56)
[2020-12-08] MEDS: ASPIRIN 81 MG CHEWABLE TABLET PO SCH (09:51)
[2020-12-08] MEDS: ASCORBIC ACID 500 MG TABLET PO SCH (09:51)
[2020-12-08] MEDS: LACTOBACILLUS/ACIDOPHILUS TAB PO SCH ×2 (09:51→20:56)
[2020-12-08] MEDS: ZINC SULFATE 220 MG CAP PO SCH (09:51)
[2020-12-08] MEDS: CALCITROL 0.25 MCG CAP PO SCH (09:51)
[2020-12-08] MEDS: ALBUMIN HUMAN 25% 50 ML IV SCH ×2 (11:15→11:30)
[2020-12-08] MEDS: TRAZODONE 50 MG TABLET PO SCH (20:57)
[2020-12-08] MEDS: ATORVASTATIN 20 MG TAB PO SCH (20:57)
[2020-12-09] MEDS: HYDROCODONE/APAP 7.5/325 MG TAB PO PRN ×3 (05:35→21:25)
[2020-12-09 06:21] LABS: Absolute Lymphocytes (CBC) 2.2 K/uL (0.7-4.9); Basophils % 0.7 % (0-1.3); Hematocrit 30.2 % (36.0-45.0); Lymphocytes % 26.3 % (15.3-44.8); MPV 8.1 fL (7.6-11.3); RBC Red Blood Cell Count 3.31 M/uL (3.86-4.86)
[2020-12-09 06:32] LABS: Albumin 2.1 g/dL (3.4-5.0); Bilirubin Total 0.2 mg/dL (0.2-1.0); Potassium 4.4 mmol/L (3.5-5.1); Protein, Total 4.5 g/dL (6.4-8.2)
[2020-12-09] MEDS: INSULIN -REGULAR HUMAN 50 UNIT/0.5 ML ML SQ SCH ×4 (07:30→21:00)
[2020-12-09] MEDS: CEFTRIAXONE/SWI 1gm 1 GM/10 ML SYR IV SCH (09:00)
--- NOTE | 2020-12-09 09:24 | P.PN ---
Subjective Date of Service: 12/09/20 Primary Care Provider: alf doctor, nephrology Dr. Hickman Chief Complaint: ESRD/hyperkalemia Subjective: Doing well Physical Examination - Vital Signs Temperature: 98.3 F Blood Pressure: 128/63 Pulse: 76 Respirations: 18 Pulse Ox (%): 93 Assessment & Plan Discharge Plan: [facility] Plan to discharge in: Greater than 2 days Physician Review Additional Text: Physical Exam: General: Alert, In no apparent distress, Oriented x3, Obese, Other (Deaf/mute) patient able to communicate with communicating board and smart phone. HEENT: Atraumatic, Normocephalic, PERRLA Neck: Supple Respiratory: Clear Cardiovascular: No edema, Normal S1 S2 Capillary refill: <2 Seconds Gastrointestinal: Normal bowel sounds, No tenderness, No masses, No rebound Musculoskeletal: No contractures, No erythema, No tenderness Integumentary: No tenderness/swelling, No erythema, No warmth Neurological: Normal tone, Sensation intact Urinary: Hickman catheter Impression: Acute on chronic kidney disease stage V now with end-stage renal disease on hemodialysis with hyperkalemia UTI, urine culture positive for E. coliESBL, multidrug-resistant, with history of recurrent UTI Diabetes mellitus type 2 Chronic diastolic congestive heart failure Diarrhea with history of C. diff Hypertension Hyperlipidemia Deaf/mute Obesity ALL/anemia of chronic disease Chronic pain Depression with anxiety Plan: Acute on chronic kidney disease stage V now with end-stage renal disease on hemodialysis with hyperkalemia: Patient is doing well at this time. No complaints noted. Continue with dialysis as directed by nephrology. Patient with multidrug-resistant UTIE. coliESBL. Case discussed in detail with infectious disease and nephrology. Case also discussed with pharmacy. [facility] This will be started today. DC Rocephin. Patient will need to continue treatment for at least 7 days. Will plan to recheck urine culture after second dose given. This will likely be given every 48 hours. Pharmacy to adjust and monitor. Will discuss with transition social worker to see if this can be continued at the correction or through dialysis. Patient to return back to the correction but arrangements for outpatient dialysis need to be arranged before this is done. UTI, urine culture positive for E. coliESBL, multidrug-resistant with history of recurrent UTI: As mentioned above patient will start Vabomere. White count remains normal. Patient was asymptomatic upon admission. Pharmacy to monitor and adjust medication. Rocephin discontinued. Patient will need at least 7-day treatment of medication. We will plan to recheck urine culture after second dose given. Diabetes mellitus type 2: Continue Accu-Cheks. Sliding scale in place. Will check hemoglobin A1c. Chronic diastolic congestive heart failure: Appears stable. Monitor volume status closely. Diarrhea with history of C. diff: Cultures obtained. Will monitor closely. Overall improved. Continue with lactobacillus. Hypertension: Continue home medicationcarvedilol 25 mg 1 pill twice daily and hydralazine 25 mg 1 pill 3 times a day Hyperlipidemia: Continue home medicationLipitor 20 mg daily Deaf/mute : Communicates best with writing. Obesity: Address lifestyle changes. ALL/anemia of chronic disease: Overall stable. Maintain hemoglobin above 7.5. Chronic pain: Continue with hydrocodone. Pain appears to be stable. Continue gabapentin 100 mg 3 times a day. Depression with anxiety: Continue Zoloft 100 mg daily DVT Prophylaxis: Heparin Code Status: Full code Advanced Care planning-30 min: Back to alf at discharge. Will need to make arrangements for outpatient dialysis and continued IV antibiotic therapy for at least 7 days with either correction or dialysis. Otherwise patient will need to remain for the duration of treatment for her UTI. Time Spent Managing Pts Care (In Minutes): 55
[2020-12-09] MEDS: VITAMIN D 5,000 UNIT CAP PO SCH (10:07)
[2020-12-09] MEDS: SERTRALINE HCL 100 MG TAB PO SCH (10:07)
[2020-12-09] MEDS: CALCIUM ACETATE 667 MG TAB PO SCH ×3 (10:07→16:38)
[2020-12-09] MEDS: SODIUM BICARB 325 MG TAB PO SCH ×4 (10:08→21:10)
[2020-12-09] MEDS: ASPIRIN 81 MG CHEWABLE TABLET PO SCH (10:08)
[2020-12-09] MEDS: CALCITROL 0.25 MCG CAP PO SCH (10:08)
[2020-12-09] MEDS: GABAPENTIN 100 MG CAP PO SCH ×3 (10:08→21:11)
[2020-12-09] MEDS: carvediloL 25 MG TAB PO SCH ×2 (10:08→16:38)
[2020-12-09] MEDS: HYDRALAZINE HCL 25 MG TABLET PO SCH ×3 (10:08→21:09)
[2020-12-09] MEDS: ZINC SULFATE 220 MG CAP PO SCH (10:09)
[2020-12-09] MEDS: HEPARIN 5000 UNIT/ML 1 ML VIAL SQ SCH ×2 (10:09→21:10)
[2020-12-09] MEDS: CHOLESTYRAMINE/ASP 4 GM/PKT PO SCH (10:09)
[2020-12-09] MEDS: ASCORBIC ACID 500 MG TABLET PO SCH (10:09)
[2020-12-09] MEDS: LACTOBACILLUS/ACIDOPHILUS TAB PO SCH ×2 (10:09→21:09)
[2020-12-09] MEDS: MEROPENEM VABORBACTAM IV SCH ×2 (10:10→21:08)
[2020-12-09] MEDS: NA CHLORIDE 0.9% IV SCH ×2 (10:10→21:08)
[2020-12-09] MEDS: ATORVASTATIN 20 MG TAB PO SCH (21:09)
[2020-12-09] MEDS: TRAZODONE 50 MG TABLET PO SCH (21:10)
[2020-12-10 02:43] LABS: HBsAG Nonreactive (Nonreactive)
--- NOTE | 2020-12-10 05:51 | P.PN ---
Subjective Date of Service: 12/10/20 Primary Care Provider: [facility] doctor, nephrology Dr. Hickman Chief Complaint: ESRD/hyperkalemia Subjective: Improving, Doing well Physical Examination - Vital Signs Temperature: 97.5 F Blood Pressure: 132/62 Pulse: 62 Respirations: 16 Pulse Ox (%): 91 Assessment & Plan Discharge Plan: Other ([facility]) Plan to discharge in: Greater than 2 days Physician Review Additional Text: Physical Exam: General: Alert, In no apparent distress, Oriented x3, Obese, Other (Deaf/mute) patient able to communicate with communicating board and smart phone. HEENT: Atraumatic, Normocephalic, PERRLA Neck: Supple Respiratory: Clear Cardiovascular: No edema, Normal S1 S2 Capillary refill: <2 Seconds Gastrointestinal: Normal bowel sounds, No tenderness, No masses, No rebound Musculoskeletal: No contractures, No erythema, No tenderness Integumentary: No tenderness/swelling, No erythema, No warmth Neurological: Normal tone, Sensation intact Urinary: Hickman catheter Impression: Acute on chronic kidney disease stage V now with end-stage renal disease on hemodialysis with hyperkalemia UTI, urine culture positive for E. coliESBL, multidrug-resistant along with vancomycin-resistant Enterococcus, with history of recurrent UTI Diabetes mellitus type 2 Chronic diastolic congestive heart failure Diarrhea with history of C. diff Hypertension Hyperlipidemia Deaf/mute Obesity ALL/anemia of chronic disease Chronic pain Depression with anxiety Plan: Acute on chronic kidney disease stage V now with end-stage renal disease on hemodialysis with hyperkalemia: Patient is doing well at this time. No complaints noted. Continue with dialysis as directed by nephrology. Patient wi th multidrug-resistant UTIE. coliESBL. Patient also with vancomycin resistant Enterococcus. Case discussed in detail with infectious disease. Infectious disease also recommends to start Zyvox. Case also discussed with pharmacy. Was able to secure Vabomereantibiotic from [facility]. Continue treatment for both for at least 7 days. Will plan to recheck urine culture after second dose given. This will likely be given every 48 hours. Pharmacy to adjust and monitor. Nephrology spoke to patient about senior living/skilled placement in [facility]. We will pursue this as the patient is from [place]. UTI, urine culture positive for E. coliESBL along with vancomycin resistant Enterococcus, multidrug-resistant with history of recurrent UTI: As mentioned above patient will continue Vabomere. Zyvox to be added. Case discussed in detail with infectious disease. Continue treatment for 7 days. Recheck urine culture likely in the next 3 to 4 days. Diabetes mellitus type 2: Continue Accu-Cheks. Sliding scale in place. Chronic diastolic congestive heart failure: Appears stable. Monitor volume status closely. Diarrhea with history of C. diff: Cultures obtained. Will monitor closely. Overall improved. Continue with lactobacillus. Hypertension: Continue home medicationcarvedilol 25 mg 1 pill twice daily and hydralazine 25 mg 1 pill 3 times a day Hyperlipidemia: Continue home medicationLipitor 20 mg daily Deaf/mute : Communicates best with writing. Obesity: Address lifestyle changes. ALL/anemia of chronic disease: Overall stable. Maintain hemoglobin above 7.5. Chronic pain: Continue with hydrocodone. Pain appears to be stable. Continue gabapentin 100 mg 3 times a day. Depression with anxiety: Continue Zoloft 100 mg daily DVT Prophylaxis: Heparin Code Status: Full code Advanced Care planning-30 min: Back to [facility] at discharge. Will need to make arrangements for outpatient dialysis and continued IV antibiotic therapy for at least 7 days with either senior living or dialysis. Otherwise patient will need to remain for the duration of treatment for her UTI. Nephrology spoke to the patient in detail about the possibility of choosing a senior living closer to [facility]. Will discuss with social contact worker and family. Patient in agreement. Time Spent Managing Pts Care (In Minutes): 55
[2020-12-10] MEDS: INSULIN -REGULAR HUMAN 50 UNIT/0.5 ML ML SQ SCH ×4 (07:30→21:00)
--- NOTE | 2020-12-10 08:29 | P.PN ---
Subjective Date of Service: 12/10/20 Primary Care Provider: intermediate doctor, nephrology Dr. Hickman Chief Complaint: ESRD/hyperkalemia Subjective: Improving, Doing well Physical Examination - Vital Signs Temperature: 97.5 F Blood Pressure: 132/62 Pulse: 62 Respirations: 16 Pulse Ox (%): 91 Assessment & Plan Discharge Plan: Shelter Plan to discharge in: Greater than 2 days Physician Review Additional Text: Physical Exam: General: Alert, In no apparent distress, Oriented x3, Obese, Other (Deaf/mute) patient able to communicate with communicating board and smart phone. HEENT: Atraumatic, Normocephalic, PERRLA Neck: Supple Respiratory: Clear Cardiovascular: No edema, Normal S1 S2 Capillary refill: <2 Seconds Gastrointestinal: Normal bowel sounds, No tenderness, No masses, No rebound Musculoskeletal: No contractures, No erythema, No tenderness Integumentary: No tenderness/swelling, No erythema, No warmth Neurological: Normal tone, Sensation intact Urinary: Hickman catheter Impression: Acute on chronic kidney disease stage V now with end-stage renal disease on hemodialysis with hyperkalemia UTI, urine culture positive for E. coliESBL, multidrug-resistant, with history of recurrent UTI Diabetes mellitus type 2 Chronic diastolic congestive heart failure Diarrhea with history of C. diff Hypertension Hyperlipidemia Deaf/mute Obesity ALL/anemia of chronic disease Chronic pain Depression with anxiety Plan: Acute on chronic kidney disease stage V now with end-stage renal disease on hemodialysis with hyperkalemia: Patient is doing well at this time. No complaints noted. Continue with dialysis as directed by nephrology. Patient with multidrug-resistant UTIE. coliESBL. Case discussed in detail with infectious disease and nephrology. Case also discussed with pharmacy. Was able to secure Vabomereantibiotic from [facility] yesterday. This was started yesterday. Patient will need at least 7-day treatment of antibiotics. Currently day 2 of antibiotic treatment. Pharmacy to monitor and adjust medication. Will discuss with social problems specialist to see if this can be continued at the intermediate or through dialysis. Patient to return back to the intermediate but arrangements for outpatient dialysis need to be arranged before this is done. UTI, urine culture positive for E. coliESBL, multidrug-resistant with history of recurrent UTI: As mentioned above patient was started on Vabomere yesterday. Pharmacy to monitor and adjust. Currently on day 2 of 7-day treatment. White count remains normal. Patient was asymptomatic upon admission. Patient will need at least 7-day treatment of medication. We will plan to recheck urine culture after second dose given. Diabetes mellitus type 2: Continue Accu-Cheks. Sliding scale in place. Chronic diastolic congestive heart failure: Appears stable. Monitor volume status closely. Diarrhea with history of C. diff: Cultures obtained. Will monitor closely. Overall improved. Continue with lactobacillus. Hypertension: Continue home medicationcarvedilol 25 mg 1 pill twice daily and hydralazine 25 mg 1 pill 3 times a day Hyperlipidemia: Continue home medicationLipitor 20 mg daily Deaf/mute : Communicates best with writing. Obesity: Address lifestyle changes. ALL/anemia of chronic disease: Overall stable. Maintain hemoglobin above 7.5. Chronic pain: Continue with hydrocodone. Pain appears to be stable. Continue gabapentin 100 mg 3 times a day. Depression with anxiety: Continue Zoloft 100 mg daily DVT Prophylaxis: Heparin Code Status: Full code Advanced Care planning-30 min: Back to intermediate at discharge. Will need to make arrangements for outpatient dialysis and continued IV antibiotic therapy for at least 7 days with either intermediate or dialysis. Otherwise patient will need to remain for the duration of treatment for her UTI. Time Spent Managing Pts Care (In Minutes): 55
[2020-12-10] MEDS: HYDROCODONE/APAP 7.5/325 MG TAB PO PRN ×3 (08:31→21:25)
[2020-12-10] MEDS: VITAMIN D 5,000 UNIT CAP PO SCH (08:33)
[2020-12-10] MEDS: CALCITROL 0.25 MCG CAP PO SCH (08:33)
[2020-12-10] MEDS: CALCIUM ACETATE 667 MG TAB PO SCH ×3 (08:33→16:27)
[2020-12-10] MEDS: LACTOBACILLUS/ACIDOPHILUS TAB PO SCH ×2 (08:34→21:22)
[2020-12-10] MEDS: carvediloL 25 MG TAB PO SCH ×2 (08:34→16:27)
[2020-12-10] MEDS: ASCORBIC ACID 500 MG TABLET PO SCH (08:34)
[2020-12-10] MEDS: ASPIRIN 81 MG CHEWABLE TABLET PO SCH (08:34)
[2020-12-10] MEDS: CHOLESTYRAMINE/ASP 4 GM/PKT PO SCH (08:34)
[2020-12-10] MEDS: HEPARIN 5000 UNIT/ML 1 ML VIAL SQ SCH ×2 (08:34→21:22)
[2020-12-10] MEDS: SERTRALINE HCL 100 MG TAB PO SCH (08:34)
[2020-12-10] MEDS: SODIUM BICARB 325 MG TAB PO SCH ×4 (08:35→21:22)
[2020-12-10] MEDS: HYDRALAZINE HCL 25 MG TABLET PO SCH ×4 (08:35→21:23)
[2020-12-10] MEDS: ZINC SULFATE 220 MG CAP PO SCH (08:35)
[2020-12-10] MEDS: GABAPENTIN 100 MG CAP PO SCH ×3 (08:35→21:22)
[2020-12-10 08:58] LABS: Absolute Lymphocytes (CBC) 2.4 K/uL (0.7-4.9); Basophils % 0.6 % (0-1.3); Hematocrit 30.8 % (36.0-45.0); Lymphocytes % 24.5 % (15.3-44.8); MPV 7.7 fL (7.6-11.3); RBC Red Blood Cell Count 3.41 M/uL (3.86-4.86)
[2020-12-10] MEDS: MEROPENEM VABORBACTAM IV SCH ×2 (09:00→21:20)
[2020-12-10] MEDS: NA CHLORIDE 0.9% IV SCH ×2 (09:00→21:20)
[2020-12-10 09:05] LABS: Magnesium 1.9 mg/dL (1.8-2.4); Potassium 4.4 mmol/L (3.5-5.1)
[2020-12-10] MEDS: ALBUMIN HUMAN 25% 50 ML IV SCH ×2 (13:00→13:30)
--- NOTE | 2020-12-10 13:09 | CON ---
History Of Present Illness: This is a 70-year-old female, prison resident. I was consulted fo r urinary tract infection secondary to multidrug resistant bacteria, E coli and Enterococcus faecalis , which is a VRE. The patient is admitted to the hospital on December 08 2020, coming from [facility] and has been admitted for multidrug resistant urinary tract infection. The patient has sign ificant past medical history of congestive diastolic heart failure; chronic kidney disease, on hemodi alysis; hypertension; hyperlipidemia; anemia of chronic disease, came to the emergency room with abno rmal labs. The patient was recently discharged to nursing facility on November 16, 2020. The patient de nies any headache, nausea, vomiting, chest pain, abdominal pain, constipation, or diarrhea. Past Medical History: As per HPI. Social History: Nonsmoker, nondrinker. Family History: Noncontributory. Medications: The patient is currently getting meropenem, vaborbactam, Vabomere. See MAR for other m edications. Allergies: ADHESIVES. NO ALLERGIES TO DRUGS. Review of Systems: A 10-point review was performed. Physical Examination: General: This is a 70-year-old female, lying in bed comfortably, not in any acute cardiopulmonary di stress. Vital signs: Temperature 98, pulse 64, respirations 17, blood pressure 131/60. HEENT: Unremarkable. Neck: Supple. Lungs: Clear to auscultation. Heart: S1, S2. Regular. Abdomen: Soft. Bowel sounds present. Extremities: No edema. Laboratory Data: WBC 9.7, hemoglobin 10.5, platelets are 253. Chemistry shows sodium 138, potassium 4.4, chloride 106, bicarb 25, BUN 39, creatinine 5.8, glucose is 94. Micro data showing E coli and VRE in urine. Assessment And Plan: 1.A 70-year-old female coming in from prison with multidrug resistant Escherichia coli resista nt to meropenem. The patient is on Vabomere. 2.Vancomycin-resistant Enterococcus. We will start patient on Zyvox. Because the patient is also o n Zoloft, we will discuss with pharmacy to adjust doses. Continue supportive care and monitor for si gns of infection. Continue antibiotic for total of 7 days. Strict isolation wearing gowns, gloves a nd protective boot coverings and washing hands. We will follow the patient closely. Thank you Dr. Hale for consult. FELIPA/JODEE Voice ID: [id number] Report ID: [id number]
--- NOTE | 2020-12-10 13:45 | PN ---
Date of Progress Note: 12/10/2020 Subjective: The patient is alert, awake. She is able to communicate via writing on the white board with me. Had long back and forth discussion with the patient. She understands that she is going to need dialysis ongoing for now and close monitoring. She has ESBL in her urine. Discussed with ID. The patient is currently on meropenem based medication and she is going to need that for at least 7 d ays for which she is currently in the hospital. She has been initiated on dialysis, has a right IJ c atheter. The site looks clean. Has tolerated 2 dialysis treatments. Third 1 is ordered for today. I have discussed the plan also with the dialysis nurse who understands that the orders are in the art and the plan is to dialyze the patient today. Objective: Vitals signs: Stable. Blood pressure 131/60, pulse 64, respirations around 14 to 16. P ulse is around 60 to 65 and regular. O2 sats are in the low 90s, at about 91% to 93% on room air. General: Comfortable. Lungs: Clear anteriorly with decreased breath sounds at the very bases. Abdomen: Soft. Extremities: Reveal trace to positive 1 edema bilaterally. Heart: Sounds are regular. Laboratory Data: Reviewed. Labs show WBC count of 9.7, hemoglobin and hematocrit 10.5 and 30.8, kristopher telet count of 253. Chemistry shows sodium 138, potassium 4.4, chloride 106, BUN 39, creatinine 5.82 , calcium level of 7.7. Medications: Reviewed. Assessment And Plan: End-stage renal disease/acute kidney injury on chronic kidney disease. At this point, the patient has been initiated on dialysis, had 2 treatments and is feeling well. She does n ot have any nausea. Her electrolytes seem reasonable. Her creatinine is in the mid 5 range. She is alert, able to talk comfortably. Breathing is stable. I communicated with her using the white boar d. The patient lives in [place], but currently is at a intermediate, [facility]. She i s interested in considering [facility] for her placement as it will be closer for family to visit. She lives in [place] which is less than 10 miles away. There is also dialysis unit [facility] about a block to 2 blocks away from [facility] If the patient goes to [facility], dialysis can be arranged at [facility]. If the patient needs to return back or wants to return back to [place] where she is currently, then dialysis can be arranged at [facility]. Discussed this with the patient. She also wanted her son to be called so kristopher n could be discussed with him. I called the patient's son at [phone], but could not get a reply . I have discussed the case with the charge nurse who has put communication for lawn care professional to discuss dialysis options with the patient, to see if she would like to go to [facility] and come t o [facility] or would like to go back to [place] and then come to [facility] until she is in [place]. Once she does return back to [place], it would clearly then be c loser for her to come to [facility]. Alternatively, if she goes to [facility] clearly, it w ill be closer for her to come to [facility]. Dialysis orders are placed for today. 3 hours of dialysis with a 300 blood flow, 600 dialysis flow, 2000 units of heparin. The patient is clinically looking stable. Volume status is improved. We will remove about 1200 cc of fluid again today. Nex t dialysis plan for Thursday. The patient will likely be on dialysis regimen with 3 days a week dep ending on her placement. She may be on Thursday, Thursday, Thursday schedule or alternatively if she co mes to [place] maybe on a Thursday, , Thursday schedule. /JODEE Voice ID: [id number] Report ID: [id number]
[2020-12-10] MEDS: EPOETIN ALFA 4,000 UNIT/ML VIAL SQ SCH (16:42)
[2020-12-10] MEDS ORDERED: DAPTOmycin 800 MG in NA CHLORIDE 0.9% 100 ML IVPB SCH (17:00)
[2020-12-10] MEDS: MORPHINE 2 MG/ML SYR IV PRN (17:51)
--- NOTE | 2020-12-10 20:18 | OP ---
Date of Procedure: 12/07/2020 Surgeon: Enrique Case MD Preoperative Diagnosis: End-stage renal disease. Postoperative Diagnosis: End-stage renal disease. Procedures: 1.Placement of a tunneled hemodialysis catheter. 2.Interpretation of fluoroscopy. 3.Right neck ultrasound. Anesthesia: General plus local. Implant: HemoSplit tunneled catheter. Indications: This is the case of a female in need of dialysis. I was requested to put a hemodialysi s catheter on the patient. The benefits, alternatives, and risks were fully explained to the patient and family which include, but not limited to infection, bleeding, damage to adjacent structures, ane sthesia complication, hemothorax, pneumothorax, DVTs, pulmonary emboli, pericarditis, endocarditis, M I and even . She also understands this may not relieve any symptoms. She might need more than one surgical intervention. She also understands the need to make a more permanent access if she cont inues dialysis and remove this temporary access most of the times done in [place]. She understood an d signed a consent. Procedure In Detail: The patient was brought to the operating room, placed in supine position. Anes thesia was done without complication. Right neck was prepped and draped in a sterile fashion includi ng the right chest. Patient was placed in prone position. Right neck ultrasound was done to visuali ze the jugular vein. Internal jugular vein was viable and compressible. During that we placed then an 18-gauge needle in the right internal jugular vein at the first attempt. The guidewire was passed through the superior vena cava using fluoroscopy. Needle was removed. We proceeded to make an inci surya in the right upper chest, tunneled the catheter underneath the skin, and subcutaneous tissue to meet that new incision in the right neck region. With the use of fluoroscopy, we passed several dila tors and the guidewire until we have the introducer sheath. Then the guidewire was removed. The cat heter was placed through the introducer. Introducer sheath was peel off. Excellent backflow and inf low. No bleeding. The skin was closed in a subcuticular fashion with 3-0 chromic and then the magda ter was secured in place with 3-0 nylon. The patient was brought back to normal position. The patie nt tolerated the procedure well and a chest x-ray was ordered stat and patient was sent to [facility] i n stable condition. The catheter was flushed with heparinized solution and the chest x-ray was order ed stat when the patient went to Recovery. DINORA/JODEE Voice ID: [id number] Report ID: [id number]
[2020-12-10] MEDS: TRAZODONE 50 MG TABLET PO SCH (21:22)
[2020-12-10] MEDS: ATORVASTATIN 20 MG TAB PO SCH (21:23)
[2020-12-11 06:06] LABS: Magnesium 1.8 mg/dL (1.8-2.4); Potassium 3.7 mmol/L (3.5-5.1)
--- NOTE | 2020-12-11 06:09 | P.PN ---
Subjective Date of Service: 12/11/20 Primary Care Provider: care home doctor, nephrology Dr. Hickman Chief Complaint: ESRD/hyperkalemia Physical Examination - Vital Signs Temperature: 97.6 F Blood Pressure: 144/66 Pulse: 69 Respirations: 19 Pulse Ox (%): 94 Assessment & Plan Physician Review Additional Text: Physical Exam: General: Alert, In no apparent distress, Oriented x3, Obese, Other (Deaf/mute) patient able to communicate with communicating board and smart phone. HEENT: Atraumatic, Normocephalic, PERRLA Neck: Supple Respiratory: Clear Cardiovascular: No edema, Normal S1 S2 Capillary refill: <2 Seconds Gastrointestinal: Normal bowel sounds, No tenderness, No masses, No rebound Musculoskeletal: No contractures, No erythema, No tenderness Integumentary: No tenderness/swelling, No erythema, No warmth Neurological: Normal tone, Sensation intact Urinary: Hickman catheter Impression: Acute on chronic kidney disease stage V now with end-stage renal disease on hemodialysis with hyperkalemia UTI, urine culture positive for E. coliESBL, multidrug-resistant along with vancomycin-resistant Enterococcus, with history of recurrent UTI Diabetes mellitus type 2 Chronic diastolic congestive heart failure Diarrhea with history of C. diff Hypertension Hyperlipidemia Deaf/mute Obesity ALL/anemia of chronic disease Chronic pain Depression with anxiety Plan: Acute on chronic kidney disease stage V now with end-stage renal disease on hemodialysis with hyperkalemia: Patient is doing well at this time. No complaints noted. Continue with dialysis as directed by nephrology. Patient with multidrug-resistant UTIE. coliESBL. Patient also with vancomycin resistant Enterococcus. Case discussed in detail with infectious disease. Infectious disease also recommends to start Zyvox. Case also discussed with pharmacy. Was able to secure Vabomereantibiotic from [place]. Continue treatment for both for at least 7 days. Will plan to recheck urine culture after second dose given. This will likely be given every 48 hours. Pharmacy to adjust and monitor. Nephrology spoke to patient about long-term/skilled placement in [facility]. We will pursue this as the patient is from [place]. UTI, urine culture positive for E. coliESBL along with vancomycin resistant Enterococcus, multidrug-resistant with history of recurrent UTI: As mentioned above patient will continue Vabomere. Zyvox to be added. Case discussed in detail with infectious disease. Continue treatment for 7 days. Recheck urine culture likely in the next 3 to 4 days. Diabetes mellitus type 2: Continue Accu-Cheks. Sliding scale in place. Chronic diastolic congestive heart failure: Appears stable. Monitor volume status closely. Diarrhea with history of C. diff: Cultures obtained. Will monitor closely. Overall improved. Continue with lactobacillus. Hypertension: Continue home medicationcarvedilol 25 mg 1 pill twice daily and hydralazine 25 mg 1 pill 3 times a day Hyperlipidemia: Continue home medicationLipitor 20 mg daily Deaf/mute : Communicates best with writing. Obesity: Address lifestyle changes. ALL/anemia of chronic disease: Overall stable. Maintain hemoglobin above 7.5. Chronic pain: Continue with hydrocodone. Pain appears to be stable. Continue gabapentin 100 mg 3 times a day. Depression with anxiety: Continue Zoloft 100 mg daily DVT Prophylaxis: Heparin Code Status: Full code Advanced Care planning-30 min: Back to care home at discharge. Will need to make arrangements for outpatient dialysis and continued IV antibiotic therapy for at least 7 days with either long-term or dialysis. Otherwise patient will need to remain for the duration of treatment for her UTI. Nephrology spoke to the patient in detail about the possibility of choosing a long-term closer to [facility]. Will discuss with executive secretary social welfare and family. Patient in agreement.
[2020-12-11] MEDS: HYDRALAZINE HCL 25 MG TABLET PO SCH ×2 (07:26→13:00)
[2020-12-11] MEDS: carvediloL 25 MG TAB PO SCH (07:26)
[2020-12-11] MEDS: INSULIN -REGULAR HUMAN 50 UNIT/0.5 ML ML SQ SCH ×2 (07:30→11:30)
[2020-12-11] MEDS: ASPIRIN 81 MG CHEWABLE TABLET PO SCH (07:34)
[2020-12-11] MEDS: CALCITROL 0.25 MCG CAP PO SCH (07:34)
[2020-12-11] MEDS: SODIUM BICARB 325 MG TAB PO SCH ×2 (07:34→12:11)
[2020-12-11] MEDS: CHOLESTYRAMINE/ASP 4 GM/PKT PO SCH (07:35)
[2020-12-11] MEDS: CALCIUM ACETATE 667 MG TAB PO SCH ×2 (07:35→11:34)
[2020-12-11] MEDS: VITAMIN D 5,000 UNIT CAP PO SCH (07:35)
[2020-12-11] MEDS: LACTOBACILLUS/ACIDOPHILUS TAB PO SCH (07:35)
[2020-12-11] MEDS: GABAPENTIN 100 MG CAP PO SCH ×2 (07:35→13:00)
[2020-12-11] MEDS: SERTRALINE HCL 100 MG TAB PO SCH (07:36)
[2020-12-11] MEDS: ASCORBIC ACID 500 MG TABLET PO SCH (07:36)
[2020-12-11] MEDS: HYDROCODONE/APAP 7.5/325 MG TAB PO PRN (07:36)
[2020-12-11] MEDS: HEPARIN 5000 UNIT/ML 1 ML VIAL SQ SCH (07:36)
[2020-12-11] MEDS: ZINC SULFATE 220 MG CAP PO SCH (07:37)
[2020-12-11] MEDS: NA CHLORIDE 0.9% IV SCH (09:00)
[2020-12-11] MEDS: MEROPENEM VABORBACTAM IV SCH (09:00)
[2020-12-11] MEDS: MORPHINE 2 MG/ML SYR IV PRN ×2 (11:45→15:00)
[2020-12-11 12:03] VITALS: BP 144/66; TEMP 97.6
--- NOTE | 2020-12-11 12:04 | P.DS ---
Admission Date: 12/06/20 Discharge Date: 12/11/20 Primary Care Provider: correction doctor, nephrology Dr. Hickman Disposition: ROUTINE DISCHARGE Discharge Condition: GOOD Reason for Admission: ESRD/hyperkalemia Consultations: Infectious disease-Dr. Pollock Nephrology-Dr. Mcnamara Procedures: Medical problem list: Acute on chronic kidney disease stage V now with end-stage renal disease on hemodialysis with hyperkalemia UTI, urine culture positive for E. coliESBL, multidrug-resistant along with vancomycin-resistant Enterococcus, with history of recurrent UTI Diabetes mellitus type 2 Chronic diastolic congestive heart failure Diarrhea with history of C. diff Hypertension Hyperlipidemia Deaf/mute Obesity ALL/anemia of chronic disease Chronic pain Depression with anxiety Brief History of Present Illness: 70 year old female with history of chronic diastolic congestive heart failure, CKD 5, hypertension, hyperlipidemia, id a/anemia chronic disease presents emergency department for abnormal labs. Patient was discharged to halfway facility on 11/16/2020, at discharge creatinine was 4.34 potassium 4.6 and GFR was 10. Patient had labs done today at senior living which revealed creatinine of 8 and potassium of 6.0, GFR 5, these labs were repeated in the emergency department, sodium 137 potassium 5.9, chloride 110 carbon dioxide 17 BUN 58 creatinine 8.19 GFR 5 troponin 0.09 BNP 5626 hemoglobin 10.6 hematocrit 33.0. Patient is also deaf/mute, communicated with patient via writing and she was amendable to dialysis if this was needed. ED provider wishes to admit for acute on chronic ESRD with hyperkalemia. EKG without changes. Patient was given Kayexalate, calcium, Lasix, insulin/dextrose in the ER. Patient was admitted for further evaluation and treatment. Hospital Course: Patient was admitted for acute on chronic kidney disease stage V. Renal function was compromised. Patient was seen and evaluated by nephrology. Patient now with end-stage renal disease requiring dialysis. This was discussed in detail with patient and family. Patient agreed to proceed with hemodialysis. Hemodialysis catheter was placed. Patient started on dialysis with improvement. Her hospitalization was further complicated with complex UTI with multidrug-resistant E. coliESBL and vancomycin-resistant Enterococcus. Patient required IV antibiotic therapyVabomere and Zyvox. This was recommended by infectious disease. Due to her current medical condition patient was evaluated for long-term acute care facility placement to continue with dialysis and antibiotic therapy. Patient agreed. Patient was also accepted. At the [facility] the patient will continue with dialysis as directed by nephrology. Arrangements for outpatient dialysis will need to be arranged after treatment. The patient will return to [facility] with arrangements for outpatient dialysis in [place]. Currently at discharge patient will continue with vitamin D 5000 units daily, Calcitrol 0.5 mcg daily, and PhosLo 667 mg 1 pill 3 times a day and sodium bicarbonate 650 mg 1 pill 4 times a day. As for her complex UTI multidrug-resistant E. coliESBL and vancomycin resistant Enterococcus, the patient will continue with IV Vabomere and Zyvox. Infectious disease plans to change medication accordingly there at the [facility]. Recheck urine culture can be done near completion of her 7-day treatment. If unremarkable patient may not require any further antibiotic treatment. Patient can return back to the senior living. Strict UTI prevention and care will need to be enforced at the senior living. This will be continued currently at the [facility]. Patient with diabetes mellitus type 2. Currently on Accu-Cheks and insulin sliding scale. This can be continued at the [facility]. Patient with chronic diastolic CHF. Volume status appears stable. Continue to monitor this closely. Patient previously on Bumex. This has been discontinued. Patient with mild diarrhea improved. Patient with history of C. difficile colitis. Patient will continue with lactobacillus twice daily, cholestyramine 4 g daily, Lomotil as needed for diarrhea. This needs to be monitored closely since the patient will be on multiple medicationsantibiotics. Patient with hypertension. Overall stable. Medications adjusted. Patient will no longer take losartan. Norvasc was added. At discharge, patient will continue with carvedilol 25 mg 1 pill twice daily, Norvasc 2.5 mg daily, and hydralazine 25 mg 1 pill 3 times a day. Patient may also continue with aspirin 81 mg daily. Patient with hyperlipidemia. At discharge patient will continue with Lipitor 20 mg daily. Patient is deaf and mute. She communicates best with writing. Patient with anemia chronic disease. Overall stable. Maintain hemoglobin above 7.5. Patient will continue with Retacrit subcu every Thursday, Thursday and Thursday. Adjustments to be made by nephrology. Patient with chronic pain. Patient may continue with gabapentin 100 mg 3 times a day. Patient also takes hydrocodone. This can be continued and adjusted accordingly. Patient with depression with anxiety. At discharge will continue with Zoloft 100 mg daily and trazodone 100 mg at bedtime. Vital Signs/Physical Exam: Temp Pulse Resp BP Pulse Ox 97.6 F 69 19 144/66 H 94 12/11/20 12:03 12/11/20 12:03 12/11/20 12:03 12/11/20 12:03 12/11/20 12:03 General: Alert, Cooperative HEENT: Atraumatic Neck: Supple Respiratory: Clear to auscultation bilaterally, Normal air movement Cardiovascular: Normal pulses, Regular rate/rhythm Gastrointestinal: Normal bowel sounds, No tenderness, No masses, No rebound, No guarding Musculoskeletal: No erythema, No tenderness, No warmth Integumentary: No tenderness/swelling, No erythema, No warmth, No cyanosis Neurological: Normal strength at 5/5 x4 extr, Normal tone, Normal affect, Abnormal speech (Patient is deaf and mute but communicates with board and smart phone) Laboratory Data at Discharge: WBC 9.70 K/uL (4.3-10.9) D 12/10/20 08:43 Hgb 10.5 g/dL (12.0-15.0) L 12/10/20 08:43 Hct 30.8 % (36.0-45.0) L 12/10/20 08:43 Plt Count 253 K/uL (152-406) 12/10/20 08:43 PT 15.1 SECONDS (9.5-12.5) H 12/06/20 00:00 INR 1.31 12/06/20 00:00 APTT 36.8 SECONDS (24.3-36.9) 12/06/20 08:32 Sodium 141 mmol/L (136-145) 12/11/20 05:17 Potassium 3.7 mmol/L (3.5-5.1) 12/11/20 05:17 BUN 25 mg/dL (7-18) H 12/11/20 05:17 Creatinine 4.34 mg/dL (0.55-1.3) H D 12/11/20 05:17 Glucose 93 mg/dL (74-106) 12/11/20 05:17 Magnesium 1.8 mg/dL (1.8-2.4) 12/11/20 05:17 Total Bilirubin 0.2 mg/dL (0.2-1.0) 12/09/20 05:49 AST 13 U/L (15-37) L 12/09/20 05:49 ALT 9 U/L (12-78) L 12/09/20 05:49 Alkaline Phosphatase 97 U/L (45-117) 12/09/20 05:49 Troponin I 0.12 ng/mL (0.0-0.045) H 12/06/20 06:01 Troponin I 0.12 ng/mL (0.0-0.045) H 12/06/20 06:01 Triglycerides 81 mg/dL (<150) 12/07/20 05:51 Cholesterol 76 mg/dL (<200) 12/07/20 05:51 HDL Cholesterol 38 mg/dL (40-60) L 12/07/20 05:51 Cholesterol/HDL Ratio 2.00 12/07/20 05:51 Home Medications: Atorvastatin Calcium [Lipitor*] 20 mg PO BEDTIME 01/28/20 Carvedilol [Coreg] 25 mg PO BID 01/28/20 Ascorbic Acid [Vitamin C*] 500 mg PO DAILY 11/12/20 Aspirin [Sean Chewable Aspirin] 81 mg PO DAILY 11/12/20 calcitrioL [Rocaltrol] 0.5 mcg PO DAILY 11/12/20 Apixaban [Eliquis *] 2.5 mg PO BID 11/13/20 Cholecalciferol (Vitamin D3) [Vitamin D 5,000 IU Cap*] 5,000 unit PO DAILY 11/13/20 Hydralazine HCl 25 mg PO TID 11/13/20 Insulin Regular, Human [Novolin R Flexpen] See Protocol SQ BID 11/13/20 Sertraline HCl 100 mg PO DAILY 11/13/20 Trazodone HCl 100 mg PO BEDTIME 11/13/20 Zinc Sulfate [Zinc Sulfate*] 220 mg PO DAILY 11/13/20 Calcium Acetate [Phoslo*] 667 mg PO TIDWM tab 11/15/20 Diphenox/Atropine [Lomotil*] 1 tab PO TIDP PRN #30 tab 11/15/20 Epoetin Juan Jose-Epbx [Retacrit] 4,000 unit SQ M,W,F vial 11/15/20 Gabapentin [Neurontin*] 100 mg PO BEDTIME cap 11/15/20 Na Bicarb Tab [Sodium Bicarb 325 MG Tab*] 650 mg PO QID tab 11/15/20 Cholestyramine (with Sugar) [Cholestyramine Packet] 4 gm PO DAILY 12/06/20 Physician Discharge Instructions: Patient was admitted for acute on chronic kidney disease stage V. Renal function was compromised. Patient was seen and evaluated by nephrology. Patient now with end-stage renal disease requiring dialysis. This was discussed in detail with patient and family. Patient agreed to proceed with hemodialysis. Hemodialysis catheter was placed. Patient started on dialysis with improvement. Her hospitalization was further complicated with complex UTI with multidrug-resistant E. coliESBL and vancomycin-resistant Enterococcus. Patient required IV antibiotic therapyVabomere and Zyvox. This was recommended by infectious disease. Due to her current medical condition patient was evaluated for [facility] facility placement to continue with dialysis and antibiotic therapy. Patient agreed. Patient was also accepted. At the [facility] facility the patient will continue with dialysis as directed by nephrology. Arrangements for outpatient dialysis will need to be arranged after treatment. The patient will return to [facility] with arrangements for outpatient dialysis in [place]. Currently at discharge patient will continue with vitamin D 5000 units daily, Calcitrol 0.5 mcg daily, and PhosLo 667 mg 1 pill 3 times a day and sodium bicarbonate 650 mg 1 pill 4 times a day. As for her complex UTI multidrug-resistant E. coliESBL and vancomycin resistant Enterococcus, the patient will continue with IV Vabomere and Zyvox. Infectious disease plans to change medication accordingly there at the [facility] facility. Recheck urine culture can be done near completion of her 7-day treatment. If unremarkable patient may not require any further antibiotic treatment. Patient can return back to the senior living. Strict UTI prevention and care will need to be enforced at the senior living. This will be continued currently at the [facility] facility. Patient with diabetes mellitus type 2. Currently on Accu-Cheks and insulin sliding scale. This can be continued at the [facility] facility. Patient with chronic diastolic CHF. Volume status appears stable. Continue to monitor this closely. Patient previously on Bumex. This has been discontinued. Patient with mild diarrhea improved. Patient with history of C. difficile colitis. Patient will continue with lactobacillus twice daily, cholestyramine 4 g daily, Lomotil as needed for diarrhea. This needs to be monitored closely since the patient will be on multiple medicationsantibiotics. Patient with hypertension. Overall stable. Medications adjusted. Patient will no longer take losartan. Norvasc was added. At discharge, patient will continue with carvedilol 25 mg 1 pill twice daily, Norvasc 2.5 mg daily, and hydralazine 25 mg 1 pill 3 times a day. Patient may also continue with aspirin 81 mg daily. Patient with hyperlipidemia. At discharge patient will continue with Lipitor 20 mg daily. Patient is deaf and mute. She communicates best with writing. Patient with anemia chronic disease. Overall stable. Maintain hemoglobin above 7.5. Patient will continue with Retacrit subcu every Thursday, Thursday and Thursday. Adjustments to be made by nephrology. Patient with chronic pain. Patient may continue with gabapentin 100 mg 3 times a day. Patient also takes hydrocodone. This can be continued and adjusted accordingly. Patient with depression with anxiety. At discharge will continue with Zoloft 100 mg daily and trazodone 100 mg at bedtime. Diet: ADA Activity: Fall precautions Followup: NONE,NONE [Primary Care Provider] - Time spent managing pt's care (in minutes): 55
--- NOTE | 2020-12-11 13:00 | PN ---
The patient seen in room 201 at [facility]. Subjective: The patient is alert, awake, able to communicate with the whiteboard. The Ary Melgoza nurse practitioner is also in the room with me. The patient is afebrile. Objective: Vitals signs: Stable. Blood pressure has been on the higher side between 140 to 170 sys tolic. Lungs: Clear to auscultation. Abdomen: Soft. Extremities: Reveal trace edema. Heart: Sounds are regular. The patient denies any difficulty with her breathing. She says she feel s well compared to yesterday. Laboratory Data: Reviewed. The patient's lab shows sodium 141, potassium 3.7, chloride 106, bicarb 29, BUN 25, creatinine 4.34, glucose of 93, calcium 7.3, magnesium 1.8. Assessment And Mckeon: 1.End-stage renal disease. The patient with significant chronic kidney disease for some time, has h ad extended-spectrum beta-lactamase, also with vancomycin-resistant Enterococcus now. Appreciate Inf ectious Disease guidance with antibiotics. Seems like the patient is going to need IV antibiotics fo r some time. In this case, the patient is going to need to be in a facility where she can receive th juan. If this cannot be done at the [facility], the patient will likely need to go to a LTAC where she can get the antibiotics. volunteer coordinator aware. Primary care team has been working on discharg e planning. Once plan for antibiotics is confirmed, depending on where the patient is going, dialysi s can be planned. If the patient is going to [facility], we can follow her there and dialyze her at the facility. If the patient is able to get antibiotics at [facility] and chooses to retur n back to the [facility] that she was at, she can be placed at [facility] it. If she later wants to be closer to her home or returns back to her home in [place], she ca n then go to [facility] which is located in [facility], only few miles away from her home. W e will let the patient and family decide as to what the long-term goals are, but in the short run, th e patient is going to need antibiotic course to be completed guided by Infectious Disease and the bianca lysis planning will be according to where the patient is getting her antibiotics and then her acute m anagement of the extended-spectrum beta-lactamase, vancomycin-resistant urinary tract infection. 2.Acute kidney injury/end-stage renal disease. Continue dialysis Thursday, Thursday, Thursday. Electr olytes and volume status seems to have improved and stable at this point. No acute need for dialysis today. 3.Hypertension. The patient continues to have blood pressure on the high range with systolic blood pressure in the 140 to 170 range. Start low-dose amlodipine and monitor. Adjust medications as need ed. Also, volume correction with dialysis will improve the blood pressure further. /JODEE Voice ID: [id number] Report ID: [id number]
--- NOTE | 2020-12-11 13:20 | P.PN ---
Subjective Date of Service: 12/11/20 Primary Care Provider: retirement doctor, nephrology Dr. Hickman Chief Complaint: ESRD/hyperkalemia Patient seen examined at bedside, tolerating antibiotics well. No nausea vomiting or diarrhea. Patient is on probiotic. Review of Systems 10-point ROS is otherwise unremarkable Physical Examination - Vital Signs Temperature: 97.6 F Blood Pressure: 144/66 Pulse: 69 Respirations: 19 Pulse Ox (%): 94 - Physical Exam General: In no apparent distress HEENT: Atraumatic, Normocephalic Neck: Supple, 2+ carotid pulse no bruit Respiratory: Clear to auscultation bilaterally, Normal air movement Cardiovascular: No edema, Normal pulses Gastrointestinal: Normal bowel sounds Integumentary: No rashes, No breakdown, No significant lesion - Studies Laboratory Last Values WBC 8.10 K/uL (4.3-10.9) 12/06/20 00:00 RBC 3.56 M/uL (3.86-4.86) L 12/06/20 00:00 Hgb 10.6 g/dL (12.0-15.0) L 12/06/20 00:00 Hct 33.0 % (36.0-45.0) L 12/06/20 00:00 MCV 92.8 fL (80-100) 12/06/20 00:00 MCH 29.8 pg (27.0-35.0) 12/06/20 00:00 MCHC 32.1 g/dL (32.0-36.0) 12/06/20 00:00 RDW 15.5 % (12.1-15.2) H 12/06/20 00:00 Plt Count 235 K/uL (152-406) 12/06/20 00:00 MPV 8.0 fL (7.6-11.3) 12/06/20 00:00 Neutrophils % 65.4 % (41.7-73.7) 12/06/20 00:00 Lymphocytes % 21.6 % (15.3-44.8) 12/06/20 00:00 Monocytes % 9.2 % (3.3-12.3) 12/06/20 00:00 Eosinophils % 3.2 % (0-4.4) 12/06/20 00:00 Basophils % 0.6 % (0-1.3) 12/06/20 00:00 Absolute Neutrophils 5.3 K/uL (1.8-8.0) 12/06/20 00:00 Absolute Lymphocytes 1.7 K/uL (0.7-4.9) 12/06/20 00:00 Absolute Monocytes 0.7 K/uL (0.1-1.3) 12/06/20 00:00 Absolute Eosinophils 0.3 K/uL (0-0.5) 12/06/20 00:00 Absolute Basophils 0.0 K/uL (0-0.5) 12/06/20 00:00 PT 15.1 SECONDS (9.5-12.5) H 12/06/20 00:00 INR 1.31 12/06/20 00:00 Sodium 137 mmol/L (136-145) 12/06/20 00:00 Potassium 5.9 mmol/L (3.5-5.1) H* 12/06/20 00:00 Chloride 110 mmol/L (98-107) H 12/06/20 00:00 Carbon Dioxide 17 mmol/L (21-32) L 12/06/20 00:00 BUN 58 mg/dL (7-18) H 12/06/20 00:00 Creatinine 8.19 mg/dL (0.55-1.3) H* 12/06/20 00:00 Estimated GFR 5 mL/min (=/>90) L 12/06/20 00:00 Glucose 88 mg/dL (74-106) 12/06/20 00:00 Calcium 7.4 mg/dL (8.5-10.1) L 12/06/20 00:00 Magnesium 1.8 mg/dL (1.8-2.4) 12/06/20 00:00 Total Bilirubin 0.2 mg/dL (0.2-1.0) 12/06/20 00:00 Direct Bilirubin < 0.1 mg/dL (0-0.2) 12/06/20 00:00 AST 13 U/L (15-37) L 12/06/20 00:00 ALT 11 U/L (12-78) L 12/06/20 00:00 Alkaline Phosphatase 115 U/L (45-117) 12/06/20 00:00 Rapid Troponin I 0.09 ng/mL (0.0-0.045) H 12/06/20 00:00 NT-Pro-B Natriuret Pep 5626 pg/mL (<125) H 12/06/20 00:00 Serum Total Protein 4.5 g/dL (6.4-8.2) L 12/06/20 00:00 Albumin 1.7 g/dL (3.4-5.0) L 12/06/20 00:00 Globulin 2.8 g/dL (2.3-3.5) 12/06/20 00:00 Albumin/Globulin Ratio 0.6 (1.1-1.8) L 12/06/20 00:00 SARS-CoV-2 RNA (RT-PCR) Negative (NEGATIVE) 12/06/20 00:13 Assessment And Plan - Plan Assessment: -multi-drug resistant urinary tract infection next 1-anemia on -ESRD on HD -diabetes Plan: -patient presents from senior care with urinary tract infection: Polymicrobial multi-drug resistant-growing E.coli ESBL. Enterococcus faecium VRE. ESBL strain is resistant to with meropenem. Patient started on vabomere. Daptomycin also started to cover VRE. -continue supportive care and monitor for signs infection -total antibiotic duration for 7 days -Patient on strict contact isolation -plan of care discussed with Dr. Pollock
[2020-12-11 15:02] VITALS: O2SAT 94
--- NOTE | 2020-12-11 17:34 | P.PN ---
Date of Service: 12/08/20 Vital Signs Temp Pulse Resp BP Pulse Ox 97.6 F 69 19 144/66 H 94 12/11/20 13:32 12/11/20 13:32 12/11/20 15:30 12/11/20 13:32 12/11/20 15:30 Assessment/ Plan: Nephrology Feeling better today. CPS stable without CP or SOB. Persistent edema. No acute events overnight Vitals, medications, blood work and imaging reviewed in the chart. General: In no apparent distress, Oriented x3, Cooperative Neck: Supple Respiratory: Diminished Cardiovascular: Regular rate/rhythm, Edema Gastrointestinal: Soft and benign, Non-distended Musculoskeletal: No clubbing, No contractures Integumentary: No rashes, No cyanosis Neurological: Abnormal speech Laboratory Data (last 24 hrs) 12/06/20 00:00: PT 15.1 H, INR 1.31 12/06/20 00:00: WBC 8.10, Hgb 10.6 L, Hct 33.0 L, Plt Count 235 12/06/20 00:00: Sodium 137, Potassium 5.9 H*, BUN 58 H, Creatinine 8.19 H*, Glucose 88, Magnesium 1.8, Total Bilirubin 0.2, AST 13 L, ALT 11 L, Alkaline Phosphatase 115 Imagings Data: EXAM DESCRIPTION: RAD - Chest Single View - 12/06/2020 12:27 am CLINICAL HISTORY: elevated potassium COMPARISON: CT chest November 20, portable chest November 12 TECHNIQUE: AP portable chest image was obtained 12/06/2020 12:27 am . FINDINGS: Lung volumes are low. No dense consolidation in either lung field. Bilateral pleural effusions are present, larger on the left with left base atelectasis. Heart and vasculature are normal. No pneumothorax. No acute bony abnormality seen. No acute aortic findings suspected. IMPRESSION: Left greater than right pleural effusions with left lung base atelectasis. Conclusions/Impression: ESRD -First HD ordered for today 12-07-20 -No NSAIDs -Hepatitis panel pending -Arrange for dialysis placement Hyperkalemia -Renal diet -HD today -Kayexalate 15g prn Acidosis -HD today -Continue oral bicarb HTN with CKD/ CHF -Continue Coreg Diastolic CHF, A/C -Low sodium diet -HD with UF today Moderate to severe malnutrition -Encourage nutrition/ Renal diet -Give IV Albumin with HD Anemia in CKD -Continue Retacrit TIW FLORENCIO/ Secondary HyperPTH -Continue Phoslo -Continue Vitamin D Acute GNR Cystitis -Agree with abx changes. Case reviewed with Dr. Hale. Late entry due to computer access problems.
[2020-12-12] MEDS ORDERED: AMLODIPINE 2.5 MG TAB PO SCH (09:00)
== END 2020-12-11 15:50 | DRG 291 ==
LOC: ER 23:48 → ERHOLD 12-06 01:18 → 2ND 12-06 02:02
PROVIDERS: ADMIT Family Medicine; ATTEND Family Medicine
PROC: 02HV33Z Insertion of Infusion Device into Superior Vena Cava, Percutaneous Approach (ICD-10-PCS; 2020-12-07)
PROC: 5A1D70Z Performance of Urinary Filtration, Intermittent, Less than 6 Hours Per Day (ICD-10-PCS; 2020-12-07)
PROC: 0JH60XZ Insertion of Tunneled Vascular Access Device into Chest Subcutaneous Tissue and Fascia, Open Approach (ICD-10-PCS; principal; 2020-12-07 11:30)
PROC: 5A1D70Z Performance of Urinary Filtration, Intermittent, Less than 6 Hours Per Day (ICD-10-PCS; 2020-12-08)
PROC: 5A1D70Z Performance of Urinary Filtration, Intermittent, Less than 6 Hours Per Day (ICD-10-PCS; 2020-12-10)
DX: I13.2 Hypertensive heart and chronic kidney disease with heart failure and with stage 5 chronic kidney disease, or end stage renal disease (principal); N18.6 End stage renal disease; E43 Unspecified severe protein-calorie malnutrition; I50.32 Chronic diastolic (congestive) heart failure; N17.9 Acute kidney failure, unspecified; N39.0 Urinary tract infection, site not specified; Z16.12 Extended spectrum beta lactamase (ESBL) resistance; Z16.24 Resistance to multiple antibiotics; Z16.21 Resistance to vancomycin; E87.2 Acidosis; E11.22 Type 2 diabetes mellitus with diabetic chronic kidney disease; E87.5 Hyperkalemia; B96.20 Unspecified Escherichia coli [E. coli] as the cause of diseases classified elsewhere; B95.2 Enterococcus as the cause of diseases classified elsewhere; R19.7 Diarrhea, unspecified; E78.5 Hyperlipidemia, unspecified; H91.3 Deaf nonspeaking, not elsewhere classified; E66.9 Obesity, unspecified; Z68.35 Body mass index [BMI] 35.0-35.9, adult; D50.9 Iron deficiency anemia, unspecified; G89.29 Other chronic pain; F41.8 Other specified anxiety disorders; Z20.822 Contact with and (suspected) exposure to COVID-19
CPT/HCPCS: 36415; 71045; 76000; 80048; 80053; 80061; 80076; 81001; 81015; 82947; 83735; 83880; 84439; 84443; 84484; 85025; 85610; 85730; 86317; 86704; 86803; 87077; 87086; 87088; 87186; 87340; 90935; 93005; 96365; 96375; 97110; 97112; 97161; 97530; 99285; C1752; J0610; J0690; J0696; J0878; J0885; J1100; J1644; J1940; J2250; J2270; J2405; J2704; J3010; J7030; J7040; P9047; U0003

== ENCOUNTER 2021-03-12 14:03 | Inpatient (IN) | payer OTHER ==
[2021-03-12 14:43] LABS: Absolute Lymphocytes (CBC) 1.3 K/uL (0.7-4.9); Basophils % 0.2 % (0-1.3); Hematocrit 28.7 % (36.0-45.0); Lymphocytes % 17.7 % (15.3-44.8)
[2021-03-12 14:44] LABS: Protime INR 1.45
[2021-03-12 14:58] LABS: Albumin 1.9 g/dL (3.4-5.0); Bilirubin Direct 0.2 mg/dL (0-0.2); Bilirubin Total 0.3 mg/dL (0.2-1.0); Magnesium 1.7 mg/dL (1.8-2.4); Potassium 4.3 mmol/L (3.5-5.1); Troponin (Emerg Dept Use Only) 0.02 ng/mL (0.0-0.045)
[2021-03-12] MEDS ORDERED: NA CHLORIDE 0.9% 500 ML ONE ×4 (15:48→20:41)
--- NOTE | 2021-03-12 16:06 | RAD REPORT ---
EXAM DESCRIPTION: RAD - Chest Single View - 03/12/2021 3:34 pm CLINICAL HISTORY: ams COMPARISON: Chest Single View dated 12/07/2020; Chest Single View dated 12/06/2020; Chest Single View da dahiana 11/12/2020; Chest Single View dated 09/17/2020; Chest Abd Pelvis Wo Con dated 11/20/2020 FINDINGS: Lines: Right IJ approach dialysis catheter with tip overlying the superior cavoatrial junc tion. Lungs: No evidence of edema or pneumonia. Pleural: There is likely a small layering left pleural effusion. Cardiac: Similar cardiomegaly. Bones: No acute fractures. Other: IMPRESSION: Suspect small layering left pleural effusion. Otherwise, the lungs are clear.
--- NOTE | 2021-03-12 17:35 | EDPHYS ---
Physician Documentation [facility] Name: Delmi Schultz Age: 70 yrs Sex: Female : 1950 Arrival Date: 03/12/2021 Time: 14:04 Bed 6 Private MD: ED Physician Jovanny Galindo HPI: 03/15 18:31 This 70 yrs old Female presents to ER via EMS with complaints of Neck Pain. kdr 18:31 Generalized pain especially left-sided buttock. Earlier today. Onset: The kdr symptoms/episode began/occurred suddenly, today. Severity of symptoms: At their worst the symptoms were mild moderate just prior to arrival, in the emergency department the symptoms are unchanged. It is unknown whether or not the patient has had similar symptoms in the past. Patient states she hurts all over but especially her bottom. She has no focal deficit. The patient is deaf and mute and is only able to communicate by writing notes. Patient was being transported back to [facility] from dialysis when she started being to crying complaining of left side pain and that her buttocks hurt. Additionally, dialysis center had sent her back to her home facility previously today when she was noted to be hypotensive with a systolic pressure in the 70s. - Immunization history:: Adult Immunizations up to date, Client reports receiving the 2nd dose of the Covid vaccine. - Social history:: Smoking status: unknown. ROS: 18:31 Constitutional: Negative for fever, chills, and weight loss, Eyes: Negative for injury, kdr pain, redness, and discharge, Neck: Negative for injury, pain, and swelling, Cardiovascular: Negative for chest pain, palpitations, and edema, Respiratory: Negative for shortness of breath, cough, wheezing, and pleuritic chest pain, Abdomen/GI: Negative for abdominal pain, nausea, vomiting, diarrhea, and constipation, Back: Negative for injury and pain, MS/Extremity: Negative for injury and deformity, Skin: Negative for injury, rash, and discoloration, Psych: Negative for depression, anxiety, suicide ideation, homicidal ideation, and hallucinations, Allergy/Immunology: Negative for hives, rash, and allergies. 18:31 Neuro: Positive for The patient is unable to speak and has limited range of motion of her extremities. Exam: 18:31 Constitutional: This is a well developed, well nourished patient who is awake, alert, kdr and in no acute distress. Head/Face: Normocephalic, atraumatic. Eyes: Pupils equal round and reactive to light, extra-ocular motions intact. Lids and lashes normal. Conjunctiva and sclera are non-icteric and not injected. Cornea within normal limits. Periorbital areas with no swelling, redness, or edema. Neck: Trachea midline, no thyromegaly or masses palpated, and no cervical lymphadenopathy. Supple, full range of motion without nuchal rigidity, or vertebral point tenderness. No Meningismus. Chest/axilla: Normal chest wall appearance and motion. Nontender with no deformity. No lesions are appreciated. Cardiovascular: Regular rate and rhythm with a normal S1 and S2. No gallops, murmurs, or rubs. Normal PMI, no JVD. No pulse deficits. Respiratory: Lungs have equal breath sounds bilaterally, clear to auscultation and percussion. No rales, rhonchi or wheezes noted. No increased work of breathing, no retractions or nasal flaring. Abdomen/GI: Soft, non-tender, with normal bowel sounds. No distension or tympany. No guarding or rebound. No evidence of tenderness throughout. Skin: Warm, dry with normal turgor. Normal color with no rashes, no lesions, and no evidence of cellulitis. MS/ Extremity: Pulses equal, no cyanosis. Neurovascular intact. Full, normal range of motion. Psych: Awake, alert, with orientation to person, place and time. Behavior, mood, and affect are within normal limits. Vital Signs: 03/12 14:34 BP 98 / 33; Pulse 68; Resp 16; Temp 98.8; Pulse Ox 99% ; Weight 75 kg; Height 5 ft. 5 tc5 in. (165.10 cm); Pain 10/10; 14:55 BP 98 / 33; Pulse 67; Resp 18; Temp 98.8; Pulse Ox 99% ; Pain 10/10; tc5 15:15 BP 68 / 39; Pulse 67; Resp 15; Pulse Ox 99% ; Pain 0/10; tc5 15:50 BP 92 / 39; Pulse 62; Resp 16; Pulse Ox 99% ; tc5 16:45 BP 88 / 49; Pulse 70; Resp 14; Pulse Ox 99% ; Pain 0/10; tc5 19:18 BP 71 / 38; Pulse 72; Resp 22; Temp 97.7(A); Pulse Ox 100% on R/A; cc4 19:40 BP 83 / 67; Pulse 67; Resp 22; Pulse Ox 100% ; cc4 20:00 BP 85 / 54; Pulse 68; Resp 22; Pulse Ox 97% on R/A; cc4 20:30 BP 90 / 28; Pulse 66; Resp 20; Pulse Ox 99% on R/A; cc4 21:00 BP 84 / 33; Pulse 67; Resp 22; Pulse Ox 99% on R/A; cc4 14:34 Body Mass Index 27.51 (75.00 kg, 165.10 cm) tc5 MDM: 17:34 Patient medically screened. kdr 03/15 18:31 Data reviewed: vital signs, nurses notes, lab test result(s), radiologic studies. kdr Counseling: I had a detailed discussion with the patient and/or guardian regarding: the historical points, exam findings, and any diagnostic results supporting the discharge/admit diagnosis, lab results, radiology results, the need for further work-up and treatment in the hospital. 03/12 14:21 Order name: Basic Metabolic Panel; Complete Time: 16:46 kdr 03/12 14:21 Order name: CBC with Diff; Complete Time: 16:46 kdr 03/12 14:21 Order name: LFT's; Complete Time: 16:46 kdr 03/12 14:21 Order name: Magnesium; Complete Time: 16:46 kdr 03/12 14:21 Order name: NT PRO-BNP; Complete Time: 16:46 kdr 03/12 14:21 Order name: PT-INR; Complete Time: 16:46 kdr 03/12 14:21 Order name: Troponin (emerg Dept Use Only); Complete Time: 16:46 kdr 03/12 18:15 Order name: Procalcitonin; Complete Time: 20:06 la 03/12 18:15 Order name: Lactate; Complete Time: 19:25 la1 03/12 18:15 Order name: Blood Culture Adult (2) la 03/12 19:07 Order name: SARS-COV-2 RT PCR; Complete Time: 20:44 EDMS 03/12 22:12 Order name: Glucose, Ancillary Testing EDMS 03/13 00:04 Order name: Glucose, Ancillary Testing EDMS 03/13 02:39 Order name: Urinalysis EDMS 03/13 04:39 Order name: Urine Microscopic Only EDMS 03/13 06:24 Order name: CBC with Automated Diff EDMS 03/13 06:26 Order name: Glucose, Ancillary Testing EDMS 03/13 06:47 Order name: Procalcitonin EDMS 03/13 06:48 Order name: Glucose, Ancillary Testing EDMS 03/13 06:51 Order name: Comprehensive Metabolic Panel EDMS 03/13 06:51 Order name: T4 Free EDMS 03/13 06:51 Order name: Magnesium EDMS 03/13 06:51 Order name: Thyroid Stimulating Hormone EDMS 03/13 08:23 Order name: Glucose, Ancillary Testing EDMS 03/13 13:03 Order name: Glucose, Ancillary Testing EDMS 03/13 14:06 Order name: Glucose, Ancillary Testing EDMS 03/13 17:33 Order name: Glucose, Ancillary Testing EDMS 03/13 18:58 Order name: Gram Stain--Aerobic Bottle EDMS 03/13 20:04 Order name: Glucose, Ancillary Testing EDMS 03/12 14:21 Order name: XRAY Chest (1 view); Complete Time: 16:46 kdr 03/12 19:27 Order name: Foot Left 3 View XRAY; Complete Time: 20:06 la1 03/13 09:54 Order name: RAD EDMS 03/14 01:13 Order name: Urine pH EDMS 03/14 04:57 Order name: CBC with Automated Diff EDMS 03/14 05:40 Order name: Comprehensive Metabolic Panel EDMS 03/14 05:40 Order name: Phosphorus EDMS 03/14 05:40 Order name: C-Reactive Protein EDMS 03/14 05:40 Order name: Magnesium EDMS 03/14 06:26 Order name: Procalcitonin EDMS 03/14 08:23 Order name: Glucose, Ancillary Testing EDMS 03/14 08:32 Order name: Urine Culture EDMS 03/14 08:39 Order name: Urine pH EDMS 03/14 11:31 Order name: Gram Stain--Anaerobic Bottle EDMS 03/14 12:36 Order name: Glucose, Ancillary Testing EDMS 03/14 17:22 Order name: Glucose, Ancillary Testing EDMS 03/14 18:08 Order name: Urine pH EDMS 03/14 22:25 Order name: Glucose, Ancillary Testing EDLA 03/15 06:16 Order name: CBC with Automated Diff EDLA 03/15 06:16 Order name: Urine pH EDLA 03/15 06:28 Order name: Comprehensive Metabolic Panel EDLA 03/15 06:28 Order name: C-Reactive Protein EDLA 03/15 06:28 Order name: Magnesium EDLA 03/15 06:39 Order name: Procalcitonin EDLA 03/15 07:23 Order name: Phosphorus EDLA 03/15 08:03 Order name: Glucose, Ancillary Testing EDLA 03/15 09:49 Order name: US [facility] 03/15 09:52 Order name: [facility] 03/15 13:54 Order name: Glucose, Ancillary Testing [facility] 03/12 14:21 Order name: EKG; Complete Time: 14:22 kdr 03/12 14:21 Order name: Cardiac monitoring; Complete Time: 14:22 kdr 03/12 14:21 Order name: EKG - Nurse/Tech; Complete Time: 14:35 kdr 03/12 14:21 Order name: IV Saline Lock [facility] 03/12 14:21 Order name: Labs collected and sent [facility] 03/12 14:21 Order name: O2 Per Protocol; Complete Time: 14:22 kdr 03/12 14:21 Order name: O2 Sat Monitoring; Complete Time: 14:22 kdr 03/12 18:15 Order name: Urine Dipstick-Ancillary (obtain specimen) la1 Administered Medications: 03/12 15:20 Drug: NS 0.9% 500 ml Route: IV; Rate: bolus; Site: left antecubital; tc5 16:45 Follow up: IV Status: Completed infusion; IV Intake: 500ml tc5 17:48 Drug: NS 0.9% 500 ml Route: IV; Rate: bolus; Site: left antecubital; tc5 20:30 Drug: NS 0.9% 500 ml Route: IV; Rate: bolus; Site: left antecubital; cc4 Disposition Summary: 03/12/21 17:34 Hospitalization Ordered Hospitalization Status: Observation kdr Provider: Sepncer Elias Condition: Fair kdr Problem: new kdr Symptoms: have improved kdr Bed/Room Type: Standard kdr Location: Telemetry/MedSurg (observation)(03/15/21 13:36) eb Room Assignment: 423(03/15/21 13:36) eb Diagnosis - Weakness kdr - Hypotension, unspecified - Postdialysis kdr Forms: - Medication Reconciliation Form kdr - SBAR form kdr Signatures: Dispatcher [employer] EDMS Fadumo Oliveros RN RN Jovanny Galindo MD MD kdr Shanna Salmon RN RN ss Davin Woody, INSURANCE CONSULTANT-C INSURANCE CONSULTANT-Cla1 Rebeka Pratt Christie RN RN cc4 Latoya Foley RN RN tc5 Corrections: (The following items were deleted from the chart) 19:07 17:32 CORONAVIRUS+MR.LAB.BRZ ordered. EDMS EDMS 20:31 17:34 Telemetry/MedSurg (Inpatient) kdr mw 20:31 17:34 kdr mw 20:36 20:31 1- mw 03/13 07:13 03/12 20:31 Intensive Care Unit mw 03/13 07:13 03/12 20:36 ER - 9 mw 03/15 13:36 03/13 07[facility] eb 03/15 13:36 03/13 07:13 ERHOLD- ss eb
--- NOTE | 2021-03-12 17:35 | ER ---
Nurse's Notes [facility] Name: Delmi Schultz Age: 70 yrs Sex: Female : 1950 Arrival Date: 03/12/2021 Time: 14:04 Bed 6 Private MD: Diagnosis: Weakness;Hypotension, unspecified-Postdialysis Presentation: 03/12 14:34 Chief complaint: Patient states: she hurts on the left side of her bottom and all over. tc5 pt moves extremities equally and no facial droop is noted. pt is deaf and mute. communication is done with writing notes. EMS states: [facility] when they state pt began crying saying that her left side and her bottom hurt. Further states dialysis sent the pt back an hour early as she was hypotensive in the 70's systolic. Coronavirus screen: Vaccine status: Patient reports receiving the 2nd dose of the covid vaccine. At this time, the client does not indicate any symptoms associated with coronavirus-19. Ebola Screen: No symptoms or risks identified at this time. 14:34 Method Of Arrival: EMS: [facility] tc5 14:57 Note have attempted 3 times since pt arrived to speak with staff at [facility], all tc5 calls made i get busy signal. [place] number is [phone]. 15:08 Acuity: VICTORM 3 iw 19:18 Risk Assessment: Do you want to hurt yourself or someone else? Patient reports no cc4 desire to harm self or others. Triage Assessment: 14:54 General: Appears uncomfortable, Behavior is cooperative, agitated, anxious. Pain: tc5 Complains of pain in buttocks. Musculoskeletal: Reports pain in buttocks, left hand, left arm and left leg. - Immunization history:: Adult Immunizations up to date, Client reports receiving the 2nd dose of the Covid vaccine. - Social history:: Smoking status: unknown. Screenin:56 Abuse screen: Denies threats or abuse. Denies injuries from another. Nutritional tc5 screening: No deficits noted. Tuberculosis screening: No symptoms or risk factors identified. Fall Risk Ambulatory Aid- None/Bed Rest/Nurse Assist (0 pts). Gait- Weak (10 pts.). Assessment: 14:55 General: Appears See triage.. tc5 15:50 General: 1515- pt hypotensive sbp 60's map 44, Dr. Galindo made aware VORB bolus 500 tc5 NS,. 16:47 General: Appears pt continues to rest, pain has resolved. will cont to monitor.. tc5 20:30 Reassessment: BP improving; IV NS patent/infusing left AC \T\ bolus rate with no s/sx's cc4 of infection/infiltration noted of site. 21:00 Reassessment: Report given to JARRET Frank. cc4 Vital Signs: 14:34 BP 98 / 33; Pulse 68; Resp 16; Temp 98.8; Pulse Ox 99% ; Weight 75 kg; Height 5 ft. 5 tc5 in. (165.10 cm); Pain 10/10; 14:55 BP 98 / 33; Pulse 67; Resp 18; Temp 98.8; Pulse Ox 99% ; Pain 10/10; tc5 15:15 BP 68 / 39; Pulse 67; Resp 15; Pulse Ox 99% ; Pain 0/10; tc5 15:50 BP 92 / 39; Pulse 62; Resp 16; Pulse Ox 99% ; tc5 16:45 BP 88 / 49; Pulse 70; Resp 14; Pulse Ox 99% ; Pain 0/10; tc5 19:18 BP 71 / 38; Pulse 72; Resp 22; Temp 97.7(A); Pulse Ox 100% on R/A; cc4 19:40 BP 83 / 67; Pulse 67; Resp 22; Pulse Ox 100% ; cc4 20:00 BP 85 / 54; Pulse 68; Resp 22; Pulse Ox 97% on R/A; cc4 20:30 BP 90 / 28; Pulse 66; Resp 20; Pulse Ox 99% on R/A; cc4 21:00 BP 84 / 33; Pulse 67; Resp 22; Pulse Ox 99% on R/A; cc4 14:34 Body Mass Index 27.51 (75.00 kg, 165.10 cm) tc5 Vitals: 19:18 Cardiac Rhythm Assessment Regular Sinus rhythm. cc4 ED Course: 14:04 Patient arrived in ED. ds1 14:12 Jovanny Galindo MD is Attending Physician. kdr 14:13 Latoya Foley RN is Primary Nurse. tc5 14:56 Inserted saline lock: 20 gauge in left antecubital area, using aseptic technique. Blood tc5 collected. 15:08 Triage completed. iw 15:34 XRAY Chest (1 view) In Process Unspecified. EDMS 17:34 Spencer Elias MD is Hospitalizing Provider. kdr 18:56 Blood Culture Adult (2) Sent. tc5 18:56 Lactate Sent. tc5 19:18 Skin assessment with incontinent mod amt soft light brown stool noted + urine \T\ cleaned cc4 with fresh brief applied; fine reddened rash noted of gluteal fold area; heel pad intact left foot \T\ removed briefly exposing intact kerlix dsg noted intact to heel of left foot with sm. amt bright red bleeding noted; approx. 0.5 cm skin tear noted right anterior forearm \T\ dressed with antibiotic ointment/bandaide; Debi oWody NP notified of wound left heel \T\ skin tear right FA; Debi Woody NP visualized rash of gluteal fold; # 20 g saline lock intact left AC with IV NS infusing \T\ bolus rate; hypotensive; moving BUE frequently; h/o being deaf/mute; writing on paper \T\ asking appropriate questions; reports feeling cold; blankets x2 added for warmth; no resp difficulty noted; bilateral lung ingram CTA; abd. soft/nontender with + BS's x 4 quads; bed low position; SR's elevated x2; nurse call in reach; will con't to monitor. 19:18 Arm band placed on. cc4 19:18 Patient has correct armband on for positive identification. Bed in low position. Call cc4 light in reach. Side rails up X2. 19:45 Foot Left 3 View XRAY In Process Unspecified. EDMS 03/13 19:54 EKG done, by ED staff. cs9 03/15 00:17 Cleaned of incontinence. Linen changed. Patient's diaper was soiled with loose, liquid jb5 stool. Patient has redness and swelling to vaginal area. Patient was cleaned and aquaphor lubricant was applied as a barrier to her vaginal area. Patient tolerated all of this well. Patient was reassured during this process given new linens and readjusted in her bed. Patient is now sleeping. 14:48 Patient admitted, IV remains in place. bp Administered Medications: 03/12 15:20 Drug: NS 0.9% 500 ml Route: IV; Rate: bolus; Site: left antecubital; tc5 16:45 Follow up: IV Status: Completed infusion; IV Intake: 500ml tc5 17:48 Drug: NS 0.9% 500 ml Route: IV; Rate: bolus; Site: left antecubital; tc5 20:30 Drug: NS 0.9% 500 ml Route: IV; Rate: bolus; Site: left antecubital; cc4 Intake: 16:45 IV: 500ml; Total: 500ml. tc5 Outcome: 17:34 Decision to Hospitalize by Provider. kdr 03/15 14:45 Admitted to Med/surg accompanied by tech, via stretcher, with chart, Report called to bp MARTINEZ RN Condition: stable Instructed on the need for admit. 15:11 Patient left the ED. eb Signatures: Dispatcher [employer] EDMS Jovanny Galindo MD MD kdr Sanford, Demi ds1 Denise Salamanca, RN Abi Lindo jb5 Jose Alejandro Hernandez, RN RN Rebeka Mattson Christie, RN RN cc4 Latoya Foley RN RN tc5 Amanda Castillo cs9 Corrections: (The following items were deleted from the chart) 03/12 19:07 17:43 CORONAVIRUS+ drawn and sent. [facility] EDMA
--- NOTE | 2021-03-12 20:03 | RAD REPORT ---
EXAM DESCRIPTION: RAD - Foot Left 3 View - 03/12/2021 7:45 pm CLINICAL HISTORY: foot wound, R/O bony involvement COMPARISON: <Comparisons> FINDINGS: Status post midfoot and hindfoot fusion. Again noted is fracture involving the screw which traverses the cuboid. No acute fractures seen. Partial amputation of the third and fifth digits note d. Degenerative changes are present the first MTP joint. IMPRESSION: No acute osseous abnormality involving the left foot. Specifically, no radiographic evid ence of osteomyelitis. MRI is more sensitive in the acute phase .
--- NOTE | 2021-03-12 20:40 | P.HP ---
Certification for Inpatient Patient admitted to: Inpatient With expected LOS: >2 Midnights Patient will require the following post-hospital care: None Practitioner: I am a practitioner with admitting privileges, knowledge of patient current condition, hospital course, and medical plan of care. 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 Patient was at dialysis as scheduled Thursday and during dialysis she was complaining of pain to her back/buttocks, dialysis was cut 1 hour short and arrangement was made for patient be transferred back to [facility]. In route to [facility] patient's blood pressure was noted to be low around 70/40. Patient was transferred to the emergency department for evaluation. Patient was evaluated in the emergency department labs were significant for white blood cell count 7.1 hemoglobin 9.4 hematocrit 28.7 sodium 140 chloride 110 creatinine 1.27 GFR 42 lactic acid 0.9 procalcitonin less than 0.05 troponin chest x-ray with suspected small layering left pleural effusion otherwise clear lungs, patient with ulceration to the left foot x-ray without any acute findings of the left foot. Blood pressure remains low after patient has received 1 L of IV fluids, ED provider wishes to admit for further evaluation and management of hypotension. No signs of sepsis at this time, patient does have history of multidrug-resistant urinary tract infection although she does make very little urine. Attempted to obtain urine specimen. Allergies adhesive Allergy (Verified 01/28/20 21:31) Itching/Hives/Rash No Known Drug Allergies Allergy (Verified 01/28/20 21:31) Unknown Home Medications: Atorvastatin Calcium [Lipitor*] 20 mg PO BEDTIME 01/28/20 Carvedilol [Coreg] 25 mg PO BID 01/28/20 Ascorbic Acid [Vitamin C*] 500 mg PO DAILY 11/12/20 Aspirin [Sean Chewable Aspirin] 81 mg PO DAILY 11/12/20 calcitrioL [Rocaltrol] 0.5 mcg PO DAILY 11/12/20 Apixaban [Eliquis *] 2.5 mg PO BID 11/13/20 Cholecalciferol (Vitamin D3) [Vitamin D 5,000 IU Cap*] 5,000 unit PO DAILY 11/13/20 Hydralazine HCl 25 mg PO TID 11/13/20 Insulin Regular, Human [Novolin R Flexpen] See Protocol SQ BID 11/13/20 Sertraline HCl 100 mg PO DAILY 11/13/20 Trazodone HCl 100 mg PO BEDTIME 11/13/20 Zinc Sulfate [Zinc Sulfate*] 220 mg PO DAILY 11/13/20 Calcium Acetate [Phoslo*] 667 mg PO TIDWM tab 11/15/20 Diphenox/Atropine [Lomotil*] 1 tab PO TIDP PRN #30 tab 11/15/20 Epoetin Juan Jose-Epbx [Retacrit] 4,000 unit SQ M,W,F vial 11/15/20 Gabapentin [Neurontin*] 100 mg PO BEDTIME cap 11/15/20 Na Bicarb Tab [Sodium Bicarb 325 MG Tab*] 650 mg PO QID tab 11/15/20 Cholestyramine (with Sugar) [Cholestyramine Packet] 4 gm PO DAILY 12/06/20 - Past Medical/Surgical History Diabetic: Yes -: Diabetes mellitus type 2 -: HTN -: GERD -: Depression -: Hyperlipidemia -: Chronic diastolic congestive heart failure -: Chronic back pain -: abdominal hernia -: ESRD on HD -: heel surgery 2007 -: abdominal hernia repair -: amptuation of 5th digit on L foot 2012 -: Cholecystectomy 2012 Psychosocial/ Personal History: [facility] - Family History Father -: Heart disease Mother -: Diabetes - Social History Alcohol use: No CD- Drugs: Yes Caffeine use: Yes [facility] Review of Systems 10-point ROS is otherwise unremarkable Musculoskeletal: Other (Pain reported to back/buttocks area) Physical Examination - Physical Exam General: Alert, In no apparent distress, Oriented x3, Other (Patient is deaf/mute communicates best by writing) HEENT: Atraumatic, PERRLA, Other (Mucous membranes dry), EOMI, Sclerae nonicteric Neck: Supple, 2+ carotid pulse no bruit, No LAD, Without JVD or thyroid abnormality Respiratory: Clear to auscultation bilaterally, Normal air movement Cardiovascular: Regular rate/rhythm, Normal S1 S2 Gastrointestinal: Normal bowel sounds, No tenderness Musculoskeletal: No tenderness Integumentary: No rashes Neurological: Normal speech, Normal strength at 5/5 x4 extr, Normal tone, Normal affect - Studies Laboratory Data (last 24 hrs) 03/12/21 14:28: PT 16.7 H, INR 1.45 03/12/21 14:28: WBC 7.10, Hgb 9.4 L, Hct 28.7 L, Plt Count 179 03/12/21 14:28: Sodium 140, Potassium 4.3, BUN 9, Creatinine 1.27, Glucose 82, Magnesium 1.7 L, Total Bilirubin 0.3, AST 33, ALT 20, Alkaline Phosphatase 107 Assessment and Plan - Plan Assessment: ESRD on HD with hypotension suspect volume depletion Diabetes type 2 Anemia of chronic disease/ALL Chronic diastolic congestive heart failure Hypertension currently with hypotension Hyperlipidemia Deaf/mute Depression with anxiety Plan: ESRD on HD with hypotension suspect volume depletion: No signs of sepsis noted, no source of infection white blood cell count normal, procalcitonin normal, lactic acid normal. Patient not tachycardic, hypertension began immediately after dialysis. Patient currently has had 1 L of IV fluids we will continue to give small boluses as necessary to maintain blood pressure. If blood pressure remains after IV fluid boluses patient may require vasopressor therapy, will need to discuss with nephrology. Diabetes type 2: [facility] Accu-Chek, sliding scale insulin Anemia of chronic disease/ALL: Stable from previous, transfuse to maintain hemoglobin greater than 8. Chronic diastolic congestive heart failure: Appears stable this time, will gently bolus patient watching for respiratory distress or signs of hypervolemia. Repeat chest x-ray in the morning. Hypertension currently with hypotension: Hold blood pressure medications. Continue as above Hyperlipidemia: Obtain and continue home medication Deaf/mute: Patient communicates best with writing Depression with anxiety: Obtain and continue home medication DVT PPX: Heparin Code status: Full Discharge Plan: Home Plan to discharge in: 48 Hours - Advance Directives Does patient have a Living Will: No Does patient have a Durable POA for Healthcare: No - Code Status/Comfort Care Code Status Assessed: Yes (Full code) Critical Care: No Time Spent Managing Pts Care (In Minutes): 55
[2021-03-12] MEDS: HEPARIN 5000 UNIT/ML 1 ML VIAL SQ SCH (21:30)
[2021-03-12] MEDS ORDERED: ONDANSETRON 4 MG/2 ML VIAL IV PRN (21:30)
[2021-03-12] MEDS ORDERED: ACETAMINOPHEN 500 MG TAB PO PRN (21:30)
[2021-03-12] MEDS ORDERED: NA CHLORIDE 0.9% 1,000 ML IV SCH (21:30)
[2021-03-12] MEDS: INSULIN -REGULAR HUMAN 50 UNIT/0.5 ML ML SQ SCH (21:30)
[2021-03-12] MEDS ORDERED: HEPARIN 5000 UNIT/ML 1 ML VIAL ONE (22:03)
[2021-03-12] MEDS ORDERED: NA CHLORIDE 0.9% 1,000 ML ONE (22:04)
[2021-03-13 02:35] LABS: Urine Appearance TURBID (Clear); Urine Bilirubin NEGATIVE (Negative); Urine Blood 3+ (Negative); Urine Glucose NEGATIVE (Negative); Urine Protein 3+ (Negative); Urine Specific Gravity 1.015 (1.005-1.030); Urine Urobilinogen 0.2 mg/dL (0.2-1.0)
[2021-03-13 02:39] LABS: Urine Color PALE YELLOW (Yellow); Urine Microscopic Reflex ORDER UMIC
[2021-03-13 04:39] LABS: Urine Bacteria >50 /HPF (<20)
[2021-03-13] MEDS ORDERED: VANCOMYCIN/NS 1 gm 1 GM/250 ML BAG IVPB SCH (05:00)
[2021-03-13] MEDS ORDERED: VANCOMYCIN 1 GM/VIAL ONE (05:53)
[2021-03-13] MEDS ORDERED: NA CHLORIDE 0.9% 500 ML ONE (05:53)
[2021-03-13] MEDS ORDERED: VANCOMYCIN 1.5 GM in NA CHLORIDE 0.9% 500 ML IVPB ONE (06:00)
[2021-03-13 06:22] LABS: Absolute Lymphocytes (CBC) 1.6 K/uL (0.7-4.9); Basophils % 0.2 % (0-1.3); Hematocrit 27.4 % (36.0-45.0); Lymphocytes % 20.6 % (15.3-44.8); MPV 7.9 fL (7.6-11.3)
[2021-03-13 06:48] LABS: Albumin 1.7 g/dL (3.4-5.0); Bilirubin Total 0.3 mg/dL (0.2-1.0); Protein, Total 4.8 g/dL (6.4-8.2)
[2021-03-13 06:51] LABS: Magnesium 1.6 mg/dL (1.8-2.4); Potassium 4.4 mmol/L (3.5-5.1); Thyroid Stimulating Hormone 3.88 uIU/mL (0.360-3.740)
[2021-03-13] MEDS ORDERED: NA CHLORIDE 0.9% 1,000 ML ONE ×2 (06:59→20:00)
[2021-03-13] MEDS: INSULIN -REGULAR HUMAN 50 UNIT/0.5 ML ML SQ SCH ×4 (07:30→20:11)
[2021-03-13] MEDS: HEPARIN 5000 UNIT/ML 1 ML VIAL SQ SCH ×2 (08:56→21:00)
[2021-03-13] MEDS ORDERED: CEFEPIME 1 GM/VIAL IV SCH (09:00)
[2021-03-13] MEDS ORDERED: CEFEPIME 1 GM/100 ML BAG IV SCH (09:00)
[2021-03-13] MEDS ORDERED: HEPARIN 5000 UNIT/ML 1 ML VIAL ONE ×2 (09:11→20:38)
[2021-03-13] MEDS ORDERED: CEFEPIME 1 GM/VIAL ONE (09:11)
[2021-03-13] MEDS ORDERED: NA CHLORIDE 0.9% 100 ML ONE ×2 (09:11→17:25)
--- NOTE | 2021-03-13 09:53 | RAD REPORT ---
EXAM DESCRIPTION: RAD - Chest Single View - 03/13/2021 5:11 am CLINICAL HISTORY: Eval volume status, R/O pneumonia COMPARISON: Chest Single View dated 03/12/2021; Chest Single View dated 12/07/2020; Chest Single View dated 12/06/2020; Chest Single View dated 11/12/2020; Chest Abd Pelvis Wo Con dated 11/20/2020 FINDINGS: Lines: Right IJ approach dialysis catheter with tip overlying the distal SVC. Lungs: Increased opacification of the left hemothorax. Pleural: Suspect a layering left pleural effusion . Cardiac: The heart size is within normal limits. Bones: No acute fractures. Other: IMPRESSION: Increased opacification of the left hemithorax likely secondary to a layering left pleur al effusion and underlying atelectasis.
--- NOTE | 2021-03-13 10:49 | P.CNS ---
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 Patient was at dialysis as scheduled TTS and during dialysis she is complaining of pain to her back/buttocks, dialysis what's cut short 1 hr and she was planned to [facility] In route to the [facility] the patient is blood pressure became severely low and patient was sent to the ED for evaluation. Patient has a history of multi-drug resistant UTIs. Urine analysis on admission was grossly positive, urine cultures pending. Patient is empirically placed on vancomycin and cefepime. Patient was recently seen at this facility on 12/06 and was found to have a UTI growing ESBL E coli and vancomycin-resistant Enterococcus. Patient has chronic indwelling Hickman catheter. Infectious disease has been consulted to manage the patient UTI. Allergies adhesive Allergy (Verified 01/28/20 21:31) Itching/Hives/Rash No Known Drug Allergies Allergy (Verified 01/28/20 21:31) Unknown Home Medications: Atorvastatin Calcium [Lipitor*] 20 mg PO BEDTIME 01/28/20 Carvedilol [Coreg] 25 mg PO BID 01/28/20 Ascorbic Acid [Vitamin C*] 500 mg PO DAILY 11/12/20 Aspirin [Sean Chewable Aspirin] 81 mg PO DAILY 11/12/20 calcitrioL [Rocaltrol] 0.5 mcg PO DAILY 11/12/20 Apixaban [Eliquis *] 2.5 mg PO BID 11/13/20 Cholecalciferol (Vitamin D3) [Vitamin D 5,000 IU Cap*] 5,000 unit PO DAILY 11/13/20 Hydralazine HCl 25 mg PO TID 11/13/20 Insulin Regular, Human [Novolin R Flexpen] See Protocol SQ BID 11/13/20 Sertraline HCl 100 mg PO DAILY 11/13/20 Trazodone HCl 100 mg PO BEDTIME 11/13/20 Zinc Sulfate [Zinc Sulfate*] 220 mg PO DAILY 11/13/20 Calcium Acetate [Phoslo*] 667 mg PO TIDWM tab 11/15/20 Diphenox/Atropine [Lomotil*] 1 tab PO TIDP PRN #30 tab 11/15/20 Epoetin Juan Jose-Epbx [Retacrit] 4,000 unit SQ M,W,F vial 11/15/20 Gabapentin [Neurontin*] 100 mg PO BEDTIME cap 11/15/20 Na Bicarb Tab [Sodium Bicarb 325 MG Tab*] 650 mg PO QID tab 11/15/20 Cholestyramine (with Sugar) [Cholestyramine Packet] 4 gm PO DAILY 12/06/20 - Past Medical/Surgical History Diabetic: Yes -: Diabetes mellitus type 2 -: HTN -: GERD -: Depression -: Hyperlipidemia -: Chronic diastolic congestive heart failure -: Chronic back pain -: abdominal hernia -: ESRD on HD -: heel surgery 2007 -: abdominal hernia repair -: amptuation of 5th digit on L foot 2012 -: Cholecystectomy 2012 Psychosocial/ Personal History: [facility] - Family History Father Medical History: Heart disease Mother Medical History: Diabetes - Social History Smoking Status: Unknown if ever smoked Alcohol use: No CD- Drugs: No Caffeine use: No Place of Residence: [facility] Review of Systems is unable to be obtained Physical Examination Temp Pulse Resp BP Pulse Ox 97.9 F 71 16 102/40 L 100 03/13/21 08:00 03/13/21 10:00 03/13/21 09:00 03/13/21 10:00 03/13/21 10:00 General: Alert, In no apparent distress, Other (Patient is deaf/mute) HEENT: Atraumatic Neck: Supple, 2+ carotid pulse no bruit Respiratory: Clear to auscultation bilaterally Cardiovascular: Normal pulses, Regular rate/rhythm, Normal S1 S2 Capillary refill: <2 Seconds Gastrointestinal: Normal bowel sounds, Soft and benign, Non-distended Musculoskeletal: No clubbing, No swelling, No contractures Integumentary: No rashes, No breakdown Urinary: Hickman catheter (Urine is green tinged with heavy exudate) Laboratory Data (last 24 hrs) 03/12/21 14:28: PT 16.7 H, INR 1.45 03/12/21 14:28: WBC 7.10, Hgb 9.4 L, Hct 28.7 L, Plt Count 179 03/12/21 14:28: Sodium 140, Potassium 4.3, BUN 9, Creatinine 1.27, Glucose 82, Magnesium 1.7 L, Total Bilirubin 0.3, AST 33, ALT 20, Alkaline Phosphatase 107 Conclusions/Impression: Assessment/plan UTI with history of multi-drug resistant urinary tract infections with chronic indwelling Hickman catheter Patient was recently hospitalized at this facility on 12/06 and had a UTI growing ESBL E coli and vancomycin-resistant Enterococcus. Urine analysis on this admission grossly positive, urine culture pending. Patient empirically started on vancomycin and cefepime. Recommend DC these antibiotics and starting meropenem 0.5 g Q 24, given AD on dialysis days and zyvox for 3 days. Recommend starting ascetic acid bladder irrigation for 7 days. ESRD on HD, anemia of chronic disease, on diabetes, CHF Medical management per primary team Continue monitor CBC and BMP Continue to monitor for signs infection Plan of care discussed with Dr. Pollock Thank you for consultation.
[2021-03-13] MEDS ORDERED: D50W 25 GM/50 ML SYRINGE IV ONE (13:27)
[2021-03-13] MEDS ORDERED: D50W 25 GM/50 ML SYRINGE IV PRN (13:58)
--- NOTE | 2021-03-13 16:39 | EKG ---
Test Date: 2021-03-12 Test Time: 14:33:32 Tack Puller Machine: NAOMY MEASUREMENT RESULTS: Intervals: Rate: 69 CT: 142 QRSD: 82 QT: 424 QTc: 454 [place]: P: 79 CT: 142 QRS: 15 T: 68 INTERPRETIVE STATEMENTS: Normal sinus rhythm Low voltage QRS Cannot rule out Anteroseptal infarct, age undetermined Abnormal ECG Compared to ECG 12/06/2020 00:03:29 No significant changes Electronically Signed On 03-13-21 16:35:51 CDT by Ender Hernandez
--- NOTE | 2021-03-13 17:12 | P.PN ---
Date of Service: 03/13/21 Subjective: Patient reports feeling okay this morning, deaf/mute No new complaints/questions ROS: Difficult to fully ascertain full review of systems patient intermittently answering questions Physical exam GEN: Alert, NAD, deaf/mute HEENT: Normal conjunctiva, sclera anicteric CV: Regular rate and rhythm, trace bilateral lower extremity edema Pulm: Nonlabored respiration on room air ABD: Soft, nontender, nondistended MSK: No joint tenderness Integumentary: Left foot wound with dressing intact Neuro: follows basic commands, moves extremities, generalized weakness Problem list ESRD on HD with hypotension suspect volume depletion versus infection Acute cystitis Diabetes mellitus type 2, [id number] Anemia of chronic disease/ALL Chronic diastolic congestive heart failure Hypertension currently with hypotension Hyperlipidemia Deaf/mute Depression with anxiety Unclear patient's baseline blood pressure On admission and overnight she reports feeling "fine", without any significant complaints White count, procalcitonin, lactate all normal. Patient does not appear septic Unclear if hypotensive from intravascular depletion versus infection UA grossly positive for bacteria, urine a milky green color History of multidrug-resistant bacteria in her urine Infectious disease consulted Nephrology consulted, patient may need dialysis today versus tomorrow, if blood pressure allows Received IV fluids in the ER yesterday, chest x-ray pending today Manual blood pressures are reading higher than machine Patient appears asymptomatic from a low blood pressure non-ambulatory, PT consult once improved Code: full Dispo: home in ~2-3 days Continue ICU level of care, patient's maps are significantly low, which are multidrug-resistant bacteria Time Spent Managing Pts Care (In Minutes): 35
[2021-03-13] MEDS ORDERED: Meropenem 500 MG VIAL IV ONE (17:25)
[2021-03-13] MEDS ORDERED: Meropenem 500 MG/100 ML BAG IV SCH (18:00)
[2021-03-13] MEDS: ACETIC ACID 0.25% IRR SCH (19:00)
[2021-03-13] MEDS ORDERED: ALBUMIN HUMAN 25% 100 ML IV ONE (20:17)
--- NOTE | 2021-03-13 20:24 | P.CNS ---
Date of Consult: 03/13/21 Reason for Consult: ESRD Requesting Physician: Spencer Elias Primary Care Provider: [facility] doctor Chief Complaint: Hypotension History of Present Illness: 70-year-old female deaf/mute with history of ESRD on HD, diabetes mellitus type 2, chronic diastolic congestive heart failure, hypertension, hyperlipidemia, obesity, ALL/anemia chronic disease presents emergency department for hypotension. Patient was at dialysis as scheduled Thursday and during dialysis she was complaining of pain to her back/buttocks, dialysis was cut 1 hour short and arrangement was made for patie nt be transferred back to [facility]. In route to [facility] patient's blood pressure was noted to be low around 70/40. Patient was transferred to the emergency department for evaluation. Patient was evaluated in the emergency department labs were significant for white blood cell count 7.1 hemoglobin 9.4 hematocrit 28.7 sodium 140 chloride 110 creatinine 1.27 GFR 42 lactic acid 0.9 procalcitonin less than 0.05 troponin chest x-ray with suspected small layering left pleural effusion otherwise clear lungs, patient with ulceration to the left foot x-ray without any acute findings of the left foot. Blood pressure remains low after patient has received 1 L of IV fluids, ED provider wishes to admit for further evaluation and management of hypotension. No signs of sepsis at this time, patient does have history of multidrug- resistant urinary tract infection although she does make very little urine. Attempted to obtain urine specimen. Allergies adhesive Allergy (Verified 01/28/20 21:31) Itching/Hives/Rash No Known Drug Allergies Allergy (Verified 01/28/20 21:31) Unknown Home medications list reviewed: Yes Home Medications: Atorvastatin Calcium [Lipitor*] 20 mg PO BEDTIME 01/28/20 Carvedilol [Coreg] 25 mg PO BID 01/28/20 Ascorbic Acid [Vitamin C*] 500 mg PO DAILY 11/12/20 Aspirin [Sean Chewable Aspirin] 81 mg PO DAILY 11/12/20 calcitrioL [Rocaltrol] 0.5 mcg PO DAILY 11/12/20 Apixaban [Eliquis *] 2.5 mg PO BID 11/13/20 Cholecalciferol (Vitamin D3) [Vitamin D 5,000 IU Cap*] 5,000 unit PO DAILY 11/13/20 Hydralazine HCl 25 mg PO TID 11/13/20 Insulin Regular, Human [Novolin R Flexpen] See Protocol SQ BID 11/13/20 Sertraline HCl 100 mg PO DAILY 11/13/20 Trazodone HCl 100 mg PO BEDTIME 11/13/20 Zinc Sulfate [Zinc Sulfate*] 220 mg PO DAILY 11/13/20 Calcium Acetate [Phoslo*] 667 mg PO TIDWM tab 11/15/20 Diphenox/Atropine [Lomotil*] 1 tab PO TIDP PRN #30 tab 11/15/20 Epoetin Juan Jose-Epbx [Retacrit] 4,000 unit SQ M,W,F vial 11/15/20 Gabapentin [Neurontin*] 100 mg PO BEDTIME cap 11/15/20 Na Bicarb Tab [Sodium Bicarb 325 MG Tab*] 650 mg PO QID tab 11/15/20 Cholestyramine (with Sugar) [Cholestyramine Packet] 4 gm PO DAILY 12/06/20 - Past Medical/Surgical History Diabetic: Yes -: Diabetes mellitus type 2 -: HTN -: GERD -: Depression -: Hyperlipidemia -: Chronic diastolic congestive heart failure -: Chronic back pain -: abdominal hernia -: ESRD on HD -: heel surgery 2007 -: abdominal hernia repair -: amptuation of 5th digit on L foot 2012 -: Cholecystectomy 2012 Psychosocial/ Personal History: [facility] - Family History Father Medical History: Heart disease Mother Medical History: Diabetes - Social History Smoking Status: Unknown if ever smoked Alcohol use: No CD- Drugs: No Caffeine use: No Place of Residence: [facility] Review of Systems General: Weakness, Malaise Musculoskeletal: Back Pain Physical Examination Temp Pulse Resp BP Pulse Ox 98.6 F 79 18 67/43 L 98 03/13/21 20:00 03/13/21 20:00 03/13/21 20:00 03/13/21 20:00 03/13/21 20:00 General: In no apparent distress HEENT: Atraumatic Neck: Supple Respiratory: Clear to auscultation bilaterally Cardiovascular: No edema, Regular rate/rhythm Gastrointestinal: Hypoactive, Non-distended Musculoskeletal: No clubbing, No contractures Integumentary: No rashes, No cyanosis Neurological: Abnormal speech Blood work reviewed in the chart. Imagings Data: EXAM DESCRIPTION: RAD - Chest Single View - 03/13/2021 5:11 am CLINICAL HISTORY: Eval volume status, R/O pneumonia COMPARISON: Chest Single View dated 03/12/2021; Chest Single View dated 12/07/2020; Chest Single View dated 12/06/2020; Chest Single View dated 11/12/2020; Chest Abd Pelvis Wo Con dated 11/20/2020 FINDINGS: Lines: Right IJ approach dialysis catheter with tip overlying the distal SVC. Lungs: Increased opacification of the left hemothorax. Pleural: Suspect a layering left pleural effusion . Cardiac: The heart size is within normal limits. Bones: No acute fractures. Other: IMPRESSION: Increased opacification of the left hemithorax likely secondary to a layering left pleural effusion and underlying atelectasis. Conclusions/Impression: ESRD -HD TIW Hypomagnesemia HTN complicated by Hypotension -Give IV Albumin -IVF bolus as needed Diastolic CHF, chronic -HD with UF Severe Malnutrition Hypoalbuminemia -Give IV Albumin Anemia in CKD -Start Retacrit CKD MBD Hypocalcemia -Start Vitamin D Acute MDR cystitis -ID following -Follow up cultures -Continue abx Thank you kindly for the consultation. Case reviewed with Dr. Elias
[2021-03-13] MEDS ORDERED: ACETAMINOPHEN 500 MG TAB ONE (20:38)
[2021-03-13] MEDS: LINEZOLID 600 MG TAB PO SCH (21:00)
[2021-03-13] MEDS ORDERED: ALBUMIN HUMAN 25% 50 ML IV ONE (22:13)
[2021-03-14 04:50] LABS: Absolute Lymphocytes (CBC) 1.6 K/uL (0.7-4.9); Basophils % 0.3 % (0-1.3); Hematocrit 24.3 % (36.0-45.0); Lymphocytes % 25.4 % (15.3-44.8); MPV 7.9 fL (7.6-11.3); RBC Red Blood Cell Count 2.72 M/uL (3.86-4.86)
[2021-03-14 05:22] LABS: Albumin 1.8 g/dL (3.4-5.0); Bilirubin Total 0.3 mg/dL (0.2-1.0); Magnesium 1.5 mg/dL (1.8-2.4); Phosphorus 1.1 mg/dL (2.5-4.9); Potassium 4.1 mmol/L (3.5-5.1); Protein, Total 4.4 g/dL (6.4-8.2)
--- NOTE | 2021-03-14 06:37 | P.PN ---
Date of Service: 03/14/21 Subjective: No acute events overnight. Patient tearful at times wanting to be discharged, intermittent confusion/fatigue as well Blood pressure improving/more stable ROS: Unable to be obtained Physical exam GEN: Alert, NAD, deaf/mute HEENT: Normal conjunctiva, sclera anicteric CV: Regular rate and rhythm, trace bilateral lower extremity edema Pulm: Nonlabored respiration on room air ABD: Soft, nontender, nondistended MSK: No joint tenderness Integumentary: Left foot wound with dressing intact Neuro: follows basic commands, moves extremities, generalized weakness Problem list ESRD on HD with hypotension suspect volume depletion versus infection Acute cystitis Diabetes mellitus type 2, [id number] Anemia of chronic disease/ALL Chronic diastolic congestive heart failure Hypertension currently with hypotension Hyperlipidemia Deaf/mute Depression with anxiety Unclear patient's baseline blood pressure On admission and overnight she reports feeling "fine", without any significant complaints, with generalized weakness/feeling tired White count, procalcitonin, lactate all normal. Patient does not appear septic Unclear if hypotensive from intravascular depletion versus infection UA grossly positive for bacteria, urine a milky green color Urine culture without any growth History of multidrug-resistant bacteria in her urine Infectious disease consulted Was empirically covered with broad-spectrum antibiotics. Discontinued per ID on 03/14. Acetic acid bladder irrigation started 03/13, recommended 7 days. Maintain pH: 5 Nephrology consulted, patient undergoes routine hemodialysis Patient appears asymptomatic from a low blood pressure non-ambulatory Overall seems to be improving Monitor off antibiotics for the next 48 hours, continue bladder irrigation Would likely benefit from LTAC Code: full Dispo: possibly LTAC, in ~2 days Continue ICU level of care for today, may be able to downgrade later Time Spent Managing Pts Care (In Minutes): 35
[2021-03-14] MEDS: INSULIN -REGULAR HUMAN 50 UNIT/0.5 ML ML SQ SCH ×4 (07:30→21:00)
[2021-03-14] MEDS ORDERED: NA CHLORIDE 0.9% 1,000 ML ONE (07:53)
[2021-03-14] MEDS ORDERED: HEPARIN 5000 UNIT/ML 1 ML VIAL ONE ×2 (08:41→23:06)
[2021-03-14] MEDS ORDERED: VITAMIN D 1000 UNIT TAB ONE (08:42)
[2021-03-14] MEDS ORDERED: ACETAMINOPHEN 500 MG TAB ONE ×2 (08:44→09:12)
[2021-03-14] MEDS: MEDIHONEY 44 ML TOPICAL TUBE TOP SCH (09:00)
[2021-03-14] MEDS: CALCITROL 0.25 MCG CAP PO SCH (09:00)
[2021-03-14] MEDS: VITAMIN D 5,000 UNIT CAP PO SCH (09:00)
[2021-03-14] MEDS ORDERED: EPOETIN ALFA 10,000 UNIT/ML VIAL SQ SCH (09:00)
[2021-03-14] MEDS: LINEZOLID 600 MG TAB PO SCH (09:00)
[2021-03-14] MEDS: HEPARIN 5000 UNIT/ML 1 ML VIAL SQ SCH ×2 (09:00→21:00)
--- NOTE | 2021-03-14 10:56 | P.PN ---
Subjective Date of Service: 03/14/21 Primary Care Provider: skilled nursing doctor Chief Complaint: Hypotension Patient seen and at bedside, agitated this morning. Review of Systems 10-point ROS is otherwise unremarkable Physical Examination - Vital Signs Temperature: 98.7 F Blood Pressure: 129/58 Pulse: 74 Respirations: 18 Pulse Ox (%): 97 - Studies Laboratory Last Values WBC 7.10 K/uL (4.3-10.9) 03/12/21 14:28 RBC 3.20 M/uL (3.86-4.86) L 03/12/21 14:28 Hgb 9.4 g/dL (12.0-15.0) L 03/12/21 14:28 Hct 28.7 % (36.0-45.0) L 03/12/21 14:28 MCV 89.7 fL (80-100) 03/12/21 14:28 MCH 29.5 pg (27.0-35.0) 03/12/21 14:28 MCHC 32.8 g/dL (32.0-36.0) 03/12/21 14:28 RDW 17.1 % (12.1-15.2) H 03/12/21 14:28 Plt Count 179 K/uL (152-406) 03/12/21 14:28 MPV 8.0 fL (7.6-11.3) 03/12/21 14:28 Neutrophils % 68.1 % (41.7-73.7) 03/12/21 14:28 Lymphocytes % 17.7 % (15.3-44.8) 03/12/21 14:28 Monocytes % 13.5 % (3.3-12.3) H 03/12/21 14:28 Eosinophils % 0.5 % (0-4.4) 03/12/21 14:28 Basophils % 0.2 % (0-1.3) 03/12/21 14:28 Absolute Neutrophils 4.8 K/uL (1.8-8.0) 03/12/21 14:28 Absolute Lymphocytes 1.3 K/uL (0.7-4.9) 03/12/21 14:28 Absolute Monocytes 1.0 K/uL (0.1-1.3) 03/12/21 14:28 Absolute Eosinophils 0.0 K/uL (0-0.5) 03/12/21 14:28 Absolute Basophils 0.0 K/uL (0-0.5) 03/12/21 14:28 PT 16.7 SECONDS (9.5-12.5) H 03/12/21 14:28 INR 1.45 03/12/21 14:28 Sodium 140 mmol/L (136-145) 03/12/21 14:28 Potassium 4.3 mmol/L (3.5-5.1) 03/12/21 14:28 Chloride 110 mmol/L (98-107) H 03/12/21 14:28 Carbon Dioxide 25 mmol/L (21-32) 03/12/21 14:28 BUN 9 mg/dL (7-18) 03/12/21 14:28 Creatinine 1.27 mg/dL (0.55-1.3) 03/12/21 14:28 Estimated GFR 42 mL/min (=/>90) L 03/12/21 14:28 Glucose 82 mg/dL (74-106) 03/12/21 14:28 Lactic Acid 0.9 mmol/L (0.4-2.0) 03/12/21 18:46 Calcium 8.7 mg/dL (8.5-10.1) 03/12/21 14:28 Magnesium 1.7 mg/dL (1.8-2.4) L 03/12/21 14:28 Total Bilirubin 0.3 mg/dL (0.2-1.0) 03/12/21 14:28 Direct Bilirubin 0.2 mg/dL (0-0.2) 03/12/21 14:28 AST 33 U/L (15-37) 03/12/21 14:28 ALT 20 U/L (12-78) 03/12/21 14:28 Alkaline Phosphatase 107 U/L (45-117) 03/12/21 14:28 Rapid Troponin I 0.02 ng/mL (0.0-0.045) 03/12/21 14:28 NT-Pro-B Natriuret Pep 8376 pg/mL (<125) H 03/12/21 14:28 Serum Total Protein 5.0 g/dL (6.4-8.2) L 03/12/21 14:28 Albumin 1.9 g/dL (3.4-5.0) L 03/12/21 14:28 Globulin 3.1 g/dL (2.3-3.5) 03/12/21 14:28 Albumin/Globulin Ratio 0.6 (1.1-1.8) L 03/12/21 14:28 Procalcitonin < 0.05 ng/mL (<0.050) 03/12/21 18:46 Urine Color Pale yellow (Yellow) 03/12/21 02:15 Urine Appearance Turbid (Clear) 03/12/21 02:15 Urine pH 7.0 (5.0-7.0) 03/12/21 02:15 Ur Specific [place] 1.015 (1.005-1.030) 03/12/21 02:15 Glucose (UA)(Auto) Negative (Negative) 03/12/21 02:15 Urine Ketones Trace (Negative) H 03/12/21 02:15 Urine Blood 3+ (Negative) H 03/12/21 02:15 Urine Nitrite Negative (Negative) 03/12/21 02:15 Urine Bilirubin Negative (Negative) 03/12/21 02:15 Urine Urobilinogen 0.2 mg/dL (0.2-1.0) 03/12/21 02:15 Ur Leukocyte Esterase 3+ (Negative) H 03/12/21 02:15 Urine RBC 10-20 /HPF (NONE SEEN) H 03/12/21 02:15 Urine WBC Tntc /HPF (<5) H 03/12/21 02:15 Ur Squamous Epith Cells TRACK LEADER 03/12/21 02:15 Urine Bacteria >50 /HPF (<20) H 03/12/21 02:15 Urine Culture Reflexed Reflexed 03/12/21 02:15 Urine Total Protein 3+ (Negative) H 03/12/21 02:15 SARS-CoV-2 Rap RNA(RT-PCR) Negative (NEGATIVE) 03/12/21 17:44 Microbiology Data (last 24 hrs): 03/12/21 02:15 Clean Catch Urine [place] Count - Final >100,000 CFU/ML. 03/12/21 02:15 Clean Catch Urine - Final MIXED ISAMAR. 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 Urine analysis on this admission grossly positive, urine culture shows mixed isamar. Continue ascetic acid continuous wash for a total duration of 7 days. Maintain a bladder ph of 5.0. ESRD on HD, anemia of chronic disease, on diabetes, CHF Medical management per primary team Continue monitor CBC and BMP Continue to monitor for signs infection Plan of care discussed with Dr. Pollock Thank you for consultation.
[2021-03-14] MEDS ORDERED: CALCITROL 0.25 MCG CAP PO ONE (11:09)
[2021-03-14] MEDS ORDERED: INFLUENZA VACCINE (for 6+ mo) 0.5 ML DOSE IMVAC ONE (12:00)
[2021-03-14] MEDS ORDERED: TRAMADOL HCL 50 MG TAB ONE (13:52)
[2021-03-14] MEDS ORDERED: VANCOMYCIN 1.5 GM in NA CHLORIDE 0.9% 500 ML IVPB SCH (18:00)
[2021-03-14] MEDS: ACETIC ACID 0.25% IRR SCH (19:00)
[2021-03-14] MEDS ORDERED: POTASSIUM PHOS IN 0.9 % NACL 15 MMOL/250 ML BAG IV ONE (22:03)
--- NOTE | 2021-03-14 22:14 | P.PN ---
Date of Service: 03/14/21 Vital Signs Temp Pulse Resp BP Pulse Ox 98.7 F 76 14 153/98 H 99 03/14/21 20:00 03/14/21 20:00 03/14/21 20:00 03/14/21 20:00 03/14/21 20:00 Medications Acetaminophen (Acetaminophen 500 Mg Tab) 500 mg PO Q4HP PRN PRN Reason: TEMP > 100' F Last Admin: 03/14/21 09:00 Dose: 500 mg Documented by: Calcitriol (Calcitrol 0.25 Mcg Cap) 0.5 mcg PO DAILY [facility] Last Admin: 03/14/21 09:00 Dose: 0.5 mcg Documented by: Cholecalciferol (Vitamin D 5,000 Unit Cap) 5,000 unit PO DAILY [facility] Last Admin: 03/14/21 09:00 Dose: 5,000 unit Documented by: Dextrose (D50w 25 Gm/50 Ml Syringe) 12.5 gm IV PRN PRN; Protocol PRN Reason: HYPOGLYCEMIA Last Admin: 03/13/21 13:00 Dose: 12.5 gm Documented by: Emollient Gel (Medihoney 44 Ml Topical Tube) 1 appl TOP DAILY [facility] Last Admin: 03/14/21 09:00 Dose: 1 dose Documented by: Heparin Sodium (Porcine) (Heparin 5000 Unit/Ml 1 Ml Vial) 5,000 unit SQ Q12HR [facility] Last Admin: 03/14/21 09:00 Dose: 5,000 unit Documented by: Acetic Acid (Acetic Acid 0.25%) 4,000 mls @ 150 mls/hr IRR .[id number] [facility]; Protocol Last Admin: 03/13/21 19:00 Dose: 4,000 mls Documented by: Potassium Phosphate (Potassium Phos 15 Mmol/250 Ml Ns) 15 mmol in 250 mls @ 62.5 mls/hr IV 1X ONE; Protocol Stop: 03/15/21 02:02 Insulin Human Regular (Insulin -Regular Human 50 Unit/0.5 Ml Ml) 0 unit SQ ACHS [facility]; Protocol Last Admin: 03/14/21 16:30 Dose: Not Given Documented by: Ondansetron HCl (Ondansetron 4 Mg/2 Ml Vial) 4 mg IV Q6HP PRN PRN Reason: NAUSEA / VOMITING Sodium Chloride (Flush Normal Saline 10 Ml) 10 ml IV BID [facility] Last Admin: 03/14/21 09:00 Dose: 10 ml Documented by: Tramadol HCl (Tramadol Hcl 50 Mg Tab) 50 mg PO Q6H PRN PRN Reason: Pain scale 5-7 (Moderate) Vitamin B Complex/Vit C/Folic Acid (Multivitamins,Therapeut 1 Tab) 1 tab PO DAILY [facility] Microbiology Results 03/12/21 18:46 Blood - Blood Aerobic Blood Culture - Preliminary 03/12/21 18:46 Blood - Blood Blood Culture Gram Stain - Final 03/12/21 18:46 Blood - Blood Anaerobic Blood Culture - Preliminary No growth in 24 hours. 03/12/21 18:46 Blood - Blood Gram Stain - Final 03/12/21 02:15 Clean Catch Urine [place] Count - Final >100,000 CFU/ML. 03/12/21 02:15 Clean Catch Urine - Final MIXED DEMI. 03/12/21 18:30 Blood - Blood Aerobic Blood Culture - Preliminary No growth in 24 hours. 03/12/21 18:30 Blood - Blood Anaerobic Blood Culture - Preliminary No growth in 24 hours. Assessment/ Plan: Nephrology Progress Note Somnolent No chest pain or dyspnea No acute events overnight Vitals, medications blood work and imaging reviewed in the chart General: In no apparent distress HEENT: Atraumatic Neck: Supple Respiratory: Clear to auscultation bilaterally Cardiovascular: No edema, Regular rate/rhythm Gastrointestinal: Hypoactive, Non-distended Musculoskeletal: No clubbing, No contractures Integumentary: No rashes, No cyanosis Neurological: Abnormal speech Blood work reviewed in the chart. Imagings Data: EXAM DESCRIPTION: RAD - Chest Single View - 03/13/2021 5:11 am CLINICAL HISTORY: Eval volume status, R/O pneumonia COMPARISON: Chest Single View dated 03/12/2021; Chest Single View dated 12/07/2020; Chest Single View dated 12/06/2020; Chest Single View dated 11/12/2020; Chest Abd Pelvis Wo Con dated 11/20/2020 FINDINGS: Lines: Right IJ approach dialysis catheter with tip overlying the distal SVC. Lungs: Increased opacification of the left hemothorax. Pleural: Suspect a layering left pleural effusion . Cardiac: The heart size is within normal limits. Bones: No acute fractures. Other: IMPRESSION: Increased opacification of the left hemithorax likely secondary to a layering left pleural effusion and underlying atelectasis. Conclusions/Impression: ESRD -HD TIW Hypomagnesemia HypoPO4 -Replete with IV PO4 HTN complicated by Hypotension -Give IV Albumin PRN -IVF bolus as needed Diastolic CHF, chronic -HD with UF Severe Malnutrition Hypoalbuminemia -Give IV Albumin PRN Anemia in CKD -Retacrit TIW CKD MBD Hypocalcemia -Continue Vitamin D Acute MDR cystitis -ID following -Follow up cultures -Continue abx
[2021-03-15] MEDS ORDERED: POTASSIUM PHOS IN 0.9 % NACL 15 MMOL/250 ML BAG IV ONE (01:28)
[2021-03-15] MEDS ORDERED: Magnesium Sulfate 2gm IVPB 2 G/50 ML BAG IV ONE ×2 (02:10→02:11)
[2021-03-15 06:14] LABS: Absolute Lymphocytes (CBC) 1.7 K/uL (0.7-4.9); Basophils % 0.5 % (0-1.3); Hematocrit 28.9 % (36.0-45.0); Lymphocytes % 22.2 % (15.3-44.8); MPV 7.6 fL (7.6-11.3)
[2021-03-15 06:28] LABS: Albumin 1.8 g/dL (3.4-5.0); Bilirubin Total 0.4 mg/dL (0.2-1.0); C-Reactive Protein 75.7 mg/L (<3.00); Magnesium 1.9 mg/dL (1.8-2.4); Potassium 4.6 mmol/L (3.5-5.1); Protein, Total 4.8 g/dL (6.4-8.2)
[2021-03-15] MEDS: INSULIN -REGULAR HUMAN 50 UNIT/0.5 ML ML SQ SCH ×4 (07:30→21:00)
[2021-03-15] MEDS: CALCITROL 0.25 MCG CAP PO SCH (09:00)
[2021-03-15] MEDS: VITAMIN D 5,000 UNIT CAP PO SCH (09:00)
[2021-03-15] MEDS: HEPARIN 5000 UNIT/ML 1 ML VIAL SQ SCH ×2 (09:00→21:19)
[2021-03-15] MEDS: MULTIVITAMINS,THERAPEUT 1 TAB PO SCH (09:00)
[2021-03-15] MEDS: MEDIHONEY 44 ML TOPICAL TUBE TOP SCH (09:00)
--- NOTE | 2021-03-15 09:49 | RAD REPORT ---
EXAM DESCRIPTION: US - Renal Ultrasound-Complete - 03/15/2021 7:32 am CLINICAL HISTORY: Urinary retention COMPARISON: None. FINDINGS: The right kidney measures 8 centimeters with an increased echotexture. The left kidney measures 8 centimeters with an increased echotexture. Small bilateral renal cysts Hydronephrosis is not seen. IMPRESSION: Increased renal echotexture consistent with parenchymal disease
--- NOTE | 2021-03-15 09:51 | RAD REPORT ---
EXAM DESCRIPTION: US - Urinary Bladder - 03/15/2021 7:32 am CLINICAL HISTORY: Urinary retention FINDINGS: A Hickman catheter is present within a collapsed bladder. This limits evaluation. No gross significant abnormality visualized IMPRESSION: Limited evaluation as a Hickman catheter is present within a collapsed bladder. If clinica lly indicated repeat examination could be performed with sterile water injected into the catheter wit h bladder distention for better visualization
[2021-03-15] MEDS ORDERED: HEPARIN 5000 UNIT/ML 1 ML VIAL ONE (11:00)
--- NOTE | 2021-03-15 11:40 | P.PN ---
Subjective Date of Service: 03/15/21 Primary Care Provider: retirement doctor Chief Complaint: Hypotension Patient seen and at bedside, resting comfortably. Review of Systems 10-point ROS is otherwise unremarkable Physical Examination - Vital Signs Temperature: 98.7 F Blood Pressure: 133/77 Pulse: 75 Respirations: 18 Pulse Ox (%): 98 - Studies Laboratory Last Values WBC 7.10 K/uL (4.3-10.9) 03/12/21 14:28 RBC 3.20 M/uL (3.86-4.86) L 03/12/21 14:28 Hgb 9.4 g/dL (12.0-15.0) L 03/12/21 14:28 Hct 28.7 % (36.0-45.0) L 03/12/21 14:28 MCV 89.7 fL (80-100) 03/12/21 14:28 MCH 29.5 pg (27.0-35.0) 03/12/21 14:28 MCHC 32.8 g/dL (32.0-36.0) 03/12/21 14:28 RDW 17.1 % (12.1-15.2) H 03/12/21 14:28 Plt Count 179 K/uL (152-406) 03/12/21 14:28 MPV 8.0 fL (7.6-11.3) 03/12/21 14:28 Neutrophils % 68.1 % (41.7-73.7) 03/12/21 14:28 Lymphocytes % 17.7 % (15.3-44.8) 03/12/21 14:28 Monocytes % 13.5 % (3.3-12.3) H 03/12/21 14:28 Eosinophils % 0.5 % (0-4.4) 03/12/21 14:28 Basophils % 0.2 % (0-1.3) 03/12/21 14:28 Absolute Neutrophils 4.8 K/uL (1.8-8.0) 03/12/21 14:28 Absolute Lymphocytes 1.3 K/uL (0.7-4.9) 03/12/21 14:28 Absolute Monocytes 1.0 K/uL (0.1-1.3) 03/12/21 14:28 Absolute Eosinophils 0.0 K/uL (0-0.5) 03/12/21 14:28 Absolute Basophils 0.0 K/uL (0-0.5) 03/12/21 14:28 PT 16.7 SECONDS (9.5-12.5) H 03/12/21 14:28 INR 1.45 03/12/21 14:28 Sodium 140 mmol/L (136-145) 03/12/21 14:28 Potassium 4.3 mmol/L (3.5-5.1) 03/12/21 14:28 Chloride 110 mmol/L (98-107) H 03/12/21 14:28 Carbon Dioxide 25 mmol/L (21-32) 03/12/21 14:28 BUN 9 mg/dL (7-18) 03/12/21 14:28 Creatinine 1.27 mg/dL (0.55-1.3) 03/12/21 14:28 Estimated GFR 42 mL/min (=/>90) L 03/12/21 14:28 Glucose 82 mg/dL (74-106) 03/12/21 14:28 Lactic Acid 0.9 mmol/L (0.4-2.0) 03/12/21 18:46 Calcium 8.7 mg/dL (8.5-10.1) 03/12/21 14:28 Magnesium 1.7 mg/dL (1.8-2.4) L 03/12/21 14:28 Total Bilirubin 0.3 mg/dL (0.2-1.0) 03/12/21 14:28 Direct Bilirubin 0.2 mg/dL (0-0.2) 03/12/21 14:28 AST 33 U/L (15-37) 03/12/21 14:28 ALT 20 U/L (12-78) 03/12/21 14:28 Alkaline Phosphatase 107 U/L (45-117) 03/12/21 14:28 Rapid Troponin I 0.02 ng/mL (0.0-0.045) 03/12/21 14:28 NT-Pro-B Natriuret Pep 8376 pg/mL (<125) H 03/12/21 14:28 Serum Total Protein 5.0 g/dL (6.4-8.2) L 03/12/21 14:28 Albumin 1.9 g/dL (3.4-5.0) L 03/12/21 14:28 Globulin 3.1 g/dL (2.3-3.5) 03/12/21 14:28 Albumin/Globulin Ratio 0.6 (1.1-1.8) L 03/12/21 14:28 Procalcitonin < 0.05 ng/mL (<0.050) 03/12/21 18:46 Urine Color Pale yellow (Yellow) 03/12/21 02:15 Urine Appearance Turbid (Clear) 03/12/21 02:15 Urine pH 7.0 (5.0-7.0) 03/12/21 02:15 Ur Specific [place] 1.015 (1.005-1.030) 03/12/21 02:15 Glucose (UA)(Auto) Negative (Negative) 03/12/21 02:15 Urine Ketones Trace (Negative) H 03/12/21 02:15 Urine Blood 3+ (Negative) H 03/12/21 02:15 Urine Nitrite Negative (Negative) 03/12/21 02:15 Urine Bilirubin Negative (Negative) 03/12/21 02:15 Urine Urobilinogen 0.2 mg/dL (0.2-1.0) 03/12/21 02:15 Ur Leukocyte Esterase 3+ (Negative) H 03/12/21 02:15 Urine RBC 10-20 /HPF (NONE SEEN) H 03/12/21 02:15 Urine WBC Tntc /HPF (<5) H 03/12/21 02:15 Ur Squamous Epith Cells [employer] 03/12/21 02:15 Urine Bacteria >50 /HPF (<20) H 03/12/21 02:15 Urine Culture Reflexed Reflexed 03/12/21 02:15 Urine Total Protein 3+ (Negative) H 03/12/21 02:15 SARS-CoV-2 Rap RNA(RT-PCR) Negative (NEGATIVE) 03/12/21 17:44 Microbiology Data (last 24 hrs): 03/12/21 18:46 Blood - Blood Blood Culture Gram Stain - Final 03/12/21 18:46 Blood - Blood Gram Stain - Final 03/12/21 02:15 Clean Catch Urine [place] Count - Final >100,000 CFU/ML. 03/12/21 02:15 Clean Catch Urine - Final MIXED ISAMAR. 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 Urine analysis on this admission grossly positive, urine culture shows mixed isamar. Continue ascetic acid continuous wash for a total duration of 7 days. Maintain a bladder ph of 5.0. ESRD on HD, anemia of chronic disease, on diabetes, CHF Medical management per primary team Continue monitor CBC and BMP Continue to monitor for signs infection Plan of care discussed with Dr. Pollock Thank you for consultation.
--- NOTE | 2021-03-15 16:00 | P.PN ---
Date of Service: 03/15/21 Subjective: No acute events overnight. BP improving patient improving, with some loose stool ROS: 10 point ROS otherwise negative Physical exam GEN: Alert, NAD, deaf/mute HEENT: Normal conjunctiva, sclera anicteric CV: Regular rate and rhythm, trace bilateral lower extremity edema Pulm: Nonlabored respiration on room air ABD: Soft, nontender, nondistended MSK: No joint tenderness Neuro: follows basic commands, moves extremities, generalized weakness Problem list ESRD on HD with hypotension suspect volume depletion versus infection Acute cystitis Diabetes mellitus type 2, [id number] Anemia of chronic disease/ALL Chronic diastolic congestive heart failure Hypertension currently with hypotension Hyperlipidemia Deaf/mute Depression with anxiety White count, procalcitonin, lactate all normal. 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 Discontinued per ID on 03/14. Acetic acid bladder irrigation started 03/13, recommended 7 days. Maintain pH: 5 Nephrology consulted, patient undergoes routine hemodialysis non-ambulatory Overall seems to be improving Monitor off antibiotics, continue bladder irrigation Would likely benefit from LTAC Code: full Dispo: possibly LTAC can downgrade from ICU today Time Spent Managing Pts Care (In Minutes): 35
[2021-03-15] MEDS ORDERED: EPOETIN 4,000 UNIT/ML VIAL SQ SCH (17:00)
[2021-03-15] MEDS: TRAMADOL HCL 50 MG TAB PO PRN (17:44)
[2021-03-15] MEDS: EPOETIN ALFA 10,000 UNIT/ML VIAL SQ SCH (17:44)
[2021-03-15] MEDS ORDERED: SODIUM CHLORIDE IRRIG SOLUTION 0 ML IRR ONE (20:50)
[2021-03-15] MEDS ORDERED: MANNITOL 25% 12.5 GM/50 ML VIAL IV PRN (21:04)
[2021-03-15] MEDS ORDERED: NA CHLORIDE 0.9% 1,000 ML IV PRN (21:04)
[2021-03-15] MEDS ORDERED: POTASS/SODIUM PHOSPHATE 1 PKT POWD.PACK PO ONE (21:06)
--- NOTE | 2021-03-15 21:10 | P.PN ---
Date of Service: 03/15/21 Vital Signs Temp Pulse Resp BP Pulse Ox 97.6 F 85 16 131/66 96 03/15/21 15:53 03/15/21 15:53 03/15/21 15:53 03/15/21 15:53 03/15/21 15:53 Medications Acetaminophen (Acetaminophen 500 Mg Tab) 500 mg PO Q4HP PRN PRN Reason: TEMP > 100' F Last Admin: 03/14/21 09:00 Dose: 500 mg Documented by: Calcitriol (Calcitrol 0.25 Mcg Cap) 0.5 mcg PO DAILY [facility] Last Admin: 03/15/21 09:00 Dose: 0.5 mcg Documented by: Cholecalciferol (Vitamin D 5,000 Unit Cap) 5,000 unit PO DAILY [facility] Last Admin: 03/15/21 09:00 Dose: 5,000 unit Documented by: Dextrose (D50w 25 Gm/50 Ml Syringe) 12.5 gm IV PRN PRN; Protocol PRN Reason: HYPOGLYCEMIA Last Admin: 03/13/21 13:00 Dose: 12.5 gm Documented by: Emollient Gel (Medihoney 44 Ml Topical Tube) 1 appl TOP DAILY [facility] Last Admin: 03/15/21 09:00 Dose: 1 dose Documented by: Epoetin Juan Jose (Epoetin [place] 10,000 Unit/Ml Vial) 10,000 unit SQ M,W,F [facility] Last Admin: 03/15/21 17:44 Dose: 10,000 unit Documented by: Heparin Sodium (Porcine) (Heparin 5000 Unit/Ml 1 Ml Vial) 5,000 unit SQ Q12HR [facility] Last Admin: 03/15/21 09:00 Dose: 5,000 unit Documented by: Acetic Acid (Acetic Acid 0.25%) 4,000 mls @ 150 mls/hr IRR .[id number] [facility]; Protocol Last Admin: 03/14/21 19:00 Dose: 4,000 mls Documented by: Insulin Human Regular (Insulin -Regular Human 50 Unit/0.5 Ml Ml) 0 unit SQ ACHS [facility]; Protocol Last Admin: 03/15/21 16:23 Dose: Not Given Documented by: Ondansetron HCl (Ondansetron 4 Mg/2 Ml Vial) 4 mg IV Q6HP PRN PRN Reason: NAUSEA / VOMITING Sodium Chloride (Flush Normal Saline 10 Ml) 10 ml IV BID [facility] Last Admin: 03/15/21 09:00 Dose: 10 ml Documented by: Tramadol HCl (Tramadol Hcl 50 Mg Tab) 50 mg PO Q6H PRN PRN Reason: Pain scale 5-7 (Moderate) Last Admin: 03/15/21 17:44 Dose: 50 mg Documented by: Vitamin B Complex/Vit C/Folic Acid (Multivitamins,Therapeut 1 Tab) 1 tab PO DAILY [facility] Last Admin: 03/15/21 09:00 Dose: 1 tab Documented by: Microbiology Results 03/12/21 18:46 Blood - Blood Aerobic Blood Culture - Preliminary 03/12/21 18:46 Blood - Blood Blood Culture Gram Stain - Final 03/12/21 18:46 Blood - Blood Anaerobic Blood Culture - Preliminary 03/12/21 18:46 Blood - Blood Gram Stain - Final 03/12/21 02:15 Clean Catch Urine [place] Count - Final >100,000 CFU/ML. 03/12/21 02:15 Clean Catch Urine - Final MIXED DEMI. 03/12/21 18:30 Blood - Blood Aerobic Blood Culture - Preliminary No growth in 24 hours. 03/12/21 18:30 Blood - Blood Anaerobic Blood Culture - Preliminary No growth in 24 hours. Assessment/ Plan: Nephrology Progress Note Diffuse pain No chest pain or dyspnea No acute events overnight Vitals, medications blood work and imaging reviewed in the chart General: In no apparent distress HEENT: Atraumatic Neck: Supple Respiratory: Clear to auscultation bilaterally Cardiovascular: No edema, Regular rate/rhythm Gastrointestinal: Hypoactive, Non-distended Musculoskeletal: No clubbing, No contractures Integumentary: No rashes, No cyanosis Neurological: Abnormal speech Blood work reviewed in the chart. Imagings Data: EXAM DESCRIPTION: RAD - Chest Single View - 03/13/2021 5:11 am CLINICAL HISTORY: Eval volume status, R/O pneumonia COMPARISON: Chest Single View dated 03/12/2021; Chest Single View dated 12/07/2020; Chest Single View dated 12/06/2020; Chest Single View dated 11/12/2020; Chest Abd Pelvis Wo Con dated 11/20/2020 FINDINGS: Lines: Right IJ approach dialysis catheter with tip overlying the distal SVC. Lungs: Increased opacification of the left hemothorax. Pleural: Suspect a layering left pleural effusion . Cardiac: The heart size is within normal limits. Bones: No acute fractures. Other: IMPRESSION: Increased opacification of the left hemithorax likely secondary to a layering left pleural effusion and underlying atelectasis. Conclusions/Impression: ESRD -HD TIW Hypomagnesemia -Replete mag prn HypoPO4 -Give oral PO4 X1 HTN complicated by Hypotension -Give IV Albumin with HD -IVF bolus as needed Diastolic CHF, chronic -HD with UF Severe Malnutrition Hypoalbuminemia -Give IV Albumin with HD Anemia in CKD -Retacrit TIW CKD MBD Hypocalcemia -Continue Vitamin D Acute MDR cystitis -ID following -Follow up cultures -Continue abx
[2021-03-15] MEDS: FIDAXOMICIN 200 MG TABLET PO SCH (21:19)
[2021-03-15] MEDS ORDERED: ALBUMIN HUMAN 25% 50 ML IV SCH (22:00)
[2021-03-16] MEDS: TRAMADOL HCL 50 MG TAB PO PRN ×2 (00:13→15:18)
[2021-03-16] MEDS ORDERED: MORPHINE 2 MG/ML SYR IV ONE (03:55)
[2021-03-16 05:35] LABS: Absolute Lymphocytes (CBC) 2.2 K/uL (0.7-4.9); Basophils % 0.4 % (0-1.3); Hematocrit 25.8 % (36.0-45.0); Lymphocytes % 34.9 % (15.3-44.8); MPV 7.6 fL (7.6-11.3); RBC Red Blood Cell Count 2.96 M/uL (3.86-4.86)
[2021-03-16 05:58] LABS: Albumin 1.8 g/dL (3.4-5.0); Bilirubin Total 0.4 mg/dL (0.2-1.0); Potassium 4.5 mmol/L (3.5-5.1); Protein, Total 4.7 g/dL (6.4-8.2)
--- NOTE | 2021-03-16 06:17 | P.PN ---
Date of Service: 03/16/21 Subjective: Overall improving, blood pressure improved Confusion with acetic acid irrigation. Renal and bladder ultrasound done yesterday, no retention/hydronephrosis Patient reports right hip pain that began while here in the hospital While conversing with the patient by writing, patient does appear to have some level of confusion. ROS: 10 point ROS otherwise negative Physical exam GEN: AOx2, NAD, deaf/mute HEENT: Normal conjunctiva, sclera anicteric CV: Regular rate and rhythm, trace bilateral lower extremity edema Pulm: Nonlabored respiration on room air ABD: Soft, nontender, nondistended Neuro: follows basic commands, moves extremities, generalized weakness Problem list ESRD on HD with hypotension suspect volume depletion versus infection Acute cystitis Diabetes mellitus type 2, [id number] Anemia of chronic disease/ALL Chronic diastolic congestive heart failure Hypertension currently with hypotension Hyperlipidemia Deaf/mute Depression with anxiety White count, procalcitonin, lactate all normal. Patient did not appear septic BP improved Unclear if hypotensive from intravascular depletion versus infection UA grossly positive for bacteria, urine a milky green color Urine culture without any growth - mixed isamar History of multidrug-resistant bacteria in her urine After further discussion with shelter on 03/15, was discovered the patient is C. difficile positive, she has been battling C. difficile colitis and diarrhea intermittently over the last 2 months. Initial treatment with vancomycin, most recently was tested and resulted positive, was started on doxycycline Infectious disease consulted - empirically covered with broad spectrum antibiotics. Discontinued per ID on 03/14. Acetic acid bladder irrigation started 03/13, recommended 7 days. Maintain pH: 5 Nephrology consulted, patient undergoes routine hemodialysis non-ambulatory Overall seems to be improving To daptomycin started on 03/15 for C. difficile. Patient has had improvement in diarrhea Would benefit from LTAC Code: full Dispo: possibly LTAC, patient agreeable. Unable to get a hold the patient's POA Time Spent Managing Pts Care (In Minutes): 35
[2021-03-16] MEDS: INSULIN -REGULAR HUMAN 50 UNIT/0.5 ML ML SQ SCH ×2 (07:30→11:30)
[2021-03-16] MEDS: HEPARIN 5000 UNIT/ML 1 ML VIAL SQ SCH ×2 (08:49→21:12)
[2021-03-16] MEDS: VITAMIN D 5,000 UNIT CAP PO SCH (08:59)
[2021-03-16] MEDS: CALCITROL 0.25 MCG CAP PO SCH (08:59)
[2021-03-16] MEDS: MEDIHONEY 44 ML TOPICAL TUBE TOP SCH (08:59)
[2021-03-16] MEDS: MULTIVITAMINS,THERAPEUT 1 TAB PO SCH (08:59)
[2021-03-16] MEDS: FIDAXOMICIN 200 MG TABLET PO SCH ×2 (09:00→21:46)
[2021-03-16] MEDS: ACETIC ACID 0.25% IRR SCH (16:20)
--- NOTE | 2021-03-16 18:43 | RAD REPORT ---
EXAM DESCRIPTION: RAD - Hip Right 2 View - 03/16/2021 6:23 pm CLINICAL HISTORY: Right hip/ groin pain COMPARISON: No comparisons FINDINGS: AP and frog-leg views of the right hip were obtained. There is no fracture or dislocation. No AVN or focal head abnormality. Hip joint degenerative changes are present with spurring along the acetabular margin. Medial joint space is narrowed. Dense arterial tree calcifications are present. No suspicious soft tissue finding IMPRESSION: Negative right hip examination for acute or significant findings.
[2021-03-16] MEDS ORDERED: POTASS/SODIUM PHOSPHATE 1 PKT POWD.PACK PO ONE (20:52)
--- NOTE | 2021-03-16 20:56 | P.PN ---
Date of Service: 03/16/21 Vital Signs Temp Pulse Resp BP Pulse Ox 98 F 91 H 16 173/78 H 98 03/16/21 20:00 03/16/21 20:00 03/16/21 20:00 03/16/21 20:00 03/16/21 20:00 Medications Acetaminophen (Acetaminophen 500 Mg Tab) 500 mg PO TID [facility] Calcitriol (Calcitrol 0.25 Mcg Cap) 0.5 mcg PO DAILY [facility] Last Admin: 03/16/21 08:59 Dose: 0.5 mcg Documented by: Cholecalciferol (Vitamin D 5,000 Unit Cap) 5,000 unit PO DAILY [facility] Last Admin: 03/16/21 08:59 Dose: 5,000 unit Documented by: Dextrose (D50w 25 Gm/50 Ml Syringe) 12.5 gm IV PRN PRN; Protocol PRN Reason: HYPOGLYCEMIA Last Admin: 03/13/21 13:00 Dose: 12.5 gm Documented by: Emollient Gel (Medihoney 44 Ml Topical Tube) 1 appl TOP DAILY [facility] Last Admin: 03/16/21 08:59 Dose: 1 dose Documented by: Epoetin Juan Jose (Epoetin Juan Jose 10,000 Unit/Ml Vial) 10,000 unit SQ M,W,F [facility] Last Admin: 03/15/21 17:44 Dose: 10,000 unit Documented by: Heparin Sodium (Porcine) (Heparin 5000 Unit/Ml 1 Ml Vial) 5,000 unit SQ Q12HR [facility] Last Admin: 03/16/21 08:49 Dose: 5,000 unit Documented by: Heparin Sodium (Porcine) (Heparin 1,000 Unit/Ml Vial) 6,000 unit IV EVERY HD PRN PRN Reason: AFTER EACH Acetic Acid (Acetic Acid 0.25%) 4,000 mls @ 150 mls/hr IRR .[id number] [facility]; Protocol Last Admin: 03/16/21 16:20 Dose: 4,000 mls Documented by: Albumin Human (Albumin 25%) 50 mls @ 100 mls/hr IV EVERY HD [facility] Last Admin: 03/16/21 11:14 Dose: 50 mls Documented by: Mannitol (Mannitol 25% 12.5 Gm/50 Ml Vial) 12.5 gm IV EVERY HD PRN PRN Reason: Titrate to SBP (MUST DEFINE) Ondansetron HCl (Ondansetron 4 Mg/2 Ml Vial) 4 mg IV Q6HP PRN PRN Reason: NAUSEA / VOMITING Potassium Phos/Sodium Phos (Potass/Sodium Phosphate 1 Pkt Powd.Pack) 2 pkt PO ONCE ONE Stop: 03/16/21 20:53 Sodium Chloride (Flush Normal Saline 10 Ml) 10 ml IV BID [facility] Last Admin: 03/16/21 09:05 Dose: 10 ml Documented by: Tramadol HCl (Tramadol Hcl 50 Mg Tab) 50 mg PO Q6H PRN PRN Reason: Pain scale 5-7 (Moderate) Last Admin: 03/16/21 15:18 Dose: 50 mg Documented by: Vitamin B Complex/Vit C/Folic Acid (Multivitamins,Therapeut 1 Tab) 1 tab PO DA [facility] Last Admin: 03/16/21 08:59 Dose: 1 tab Documented by: Microbiology Results 03/12/21 18:46 Blood - Blood Aerobic Blood Culture - Preliminary 03/12/21 18:46 Blood - Blood Blood Culture Gram Stain - Final 03/12/21 18:46 Blood - Blood Anaerobic Blood Culture - Preliminary 03/12/21 18:46 Blood - Blood Gram Stain - Final 03/12/21 02:15 Clean Catch Urine [place] Count - Final >100,000 CFU/ML. 03/12/21 02:15 Clean Catch Urine - Final MIXED DEMI. 03/12/21 18:30 Blood - Blood Aerobic Blood Culture - Preliminary No growth in 24 hours. 03/12/21 18:30 Blood - Blood Anaerobic Blood Culture - Preliminary No growth in 24 hours. Assessment/ Plan: Nephrology Progress Note Diffuse pain including right hip pain No chest pain or dyspnea No acute events overnight Vitals, medications blood work and imaging reviewed in the chart General: In no apparent distress HEENT: Atraumatic Neck: Supple Respiratory: Clear to auscultation bilaterally Cardiovascular: No edema, Regular rate/rhythm Gastrointestinal: Hypoactive, Non-distended Musculoskeletal: No clubbing, No contractures Integumentary: No rashes, No cyanosis Neurological: Abnormal speech Blood work reviewed in the chart. Imagings Data: EXAM DESCRIPTION: RAD - Chest Single View - 03/13/2021 5:11 am CLINICAL HISTORY: Eval volume status, R/O pneumonia COMPARISON: Chest Single View dated 03/12/2021; Chest Single View dated 12/07/2020; Chest Single View dated 12/06/2020; Chest Single View dated 11/12/2020; Chest Abd Pelvis Wo Con dated 11/20/2020 FINDINGS: Lines: Right IJ approach dialysis catheter with tip overlying the distal SVC. Lungs: Increased opacification of the left hemothorax. Pleural: Suspect a layering left pleural effusion . Cardiac: The heart size is within normal limits. Bones: No acute fractures. Other: IMPRESSION: Increased opacification of the left hemithorax likely secondary to a layering left pleural effusion and underlying atelectasis. Conclusions/Impression: ESRD -HD TIW Hypomagnesemia -Replete mag prn HypoPO4 -Give oral PO4 X1 HTN complicated by Hypotension -Give IV Albumin with HD -IVF bolus as needed Diastolic CHF, chronic -HD with UF Severe Malnutrition Hypoalbuminemia -Give IV Albumin with HD Anemia in CKD -Retacrit TIW CKD MBD Hypocalcemia -Continue Vitamin D Acute MDR cystitis -ID following -Follow up cultures -Continue abx Case reviewed with Dr. Elias Right hip xray ordered for right groin pain
[2021-03-16] MEDS: ACETAMINOPHEN 500 MG TAB PO SCH (21:12)
[2021-03-17 00:51] VITALS: O2SAT 100
[2021-03-17] MEDS: TRAMADOL HCL 50 MG TAB PO PRN (00:56)
[2021-03-17] MEDS: ACETIC ACID 0.25% IRR SCH ×2 (03:00→09:18)
--- NOTE | 2021-03-17 05:59 | P.PN ---
Date of Service: 03/17/21 Subjective: Continues with some mild confusion, thinks she is under lockdown, [facility] At times does not believe she is at the hospital Pain is okay Continues with some diarrhea, loose stool, patient with raw buttocks area from the moisture/diarrhea No new complaints ROS: 10 point ROS otherwise negative Physical exam GEN: AOx2, NAD, deaf/mute HEENT: Normal conjunctiva, sclera anicteric CV: Regular rate and rhythm, trace bilateral lower extremity edema Pulm: Nonlabored respiration on room air ABD: Soft, nontender, nondistended Neuro: follows basic commands, moves extremities, generalized weakness Problem list ESRD on HD with hypotension suspect volume depletion versus infection Acute cystitis Diabetes mellitus type 2, [id number] Anemia of chronic disease/ALL Chronic diastolic congestive heart failure Hypertension currently with hypotension Hyperlipidemia Deaf/mute Depression with anxiety White count, procalcitonin, lactate all normal. Patient did not appear septic. But had significant hypotension Unclear if hypotensive from intravascular depletion versus infection. Suspect partly from hypovolemia and infection UA grossly positive for bacteria, urine a milky green color Urine culture without any growth - mixed isamar History of multidrug-resistant bacteria in her urine recently After further discussion with shelter on 03/15, was discovered the patient is C. difficile positive, she has been battling C. difficile colitis and diarrhea intermittently over the last 2 months. Initial treatment with vancomycin, most recently was tested and resulted positive, was started on doxycycline Infectious disease consulted - empirically covered with broad spectrum antibiotics. Discontinued per ID on 03/14. Acetic acid bladder irrigation started 03/13, recommended 7 days. Maintain pH: 5 Bladder irrigation was held on 03/15 due to unaccounted for 600-700 mL. Ultrasound obtained and no fluid remained in the bladder and kidneys. Nursing reported given the 1 L through the [facility]ickman and only having 200-300 mL return. Irrigation restarted on 03/16 Nephrology consulted, patient undergoes routine hemodialysis non-ambulatory Overall seems to be improving fidaxomicin started on 03/15 for C. difficile. Continues with a few episodes of diarrhea, buttocks area raw, cream barrier ordered Would benefit from LTAC -discussed with son Andrew who is in agreement. Code: full Dispo: possibly LTAC, patient agreeable. Son, Andrew, and agreement as well. clinical services director consulted Time Spent Managing Pts Care (In Minutes): 35
[2021-03-17 06:15] LABS: Hematocrit 25.2 % (36.0-45.0); MPV 7.2 fL (7.6-11.3); RBC Red Blood Cell Count 2.92 M/uL (3.86-4.86)
[2021-03-17 06:23] LABS: C-Reactive Protein 40.9 mg/L (<3.00); Magnesium 1.7 mg/dL (1.8-2.4); Phosphorus 1.8 mg/dL (2.5-4.9); Potassium 3.5 mmol/L (3.5-5.1)
[2021-03-17] MEDS: HEPARIN 5000 UNIT/ML 1 ML VIAL SQ SCH ×2 (07:26→19:41)
[2021-03-17] MEDS: ACETAMINOPHEN 500 MG TAB PO SCH ×3 (07:51→19:52)
[2021-03-17] MEDS: MULTIVITAMINS,THERAPEUT 1 TAB PO SCH (07:51)
[2021-03-17] MEDS: CALCITROL 0.25 MCG CAP PO SCH (07:51)
[2021-03-17] MEDS: VITAMIN D 5,000 UNIT CAP PO SCH (07:52)
[2021-03-17] MEDS: MEDIHONEY 44 ML TOPICAL TUBE TOP SCH (07:52)
[2021-03-17] MEDS: FIDAXOMICIN 200 MG TABLET PO SCH ×2 (10:18→19:51)
--- NOTE | 2021-03-17 17:32 | P.PN ---
Date of Service: 03/17/21 Vital Signs Temp Pulse Resp BP Pulse Ox 98 F 78 20 169/76 H 95 03/17/21 07:55 03/17/21 07:55 03/17/21 07:55 03/17/21 07:55 03/17/21 07:55 Medications Acetaminophen (Acetaminophen 500 Mg Tab) 500 mg PO TID [facility] Last Admin: 03/17/21 14:00 Dose: 500 mg Documented by: Calcitriol (Calcitrol 0.25 Mcg Cap) 0.5 mcg PO DAILY [facility] Last Admin: 03/17/21 07:51 Dose: 0.5 mcg Documented by: Cholecalciferol (Vitamin D 5,000 Unit Cap) 5,000 unit PO DAILY [facility] Last Admin: 03/17/21 07:52 Dose: 5,000 unit Documented by: Dextrose (D50w 25 Gm/50 Ml Syringe) 12.5 gm IV PRN PRN; Protocol PRN Reason: HYPOGLYCEMIA Last Admin: 03/13/21 13:00 Dose: 12.5 gm Documented by: Emollient Gel (Medihoney 44 Ml Topical Tube) 1 appl TOP DAILY [facility] Last Admin: 03/17/21 07:52 Dose: 1 dose Documented by: Enteral Nutritional Formula (Nepro Shake 237 Ml Can) 240 ml PO QID [facility] Epoetin Juan Jose (Epoetin Juan Jose 10,000 Unit/Ml Vial) 10,000 unit SQ M,W,F [facility] Last Admin: 03/15/21 17:44 Dose: 10,000 unit Documented by: Heparin Sodium (Porcine) (Heparin 5000 Unit/Ml 1 Ml Vial) 5,000 unit SQ Q12HR [facility] Last Admin: 03/17/21 07:26 Dose: 5,000 unit Documented by: Heparin Sodium (Porcine) (Heparin 1,000 Unit/Ml Vial) 6,000 unit IV EVERY HD PRN PRN Reason: AFTER EACH Acetic Acid (Acetic Acid 0.25%) 4,000 mls @ 150 mls/hr IRR .[id number] [facility]; Protocol Last Admin: 03/17/21 09:18 Dose: 4,000 mls Documented by: Albumin Human (Albumin 25%) 50 mls @ 100 mls/hr IV EVERY HD [facility] Last Admin: 03/16/21 11:14 Dose: 50 mls Documented by: Mannitol (Mannitol 25% 12.5 Gm/50 Ml Vial) 12.5 gm IV EVERY HD PRN PRN Reason: Titrate to SBP (MUST DEFINE) Nystatin (Nystatin Oint 15 Gm Tube) 1 appl TOP BID [facility] Ondansetron HCl (Ondansetron 4 Mg/2 Ml Vial) 4 mg IV Q6HP PRN PRN Reason: NAUSEA / VOMITING Potassium Phos/Sodium Phos (Potass/Sodium Phosphate 1 Pkt Powd.Pack) 2 pkt PO Q4H [facility] Stop: 03/17/21 22:01 Sodium Chloride (Flush Normal Saline 10 Ml) 10 ml IV BID [facility] Last Admin: 03/17/21 07:52 Dose: 10 ml Documented by: Tramadol HCl (Tramadol Hcl 50 Mg Tab) 50 mg PO Q6H PRN PRN Reason: Pain scale 5-7 (Moderate) Last Admin: 03/17/21 00:56 Dose: 50 mg Documented by: Vitamin B Complex/Vit C/Folic Acid (Multivitamins,Therapeut 1 Tab) 1 tab PO DAILY [facility] Last Admin: 03/17/21 07:51 Dose: 1 tab Documented by: Microbiology Results 03/12/21 18:46 Blood - Blood Aerobic Blood Culture - Final Staph Auricularis 03/12/21 18:46 Blood - Blood Blood Culture Gram Stain - Final 03/12/21 18:46 Blood - Blood Anaerobic Blood Culture - Final 03/12/21 18:46 Blood - Blood Gram Stain - Final 03/12/21 02:15 Clean Catch Urine [place] Count - Final >100,000 CFU/ML. 03/12/21 02:15 Clean Catch Urine - Final MIXED DEMI. 03/12/21 18:30 Blood - Blood Aerobic Blood Culture - Preliminary No growth in 24 hours. 03/12/21 18:30 Blood - Blood Anaerobic Blood Culture - Preliminary No growth in 24 hours. Assessment/ Plan: Nephrology Progress Note Fair appetite No chest pain or dyspnea No acute events overnight Vitals, medications blood work and imaging reviewed in the chart General: In no apparent distress HEENT: Atraumatic Neck: Supple Respiratory: Clear to auscultation bilaterally Cardiovascular: No edema, Regular rate/rhythm Gastrointestinal: Hypoactive, Non-distended Musculoskeletal: No clubbing, No contractures Integumentary: No rashes, No cyanosis Neurological: Abnormal speech Blood work reviewed in the chart. Imagings Data: EXAM DESCRIPTION: RAD - Chest Single View - 03/13/2021 5:11 am CLINICAL HISTORY: Eval volume status, R/O pneumonia COMPARISON: Chest Single View dated 03/12/2021; Chest Single View dated 12/07/2020; Chest Single View dated 12/06/2020; Chest Single View dated 11/12/2020; Chest Abd Pelvis Wo Con dated 11/20/2020 FINDINGS: Lines: Right IJ approach dialysis catheter with tip overlying the distal SVC. Lungs: Increased opacification of the left hemothorax. Pleural: Suspect a layering left pleural effusion . Cardiac: The heart size is within normal limits. Bones: No acute fractures. Other: IMPRESSION: Increased opacification of the left hemithorax likely secondary to a layering left pleural effusion and underlying atelectasis. Conclusions/Impression: ESRD -HD TIW Hypomagnesemia -Replete mag prn HypoPO4 -Give oral PO4 X2 HTN complicated by Hypotension -Give IV Albumin with HD prn -IVF bolus as needed Diastolic CHF, chronic -HD with UF Severe Malnutrition Hypoalbuminemia -Give IV Albumin with HD -Start Nepro Anemia in CKD -Retacrit TIW CKD MBD Hypocalcemia -Continue Vitamin D Acute MDR cystitis -ID following -Continue bladder irrigation Case reviewed with Dr. Elias
[2021-03-17] MEDS: NEPRO SHAKE 237 ML CAN PO SCH ×2 (19:52→20:01)
[2021-03-17] MEDS: NYSTATIN OINT 15 GM TUBE TOP SCH (19:54)
[2021-03-17] MEDS: POTASS/SODIUM PHOSPHATE 1 PKT POWD.PACK PO SCH (21:33)
[2021-03-18] MEDS: POTASS/SODIUM PHOSPHATE 1 PKT POWD.PACK PO SCH (01:57)
[2021-03-18] MEDS: TRAMADOL HCL 50 MG TAB PO PRN (03:50)
[2021-03-18 04:48] LABS: Hematocrit 26.9 % (36.0-45.0); MPV 7.1 fL (7.6-11.3); RBC Red Blood Cell Count 3.08 M/uL (3.86-4.86)
[2021-03-18 05:31] LABS: Albumin 1.8 g/dL (3.4-5.0); Bilirubin Direct 0.2 mg/dL (0-0.2); Bilirubin Total 0.4 mg/dL (0.2-1.0); C-Reactive Protein 39.7 mg/L (<3.00); Magnesium 1.6 mg/dL (1.8-2.4); Phosphorus 2.8 mg/dL (2.5-4.9); Potassium 4.1 mmol/L (3.5-5.1); Protein, Total 4.5 g/dL (6.4-8.2)
--- NOTE | 2021-03-18 06:18 | P.PN ---
Date of Service: 03/18/21 Subjective: no acute events overnight. doing ok. upset she is not home, confused ROS: 10 point ROS otherwise negative Physical exam GEN: AOx2, NAD, deaf/mute HEENT: Normal conjunctiva, sclera anicteric CV: Regular rate and rhythm, trace bilateral lower extremity edema Pulm: Nonlabored respiration on room air ABD: Soft, nontender, nondistended Neuro: follows basic commands, moves extremities, generalized weakness Problem list ESRD on HD with hypotension suspect volume depletion versus infection Acute cystitis Diabetes mellitus type 2, [id number] Anemia of chronic disease/ALL Chronic diastolic congestive heart failure Hypertension currently with hypotension Hyperlipidemia Deaf/mute Depression with anxiety White count, procalcitonin, lactate all normal. Patient did not appear septic. But had significant hypotension Unclear if hypotensive from intravascular depletion versus infection. 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 recently started on doxy ~2-3 days prior to admission - may have prevented growth on culture continue fidaxomicin Infectious disease consulted - empirically covered with broad spectrum antibiotics. Discontinued per ID on 03/14. Acetic acid bladder irrigation started 03/13 but missed a day. Recommends continue until 03/21 Maintain pH: 5 Bladder irrigation was held on 03/15 due to unaccounted for 600-700 mL. Ultrasound obtained and no fluid remained in the bladder and kidneys. Nursing reported given the 1 L through the [facility] and only having 200-300 mL return. Irrigation restarted on 03/16 Nephrology consulted, patient undergoes routine hemodialysis T-T-S non-ambulatory Overall seems to be improving fidaxomicin started on 03/15 for C. difficile. Continues with a few episodes of diarrhea, buttocks area raw, cream barrier ordered Would benefit from LTAC -discussed with son Andrew who is in agreement. Code: full Dispo: possibly LTAC, patient agreeable. Son, Andrew, and agreement as well. surgical services coordinator consulted Time Spent Managing Pts Care (In Minutes): 35
[2021-03-18] MEDS: HYDRALAZINE HCL 20 MG/ML VIAL IV PRN ×2 (06:33→20:22)
[2021-03-18] MEDS ORDERED: MAGNESIUM SULFATE 1 gm IVPB 1 GM/100 ML BAG IV ONE (07:00)
[2021-03-18] MEDS: HEPARIN 5000 UNIT/ML 1 ML VIAL SQ SCH ×2 (07:31→20:24)
[2021-03-18] MEDS: NYSTATIN OINT 15 GM TUBE TOP SCH ×2 (08:12→20:24)
[2021-03-18] MEDS: NEPRO SHAKE 237 ML CAN PO SCH ×4 (08:12→20:26)
[2021-03-18] MEDS: MEDIHONEY 44 ML TOPICAL TUBE TOP SCH (08:12)
[2021-03-18] MEDS: VITAMIN D 5,000 UNIT CAP PO SCH (08:12)
[2021-03-18] MEDS: MULTIVITAMINS,THERAPEUT 1 TAB PO SCH (08:12)
[2021-03-18] MEDS: ACETAMINOPHEN 500 MG TAB PO SCH ×3 (08:12→20:48)
[2021-03-18] MEDS: CALCITROL 0.25 MCG CAP PO SCH (08:12)
[2021-03-18] MEDS: FIDAXOMICIN 200 MG TABLET PO SCH ×2 (09:00→20:22)
--- NOTE | 2021-03-18 11:07 | P.PN ---
Subjective Date of Service: 03/18/21 Primary Care Provider: skilled nursing doctor Chief Complaint: Hypotension Patient seen and at bedside, afebrile, hemodynamically stable. WBC within normal range. Review of Systems 10-point ROS is otherwise unremarkable Physical Examination - Vital Signs Temperature: 97.7 F Blood Pressure: 140/63 Pulse: 91 Respirations: 18 Pulse Ox (%): 98 - Studies Laboratory Last Values WBC 7.10 K/uL (4.3-10.9) 03/12/21 14:28 RBC 3.20 M/uL (3.86-4.86) L 03/12/21 14:28 Hgb 9.4 g/dL (12.0-15.0) L 03/12/21 14:28 Hct 28.7 % (36.0-45.0) L 03/12/21 14:28 MCV 89.7 fL (80-100) 03/12/21 14:28 MCH 29.5 pg (27.0-35.0) 03/12/21 14:28 MCHC 32.8 g/dL (32.0-36.0) 03/12/21 14:28 RDW 17.1 % (12.1-15.2) H 03/12/21 14:28 Plt Count 179 K/uL (152-406) 03/12/21 14:28 MPV 8.0 fL (7.6-11.3) 03/12/21 14:28 Neutrophils % 68.1 % (41.7-73.7) 03/12/21 14:28 Lymphocytes % 17.7 % (15.3-44.8) 03/12/21 14:28 Monocytes % 13.5 % (3.3-12.3) H 03/12/21 14:28 Eosinophils % 0.5 % (0-4.4) 03/12/21 14:28 Basophils % 0.2 % (0-1.3) 03/12/21 14:28 Absolute Neutrophils 4.8 K/uL (1.8-8.0) 03/12/21 14:28 Absolute Lymphocytes 1.3 K/uL (0.7-4.9) 03/12/21 14:28 Absolute Monocytes 1.0 K/uL (0.1-1.3) 03/12/21 14:28 Absolute Eosinophils 0.0 K/uL (0-0.5) 03/12/21 14:28 Absolute Basophils 0.0 K/uL (0-0.5) 03/12/21 14:28 PT 16.7 SECONDS (9.5-12.5) H 03/12/21 14:28 INR 1.45 03/12/21 14:28 Sodium 140 mmol/L (136-145) 03/12/21 14:28 Potassium 4.3 mmol/L (3.5-5.1) 03/12/21 14:28 Chloride 110 mmol/L (98-107) H 03/12/21 14:28 Carbon Dioxide 25 mmol/L (21-32) 03/12/21 14:28 BUN 9 mg/dL (7-18) 03/12/21 14:28 Creatinine 1.27 mg/dL (0.55-1.3) 03/12/21 14:28 Estimated GFR 42 mL/min (=/>90) L 03/12/21 14:28 Glucose 82 mg/dL (74-106) 03/12/21 14:28 Lactic Acid 0.9 mmol/L (0.4-2.0) 03/12/21 18:46 Calcium 8.7 mg/dL (8.5-10.1) 03/12/21 14:28 Magnesium 1.7 mg/dL (1.8-2.4) L 03/12/21 14:28 Total Bilirubin 0.3 mg/dL (0.2-1.0) 03/12/21 14:28 Direct Bilirubin 0.2 mg/dL (0-0.2) 03/12/21 14:28 AST 33 U/L (15-37) 03/12/21 14:28 ALT 20 U/L (12-78) 03/12/21 14:28 Alkaline Phosphatase 107 U/L (45-117) 03/12/21 14:28 Rapid Troponin I 0.02 ng/mL (0.0-0.045) 03/12/21 14:28 NT-Pro-B Natriuret Pep 8376 pg/mL (<125) H 03/12/21 14:28 Serum Total Protein 5.0 g/dL (6.4-8.2) L 03/12/21 14:28 Albumin 1.9 g/dL (3.4-5.0) L 03/12/21 14:28 Globulin 3.1 g/dL (2.3-3.5) 03/12/21 14:28 Albumin/Globulin Ratio 0.6 (1.1-1.8) L 03/12/21 14:28 Procalcitonin < 0.05 ng/mL (<0.050) 03/12/21 18:46 Urine Color Pale yellow (Yellow) 03/12/21 02:15 Urine Appearance Turbid (Clear) 03/12/21 02:15 Urine pH 7.0 (5.0-7.0) 03/12/21 02:15 Ur Specific [place] 1.015 (1.005-1.030) 03/12/21 02:15 Glucose (UA)(Auto) Negative (Negative) 03/12/21 02:15 Urine Ketones Trace (Negative) H 03/12/21 02:15 Urine Blood 3+ (Negative) H 03/12/21 02:15 Urine Nitrite Negative (Negative) 03/12/21 02:15 Urine Bilirubin Negative (Negative) 03/12/21 02:15 Urine Urobilinogen 0.2 mg/dL (0.2-1.0) 03/12/21 02:15 Ur Leukocyte Esterase 3+ (Negative) H 03/12/21 02:15 Urine RBC 10-20 /HPF (NONE SEEN) H 03/12/21 02:15 Urine WBC Tntc /HPF (<5) H 03/12/21 02:15 Ur Squamous Epith Cells ENERGY SCHEDULER 03/12/21 02:15 Urine Bacteria >50 /HPF (<20) H 03/12/21 02:15 Urine Culture Reflexed Reflexed 03/12/21 02:15 Urine Total Protein 3+ (Negative) H 03/12/21 02:15 SARS-CoV-2 Rap RNA(RT-PCR) Negative (NEGATIVE) 03/12/21 17:44 Microbiology Data (last 24 hrs): 03/12/21 18:30 Blood - Blood Aerobic Blood Culture - Final No growth in 5 days. 03/12/21 18:30 Blood - Blood Anaerobic Blood Culture - Final No growth in 5 days. 03/12/21 18:46 Blood - Blood Aerobic Blood Culture - Final Staph Auricularis 03/12/21 18:46 Blood - Blood Blood Culture Gram Stain - Final 03/12/21 18:46 Blood - Blood Anaerobic Blood Culture - Final 03/12/21 18:46 Blood - Blood Gram Stain - Final Assessment And Plan - Plan Physical Exam: General: Alert, In no apparent distress, Other (Patient is deaf/mute) HEENT: Atraumatic Neck: Supple, 2+ carotid pulse no bruit Respiratory: Clear to auscultation bilaterally Cardiovascular: Normal pulses, Regular rate/rhythm, Normal S1 S2 Capillary refill: <2 Seconds Gastrointestinal: Normal bowel sounds, Soft and benign, Non-distended Musculoskeletal: No clubbing, No swelling, No contractures Integumentary: No rashes, No breakdown Urinary: Hickman catheter, moisture associated dermatitis to bilateral buttocks and groin area. 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 Urine analysis on this admission grossly positive, urine culture shows mixed isamar. Continue ascetic acid continuous wash for a total duration of 7 days. Maintain a bladder ph of 5.0. Ascetic acid solution was started on 03/13, continue until 03/21. Patient missed a single day of therapy on 03/15. ESRD on HD, anemia of chronic disease, on diabetes, CHF Medical management per primary team Continue monitor CBC and BMP Continue to monitor for signs infection Plan of care discussed with Dr. Pollock Thank you for consultation.
[2021-03-18] MEDS: EPOETIN ALFA 10,000 UNIT/ML VIAL SQ SCH (17:00)
--- NOTE | 2021-03-18 17:10 | P.DS ---
Admission Date: 03/12/21 Discharge Date: 03/18/21 Primary Care Provider: prison doctor Reason for Admission: Hypotension Consultations: Infectious disease - Dr. Pollock Nephrology - Dr. Hickman Procedures: CXR (03/12): IMPRESSION: Suspect small layering left pleural effusion. Otherwise, the lungs are clear. Foot x-ray (03/12): IMPRESSION: No acute osseous abnormality involving the left foot. Specifically, no radiographic evidence of osteomyelitis. MRI is more sensitive in the acute phase . CXR (03/13): IMPRESSION: Increased opacification of the left hemithorax likely secondary to a layering left pleural effusion and underlying atelectasis. Bladder ultrasound (03/15): IMPRESSION: Limited evaluation as a H[place] catheter is present within a collapsed bladder. If clinically indicated repeat examination could be performed with sterile water injected into the catheter with bladder distention for better visualization Renal ultrasound (03/15): FINDINGS: The right kidney measures 8 centimeters with an increased echotexture. The left kidney measures 8 centimeters with an increased echotexture. Small bilateral renal cysts Hydronephrosis is not seen. IMPRESSION: Increased renal echotexture consistent with parenchymal disease Hip x-ray (03/16): FINDINGS: AP and frog-leg views of the right hip were obtained. There is no fracture or dislocation. No AVN or focal head abnormality. Hip joint degenerative changes are present with spurring along the acetabular margin. Med ial joint space is narrowed. Dense arterial tree calcifications are present. No suspicious soft tissue finding IMPRESSION: Negative right hip examination for acute or significant findings. 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 Patient was at dialysis as scheduled Thursday and during dialysis she was complaining of pain to her back/buttocks, dialysis was cut 1 hour short and arrangement was made for patient be transferred back to [facility]. In route to [facility] patient's blood pressure was noted to be low around 70/40. Patient was transferred to the emergency department for evaluation. Patient was evaluated in the emergency department labs were significant for white blood cell count 7.1 hemoglobin 9.4 hematocrit 28.7 sodium 140 chloride 110 creatinine 1.27 GFR 42 lactic acid 0.9 procalcitonin less than 0.05 troponin chest x-ray with suspected small layering left pleural effusion otherwise clear lungs, patient with ulceration to the left foot x-ray without any acute findings of the left foot. Blood pressure remains low after patient has received 1 L of IV fluids, ED provider wishes to admit for further evaluation and management of hypotension. No signs of sepsis at this time, patient does have history of multidrug-resistant urinary tract infection although she does make very little urine. Attempted to obtain urine specimen. Hospital Course: Patient's inflammatory markers and vital signs did not initially suggest sepsis. Patient reported feeling like her normal self except a little bit tired. It was unclear if her hypotension was partly due to some intravascular depletion versus infection. She had a Hickman inserted and her urine was noted to be a milky green color. She was empirically treated with broad-spectrum antibiotics. Infectious disease was consulted. Her urine culture only grew mixed isamar. Blood cultures were negative. She did have multidrug-resistant bacteria in her urine just few months ago. Review of the EMR revealed patient has also been C. difficile positive over the last 3 to 4 months, continues with diarrhea. Was most recently tested (+ for C. difficile) and started on doxycycline on 03/10, which may have impacted culture results. Patient continued to reports she felt well, her blood pressure gradually improved. She did not require Pressors. Infectious disease recommended discontinuing antibiotics on 03/14. They recommended to continue only with acetic acid bladder irrigation, for total 7 days, with goal to maintain a pH of 5. During one of her bladder irrigation on 03/15, and nursing reported missing 600- 700 mL. They report infusing the ED 1 L through a Hickman catheter, however only 200-300 mL returned. Bladder scan was negative. They noted a blood clot in the catheter, so this was flushed with no further return. The Hickman catheter was replaced, with no further return as well. A formal renal and bladder ultrasound were performed, did not reveal any fluid in the bladder, no hydronephrosis. She was resumed with bladder irrigation with no further complications. Due to missing the day, her final day for irrigation will be on 03/21. Given her history of C. difficile and ongoing diarrhea, she was started on Fidaxomicin on 03/15. She continues to have a few episodes of diarrhea, buttocks area is raw and a cream barrier has been applied It was felt best that patient would most benefit from being transferred to [facility] prior to going back to her nursing facility.. Patient's son agreed. Nephrology was consulted and patient received hemodialysis as appropriate. Vital Signs/Physical Exam: Physical exam GEN: AOx2, NAD, deaf/mut, confused at times HEENT: Normal conjunctiva, sclera anicteric CV: Regular rate and rhythm, trace bilateral lower extremity edema Pulm: Nonlabored respiration on room air ABD: Soft, nontender, nondistended Neuro: follows basic commands, moves extremities, generalized weakness Temp Pulse Resp BP Pulse Ox 99.0 F 93 H 18 129/62 98 03/18/21 16:00 03/18/21 16:00 03/18/21 16:00 03/18/21 16:00 03/18/21 16:00 Laboratory Data at Discharge: WBC 6.20 K/uL (4.3-10.9) 03/18/21 04:30 Hgb 9.0 g/dL (12.0-15.0) L 03/18/21 04:30 Hct 26.9 % (36.0-45.0) L 03/18/21 04:30 Plt Count 158 K/uL (152-406) 03/18/21 04:30 PT 16.7 SECONDS (9.5-12.5) H 03/12/21 14:28 INR 1.45 03/12/21 14:28 Sodium 140 mmol/L (136-145) 03/18/21 04:30 Potassium 4.1 mmol/L (3.5-5.1) 03/18/21 04:30 BUN 11 mg/dL (7-18) 03/18/21 04:30 Creatinine 2.57 mg/dL (0.55-1.3) H 03/18/21 04:30 Glucose 108 mg/dL (74-106) H 03/18/21 04:30 Phosphorus 2.8 mg/dL (2.5-4.9) D 03/18/21 04:30 Magnesium 1.6 mg/dL (1.8-2.4) L 03/18/21 04:30 Total Bilirubin 0.4 mg/dL (0.2-1.0) 03/18/21 04:30 AST 15 U/L (15-37) 03/18/21 04:30 ALT 20 U/L (12-78) 03/18/21 04:30 Alkaline Phosphatase 121 U/L (45-117) H 03/18/21 04:30 Home Medications: Atorvastatin Calcium [Lipitor*] 20 mg PO BEDTIME 01/28/20 Carvedilol [Coreg] 25 mg PO BID 01/28/20 Cholecalciferol (Vitamin D3) [Vitamin D 5,000 IU Cap*] 5,000 unit PO DAILY 11/13/20 Insulin Regular, Human [Novolin R Flexpen] See Protocol SQ BID 11/13/20 Sertraline HCl 100 mg PO DAILY 11/13/20 Trazodone HCl 100 mg PO BEDTIME 11/13/20 Amlodipine [Norvasc*] 1 tab PO DAILY 03/15/21 Ferrous Sulfate [Iron] 1 tab PO BID 03/15/21 Furosemide 1 tab PO DAILY 03/15/21 Gabapentin 1 tab PO TID 03/15/21 Hydralazine HCl 1 tab PO TID 03/15/21 Insulin Glargine,Hum.rec.anlog [Lantus] 15 units SQ BEDTIME 03/15/21 Ondansetron HCl 1 mg PO Q8HR PRN 03/15/21 Followup: IRINA AREVALO [Primary Care Provider] - Time spent managing pt's care (in minutes): 45
[2021-03-18 20:11] VITALS: TEMP 97.9
--- NOTE | 2021-03-18 20:35 | P.PN ---
Date of Service: 03/18/21 Vital Signs Temp Pulse Resp BP Pulse Ox 97.9 F 89 19 170/79 H 98 03/18/21 20:00 03/18/21 20:00 03/18/21 20:00 03/18/21 20:00 03/18/21 20:00 Medications Acetaminophen (Acetaminophen 500 Mg Tab) 500 mg PO TID [facility] Last Admin: 03/18/21 18:22 Dose: 500 mg Documented by: Calcitriol (Calcitrol 0.25 Mcg Cap) 0.5 mcg PO DAILY [facility] Last Admin: 03/18/21 08:12 Dose: 0.5 mcg Documented by: Cholecalciferol (Vitamin D 5,000 Unit Cap) 5,000 unit PO DAILY [facility] Last Admin: 03/18/21 08:12 Dose: 5,000 unit Documented by: Dextrose (D50w 25 Gm/50 Ml Syringe) 12.5 gm IV PRN PRN; Protocol PRN Reason: HYPOGLYCEMIA Last Admin: 03/13/21 13:00 Dose: 12.5 gm Documented by: Emollient Gel (Medihoney 44 Ml Topical Tube) 1 appl TOP DAILY [facility] Last Admin: 03/18/21 08:12 Dose: 1 dose Documented by: Enteral Nutritional Formula (Nepro Shake 237 Ml Can) 237 ml PO QID [facility] Last Admin: 03/18/21 20:26 Dose: Not Given Documented by: Epoetin Juan Jose (Epoetin Juan Jose 10,000 Unit/Ml Vial) 10,000 unit SQ M,W,F [facility] Last Admin: 03/18/21 17:00 Dose: 10,000 unit Documented by: Heparin Sodium (Porcine) (Heparin 5000 Unit/Ml 1 Ml Vial) 5,000 unit SQ Q12HR [facility] Last Admin: 03/18/21 20:24 Dose: 5,000 unit Documented by: Heparin Sodium (Porcine) (Heparin 1,000 Unit/Ml Vial) 6,000 unit IV EVERY HD PRN PRN Reason: AFTER EACH Hydralazine HCl (Hydralazine Hcl 20 Mg/Ml Vial) 10 mg IV Q6HP PRN PRN Reason: Titrate to SBP (MUST DEFINE) Last Admin: 03/18/21 20:22 Dose: 10 mg Documented by: Acetic Acid (Acetic Acid 0.25%) 4,000 mls @ 150 mls/hr IRR .[id number] [facility]; Protocol Last Admin: 03/17/21 09:18 Dose: 4,000 mls Documented by: Albumin Human (Albumin 25%) 50 mls @ 100 mls/hr IV EVERY HD [facility] Last Admin: 03/16/21 11:14 Dose: 50 mls Documented by: Mannitol (Mannitol 25% 12.5 Gm/50 Ml Vial) 12.5 gm IV EVERY HD PRN PRN Reason: Titrate to SBP (MUST DEFINE) Nystatin (Nystatin Oint 15 Gm Tube) 1 appl TOP BID [facility] Last Admin: 03/18/21 20:24 Dose: 1 appl Documented by: Ondansetron HCl (Ondansetron 4 Mg/2 Ml Vial) 4 mg IV Q6HP PRN PRN Reason: NAUSEA / VOMITING Sodium Chloride (Flush Normal Saline 10 Ml) 10 ml IV BID [facility] Last Admin: 03/18/21 20:23 Dose: 10 ml Documented by: Tramadol HCl (Tramadol Hcl 50 Mg Tab) 50 mg PO Q6H PRN PRN Reason: Pain scale 5-7 (Moderate) Last Admin: 03/18/21 03:50 Dose: 50 mg Documented by: Vitamin B Complex/Vit C/Folic Acid (Multivitamins,Therapeut 1 Tab) 1 tab PO DAILY [facility] Last Admin: 03/18/21 08:12 Dose: 1 tab Documented by: Microbiology Results 03/12/21 18:30 Blood - Blood Aerobic Blood Culture - Final No growth in 5 days. 03/12/21 18:30 Blood - Blood Anaerobic Blood Culture - Final No growth in 5 days. 03/12/21 18:46 Blood - Blood Aerobic Blood Culture - Final Staph Auricularis 03/12/21 18:46 Blood - Blood Blood Culture Gram Stain - Final 03/12/21 18:46 Blood - Blood Anaerobic Blood Culture - Final 03/12/21 18:46 Blood - Blood Gram Stain - Final 03/12/21 02:15 Clean Catch Urine [place] Count - Final >100,000 CFU/ML. 03/12/21 02:15 Clean Catch Urine - Final MIXED DEMI. Assessment/ Plan: Nephrology Progress Note Fair appetite No chest pain or dyspnea No acute events overnight Vitals, medications blood work and imaging reviewed in the chart General: In no apparent distress HEENT: Atraumatic Neck: Supple Respiratory: Clear to auscultation bilaterally Cardiovascular: No edema, Regular rate/rhythm Gastrointestinal: Hypoactive, Non-distended Musculoskeletal: No clubbing, No contractures Integumentary: No rashes, No cyanosis Neurological: Abnormal speech Blood work reviewed in the chart. Imagings Data: EXAM DESCRIPTION: RAD - Chest Single View - 03/13/2021 5:11 am CLINICAL HISTORY: Eval volume status, R/O pneumonia COMPARISON: Chest Single View dated 03/12/2021; Chest Single View dated 12/07/2020; Chest Single View dated 12/06/2020; Chest Single View dated 11/12/2020; Chest Abd Pelvis Wo Con dated 11/20/2020 FINDINGS: Lines: Right IJ approach dialysis catheter with tip overlying the distal SVC. Lungs: Increased opacification of the left hemothorax. Pleural: Suspect a layering left pleural effusion . Cardiac: The heart size is within normal limits. Bones: No acute fractures. Other: IMPRESSION: Increased opacification of the left hemithorax likely secondary to a layering left pleural effusion and underlying atelectasis. Conclusions/Impression: ESRD -HD TIW -Next HD Thursday Hypomagnesemia -Replete mag prn HypoPO4 -Give oral PO4 PRN -Encourage nutrition HTN complicated by Hypotension -Give IV Albumin with HD prn -IVF bolus as needed Diastolic CHF, chronic -HD with UF Severe Malnutrition Hypoalbuminemia -Give IV Albumin with HD -Continue Nepro Anemia in CKD -Retacrit TIW CKD MBD Hypocalcemia -Continue Vitamin D Acute MDR cystitis -ID following -Continue bladder irrigation Case reviewed with Dr. Elias
[2021-03-18 22:03] VITALS: BP 147/69
[2021-03-18 22:10] VITALS: BMI 27.3
[2021-03-20 17:24] LABS: HBsAG Nonreactive (Nonreactive)
== END 2021-03-18 22:50 | DRG 291 ==
LOC: ER 14:03 → ERHOLD 19:56 → 4TH 03-15 14:45
PROVIDERS: ADMIT Hospitalist; ATTEND Hospitalist
PROC: 5A1D70Z Performance of Urinary Filtration, Intermittent, Less than 6 Hours Per Day (ICD-10-PCS; principal; 2021-03-16)
DX: I13.2 Hypertensive heart and chronic kidney disease with heart failure and with stage 5 chronic kidney disease, or end stage renal disease (principal); N18.6 End stage renal disease; E43 Unspecified severe protein-calorie malnutrition; N30.00 Acute cystitis without hematuria; A04.71 Enterocolitis due to Clostridium difficile, recurrent; E11.22 Type 2 diabetes mellitus with diabetic chronic kidney disease; I50.32 Chronic diastolic (congestive) heart failure; D50.9 Iron deficiency anemia, unspecified; D63.8 Anemia in other chronic diseases classified elsewhere; E78.5 Hyperlipidemia, unspecified; H91.3 Deaf nonspeaking, not elsewhere classified; F41.8 Other specified anxiety disorders; I95.9 Hypotension, unspecified; Z99.2 Dependence on renal dialysis; L30.9 Dermatitis, unspecified; E83.42 Hypomagnesemia; Z46.6 Encounter for fitting and adjustment of urinary device; E83.51 Hypocalcemia; L97.529 Non-pressure chronic ulcer of other part of left foot with unspecified severity; Z68.27 Body mass index [BMI] 27.0-27.9, adult; Z20.822 Contact with and (suspected) exposure to COVID-19
CPT/HCPCS: 36415; 71045; 76770; 76857; 80048; 80053; 80076; 81003; 81015; 82947; 83605; 83735; 83880; 84100; 84134; 84145; 84439; 84443; 84484; 85025; 85027; 85610; 86140; 86704; 86706; 86803; 87040; 87077; 87086; 87088; 87186; 87205; 87324; 87340; 87449; 93005; 96360; 99251; 99285; J0360; J0692; J1644; J2185; J2270; J3370; J3475; J7030; J7040; J8499; P9047; Q5105; U0003

== ENCOUNTER 2021-06-09 16:39 | Inpatient (IN) | payer OTHER ==
--- NOTE | 2021-06-09 18:07 | RAD REPORT ---
EXAM DESCRIPTION: Luis Single View06/09/2021 5:53 pm CLINICAL HISTORY: Shortness of breath COMPARISON: March 2021 FINDINGS: Mild left pulmonary opacities. Small left pleural effusion. Heart is normal size. Central venous catheter in place IMPRESSION: Mild left lung opacities may indicate pneumonia
[2021-06-09 19:04] LABS: Absolute Lymphocytes (CBC) 0.9 K/uL (0.7-4.9); Lymphocytes % 5.6 % (15.3-44.8); MPV 6.7 fL (7.6-11.3); RBC Red Blood Cell Count 3.55 M/uL (3.86-4.86)
[2021-06-09 19:29] LABS: Protime INR 1.68
[2021-06-09 19:31] LABS: ALT/SGPT 15 U/L (12-78); AST/SGOT 27 U/L (15-37); Albumin 1.6 g/dL (3.4-5.0); Alkaline Phosphatase 109 U/L (45-117); BUN Blood Urea Nitrogen 33 mg/dL (7-18); Bicarbonate 21 mmol/L (21-32); Bilirubin Direct 0.1 mg/dL (0-0.2); Bilirubin Total 0.4 mg/dL (0.2-1.0); Ferritin 1248.3 ng/mL (8-388); Glucose Level 93 mg/dL (74-106); Lipase < 10 U/L (73-393); Potassium 4.2 mmol/L (3.5-5.1); Sodium Level 133 mmol/L (136-145); Troponin (Emerg Dept Use Only) < 0.02 ng/mL (0.0-0.045)
--- NOTE | 2021-06-09 20:32 | EDPHYS ---
Physician Documentation [facility] Name: Delmi Schultz Age: 70 yrs Sex: Female : 1950 Arrival Date: 06/09/2021 Time: 16:58 Bed 19 Private MD: ED Physician Sofi Khoury HPI: 06/09 17:36 This 70 yrs old Female presents to ER via EMS with complaints of COVID +. pm1 17:36 The patient has shortness of breath at rest, and low oxygen saturation 88%. Onset: The pm1 symptoms/episode began/occurred today, Patient diagnosed with covid 8 days ago. 17:36 The patient's shortness of breath is aggravated by nothing, is alleviated by pm1 application of supplemental oxygen. Associated signs and symptoms: Pertinent positives: productive cough, lethargic per skilled nursing staff. Severity of symptoms: in the emergency department the symptoms are worse. Patient with saturation 88% at skilled nursing and was given supplemental O2 which improved her pulse ox readings and addressed her shortness of breath. Historical: - Allergies: 17:02 adhesive; ss - Home Meds: 17:07 amlodipine 10 mg tab once daily [Active]; ascorbic acid (vitamin C) 500 mg tab daily cb5 [Active]; aspirin 81 mg Oral chew 1 tab once daily [Active]; atorvastatin 20 mg Oral tab once daily [Active]; calcitriol 0.5 mcg Oral cap 1 cap once daily [Active]; carvedilol 25 mg Oral tab every 12 hours [Active]; cholecalciferol (vitamin D3) 5,000 unit Oral cap daily [Active]; Eliquis 2.5 mg Oral tab 1 tab 2 times per day [Active]; Furosemide Oral [Active]; gabapentin 600 mg Oral tab 3 times per day [Active]; hydralazine 25 mg Oral tab three times a day [Active]; hydroxyzine HCl 50 mg Oral tab 1 tab 4 times per day [Active]; - PMHx: 17:02 Anemia; Depression; Deaf; Diabetes - IDDM; ESRD; GERD; Hyperlipidemia; Hypertension; ss kidney disease; neuropathy; Dialysis MWF; - Immunization history:: Adult Immunizations up to date. - Social history:: Smoking status: unknown. ROS: 17:36 Cardiovascular: Negative for chest pain, palpitations, and edema. pm1 17:36 Abdomen/GI: Negative for abdominal pain, nausea, vomiting, diarrhea, and constipation. 17:36 Constitutional: Positive for fatigue, malaise. 17:36 Respiratory: Positive for cough, "sounds productive", shortness of breath. 17:36 Neuro: Positive for generalized weakness. 17:36 All other systems are negative. Exam: 17:36 Head/Face: Normocephalic, atraumatic. pm1 17:36 Back: No spinal tenderness. No costovertebral tenderness. Full range of motion. Skin: Warm, dry with normal turgor. Normal color with no rashes, no lesions, and no evidence of cellulitis. MS/ Extremity: Pulses equal, no cyanosis. Neurovascular intact. Full, normal range of motion. 17:36 Constitutional: The patient appears in no acute distress, alert, awake, non-diaphoretic, well developed, well hydrated, well groomed. 17:36 Cardiovascular: Exam negative for acute changes, Rate: normal, Rhythm: regular, Pulses: no pulse deficits are appreciated, Heart sounds: normal, normal S1and S2. 17:36 Respiratory: the patient does not display signs of respiratory distress, Respirations: normal, Breath sounds: rhonchi, are heard diffusely. 17:36 Abdomen/GI: Inspection: abdomen appears normal, Palpation: abdomen is soft and non-tender, in all quadrants. 17:36 Neuro: Mentation: appropriate for stated age, Motor: moves all fours. Vital Signs: 16:58 BP 98 / 44; Pulse 88; Resp 16; Temp 97.8(TE); Pulse Ox 90% on 3 lpm NC; ss 18:00 BP 101 / 45; Pulse 97; Resp 20; Temp 98.7; Pulse Ox 98% ; cb5 18:00 Pulse 88; Resp 16; Pulse Ox 98% ; cb5 19:45 BP 91 / 44; Pulse 83; Resp 24; Temp 98.2; Pulse Ox 94% on 2 lpm NC; Pain 0/10; mabel 21:10 BP 85 / 47; Pulse 86; Resp 24; Pulse Ox 95% on 2 lpm NC; Pain 0/10; mabel 22:08 BP 99 / 44; Pulse 85; Resp 22; Pulse Ox 96% 2 lpm ; mabel 22:49 BP 79 / 53; Pulse 88; Resp 20; Pulse Ox 97% on 2 lpm NC; mabel MDM: 17:36 Patient medically screened. pm1 20:30 Data reviewed: vital signs. Data interpreted: Pulse oximetry: on room air is 98 %. pm1 Interpretation: normal. Counseling: I had a detailed discussion with the patient and/or guardian regarding: the historical points, exam findings, and any diagnostic results supporting the discharge/admit diagnosis, lab results, radiology results, the need for further work-up and treatment in the hospital. 20:36 ED course: Patient with shortness of breath associated with coronavirus diagnosed about pm1 1 week ago. Patient was 88% saturation at skilled nursing and she was given supplemental oxygen by NC and her shortness of breath improved. Will admit the patient due to hypoxia associated coronavirus pneumonia. 06/09 17:22 Order name: BMP pm06/09 17:22 Order name: Blood Culture Adult (2) pm1 06/09 17:22 Order name: C-Reactive Protein pm1 06/09 17:22 Order name: CBC with Diff pm06/09 17:22 Order name: D-Dimer pm06/09 17:22 Order name: Ferritin pm06/09 17:22 Order name: LFT's pm06/09 17:22 Order name: Lactate; Complete Time: 19:36 pm1 06/09 17:22 Order name: Lipase; Complete Time: 20:13 pm06/09 17:22 Order name: PT-INR; Complete Time: 19:43 pm06/09 17:22 Order name: Procalcitonin; Complete Time: 19:55 pm06/09 17:22 Order name: Ptt, Activated; Complete Time: 19:43 pm06/09 17:22 Order name: Strep pm06/09 17:22 Order name: Troponin (emerg Dept Use Only); Complete Time: 20:13 pm06/09 17:22 Order name: Urine Microscopic Only 06/09 17:22 Order name: CXR XRAY; Complete Time: 18:11 pm06/09 17:22 Order name: EKG; Complete Time: 17:23 pm06/09 17:22 Order name: Cardiac monitoring 06/09 17:22 Order name: COVID-19/FLU A+B (Document "Date of Onset" if Symptomatic) pm06/09 17:23 Order name: Basic Metabolic Panel; Complete Time: 20:13 EDMS 06/09 17:23 Order name: Blood Culture EDMS 06/09 17:23 Order name: C-Reactive Protein; Complete Time: 20:13 EDMS 06/09 17:23 Order name: CBC with Automated Diff; Complete Time: 19:21 EDMS 06/09 17:23 Order name: D-Dimer; Complete Time: 19:43 EDMS 06/09 17:23 Order name: Ferritin; Complete Time: 20:13 EDMS 06/09 17:23 Order name: Liver (Hepatic) Function; Complete Time: 20:13 EDMS 06/09 17:22 Order name: Droplet/Contact Precautions pm1 06/09 17:22 Order name: EKG - Nurse/Tech pm1 06/09 17:22 Order name: IV Start pm1 06/09 17:22 Order name: Labs collected and sent pm1 06/09 17:22 Order name: O2 Per Protocol pm1 06/09 17:22 Order name: O2 Sat Monitoring pm1 06/09 17:22 Order name: Urine Dipstick-Ancillary (obtain specimen) pm1 Administered Medications: 21:19 Drug: NS 0.9% 250 ml Route: IV; Rate: bolus; Site: left forearm; mabel 22:11 Follow up: Response: No adverse reaction; IV Intake: 250ml mabel 21:25 Drug: SOLU-Medrol (methylPrednisoLONE) 125 mg Route: IVP; Site: left forearm; mabel 22:11 Follow up: Response: No adverse reaction mabel 21:35 Drug: Rocephin (cefTRIAXone) 1 grams Route: IV; Rate: calculated rate; Site: left mabel forearm; 22:10 Follow up: Response: No adverse reaction; IV Intake: 50ml mabel 21:45 Drug: Zithromax (azithromycin) 500 mg Route: IVPB; Infused Over: 1 hrs; Site: left mabel forearm; 22:10 Follow up: Response: No adverse reaction; IV Intake: 250ml mabel Disposition Summary: 06/09/21 20:31 Hospitalization Ordered Hospitalization Status: Inpatient Admission pm1 Location: [facility] ([facility] pm1 Condition: Stable pm1 Problem: new pm1 Symptoms: have improved pm1 Bed/Room Type: Standard pm1 Provider: Sofi Hernandez(06/09/21 20:36) la1 Room Assignment: 409(06/09/21 21:40) cg Diagnosis - Pneumonia due to SARS-associated coronavirus pm1 - End stage renal disease pm1 - Hypoxia pm1 Forms: - Medication Reconciliation Form pm1 - SBAR form pm1 Signatures: Dispatcher [employer] EDMS Shanna Salmon RN RN ss Davin Woody, AUTISM SPECIALIST-C AUTISM SPECIALIST-Cla1 Alicia Grant RN RN cg Marinas, Patrick, NP [employer] pm1 Danita Pearson RN RN bo Boman, Colleen RN RN cb5 Corrections: (The following items were deleted from the chart) 20:36 20:31 Davin Woody pm1 la1 20:46 17:36 Onset: The symptoms/episode began/occurred today, pm1 pm1 21:40 20:31 pm1 cg
--- NOTE | 2021-06-09 20:32 | ER ---
Nurse's Notes [facility] Kevin Name: Delmi Schultz Age: 70 yrs Sex: Female : 1950 Arrival Date: 06/09/2021 Time: 16:58 Bed 19 Private MD: Diagnosis: Pneumonia due to SARS-associated coronavirus;End stage renal disease;Hypoxia Presentation: 06/09 16:58 Chief complaint: EMS states: Diagnosed with COVID 8 days ago. [facility] ss staff reports that today patient is lethargic, cough has not improved and has course lung sounds. Coronavirus screen: Client presents with at least one sign or symptom that may indicate coronavirus-19. Ebola Screen: Patient denies exposure to infectious person. Patient denies travel to an Ebola-affected area in the 21 days before illness onset. Initial Sepsis Screen: Does the patient meet any 2 criteria? No. Patient's initial sepsis screen is negative. Does the patient have a suspected source of infection? Yes: Productive cough/pneumonia. Risk Assessment: Do you want to hurt yourself or someone else? Patient reports no desire to harm self or others. Onset of symptoms was June 01, 2020. 16:58 Method Of Arrival: EMS: [facility] 16:58 Note EMS reports that on RA, patients O2 saturation was 81%. Care prior to arrival: Oxygen administered. via nasal cannula. 16:58 Acuity: VICTOR M 2 Triage Assessment: 17:00 General: Appears in no apparent distress. unkempt, Behavior is calm, cooperative, cb5 appropriate for age, quiet. Pain: Unable to use pain scale. Historical: - Allergies: 17:02 adhesive; - Home Meds: 17:07 amlodipine 10 mg tab once daily [Active]; ascorbic acid (vitamin C) 500 mg tab daily cb5 [Active]; aspirin 81 mg Oral chew 1 tab once daily [Active]; atorvastatin 20 mg Oral tab once daily [Active]; calcitriol 0.5 mcg Oral cap 1 cap once daily [Active]; carvedilol 25 mg Oral tab every 12 hours [Active]; cholecalciferol (vitamin D3) 5,000 unit Oral cap daily [Active]; Eliquis 2.5 mg Oral tab 1 tab 2 times per day [Active]; Furosemide Oral [Active]; gabapentin 600 mg Oral tab 3 times per day [Active]; hydralazine 25 mg Oral tab three times a day [Active]; hydroxyzine HCl 50 mg Oral tab 1 tab 4 times per day [Active]; - PMHx: 17:02 Anemia; Depression; Deaf; Diabetes - IDDM; ESRD; GERD; Hyperlipidemia; Hypertension; ss kidney disease; neuropathy; Dialysis MWF; - Immunization history:: Adult Immunizations up to date. - Social history:: Smoking status: unknown. Screenin:07 Abuse screen: Denies threats or abuse. Denies injuries from another. Nutritional cb5 screening: No deficits noted. Tuberculosis screening: No symptoms or risk factors identified. Fall Risk None identified. Assessment: 17:10 General: Appears in no apparent distress. comfortable, unkempt, Behavior is cb5 cooperative, restless. Pain: Unable to use pain scale. Neuro: No deficits noted. Cardiovascular: Dialysis shunt: in the , Dialysis upper right chest wall. Respiratory: Breath sounds with crackles Breath sounds with rhonchi bilaterally. in left posterior upper lobe and right posterior upper lobe. GI: No deficits noted. : pt receives dialysis M,W,F. EENT: pt is legally deaf, and verbally non responsive. Derm: pt has poor skin turgor, gaaml arms skin tear, eccymosis. legs with eccymosis, and skin tear to left lower leg, and foot. Musculoskeletal: pt is bedbound per report. 18:00 Reassessment: Lab notified to assist with collecting blood cultures, two nurses cb5 attempted and unable to obtain. Pt has dialysis por ton right upper chest wall. 19:56 Reassessment: I agree with previous assessment and the pt's BC have been sent to the mabel lab. The pt was turned. 22:06 General: The pt remains hypotensive. She has recv'd her meds and I was able to change mabel her bedding and diaper. She is extremely helpful. She is deaf and mute, but does well with written communication, as well as, sign. . 22:20 General: The pt is to go to bed 409. I am calling report upstairs. The pt is resting mabel comfortably and remains hypotensive. . 22:51 General: Report called. I will transfer the pt via stretcher. . mabel Vital Signs: 16:58 BP 98 / 44; Pulse 88; Resp 16; Temp 97.8(TE); Pulse Ox 90% on 3 lpm NC; ss 18:00 BP 101 / 45; Pulse 97; Resp 20; Temp 98.7; Pulse Ox 98% ; cb5 18:00 Pulse 88; Resp 16; Pulse Ox 98% ; cb5 19:45 BP 91 / 44; Pulse 83; Resp 24; Temp 98.2; Pulse Ox 94% on 2 lpm NC; Pain 0/10; mabel 21:10 BP 85 / 47; Pulse 86; Resp 24; Pulse Ox 95% on 2 lpm NC; Pain 0/10; mabel 22:08 BP 99 / 44; Pulse 85; Resp 22; Pulse Ox 96% 2 lpm ; mabel 22:49 BP 79 / 53; Pulse 88; Resp 20; Pulse Ox 97% on 2 lpm NC; mabel ED Course: 16:58 Patient arrived in ED. ss 17:01 Triage completed. ss 17:02 Arm band placed on left wrist. ss 17:07 Glenis Kim, RN is Primary Nurse. cb5 17:07 Patient has correct armband on for positive identification. Allergy band placed. Bed in cb5 low position. Side rails up X2. 17:19 Jamey Hicks, KEV is PHCP. pm1 17:19 Sofi Khoury MD is Attending Physician. pm1 17:53 CXR XRAY In Process Unspecified. EDMS 19:12 No provider procedures requiring assistance completed. cb5 19:30 First set of blood cultures drawn by me. tw5 19:45 Second set of blood cultures drawn by me. tw5 19:45 Inserted saline lock: 20 gauge in left antecubital area, using aseptic technique. Blood tw5 collected. 19:45 Blood Culture Sent. tw5 19:45 C-Reactive Protein Sent. tw5 19:45 Blood Culture Adult (2) Sent. tw5 20:30 Davin Woody is Hospitalizing Provider. pm1 20:36 Sofi Hernandez MD is Hospitalizing Provider. la1 21:18 Blood Culture Sent. mabel Administered Medications: 21:19 Drug: NS 0.9% 250 ml Route: IV; Rate: bolus; Site: left forearm; mabel 22:11 Follow up: Response: No adverse reaction; IV Intake: 250ml mabel 21:25 Drug: SOLU-Medrol (methylPrednisoLONE) 125 mg Route: IVP; Site: left forearm; mabel 22:11 Follow up: Response: No adverse reaction mabel 21:35 Drug: Rocephin (cefTRIAXone) 1 grams Route: IV; Rate: calculated rate; Site: left mabel forearm; 22:10 Follow up: Response: No adverse reaction; IV Intake: 50ml mabel 21:45 Drug: Zithromax (azithromycin) 500 mg Route: IVPB; Infused Over: 1 hrs; Site: left mabel forearm; 22:10 Follow up: Response: No adverse reaction; IV Intake: 250ml mabel Intake: 22:10 IV: 250ml; Total: 250ml. mabel 22:10 IV: 50ml; Total: 300ml. mabel 22:11 IV: 250ml; Total: 550ml. mabel Outcome: 20:31 Decision to Hospitalize by Provider. pm1 22:09 Condition: stable mabel 23:03 Patient left the ED. mabel Signatures: Dispatcher [employer] EDMS Shanna Salmon RN RN ss Attema, Lee, MISSION SYSTEMS ENGINEER-C MISSION SYSTEMS ENGINEER-Cla1 Jamey Hicks, KEV CUSTOMER RELATIONS ADVISOR pm1 Shasha Goode tw5 Danita Pearson RN RN bo Boman, Colleen RN RN cb5 Corrections: (The following items were deleted from the chart) 17:03 16:58 Acuity: VICTOR M 4 ss heather
[2021-06-09] MEDS ORDERED: NA CHLORIDE 0.9% 250 ML ONE ×2 (21:14→21:24)
[2021-06-09] MEDS ORDERED: CEFTRIAXONE 1000 MG/VIAL ONE (21:23)
[2021-06-09] MEDS ORDERED: METHYLPREDNISOLONE 125 MG INJ ONE (21:23)
[2021-06-09] MEDS ORDERED: AZITHROMYCIN 500 MG INJ IVPB ONE (21:24)
[2021-06-09] MEDS ORDERED: NA CHLORIDE 0.9% 50 ML ONE (21:24)
--- NOTE | 2021-06-09 21:25 | P.HP ---
Certification for Inpatient Patient admitted to: Inpatient With expected LOS: >2 Midnights Patient will require the following post-hospital care: None Practitioner: I am a practitioner with admitting privileges, knowledge of patient current condition, hospital course, and medical plan of care. Services: Services provided to patient in accordance with Admission requirements found in Title 42 Section 412.3 of the Code of Federal Regulations Patient History Date of Service: 06/09/21 Primary Care Provider: [facility] doctor Reason for admission: COVID-19 pneumonia History of Present Illness: 70-year-old female with history of ESRD on HD, diabetes type [id number], anemia chronic disease, chronic diastolic congestive heart failure, hypertension, hyperlipidemia, deaf/mute, depression and anxiety presents the emergency room for increasing shortness of breath. Patient tested positive for COVID on 06/01/2021, long-term reports patient declining from a respiratory standpoint over the course the last day or 2. Urinary saturations in the high 80s, saturating 95% on 2 to 3 L per nasal cannula at this time. Labs were significant for white blood cell count 15.9 hemoglobin 10.5 hematocrit 32 D-dimer 1351 creatinine 3.03 BUN 33 GFR 15 ferritin 1248.3 C-reactive protein 211 procalcitonin 1.06 urinalysis pending chest x-ray mild left lung opacities may indicate pneumonia. ED provider wishes to admit for COVID-19 pneumonia with hypoxia. Allergies adhesive Allergy (Verified 01/28/20 21:31) Itching/Hives/Rash No Known Drug Allergies Allergy (Verified 01/28/20 21:31) Unknown Home Medications: Atorvastatin Calcium [Lipitor*] 20 mg PO BEDTIME 01/28/20 Carvedilol [Coreg] 25 mg PO BID 01/28/20 Cholecalciferol (Vitamin D3) [Vitamin D 5,000 IU Cap*] 5,000 unit PO DAILY 11/13/20 Insulin Regular, Human [Novolin R Flexpen] See Protocol SQ BID 11/13/20 Sertraline HCl 100 mg PO DAILY 11/13/20 Trazodone HCl 100 mg PO BEDTIME 11/13/20 Amlodipine [Norvasc*] 1 tab PO DAILY 03/15/21 Ferrous Sulfate [Iron] 1 tab PO BID 03/15/21 Furosemide 1 tab PO DAILY 03/15/21 Gabapentin 1 tab PO TID 03/15/21 Hydralazine HCl 1 tab PO TID 03/15/21 Insulin Glargine,Hum.rec.anlog [Lantus] 15 units SQ BEDTIME 03/15/21 Ondansetron HCl 1 mg PO Q8HR PRN 03/15/21 - Past Medical/Surgical History Diabetic: Yes -: Diabetes mellitus type 2 -: HTN -: GERD -: Depression -: Hyperlipidemia -: Chronic diastolic congestive heart failure -: Chronic back pain -: abdominal hernia -: ESRD on HD -: heel surgery 2007 -: abdominal hernia repair -: amptuation of 5th digit on L foot 2012 -: Cholecystectomy 2012 Psychosocial/ Personal History: [facility] - Family History Father -: Heart disease Mother -: Diabetes - Social History Smoking Status: Never smoker Alcohol use: No CD- Drugs: No Caffeine use: No Place of Residence: Home Review of Systems 10-point ROS is otherwise unremarkable General: Chills, Weakness, Malaise Respiratory: Cough, Shortness of Breath Physical Examination - Physical Exam General: Alert, In no apparent distress, Oriented x2, Obese, Other (Deaf/mute) HEENT: Atraumatic, PERRLA, Mucous membr. moist/pink, EOMI, Sclerae nonicteric Neck: Supple, 2+ carotid pulse no bruit, No LAD, Without JVD or thyroid abnormality Respiratory: Diminished Cardiovascular: Regular rate/rhythm, Normal S1 S2 Capillary refill: <2 Seconds Gastrointestinal: Normal bowel sounds, No tenderness Musculoskeletal: No tenderness Integumentary: No rashes Neurological: Normal speech, Normal strength at 5/5 x4 extr, Normal tone, Normal affect Lymphatics: No axilla or inguinal lymphadenopathy - Studies Laboratory Data (last 24 hrs) 06/09/21 18:36: PT 19.4 H, INR 1.68, APTT 37.1 H 06/09/21 18:36: WBC 15.90 H, Hgb 10.5 L, Hct 32.0 L, Plt Count 248 06/09/21 18:36: Sodium 133 L, Potassium 4.2, BUN 33 H, Creatinine 3.03 H, Glucose 93, Total Bilirubin 0.4, AST 27, ALT 15, Alkaline Phosphatase 109, Lipase < 10 L Assessment and Plan - Plan Assessment: Acute hypoxic respiratory failure secondary to COVID-19 pneumonia Leukocytosis ESRD on HD Diabetes mellitus type [id number] Hypertension currently with hypotension Hyperlipidemia Deaf/mute Depression with anxiety History of UTIs Plan: Acute hypoxic respiratory failure secondary to COVID-19 pneumonia: Pulmonology consulted trend CRP, D-dimer, supplemental oxygen as needed, D-dimer saturation, respiratory consulted. Continue with IV steroids, patient only on nasal cannula to 3 L at this time will likely not qualify for baricitinib at this time. Appreciate further pulmonology. Discussed case with patient's son Andrew made aware of situation. Leukocytosis: Given elevated white blood cell count will cover with antibiotics Rocephin/Zithromax. ESRD on HD: Nephrology consulted for additional assistance with dialysis Diabetes mellitus type [id number]: ACH S Accu-Chek moderate sliding scale insulin Hypertension currently with hypotension: We will bolus now aliquots of normal saline, doubt sepsis at this time. During previous admission patient was hypotensive but this appeared related to the use of the automatic blood pressure cuffs higher with manual cuff. If patient is hypotensive recommend checking manual pressures. Hyperlipidemia: Obtain and continue home medication Deaf/mute: Patient communicates with writing Depression with anxiety: Obtain and continue medication History of UTIs: Obtain urine DVT PPX:Continue eliquis 2.5 PO BID Code status:Full Discharge Plan: Home Plan to discharge in: 48 Hours - Advance Directives Does patient have a Living Will: No Does patient have a Durable POA for Healthcare: No - Code Status/Comfort Care Code Status Assessed: Yes (Full code) Critical Care: No Time Spent Managing Pts Care (In Minutes): 55
[2021-06-09] MEDS ORDERED: ONDANSETRON 4 MG/2 ML VIAL IV PRN (23:36)
[2021-06-10 02:09] LABS: SARS-COV-2 RT PCR POSITIVE (NEGATIVE)
[2021-06-10] MEDS: TRAZODONE 50 MG TABLET PO SCH ×2 (02:20→20:28)
[2021-06-10] MEDS: CODEINE 30MG/APAP 300MG TAB PO PRN ×2 (02:20→10:17)
[2021-06-10 02:51] VITALS: BMI 21.7
[2021-06-10 04:03] LABS: Absolute Lymphocytes (CBC) 0.6 K/uL (0.7-4.9); Hematocrit 30.6 % (36.0-45.0); Lymphocytes % 5.9 % (15.3-44.8); MPV 6.9 fL (7.6-11.3); RBC Red Blood Cell Count 3.37 M/uL (3.86-4.86)
[2021-06-10 04:34] LABS: Albumin 1.7 g/dL (3.4-5.0); Bilirubin Total 0.4 mg/dL (0.2-1.0); Protein, Total 5.9 g/dL (6.4-8.2)
[2021-06-10 04:58] LABS: Blood Morphology Comment NOT SEEN (NOT SEEN); Platelet Estimate ADEQ
[2021-06-10] MEDS: INSULIN -REGULAR HUMAN 50 UNIT/0.5 ML ML SQ SCH ×4 (07:30→20:42)
[2021-06-10] MEDS: METHYLPREDNISOLONE 125 MG INJ IV SCH ×2 (09:55→20:28)
[2021-06-10] MEDS: APIXABAN 2.5 MG TABLET PO SCH ×2 (09:55→20:28)
--- NOTE | 2021-06-10 12:36 | P.CNS ---
Date of Consult: 06/10/21 Primary Care Provider: [facility] doctor Chief Complaint: COVID-19 pneumonia History of Present Illness: Patient is 70 years of age end-stage renal disease metabolic syndrome admitted with worsening dyspnea she is found to have coronavirus pneumonia currently she is doing well on 2 L of nasal cannula oxygen not in any distress Allergies adhesive Allergy (Verified 01/28/20 21:31) Itching/Hives/Rash No Known Drug Allergies Allergy (Verified 01/28/20 21:31) Unknown Home Medications: Cholecalciferol (Vitamin D3) [Vitamin D 5,000 IU Cap*] 5,000 unit PO DAILY 11/13/20 Sertraline HCl 50 mg PO DAILY 11/13/20 Trazodone HCl 100 mg PO BEDTIME 11/13/20 Gabapentin 100 mg PO BID 03/15/21 Ondansetron HCl 4 mg PO Q8HR PRN 03/15/21 Acetaminophen with Codeine [Tylenol with Codeine #4 Tablet] 1 each PO Q6H PRN 06/10/21 Amino Acids/Protein Hydr/Fiber [Pro-Stat Renal Care Liquid Pkt] 30 ml PO BID 06/10/21 Cholestyramine (with Sugar) [Cholestyramine Packet] 1 packet PO DAILY 06/10/21 Famotidine 20 mg PO DAILY 06/10/21 Folic Acid/Vit B Complex and C [Renal-Abraham Tablet] 0.8 mg PO DAILY 06/10/21 Zinc Sulfate 1 tab PO DAILY 06/10/21 hydrOXYzine HCL [Atarax] 50 mg PO Q6H PRN 06/10/21 - Past Medical/Surgical History Diabetic: Yes -: Diabetes mellitus type 2 -: HTN -: GERD -: Depression -: Hyperlipidemia -: Chronic diastolic congestive heart failure -: Chronic back pain -: abdominal hernia -: ESRD on HD -: heel surgery 2007 -: abdominal hernia repair -: amptuation of 5th digit on L foot 2012 -: Cholecystectomy 2012 Psychosocial/ Personal History: [facility] - Family History Father Medical History: Heart disease Mother Medical History: Diabetes - Social History Smoking Status: Unknown if ever smoked Alcohol use: No CD- Drugs: No Caffeine use: No Place of Residence: [facility] Review of Systems General: Weakness Respiratory: Shortness of Breath Physical Examination Temp Pulse Resp BP Pulse Ox 97.9 F 72 18 105/55 L 100 06/10/21 08:00 06/10/21 08:00 06/10/21 10:17 06/10/21 08:00 06/10/21 08:00 General: Alert, In no apparent distress, Oriented x3 Respiratory: Clear to auscultation bilaterally, Diminished Laboratory Data (last 24 hrs) 06/09/21 18:36: PT 19.4 H, INR 1.68, APTT 37.1 H 06/09/21 18:36: WBC 15.90 H, Hgb 10.5 L, Hct 32.0 L, Plt Count 248 06/09/21 18:36: Sodium 133 L, Potassium 4.2, BUN 33 H, Creatinine 3.03 H, Glucose 93, Total Bilirubin 0.4, AST 27, ALT 15, Alkaline Phosphatase 109, Lipase < 10 L - Problems (1) 2019 novel coronavirus-infected pneumonia (NCIP) Current Visit: Yes Status: Acute Plan: Patient is 70 years of age admitted with coronavirus pneumonia she is currently doing well bilateral infiltrate consistent with pneumonia labs reviewed plan for discharge once on 4 L of nasal cannula oxygen patient is from [facility]
[2021-06-10] MEDS: HYDROCODONE/APAP 5/325 MG TAB PO PRN ×2 (14:29→20:28)
--- NOTE | 2021-06-10 19:11 | P.PN ---
Subjective Date of Service: 06/10/21 Subjective: No new changes, No C/O voiced, Improving Review of Systems 10-point ROS is otherwise unremarkable Physical Examination - Vital Signs Temperature: 98.3 F Blood Pressure: 115/56 Pulse: 85 Respirations: 17 Pulse Ox (%): 98 - Physical Exam General: Alert, In no apparent distress, Other (aphasia) Respiratory: Diminished Cardiovascular: Regular rate/rhythm, Normal S1 S2, No murmurs Gastrointestinal: Normal bowel sounds, Soft and benign, Non-distended, No tenderness Musculoskeletal: No clubbing, No swelling, No tenderness Neurological: Sensation intact, Cranial nerves 3-12 intact - Studies Laboratory Data (last 24 hrs) 06/09/21 18:36: PT 19.4 H, INR 1.68, APTT 37.1 H 06/09/21 18:36: WBC 15.90 H, Hgb 10.5 L, Hct 32.0 L, Plt Count 248 06/09/21 18:36: Sodium 133 L, Potassium 4.2, BUN 33 H, Creatinine 3.03 H, Glucose 93, Total Bilirubin 0.4, AST 27, ALT 15, Alkaline Phosphatase 109, Lipase < 10 L Medications List Reviewed: Yes Assessment & Plan - Problems (Diagnosis) (1) 2019 novel coronavirus-infected pneumonia (NCIP) Current Visit: Yes Status: Acute (2) Anemia in chronic kidney disease Current Visit: No Status: Acute (3) Depressive disorder Current Visit: No Status: Chronic (4) Diabetes mellitus Onset Date: 10/16/15 Current Visit: No Status: Chronic Qualifiers: Diabetes mellitus type: type 2 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 Diabetes mellitus complication status: with kidney complications Diabetes mellitus complication detail: with chronic kidney disease Chronic kidney disease stage: stage 4 (severe) Qualified Code(s): E11.22 - Type 2 diabetes mellitus with diabetic chronic kidney disease; N18.4 - Chronic kidney disease, stage 4 (severe) (5) Hyperlipidemia Current Visit: No Status: Chronic Qualifiers: Hyperlipidemia type: unspecified Qualified Code(s): E78.5 - Hyperlipidemia, unspecified (6) Hypertension Current Visit: No Status: Chronic Qualifiers: Hypertension type: essential hypertension Qualified Code(s): I10 - Essential (primary) hypertension - Advance Directives Does patient have a Living Will: No Does patient have a Durable POA for Healthcare: No
[2021-06-10] MEDS: GLUCERNA SHAKE 237 ML CAN PO SCH (20:38)
[2021-06-10] MEDS: JUVEN PACKET PO SCH (20:39)
--- NOTE | 2021-06-10 22:03 | P.CNS ---
Date of Consult: 06/10/21 Reason for Consult: ESRD Requesting Physician: Sofi Hernandez [facility] Care Provider: [facility] Chief Complaint: COVID-19 pneumonia History of Present Illness: 70-year-old female with history of ESRD on HD, diabetes type [id number], anemia chronic disease, chronic diastolic congestive heart failure, hypertension, hyperlipidemia, deaf/mute, depression and anxiety presents the emergency room for increasing shortness of breath. Patient tested positive for COVID on 06/01/2021, intermediate reports patient declining from a respiratory standpoint over the course the last day or 2. Urinary saturations in the high 80s, saturating 95% on 2 to 3 L per nasal cannula at this time. Labs were significant for white blood cell count 15.9 hemoglobin 10.5 hematocrit 32 D-dimer 1351 creatinine 3.03 BUN 33 GFR 15 ferritin 1248.3 C-reactive protein 211 procalcitonin 1.06 urinalysis pending chest x-ray mild left lung opacities may indicate pneumonia. ED provider wishes to admit for COVID-19 pneumonia with hypoxia. 17:36 This 70 yrs old Female presents to ER via EMS with complaints of COVID +. pm1 17:36 The patient has shortness of breath at rest, and low oxygen saturation 88%. Onset: The pm1 symptoms/episode began/occurred today, Patient diagnosed with covid 8 days ago. 17:36 The patient's shortness of breath is aggravated by nothing, is alleviated by pm1 application of supplemental oxygen. Associated signs and symptoms: Pertinent positives: productive cough, lethargic per intermediate staff. Severity of symptoms: in the emergency department the symptoms are worse. Patient with saturation 88% at intermediate and was given supplemental O2 which improved her pulse ox readings and addressed her shortness of breath. Allergies adhesive Allergy (Verified 01/28/20 21:31) Itching/Hives/Rash No Known Drug Allergies Allergy (Verified 01/28/20 21:31) Unknown Home medications list reviewed: Yes Home Medications: Cholecalciferol (Vitamin D3) [Vitamin D 5,000 IU Cap*] 5,000 unit PO DAILY 11/13/20 Sertraline HCl 50 mg PO DAILY 11/13/20 Trazodone HCl 100 mg PO BEDTIME 11/13/20 Gabapentin 100 mg PO BID 03/15/21 Ondansetron HCl 4 mg PO Q8HR PRN 03/15/21 Acetaminophen with Codeine [Tylenol with Codeine #4 Tablet] 1 each PO Q6H PRN 06/10/21 Amino Acids/Protein Hydr/Fiber [Pro-Stat Renal Care Liquid Pkt] 30 ml PO BID 06/10/21 Cholestyramine (with Sugar) [Cholestyramine Packet] 1 packet PO DAILY 06/10/21 Famotidine 20 mg PO DAILY 06/10/21 Folic Acid/Vit B Complex and C [Renal-Abraham Tablet] 0.8 mg PO DAILY 06/10/21 Zinc Sulfate 1 tab PO DAILY 06/10/21 hydrOXYzine HCL [Atarax] 50 mg PO Q6H PRN 06/10/21 - Past Medical/Surgical History Diabetic: Yes -: Diabetes mellitus type 2 -: HTN -: GERD -: Depression -: Hyperlipidemia -: Chronic diastolic congestive heart failure -: Chronic back pain -: abdominal hernia -: ESRD on HD -: heel surgery 2007 -: abdominal hernia repair -: amptuation of 5th digit on L foot 2012 -: Cholecystectomy 2012 Psychosocial/ Personal History: [facility] - Family History Father Medical History: Heart disease Mother Medical History: Diabetes - Social History Smoking Status: Unknown if ever smoked Alcohol use: No CD- Drugs: No Caffeine use: No Place of Residence: [facility] Review of Systems 10-point ROS is otherwise unremarkable General: Weakness Respiratory: SOB with Excertion Physical Examination Temp Pulse Resp BP Pulse Ox 96.9 F 84 18 106/53 L 99 06/10/21 20:00 06/10/21 20:00 06/10/21 20:00 06/10/21 20:00 06/10/21 20:00 General: In no apparent distress, Cooperative HEENT: Atraumatic Neck: Supple Respiratory: Normal air movement Cardiovascular: No edema, Regular rate/rhythm Gastrointestinal: Soft and benign, Non-distended Musculoskeletal: No clubbing, No contractures Integumentary: No rashes, No cyanosis Neurological: Abnormal speech Blood work reviewed in the chart. Imagings Data: EXAM DESCRIPTION: Luis Single View06/09/2021 5:53 pm CLINICAL HISTORY: Shortness of breath COMPARISON: March 2021 FINDINGS: Mild left pulmonary opacities. Small left pleural effusion. Heart is normal size. Central venous catheter in place IMPRESSION: Mild left lung opacities may indicate pneumonia Conclusions/Impression: ESRD -HD TIW Hyponatremia -HD TIW HTN with CKD/ CHF -HD with UF Diastolic CHF, chronic -HD with UF TIW DM II with CKD -RISS Severe malnutrition -Continue supplementation Anemia in CKD -Retacrit X1 CKD MBD -Start Vitamin D COVID-19 -Continue steroids Thank you kindly for the consultation. Case reviewed with Dr. Hernandez
[2021-06-11 05:41] LABS: Absolute Lymphocytes (CBC) 1.2 K/uL (0.7-4.9); Hematocrit 32.7 % (36.0-45.0); MPV 7.1 fL (7.6-11.3); RBC Red Blood Cell Count 3.65 M/uL (3.86-4.86)
[2021-06-11 06:19] LABS: Albumin 1.6 g/dL (3.4-5.0); Bilirubin Total 0.3 mg/dL (0.2-1.0); Potassium 4.8 mmol/L (3.5-5.1); Protein, Total 5.8 g/dL (6.4-8.2)
[2021-06-11] MEDS ORDERED: VITAMIN D 5,000 UNIT CAP PO SCH (09:00)
[2021-06-11] MEDS: GLUCERNA SHAKE 237 ML CAN PO SCH (09:00)
[2021-06-11] MEDS ORDERED: EPOETIN ALFA 10,000 UNIT/ML VIAL SQ SCH (09:00)
[2021-06-11] MEDS: JUVEN PACKET PO SCH (09:00)
[2021-06-11] MEDS ORDERED: MULTIVITAMINS,THERAPEUT 1 TAB PO SCH (09:00)
[2021-06-11] MEDS ORDERED: CALCITROL 0.25 MCG CAP PO SCH (09:00)
[2021-06-11] MEDS: METHYLPREDNISOLONE 125 MG INJ IV SCH (09:24)
[2021-06-11] MEDS: INSULIN -REGULAR HUMAN 50 UNIT/0.5 ML ML SQ SCH ×2 (09:25→13:15)
[2021-06-11] MEDS: APIXABAN 2.5 MG TABLET PO SCH (09:36)
[2021-06-11] MEDS: HYDROCODONE/APAP 5/325 MG TAB PO PRN (09:40)
--- NOTE | 2021-06-11 12:37 | P.PN ---
Subjective Date of Service: 06/11/21 Primary Care Provider: half-way doctor Chief Complaint: COVID-19 pneumonia Subjective: Improving (Patient doing well no new complaint) Review of Systems 10-point ROS is otherwise unremarkable Physical Examination - Vital Signs Temperature: 97.1 F Blood Pressure: 104/47 Pulse: 79 Respirations: 18 Pulse Ox (%): 99 - Physical Exam General: Alert, Cooperative - Studies Microbiology Data (last 24 hrs): 06/09/21 19:45 Blood - Blood Gram Stain - Final Medications List Reviewed: Yes Assessment & Plan - Problems (Diagnosis) (1) 2019 novel coronavirus-infected pneumonia (NCIP) Current Visit: Yes Status: Acute Plan: Patient elevated with coronavirus pneumonia doing well minimal oxygen plan to discharge back to the alf agree with 5 days of prednisone
[2021-06-11] MEDS ORDERED: MANNITOL 25% 12.5 GM/50 ML VIAL IV PRN (12:54)
[2021-06-11] MEDS ORDERED: NA CHLORIDE 0.9% 1,000 ML IV PRN (12:54)
[2021-06-11] MEDS ORDERED: ALBUMIN HUMAN 25% 50 ML IV SCH (13:00)
[2021-06-11 14:52] VITALS: O2SAT 99
[2021-06-11 17:56] VITALS: BP 145/60; TEMP 96.8
--- NOTE | 2021-06-11 19:43 | P.PN ---
Date of Service: 06/11/21 Vital Signs Temp Pulse Resp BP Pulse Ox 96.8 F 83 18 145/60 H 98 06/11/21 16:00 06/11/21 16:00 06/11/21 16:00 06/11/21 16:00 06/11/21 16:00 Microbiology Results 06/09/21 19:45 Blood - Blood Aerobic Blood Culture - Preliminary No growth in 24 hours. 06/09/21 19:45 Blood - Blood Anaerobic Blood Culture - Preliminary 06/09/21 19:45 Blood - Blood Gram Stain - Final 06/09/21 19:30 Blood - Blood Aerobic Blood Culture - Preliminary No growth in 24 hours. 06/09/21 19:30 Blood - Blood Anaerobic Blood Culture - Preliminary No growth in 24 hours. Assessment/ Plan: Nephrology No dyspnea No chest pain No acute events overnight Vitals, medications, blood work and imaging reviewed in the chart General: In no apparent distress, Cooperative HEENT: Atraumatic Neck: Supple Respiratory: Normal air movement Cardiovascular: No edema, Regular rate/rhythm Gastrointestinal: Soft and benign, Non-distended Musculoskeletal: No clubbing, No contractures Integumentary: No rashes, No cyanosis Neurological: Abnormal speech Blood work reviewed in the chart. Imagings Data: EXAM DESCRIPTION: Luis Single View06/09/2021 5:53 pm CLINICAL HISTORY: Shortness of breath COMPARISON: March 2021 FINDINGS: Mild left pulmonary opacities. Small left pleural effusion. Heart is normal size. Central venous catheter in place IMPRESSION: Mild left lung opacities may indicate pneumonia Conclusions/Impression: ESRD -HD TIW Hyponatremia -HD TIW HTN with CKD/ CHF -HD with UF Diastolic CHF, chronic -HD with UF TIW DM II with CKD -RISS Severe malnutrition -Continue supplementation Anemia in CKD -Retacrit prn CKD MBD -Continue Vitamin D COVID-19 -Continue steroids
[2021-06-11] MEDS ORDERED: dexAMETHasone 4 MG TAB PO SCH (21:00)
== END 2021-06-11 16:40 | DRG 177 ==
LOC: ER 16:39 → ERHOLD 21:03 → 4TH 22:22
PROVIDERS: ADMIT Hospitalist; ATTEND Hospitalist
DX: U07.1 COVID-19 (principal); J12.82 Pneumonia due to coronavirus disease 2019; N18.6 End stage renal disease; J96.01 Acute respiratory failure with hypoxia; E43 Unspecified severe protein-calorie malnutrition; I50.32 Chronic diastolic (congestive) heart failure; I13.2 Hypertensive heart and chronic kidney disease with heart failure and with stage 5 chronic kidney disease, or end stage renal disease; E87.1 Hypo-osmolality and hyponatremia; E11.22 Type 2 diabetes mellitus with diabetic chronic kidney disease; E78.5 Hyperlipidemia, unspecified; H91.90 Unspecified hearing loss, unspecified ear; K21.9 Gastro-esophageal reflux disease without esophagitis; D63.1 Anemia in chronic kidney disease; I95.9 Hypotension, unspecified; M89.9 Disorder of bone, unspecified; F41.8 Other specified anxiety disorders; Z99.2 Dependence on renal dialysis; Z79.899 Other long term (current) drug therapy; Z79.01 Long term (current) use of anticoagulants; Z79.82 Long term (current) use of aspirin; Z91.048 Other nonmedicinal substance allergy status; Z79.4 Long term (current) use of insulin; Z90.49 Acquired absence of other specified parts of digestive tract; Z68.21 Body mass index [BMI] 21.0-21.9, adult
CPT/HCPCS: 0240U; 36415; 71045; 80048; 80053; 80076; 82728; 82947; 83605; 83690; 84145; 84484; 85025; 85379; 85610; 85730; 86140; 87040; 87070; 87081; 87205; 93005; 96374; 96375; 99284; J0456; J1644; J2930; J7050; P9047; Q5105

== ENCOUNTER 2021-06-21 09:43 | Inpatient (IN) | payer OTHER ==
[2021-06-21 10:15] LABS: Absolute Lymphocytes (CBC) 2.5 K/uL (0.7-4.9); Hematocrit 31.8 % (36.0-45.0); Lymphocytes % 14.9 % (15.3-44.8); MPV 8.7 fL (7.6-11.3); RBC Red Blood Cell Count 3.44 M/uL (3.86-4.86)
[2021-06-21 10:21] LABS: Protime INR 1.51
[2021-06-21] MEDS ORDERED: NOREPINEPHRINE 4mg/D5W 250mL 4 MG/250 ML BAG IV ONE ×2 (10:21→14:16)
[2021-06-21] MEDS ORDERED: NA CHLORIDE 0.9% 1,000 ML ONE (10:21)
[2021-06-21] MEDS ORDERED: PIPERACIL/TAZO 2.25 GM VIAL IV ONE (10:39)
[2021-06-21 10:40] LABS: ALT/SGPT 17 U/L (12-78); AST/SGOT 21 U/L (15-37); Albumin 1.4 g/dL (3.4-5.0); Alkaline Phosphatase 127 U/L (45-117); BUN Blood Urea Nitrogen 33 mg/dL (7-18); Bicarbonate 24 mmol/L (21-32); Bilirubin Direct 0.2 mg/dL (0-0.2); Bilirubin Total 0.4 mg/dL (0.2-1.0); Creatine Phosphokinase 31 U/L (26-192); Glucose Level 149 mg/dL (74-106); Lipase 307 U/L (73-393); Potassium 4.1 mmol/L (3.5-5.1); Sodium Level 140 mmol/L (136-145)
[2021-06-21] MEDS ORDERED: NA CHLORIDE 0.9% 250 ML ONE (10:40)
[2021-06-21 10:49] LABS: CKMB Creatine Kinase MB < 1.0 ng/mL (1.0-3.6)
[2021-06-21 10:52] LABS: Amylase 205 U/L (25-115)
--- NOTE | 2021-06-21 11:26 | ER ---
Nurse's Notes [facility] Name: Delmi Schultz Age: 70 yrs Sex: Female : 1950 Arrival Date: 06/21/2021 Time: 09:53 Bed 2 Private MD: Diagnosis: Acute respiratory failure Presentation: 06/21 09:53 Chief complaint: EMS states: they were called to [facility] for a non ap3 responsive patient. When EMS arrived, staff was conducting CPR. Upon EMS assessment, CPR was halted as the patient had a pulse and was breathing on her own. It is reported that upon rounding this morning, the [facility]dc staff observed the patient agonal breathing with a valladares skin color. Coronavirus screen: Client presents with at least one sign or symptom that may indicate coronavirus-19. Standard/surgical mask placed on the client. Provider contacted for isolation considerations. Ebola Screen: No symptoms or risks identified at this time. Initial Sepsis Screen:. Initial Sepsis Screen: Does the patient meet any 2 criteria? Systolic BP < 90 mmHg. Mean Arterial Pressure (MAP) < 65. Yes Does the patient have a suspected source of infection? Yes: Productive cough/pneumonia If YES to both, name of provider notified: Hank Cisneros MD. Risk Assessment: Do you want to hurt yourself or someone else? Patient reports no desire to harm self or others. Onset of symptoms was June 21, 2021. Care prior to arrival: CPR manually by fdc staff. Care prior to arrival: Oxygen administered. via a non-rebreather mask. Transition of care: patient was received from another setting of care (long-term care facility), [facility]. 09:53 Method Of Arrival: EMS: [facility] ap3 09:53 Acuity: VICTOR M 2 ap3 Triage Assessment: 09:55 General: Appears slender, Behavior is calm. Pain: Denies pain. Neuro: Level of ap3 Consciousness is awake, alert, communicates through writing and hand motions. . Oriented to person, place, Weakness Speech patient doesn't speak, which is her baseline. Cardiovascular: Capillary refill is sluggish Patient's skin is warm and dry. Respiratory: Airway is patent Respiratory effort is even, Respiratory pattern is tachypnea Breath sounds are diminished bilaterally. GI: Abdomen is flat, patient is in a brief, is incontinent of urine and bowel. :. Derm: Wound noted right arm and left arm Other: skin tears. Musculoskeletal: patient is bed bound, and is a 1 person assist in changing positions. Historical: - Allergies: 10:04 adhesive; ap3 - Home Meds: 10:04 amlodipine 10 mg tab once daily [Active]; ascorbic acid (vitamin C) 500 mg tab daily ap3 [Active]; Eliquis 2.5 mg Oral tab 1 tab 2 times per day [Active]; hydroxyzine HCl 50 mg Oral tab 1 tab 4 times per day [Active]; furosemide 20 mg oral tab 1 tab once daily [Active]; gabapentin 100 mg oral cap 1 cap 2 times a day [Active]; zinc sulfate 220 mg Oral tab daily [Active]; sertraline 50 mg oral tab 1 tab once daily [Active]; trazodone 100 mg Oral tab 1 tab nightly [Active]; 10:16 Acidophilus Oral cap [Active]; artificial tears(hypromellose) 0.2 % Opht drop [Active]; ap3 Benadryl 25 mg Oral cap as needed [Active]; calcium carbonate 750 Oral tab [Active]; cetirizine 10 mg oral cap daily [Active]; cholecalciferol (vitamin D3) 125 mcg/mL (5,000 unit/mL) oral drop [Active]; Cholestyramine Light 4 gram oral pwpk 1 packet once daily [Active]; Miralax 17 gram Oral pwpk [Active]; Multiple Vitamins oral tab [Active]; Nystatin Topical every shift [Active]; prednisolone Oral 1 tab once daily [Active]; Pro-Stat AWC 17-100 gram-kcal/30 mL oral liqd twice a day [Active]; Renal-Abraham 0.8 mg oral tab daily [Active]; Tylenol-Codeine #4 300-60 mg Oral tab 1 tab every 6 hours for as needed for pain [Active]; Zofran 4 mg Oral tab 1 tab every 8 hours [Active]; - PMHx: 10:04 Anemia; Deaf; Depression; Diabetes - IDDM; DIALYSIS MWF; ESRD; GERD; Hyperlipidemia; ap3 Hypertension; kidney disease; neuropathy; - Immunization history:: Adult Immunizations up to date, Client reports receiving the 2nd dose of the Covid vaccine. - Social history:: Smoking status: unknown. - Family history:: not pertinent. Screenin:23 Abuse screen: Denies threats or abuse. Nutritional screening: Difficulty ap3 chewing/swallowing? Yes. Tuberculosis screening: No symptoms or risk factors identified. Fall Risk None identified. Assessment: 11:14 Reassessment: family at bedside. ap3 15:45 Reassessment: Levofed's infusion has been stopped per the families request. Provider ap3 had been at the bedside providing the family with education regarding comfort care. 20:00 Cardiovascular: Heart tones present Patient's skin is warm and dry. Respiratory: Airway al4 is patent Respiratory effort is labored, Breath sounds are diminished bilaterally. 21:00 General: Appears in no apparent distress. Behavior is unresponsive. Pain: Unable to use al4 pain scale. Patient is unresponsive. Neuro: Level of Consciousness is unresponsive. Cardiovascular: Patient's skin is warm and dry. Respiratory: Airway is patent Respiratory effort is labored. GI: patient is incontinent to bowel and bladder. : No signs and/or symptoms were reported regarding the genitourinary system. EENT:. Derm: Skin wound on arms, skin tears present, and generalized bruising noted. Musculoskeletal: No signs and/or symptoms reported regarding the musculoskeletal system. 06/22 04:00 Reassessment: KEV Jin. Updated on patient. al4 04:09 General: Appears in no apparent distress. Behavior is unresponsive. Pain: Unable to use al4 pain scale. Patient is unresponsive. Neuro: Level of Consciousness is unresponsive. 05:42 Reassessment: family at bedside. al4 05:48 Reassessment: Spoke to KEV Jin. Going to put the patient on NC 6 L. . al4 Vital Signs: 06/21 09:53 BP 71 / 44; Pulse 99; Temp 96.7(T); Weight 74.84 kg; Height 66 in. (167.64 cm); ap3 10:08 BP 75 / 41; Pulse 95; Resp 20; Temp 97.6; jh6 10:43 BP 76 / 45; Pulse 92; Pulse Ox 76% on Non-rebreather mask; ap3 10:45 BP 69 / 46; Pulse 95; ap3 10:50 BP 76 / 45; Pulse 93; ap3 10:55 BP 96 / 37; Pulse 96; ap3 11:00 BP 82 / 21; Pulse 93; ap3 11:08 BP 88 / 74; Pulse 99; ap3 11:20 BP 112 / 55; Pulse 97; ap3 11:30 BP 105 / 51; Pulse 98; ap3 11:40 BP 85 / 52; Pulse 98; ap3 11:50 BP 104 / 53; Pulse 101; Pulse Ox 67% on Non-rebreather mask; ap3 12:00 BP 82 / 53; Pulse 135; ap3 12:14 BP 92 / 59; Pulse 137; ap3 12:30 BP 89 / 57; Pulse 109; Pulse Ox 74% on Non-rebreather mask; ap3 12:45 BP 96 / 55; Pulse 144; ap3 13:00 BP 95 / 55; Pulse 141; Pulse Ox 54% on Non-rebreather mask; ap3 13:15 BP 82 / 54; Pulse 143; ap3 13:15 BP 83 / 71; Pulse 140; Pulse Ox 57% on Non-rebreather mask; ap3 13:30 BP 95 / 55; Pulse 136; ap3 13:45 BP 86 / 55; Pulse 152; Pulse Ox 59% on Non-rebreather mask; ap3 14:08 BP 89 / 44; Pulse 147; Pulse Ox 58% on Non-rebreather mask; ap3 14:22 BP 104 / 50; Pulse 162; Pulse Ox 64% on Non-rebreather mask; ap3 14:30 BP 96 / 58; Pulse 166; Pulse Ox 58% on Non-rebreather mask; ap3 14:45 BP 107 / 67; Pulse 138; Pulse Ox 64% on Non-rebreather mask; ap3 15:00 BP 93 / 58; Pulse 150; Pulse Ox 54% on Non-rebreather mask; ap3 15:15 BP 80 / 62; Pulse 122; ap3 15:30 BP 88 / 53; Pulse 126; ap3 15:45 BP 77 / 48; Pulse 110; Pulse Ox 54% on Non-rebreather mask; ap3 16:00 BP 52 / 28; Pulse 74; Pulse Ox 52% on Non-rebreather mask; ap3 16:16 BP 56 / 36; Pulse 97; Pulse Ox 64% on Non-rebreather mask; ap3 16:37 BP 42 / 33; Pulse 101; Pulse Ox 64% on Non-rebreather mask; ap3 17:02 BP 56 / 35; Pulse 110; ap3 17:32 BP 64 / 40; Pulse 111; ap3 17:54 BP 59 / 44; Pulse 118; ap3 19:00 BP 59 / 40; Pulse 107; Pulse Ox 75% on Non-rebreather mask; ap3 19:45 BP 60 / 44; Pulse 113; Pulse Ox 94% on Non-rebreather mask; al4 20:00 BP 66 / 42; Pulse 111; Pulse Ox 94% on Non-rebreather mask; al4 20:20 BP 62 / 45; Pulse 112; Pulse Ox 94% on Non-rebreather mask; al4 20:45 BP 56 / 40; Pulse 111; Pulse Ox 94% on Non-rebreather mask; al4 21:00 BP 62 / 35; Pulse 110; Pulse Ox 94% on Non-rebreather mask; al4 21:15 BP 61 / 45; Pulse 110; Pulse Ox 94% on Non-rebreather mask; al4 21:45 BP 59 / 47; Pulse 109; Pulse Ox 94% on Non-rebreather mask; al4 22:00 BP 62 / 42; Pulse 113; Pulse Ox 95% on Non-rebreather mask; al4 22:15 BP 59 / 40; Pulse 110; Pulse Ox 94% on Non-rebreather mask; al4 22:30 BP 62 / 45; Pulse 109; Pulse Ox 94% on Non-rebreather mask; al4 22:45 BP 68 / 45; Pulse 114; Pulse Ox 95% on Non-rebreather mask; al4 23:00 BP 68 / 48; Pulse 112; Pulse Ox 94% on Non-rebreather mask; al4 23:15 BP 60 / 47; Pulse 113; Pulse Ox 93% on Non-rebreather mask; al4 23:45 BP 62 / 40; Pulse 112; Pulse Ox 95% on Non-rebreather mask; al4 06/22 00:00 BP 76 / 36; Pulse 112; Pulse Ox 92% on Non-rebreather mask; al4 00:30 BP 69 / 49; Pulse 112; Pulse Ox 91% on Non-rebreather mask; al4 01:00 BP 74 / 43; Pulse 108; Pulse Ox 95% on Non-rebreather mask; al4 01:30 BP 72 / 50; Pulse 107; Pulse Ox 94% on Non-rebreather mask; al4 02:00 BP 75 / 43; Pulse 109; Pulse Ox 93% on Non-rebreather mask; al4 02:30 BP 72 / 48; Pulse 108; Pulse Ox 91% on Non-rebreather mask; al4 03:00 BP 64 / 43; Pulse 118; Pulse Ox 87% on Non-rebreather mask; al4 03:30 BP 66 / 46; Pulse 115; Pulse Ox 92% on Non-rebreather mask; al4 03:55 BP 66 / 55; Pulse 106; Pulse Ox 91% on Non-rebreather mask; al4 04:30 BP 70 / 42; Pulse 115; Pulse Ox 91% on Non-rebreather mask; al4 05:00 BP 73 / 54; Pulse 105; Pulse Ox 90% on Non-rebreather mask; al4 05:35 BP 58 / 41; Pulse 112; Pulse Ox 91% on Non-rebreather mask; al4 05:58 BP 72 / 40; Pulse 118; Pulse Ox 83% on 6 lpm NC; al4 06:13 BP 73 / 45; Pulse 111; Pulse Ox 82% on 6 lpm NC; al4 06:45 BP 69 / 47; Pulse 112; Pulse Ox 73% on 6 lpm NC; al4 06/21 09:53 Body Mass Index 26.63 (74.84 kg, 167.64 cm) ap3 01 10:45 nurse increase levophed to 8mcg ap3 10:50 nurse increased levophed to 10mcg ap3 10:55 nure increased levophed to 13mcg ap3 11:00 nurse increased levophed to 15mcg ap3 13:00 Levophed increased to 18 mcg ap3 13:15 levophed increased to 20mcg ap3 ED Course: 09:53 Patient arrived in ED. eb 09:56 Hank Cisneros MD is Attending Physician. eloy 10:04 Triage completed. ap3 10:08 Inserted saline lock: 20 gauge in left antecubital area, using aseptic technique. jh6 10:24 Claritza Go, JARRET is Primary Nurse. ap3 10:24 Arm band placed on right wrist. ap3 10:24 Patient has correct armband on for positive identification. Placed in gown. Bed in low ap3 position. Call light in reach. Side rails up X2. Adult w/ patient. school bus monitor on. Pulse ox on. NIBP on. Door closed. Noise minimized. Warm blanket given. Pillow given. 10:53 Chest Single View XRAY In Process Unspecified. EDMS 11:22 Spencer Elias MD is Hospitalizing Provider. eloy 12:16 Admitting physician to see patient. ap3 06/22 04:07 Davin Woody FNP-C is Hospitalizing Provider. tw5 04:10 Hospitalizing Provider role handed off by Davin Woody FNP-C la1 04:10 Spencer Elias MD is Hospitalizing Provider. la1 16:07 No provider procedures requiring assistance completed. iv remains, patient and ap3 released to home. Administered Medications: 06/21 09:58 CANCELLED (Cancelled per Dr. Cisneros. Pt due to dialysis todaya): NS 0.9% (30 ml/kg) ss 30 ml/kg IV at bolus once; Sepsis Protocol 10:30 Drug: Levophed (norepinephrine) (4 mg/250 mL D5W 4 mcg/min {Note: Administered to R ss anterior chest wall dialysis catheter per Dr. Cisneros BLUE [place].} Route: IV; Rate: calculated rate; Site: Other; 15:45 Follow up: IV Status: Completed infusion ap3 10:31 Drug: NS 0.9% 500 ml Route: IV; Rate: bolus; Site: left antecubital; ap3 15:15 Follow up: IV Status: Completed infusion; IV Intake: 500ml ap3 10:49 Drug: Zosyn (piperacillin-tazobactam) 2.25 grams Route: IVPB; Infused Over: 60 mins; ap3 Site: left antecubital; 15:15 Follow up: IV Status: Completed infusion ap3 14:22 Drug: NS 0.9% 500 ml Route: IV; Rate: bolus; Site: right subclavian; ap3 15:15 Follow up: IV Status: Completed infusion; IV Intake: 500ml ap3 15:40 Drug: Ativan (LORazepam) 0.5 mg Route: IVP; Site: right subclavian; ap3 17:55 Follow up: Response: No adverse reaction ap3 15:40 Drug: morphine 2 mg Route: IVP; Site: right subclavian; ap3 17:55 Follow up: Response: No adverse reaction; Pain is decreased ap3 15:40 Drug: Zofran (Ondansetron) 4 mg Route: IVP; Site: right subclavian; ap3 17:56 Follow up: Response: No adverse reaction; Nausea is decreased ap3 Intake: 15:15 IV: 500ml; Total: 500ml. ap3 15:15 IV: 500ml; Total: 1000ml. ap3 Outcome: 11:26 Decision to Hospitalize by Provider. eloy 06/22 04:08 Decision to Hospitalize by Provider. tw5 16:09 Discharged to home ap3 16:09 Condition: 16:09 Patient left the ED. ap3 Signatures: Dispatcher [employer] EDMS Hank Cisneros MD MD cha Smirch, Shelby RN RN ss Davin Woody, SATNAM-C PLAN REP-Cla1 Claritza Go RN RN ap3 Rebeka Pratt Tiffany tw5 Abi Galvez RN RN jh6 Elvin Adair4 Corrections: (The following items were deleted from the chart) 06/21 10:15 10:04 Home Meds: potassium chloride 20 mEq Oral TbER once daily; ap3 ap3 10:15 10:04 Home Meds: aspirin 81 mg Oral chew 1 tab once daily; ap3 ap3 10:15 10:04 Home Meds: atorvastatin 20 mg Oral tab once daily; ap3 ap3 10:15 10:04 Home Meds: Lasix 20 mg Oral tab 1 tab once daily; ap3 ap3 10:15 10:04 Home Meds: Imodium Oral 2 mg every 6 hours; ap3 ap3 10:15 10:04 Home Meds: sertraline Oral; ap3 ap3 10:15 10:04 Home Meds: Trazodone Oral; ap3 ap3 10:15 10:04 Home Meds: Merrem 500 mg intravenous solr twice a day; ap3 ap3 10:15 10:04 Home Meds: calcitriol 0.5 mcg Oral cap 1 cap once daily; ap3 ap3 10:15 10:04 Home Meds: carvedilol 25 mg Oral tab every 12 hours; ap3 ap3 10:15 10:04 Home Meds: cholecalciferol (vitamin D3) 5,000 unit Oral cap daily; ap3 ap3 10:15 10:04 Home Meds: hydralazine 25 mg Oral tab three times a day; ap3 ap3 : 10:04 Home Meds: losartan 50 mg Oral tab 1 tab once daily; ap3 ap3 13:34 10:43 BP 76 / 45; Pulse 92bpm; ap3 ap3 13:34 11:50 BP 104 / 53; Pulse 101bpm; ap3 ap3 06/22 04:14 06/21 21:00 GI: No signs and/or symptoms were reported involving the gastrointestinal al4 system. al4 06/22 04:06/21 21:00 : No signs and/or symptoms were reported regarding the genitourinary al4 system. al4 06/22 03:06/21 21:00 EENT: No signs and/or symptoms were reported regarding the EENT system. al4 al4 06/22 03:06/21 21:00 Derm: No signs and/or symptoms reported regarding the dermatologic system. al4 al4 06/22 03:06/21 21:00 GI: patient is incontinent to bowel al4 al4 06/22 04:06/21 21:00 Derm: Skin wound on left and right arm al4 al4 06/22 05:23 06/21 21:00 Respiratory: Airway is patent Respiratory effort is labored, al4 al4
--- NOTE | 2021-06-21 11:26 | EDPHYS ---
Physician Documentation [facility] Name: Delmi Schultz Age: 70 yrs Sex: Female : 1950 Arrival Date: 06/21/2021 Time: 09:53 Bed 2 Private MD: ED Physician Hank Cisneros HPI: 06/21 10:21 This 70 yrs old Female presents to ER via EMS with complaints of eloy dyspnea,covid and cpr. 10:21 The patient has shortness of breath at rest. Onset: The symptoms/episode began/occurred eloy just prior to arrival. Duration: The symptoms are continuous, and are steadily getting worse. The patient's shortness of breath is aggravated by coughing, light activity, supine position. Preceding the arrest, the patient was dyspneic. The arrest occurred at longterm. Historical: - Allergies: 10:04 adhesive; ap3 - Home Meds: 10:04 amlodipine 10 mg tab once daily [Active]; ascorbic acid (vitamin C) 500 mg tab daily ap3 [Active]; Eliquis 2.5 mg Oral tab 1 tab 2 times per day [Active]; hydroxyzine HCl 50 mg Oral tab 1 tab 4 times per day [Active]; furosemide 20 mg oral tab 1 tab once daily [Active]; gabapentin 100 mg oral cap 1 cap 2 times a day [Active]; zinc sulfate 220 mg Oral tab daily [Active]; sertraline 50 mg oral tab 1 tab once daily [Active]; trazodone 100 mg Oral tab 1 tab nightly [Active]; 10:16 Acidophilus Oral cap [Active]; artificial tears(hypromellose) 0.2 % Opht drop [Active]; ap3 Benadryl 25 mg Oral cap as needed [Active]; calcium carbonate 750 Oral tab [Active]; cetirizine 10 mg oral cap daily [Active]; cholecalciferol (vitamin D3) 125 mcg/mL (5,000 unit/mL) oral drop [Active]; Cholestyramine Light 4 gram oral pwpk 1 packet once daily [Active]; Miralax 17 gram Oral pwpk [Active]; Multiple Vitamins oral tab [Active]; Nystatin Topical every shift [Active]; prednisolone Oral 1 tab once daily [Active]; Pro-Stat AWC 17-100 gram-kcal/30 mL oral liqd twice a day [Active]; Renal-Abraham 0.8 mg oral tab daily [Active]; Tylenol-Codeine #4 300-60 mg Oral tab 1 tab every 6 hours for as needed for pain [Active]; Zofran 4 mg Oral tab 1 tab every 8 hours [Active]; - PMHx: 10:04 Anemia; Deaf; Depression; Diabetes - IDDM; DIALYSIS MWF; ESRD; GERD; Hyperlipidemia; ap3 Hypertension; kidney disease; neuropathy; - Immunization history:: Adult Immunizations up to date, Client reports receiving the 2nd dose of the Covid vaccine. - Social history:: Smoking status: unknown. - Family history:: not pertinent. ROS: 10:21 Constitutional: Negative for fever, chills, and weight loss, Eyes: Negative for injury, eloy pain, redness, and discharge, ENT: Negative for injury, pain, and discharge, Neck: Negative for injury, pain, and swelling, Abdomen/GI: Negative for abdominal pain, nausea, vomiting, diarrhea, and constipation, Back: Negative for injury and pain, : Negative for injury, bleeding, discharge, and swelling, MS/Extremity: Negative for injury and deformity, Skin: Negative for injury, rash, and discoloration. 10:21 Cardiovascular: Positive for orthopnea. 10:21 Respiratory: Positive for shortness of breath, at rest. 10:21 Skin: Positive for pallor. Exam: 10:21 Constitutional: The patient appears in obvious distress, moderately distressed. eloy 10:21 Eyes: Conjunctiva: pale. 10:21 Chest/axilla: Inspection: no acute changes, Palpation: is normal, crepitus, is not appreciated. 10:21 Cardiovascular: Rate: tachycardic, Rhythm: irregular, Pulses: thready, Heart sounds: murmur, systolic, grade 2 over 6, Edema: is not appreciated, JVD: is not appreciated. 10:21 ECG was reviewed by the Attending Physician. 10:21 Respiratory: moderate respiratory distress is noted, Respirations: labored breathing, that is moderate, Breath sounds: decreased breath sounds, that are moderate, rhonchi, that are moderate, are scattered, stridor, is not appreciated, Respiratory rate: 20 Vital Signs: 09:53 BP 71 / 44; Pulse 99; Temp 96.7(T); Weight 74.84 kg; Height 66 in. (167.64 cm); ap3 10:08 BP 75 / 41; Pulse 95; Resp 20; Temp 97.6; jh6 10:43 BP 76 / 45; Pulse 92; Pulse Ox 76% on Non-rebreather mask; ap3 10:45 BP 69 / 46; Pulse 95; ap3 10:50 BP 76 / 45; Pulse 93; ap3 10:55 BP 96 / 37; Pulse 96; ap3 11:00 BP 82 / 21; Pulse 93; ap3 11:08 BP 88 / 74; Pulse 99; ap3 11:20 BP 112 / 55; Pulse 97; ap3 11:30 BP 105 / 51; Pulse 98; ap3 11:40 BP 85 / 52; Pulse 98; ap3 11:50 BP 104 / 53; Pulse 101; Pulse Ox 67% on Non-rebreather mask; ap3 12:00 BP 82 / 53; Pulse 135; ap3 12:14 BP 92 / 59; Pulse 137; ap3 12:30 BP 89 / 57; Pulse 109; Pulse Ox 74% on Non-rebreather mask; ap3 12:45 BP 96 / 55; Pulse 144; ap3 13:00 BP 95 / 55; Pulse 141; Pulse Ox 54% on Non-rebreather mask; ap3 13:15 BP 82 / 54; Pulse 143; ap3 13:15 BP 83 / 71; Pulse 140; Pulse Ox 57% on Non-rebreather mask; ap3 13:30 BP 95 / 55; Pulse 136; ap3 13:45 BP 86 / 55; Pulse 152; Pulse Ox 59% on Non-rebreather mask; ap3 14:08 BP 89 / 44; Pulse 147; Pulse Ox 58% on Non-rebreather mask; ap3 14:22 BP 104 / 50; Pulse 162; Pulse Ox 64% on Non-rebreather mask; ap3 14:30 BP 96 / 58; Pulse 166; Pulse Ox 58% on Non-rebreather mask; ap3 14:45 BP 107 / 67; Pulse 138; Pulse Ox 64% on Non-rebreather mask; ap3 15:00 BP 93 / 58; Pulse 150; Pulse Ox 54% on Non-rebreather mask; ap3 15:15 BP 80 / 62; Pulse 122; ap3 15:30 BP 88 / 53; Pulse 126; ap3 15:45 BP 77 / 48; Pulse 110; Pulse Ox 54% on Non-rebreather mask; ap3 16:00 BP 52 / 28; Pulse 74; Pulse Ox 52% on Non-rebreather mask; ap3 16:16 BP 56 / 36; Pulse 97; Pulse Ox 64% on Non-rebreather mask; ap3 16:37 BP 42 / 33; Pulse 101; Pulse Ox 64% on Non-rebreather mask; ap3 17:02 BP 56 / 35; Pulse 110; ap3 17:32 BP 64 / 40; Pulse 111; ap3 17:54 BP 59 / 44; Pulse 118; ap3 19:00 BP 59 / 40; Pulse 107; Pulse Ox 75% on Non-rebreather mask; ap3 19:45 BP 60 / 44; Pulse 113; Pulse Ox 94% on Non-rebreather mask; al4 20:00 BP 66 / 42; Pulse 111; Pulse Ox 94% on Non-rebreather mask; al4 20:20 BP 62 / 45; Pulse 112; Pulse Ox 94% on Non-rebreather mask; al4 20:45 BP 56 / 40; Pulse 111; Pulse Ox 94% on Non-rebreather mask; al4 21:00 BP 62 / 35; Pulse 110; Pulse Ox 94% on Non-rebreather mask; al4 21:15 BP 61 / 45; Pulse 110; Pulse Ox 94% on Non-rebreather mask; al4 21:45 BP 59 / 47; Pulse 109; Pulse Ox 94% on Non-rebreather mask; al4 22:00 BP 62 / 42; Pulse 113; Pulse Ox 95% on Non-rebreather mask; al4 22:15 BP 59 / 40; Pulse 110; Pulse Ox 94% on Non-rebreather mask; al4 22:30 BP 62 / 45; Pulse 109; Pulse Ox 94% on Non-rebreather mask; al4 22:45 BP 68 / 45; Pulse 114; Pulse Ox 95% on Non-rebreather mask; al4 23:00 BP 68 / 48; Pulse 112; Pulse Ox 94% on Non-rebreather mask; al4 23:15 BP 60 / 47; Pulse 113; Pulse Ox 93% on Non-rebreather mask; al4 23:45 BP 62 / 40; Pulse 112; Pulse Ox 95% on Non-rebreather mask; al4 06/22 00:00 BP 76 / 36; Pulse 112; Pulse Ox 92% on Non-rebreather mask; al4 00:30 BP 69 / 49; Pulse 112; Pulse Ox 91% on Non-rebreather mask; al4 01:00 BP 74 / 43; Pulse 108; Pulse Ox 95% on Non-rebreather mask; al4 01:30 BP 72 / 50; Pulse 107; Pulse Ox 94% on Non-rebreather mask; al4 02:00 BP 75 / 43; Pulse 109; Pulse Ox 93% on Non-rebreather mask; al4 02:30 BP 72 / 48; Pulse 108; Pulse Ox 91% on Non-rebreather mask; al4 03:00 BP 64 / 43; Pulse 118; Pulse Ox 87% on Non-rebreather mask; al4 03:30 BP 66 / 46; Pulse 115; Pulse Ox 92% on Non-rebreather mask; al4 03:55 BP 66 / 55; Pulse 106; Pulse Ox 91% on Non-rebreather mask; al4 04:30 BP 70 / 42; Pulse 115; Pulse Ox 91% on Non-rebreather mask; al4 05:00 BP 73 / 54; Pulse 105; Pulse Ox 90% on Non-rebreather mask; al4 05:35 BP 58 / 41; Pulse 112; Pulse Ox 91% on Non-rebreather mask; al4 05:58 BP 72 / 40; Pulse 118; Pulse Ox 83% on 6 lpm NC; al4 06:13 BP 73 / 45; Pulse 111; Pulse Ox 82% on 6 lpm NC; al4 06:45 BP 69 / 47; Pulse 112; Pulse Ox 73% on 6 lpm NC; al4 06/21 09:53 Body Mass Index 26.63 (74.84 kg, 167.64 cm) ap3 06/21 10:45 nurse increase levophed to 8mcg ap3 10:50 nurse increased levophed to 10mcg ap3 10:55 nure increased levophed to 13mcg ap3 11:00 nurse increased levophed to 15mcg ap3 13:00 Levophed increased to 18 mcg ap3 13:15 levophed increased to 20mcg ap3 MDM: 09:58 Patient medically screened. eloy 10:29 Differential diagnosis: CHF exacerbation, Chronic Obstructive Pulmonary Disease eloy arrythmia, cardiac arrest, respiratory arrest, renal failure, Pneumothorax pulmonary edema, reactive airway disease, Sepsis Unstable Angina. Antibiotic administration: zosyn. Differential Diagnosis altered mental status, sepsis. Differential Diagnosis: electrolyte abnormality, hypoglycemia, pneumonia, sepsis. The patient's Wells Deep Vein Thrombosis Score was calculated as follows: Total Score: 0-2 Pts- Low Risk. The patient's pulmonary embolism risk score was calculated as follows: Total Score: 0-2 points. This patient was found to be at low risk for a pulmonary embolism by using the Well's assessment criteria. Immunization status: Pneumococcal vaccine: Influenza vaccine: Data reviewed: vital signs, nurses notes, EMS record, longterm records, old medical records, lab test result(s), EKG, radiologic studies, plain films. Data interpreted: telemetry monitor: rate is 95 beats/min, rhythm is regular, Pulse oximetry: on 15% oxygen by non-rebreather, is 95 %. Test interpretation: by ED physician or midlevel provider: ECG, plain radiologic studies. Counseling: I had a detailed discussion with the patient and/or guardian regarding: the historical points, exam findings, and any diagnostic results supporting the discharge/admit diagnosis, the presence of at least one elevated blood pressure reading (>120/80) during this emergency department visit, lab results, radiology results. 06/21 09:58 Order name: Amylase, Serum; Complete Time: 11:06/21 09:58 Order name: Basic Metabolic Panel; Complete Time: :06/21 09:58 Order name: Blood Culture Adult (2) 06/21 09:58 Order name: CBC with Diff; Complete Time: 11:06/21 09:58 Order name: CPK; Complete Time: 11:06/21 09:58 Order name: Ckmb; Complete Time: :06/21 09:58 Order name: LFT's; Complete Time: 11:06/21 09:58 Order name: Lactate; Complete Time: 11:06/21 09:58 Order name: Lipase; Complete Time: 11:06/21 09:58 Order name: Procalcitonin; Complete Time: 18:08 06/21 09:58 Order name: Protime (+inr); Complete Time: 11:21 06/21 09:58 Order name: Ptt, Activated; Complete Time: 11:21 06/21 09:58 Order name: Troponin HS; Complete Time: 11:21 06/21 09:58 Order name: Urine Microscopic Only 06/21 09:58 Order name: Chest Single View XRAY; Complete Time: 18:08 06/21 10:08 Order name: Magnesium; Complete Time: 18:08 [facility] 06/21 10:08 Order name: NT PRO-BNP; Complete Time: 18:08 [facility] 06/21 10:20 Order name: COVID-19/FLU A+B/RSV (Document "Date of Onset" if Symptomatic); Complete [facility] Time: 18:06/21 10:39 Order name: Glucose, Ancillary Testing; Complete Time: 11:21 [facility] 06/22 13:16 Order name: Gram Stain--Aerobic Bottle [facility] 06/22 13:16 Order name: Gram Stain--Anaerobic Bottle [facility] 06/22 13:18 Order name: Gram Stain--Aerobic Bottle [facility] 06/22 13:18 Order name: Gram Stain--Anaerobic Bottle [facility] 06/21 09:58 Order name: Accucheck; Complete Time: 10:29 06/21 09:58 Order name: Cardiac monitoring; Complete Time: 10: 06/21 09:58 Order name: EKG - Nurse/Tech; Complete Time: 10:07 06/21 09:58 Order name: IV Saline Lock - Large Bore; Complete Time: 10: 06/21 09:58 Order name: Labs collected and sent; Complete Time: 10: 06/21 09:58 Order name: O2 Per Protocol; Complete Time: 10: 06/21 09:58 Order name: O2 Sat Monitoring; Complete Time: 09:58 06/21 10:08 Order name: EKG; Complete Time: 10:08 [facility] 06/21 10:08 Order name: IV Saline Lock; Complete Time: 10:32 [facility] EC:21 Rate is 96 beats/min. Rhythm is regular. QRS Dearing is Normal. FL interval is normal. QRS eloy interval is normal. QT interval is normal. No Q waves. T waves are Normal. No ST changes noted. Clinical impression: NSR w/ Non-specific ST/T Changes and No evidence of ischemia. Interpreted by me. Reviewed by me. Administered Medications: 09:58 CANCELLED (Cancelled per Dr. Cisneros. Pt due to dialysis todaya): NS 0.9% (30 ml/kg) ss 30 ml/kg IV at bolus once; Sepsis Protocol 10:30 Drug: Levophed (norepinephrine) (4 mg/250 mL D5W 4 mcg/min {Note: Administered to R ss anterior chest wall dialysis catheter per Dr. Cisneros BL[place].} Route: IV; Rate: calculated rate; Site: Other; 15:45 Follow up: IV Status: Completed infusion ap3 10:31 Drug: NS 0.9% 500 ml Route: IV; Rate: bolus; Site: left antecubital; ap3 15:15 Follow up: IV Status: Completed infusion; IV Intake: 500ml ap3 10:49 Drug: Zosyn (piperacillin-tazobactam) 2.25 grams Route: IVPB; Infused Over: 60 mins; ap3 Site: left antecubital; 15:15 Follow up: IV Status: Completed infusion ap3 14:22 Drug: NS 0.9% 500 ml Route: IV; Rate: bolus; Site: right subclavian; ap3 15:15 Follow up: IV Status: Completed infusion; IV Intake: 500ml ap3 15:40 Drug: Ativan (LORazepam) 0.5 mg Route: IVP; Site: right subclavian; ap3 17:55 Follow up: Response: No adverse reaction ap3 15:40 Drug: morphine 2 mg Route: IVP; Site: right subclavian; ap3 17:55 Follow up: Response: No adverse reaction; Pain is decreased ap3 15:40 Drug: Zofran (Ondansetron) 4 mg Route: IVP; Site: right subclavian; ap3 17:56 Follow up: Response: No adverse reaction; Nausea is decreased ap3 Disposition Summary: 06/22/21 04:08 Hospitalization Ordered Location: [facility] ER HOLD(06/22/21 04:08) tw5 Condition: Serious(06/22/21 04:08) tw5 Bed/Room Type: Standard(06/22/21 04:08) tw5 Hospitalization Status: Inpatient Admission(06/22/21 04:10) la1 Provider: Spencer Elias(06/22/21 04:10) la1 Problem: an acute exacerbation(06/22/21 04:10) la1 Symptoms: are unchanged(06/22/21 04:10) la1 Room Assignment: [facility]-(06/22/21 05:13) Diagnosis - Acute respiratory failure tw5 Forms: - Medication Reconciliation Form tw5 - SBAR form tw5 Signatures: Dispatcher [employer] EDMS Hank Cisneros MD MD cha Smirch, Shelby, RN RN ss Davin Woody, MANAGER MUSIC-C MANAGER MUSIC-Cla1 Alicia Grant RN RN Claritza Crane RN RN [id number] Shasha Goode tw5 Corrections: (The following items were deleted from the chart) 09:58 09:58 NS 0.9% (30 ml/kg) 30 ml/kg IV at bolus once; Sepsis Protocol ordered. ss ss 10:15 10:04 Home Meds: potassium chloride 20 mEq Oral TbER once daily; ap3 ap3 10:15 10:04 Home Meds: aspirin 81 mg Oral chew 1 tab once daily; ap3 ap3 10:15 10:04 Home Meds: atorvastatin 20 mg Oral tab once daily; ap3 ap3 10:15 10:04 Home Meds: Lasix 20 mg Oral tab 1 tab once daily; ap3 ap3 10:15 10:04 Home Meds: Imodium Oral 2 mg every 6 hours; ap3 ap3 10:15 10:04 Home Meds: sertraline Oral; ap3 ap3 10:15 10:04 Home Meds: Trazodone Oral; ap3 ap3 10:15 10:04 Home Meds: Merrem 500 mg intravenous solr twice a day; ap3 ap3 10:15 10:04 Home Meds: calcitriol 0.5 mcg Oral cap 1 cap once daily; ap3 ap3 10:15 10:04 Home Meds: carvedilol 25 mg Oral tab every 12 hours; ap3 ap3 10:15 10:04 Home Meds: cholecalciferol (vitamin D3) 5,000 unit Oral cap daily; ap3 ap3 10:15 10:04 Home Meds: hydralazine 25 mg Oral tab three times a day; ap3 ap3 10:15 10:04 Home Meds: losartan 50 mg Oral tab 1 tab once daily; ap3 ap3 11:28 11:26 Intensive Care Unit eloy eloy 11:28 11:26 eloy eloy 19:05 11:26 Inpatient Admission eloy eloy 19:05 11:26 Curt Spencer eloy eloy 19:05 11:26 Serious eloy eloy 19:05 11:26 new eloy eloy 19:05 11:26 are unchanged eloy eloy 19:05 11:26 Standard eloy eloy 19:05 11:26 Unspecified bacterial pneumonia - bilateral eloy eloy 19:05 11:26 Dependence on renal dialysis eloy eloy 19:05 11:26 End stage renal disease eloy eloy 19:05 11:26 Hypoxemia eloy eloy 19:05 11:26 Type 1 diabetes mellitus with hyperglycemia eloy eloy 19:05 11:26 Hypotension, unspecified eloy eloy 19:05 11:26 Do not resuscitate eloy eloy 19:05 11:28 Telemetry/MedSurg (Inpatient) eloy eloy 19:05 11:28 eloy eloy 06/22 04:10 04:08 Observation tw5 la1 04:10 04:08 AttemDavin schrader tw5 la1 05:13 04:08 tw5 cg
--- NOTE | 2021-06-21 11:28 | RAD REPORT ---
EXAM DESCRIPTION: Luis Single View06/21/2021 10:53 am CLINICAL HISTORY: Respiratory distress COMPARISON: June 09, 2021 FINDINGS: Moderate to marked bilateral alveolar lung opacities. Heart is normal size. Central venous catheter in place The stomach is mildly distended with air IMPRESSION: Moderate to marked bilateral alveolar lung opacities probably pneumonia. Pulmonary jo ann a can also have this appearance.
[2021-06-21 13:45] LABS: SARS-COV-2 RT PCR POSITIVE (NEGATIVE)
[2021-06-21] MEDS ORDERED: ONDANSETRON 4 MG/2 ML VIAL ONE (15:13)
[2021-06-21] MEDS ORDERED: MORPHINE 2 MG/ML SYR ONE (15:13)
[2021-06-21 15:19] LABS: Magnesium 2.6 mg/dL (1.8-2.4)
[2021-06-21] MEDS ORDERED: LORazepam 2 MG/ML VIAL ONE (15:48)
--- NOTE | 2021-06-21 18:28 | P.CNS ---
Date of Consult: 06/21/21 Reason for Consult: Sepsis, Hypoxia Requesting Physician: Hank Cisneros Chief Complaint: hypoxia History of Present Illness: 70-year-old female, PMH: ESRD on HD, DM 2, anemia chronic disease, chronic diastolic CHF, hypertension, deaf/mute, depression/anxiety brought to the ED by EMS due to being found unresponsive and dusky appearing. prison staff initiated CPR, upon EMS arrival, a pulse was felt. Patient was transported to the ED. Patient was placed on a Levophed drip due to significant hypotension. She found be hypoxic in the 70s 80s at best, CXR with bilateral pulmonary opacities, elevated lactate, tachycardia [id number]. ED physician spoke with patient's son stated patient is DNR, and is considering withdrawing care, waiting for sister. Allergies adhesive Allergy (Verified 01/28/20 21:31) Itching/Hives/Rash No Known Drug Allergies Allergy (Verified 01/28/20 21:31) Unknown Home Medications: Cholecalciferol (Vitamin D3) [Vitamin D 5,000 IU Cap*] 5,000 unit PO DAILY 11/13/20 Sertraline HCl 50 mg PO DAILY 11/13/20 Trazodone HCl 100 mg PO BEDTIME 11/13/20 Gabapentin 100 mg PO BID 03/15/21 Ondansetron HCl 4 mg PO Q8HR PRN 03/15/21 Acetaminophen with Codeine [Tylenol with Codeine #4 Tablet] 1 each PO Q6H PRN 06/10/21 Amino Acids/Protein Hydr/Fiber [Pro-Stat Renal Care Liquid Pkt] 30 ml PO BID 06/10/21 Cholestyramine (with Sugar) [Cholestyramine Packet] 1 packet PO DAILY 06/10/21 Famotidine 20 mg PO DAILY 06/10/21 Folic Acid/Vit B Complex and C [Renal-Abraham Tablet] 0.8 mg PO DAILY 06/10/21 Zinc Sulfate 1 tab PO DAILY 06/10/21 hydrOXYzine HCL [Atarax] 50 mg PO Q6H PRN 06/10/21 Apixaban [Eliquis *] 2.5 mg PO BID #60 tablet 06/11/21 Rohan [Rohan*] 1 pkt PO BID #60 powd.pack 06/11/21 Nepro Shake [Nepro*] 237 ml PO TID #90 can 06/11/21 Trazodone [Desyrel*] 100 mg PO BEDTIME #30 tablet 06/11/21 predniSONE [Deltasone] 20 mg PO BID #20 tab 06/11/21 - Past Medical/Surgical History Diabetic: Yes -: Diabetes mellitus type 2 -: HTN -: GERD -: Depression -: Hyperlipidemia -: Chronic diastolic congestive heart failure -: Chronic back pain -: DM -: abdominal hernia -: ESRD on HD -: heel surgery 2007 -: abdominal hernia repair -: amptuation of 5th digit on L foot 2012 -: Cholecystectomy 2012 Psychosocial/ Personal History: [facility] - Family History Father Medical History: Heart disease Mother Medical History: Diabetes - Social History Smoking Status: Unknown if ever smoked Alcohol use: No CD- Drugs: No Caffeine use: No Place of Residence: [facility] Review of Systems is unable to be obtained Physical Examination General: Other (awake, moves extremities, deaf/mute) HEENT: Sclerae nonicteric Respiratory: Crackles/rales (bilaterally) Cardiovascular: No edema, Irregular heart rate/rhythm Gastrointestinal: Soft and benign, No tenderness Musculoskeletal: No tenderness Integumentary: No significant lesion Neurological: Other (moves extremities, opens eyes. waxing/waning consciousness) Laboratory Data (last 24 hrs) 06/21/21 10:00: Magnesium 2.6 H D 06/21/21 10:00: PT 17.4 H, INR 1.51, APTT 36.7 06/21/21 10:00: WBC 16.80 H D, Hgb 9.9 L, Hct 31.8 L D, Plt Count 263 D 06/21/21 10:00: Sodium 140, Potassium 4.1, BUN 33 H, Creatinine 2.11 H, Glucose 149 H, Total Bilirubin 0.4, AST 21, ALT 17, Alkaline Phosphatase 127 H, Amylase 205 H*, Lipase 307 Physician Review Additional Text: Problem List Acute hypoxemic respiratory failure secondary to pneumonia, possible acute CHF exacerbation Severe sepsis with shock Deaf/mute bedbound dementia chronic CHF, possible acute exacerbation lactic acidosis SpO2: 50-60% at times when good wave form present, otherwise not captured HR: 130-140s, MAPS: 60-65 on max levophed had long discussion with family. Son wants to continue current medications until his sister arrives - she is driving from out of town, ~1-2 hours away States patient has told him she is ready to go, health has been declining over the last several months Quality of life has declined Family planning to withdraw care, but want to wait for her daughter recommend comfort measures continue current meds per patient's son. withdraw care / stop pressors, etc once daughter arrives Time Spent Managing Pts care (In Minutes): 60
--- NOTE | 2021-06-21 21:06 | P.CNS ---
Date of Consult: 06/21/21 Reason for Consult: ESRD Requesting Physician: Spencer Elias Chief Complaint: hypoxia History of Present Illness: 70 yo WF ESRD, CHF presented to the ER from SNF unresponsive. CPR performed and Levophed initiated. Hypoxic and tachycardic. DNR. Family at the bedside and considering comfort care. 70-year-old female, PMH: ESRD on HD, DM 2, anemia chronic disease, chronic diastolic CHF, hypertension, deaf/mute, depression/anxiety brought to the ED by EMS due to being found unresponsive and dusky appearing. [facility] staff initiated CPR, upon EMS arrival, a pulse was felt. Patient was transported to the ED. Patient was placed on a Levophed drip due to significant hypotension. She found be hypoxic in the 70s 80s at best, CXR with bilateral pulmonary opacities, elevated lactate, tachycardia [id number]. ED physician spoke with patient's son stated patient is DNR, and is considering withdrawing care, waiting for sister. 10:21 This 70 yrs old Female presents to ER via EMS with complaints of eloy dyspnea,covid and cpr. 10:21 The patient has shortness of breath at rest. Onset: The symptoms/episode began/occurred eloy just prior to arrival. Duration: The symptoms are continuous, and are steadily getting worse. The patient's shortness of breath is aggravated by coughing, light activity, supine position. Preceding the arrest, the patient was dyspneic. The arrest occurred at alf. Allergies adhesive Allergy (Verified 01/28/20 21:31) Itching/Hives/Rash No Known Drug Allergies Allergy (Verified 01/28/20 21:31) Unknown Home medications list reviewed: Yes Home Medications: Cholecalciferol (Vitamin D3) [Vitamin D 5,000 IU Cap*] 5,000 unit PO DAILY 11/13/20 Sertraline HCl 50 mg PO DAILY 11/13/20 Trazodone HCl 100 mg PO BEDTIME 11/13/20 Gabapentin 100 mg PO BID 03/15/21 Ondansetron HCl 4 mg PO Q8HR PRN 03/15/21 Acetaminophen with Codeine [Tylenol with Codeine #4 Tablet] 1 each PO Q6H PRN 06/10/21 Amino Acids/Protein Hydr/Fiber [Pro-Stat Renal Care Liquid Pkt] 30 ml PO BID 06/10/21 Cholestyramine (with Sugar) [Cholestyramine Packet] 1 packet PO DAILY 06/10/21 Famotidine 20 mg PO DAILY 06/10/21 Folic Acid/Vit B Complex and C [Renal-Abraham Tablet] 0.8 mg PO DAILY 06/10/21 Zinc Sulfate 1 tab PO DAILY 06/10/21 hydrOXYzine HCL [Atarax] 50 mg PO Q6H PRN 06/10/21 Apixaban [Eliquis *] 2.5 mg PO BID #60 tablet 06/11/21 Rohan [Rohan*] 1 pkt PO BID #60 powd.pack 06/11/21 Nepro Shake [Nepro*] 237 ml PO TID #90 can 06/11/21 Trazodone [Desyrel*] 100 mg PO BEDTIME #30 tablet 06/11/21 predniSONE [Deltasone] 20 mg PO BID #20 tab 06/11/21 - Past Medical/Surgical History Diabetic: Yes -: Diabetes mellitus type 2 -: HTN -: GERD -: Depression -: Hyperlipidemia -: Chronic diastolic congestive heart failure -: Chronic back pain -: DM -: abdominal hernia -: ESRD on HD -: heel surgery 2007 -: abdominal hernia repair -: amptuation of 5th digit on L foot 2012 -: Cholecystectomy 2012 Psychosocial/ Personal History: [facility] - Family History Father Medical History: Heart disease Mother Medical History: Diabetes - Social History Smoking Status: Unknown if ever smoked Alcohol use: No CD- Drugs: No Caffeine use: No Place of Residence: [facility] Review of Systems is unable to be obtained Physical Examination General: Moderate distress HEENT: Atraumatic Neck: Supple Respiratory: Diminished Cardiovascular: Regular rate/rhythm (Tachycardia), Edema Gastrointestinal: Non-distended, No guarding Musculoskeletal: No clubbing, No contractures Integumentary: No rashes, No cyanosis Neurological: Abnormal speech Laboratory Data (last 24 hrs) 06/21/21 10:00: Magnesium 2.6 H D 06/21/21 10:00: PT 17.4 H, INR 1.51, APTT 36.7 06/21/21 10:00: WBC 16.80 H D, Hgb 9.9 L, Hct 31.8 L D, Plt Count 263 D 06/21/21 10:00: Sodium 140, Potassium 4.1, BUN 33 H, Creatinine 2.11 H, Glucose 149 H, Total Bilirubin 0.4, AST 21, ALT 17, Alkaline Phosphatase 127 H, Amylase 205 H*, Lipase 307 Imagings Data: EXAM DESCRIPTION: Luis Single View06/21/2021 10:53 am CLINICAL HISTORY: Respiratory distress COMPARISON: June 09, 2021 FINDINGS: Moderate to marked bilateral alveolar lung opacities. Heart is normal size. Central venous catheter in place The stomach is mildly distended with air IMPRESSION: Moderate to marked bilateral alveolar lung opacities probably pneumonia. Pulmonary edema can also have this appearance. Conclusions/Impression: ESRD -HD as needed Lactic acidosis -Continue Levophed Sepsis/ Septic Shock -Continue Levophed -Continue abx Acute hypoxic respiratory failure Multifocal PNA -Continue Oxygen -Continue abx Diastolic CHF, A/C -HD as needed DM II with CKD -RISS prn Severe malnutrition -NPO at this time Anemia in CKD -Retacrit prn CKD MBD Hypercalcemia -NPO at this time Case reviewed with Dr. Elias and the family at the bedside. Poor prognosis. The patient is DNR and the family is planning on comfort care. Critical Care: Yes (>30min)
--- NOTE | 2021-06-22 04:08 | P.HP ---
Certification for Inpatient Patient admitted to: Inpatient With expected LOS: >2 Midnights Patient will require the following post-hospital care: Hospice Practitioner: I am a practitioner with admitting privileges, knowledge of patient current condition, hospital course, and medical plan of care. Services: Services provided to patient in accordance with Admission requirements found in Title 42 Section 412.3 of the Code of Federal Regulations Patient History Date of Service: 06/22/21 Reason for admission: hypoxia History of Present Illness: 70-year-old female, PMH: ESRD on HD, DM 2, anemia chronic disease, chronic diastolic CHF, hypertension, deaf/mute, depression/anxiety brought to the ED by EMS due to being found unresponsive and dusky appearing. alf staff initiated CPR, upon EMS arrival, a pulse was felt. Patient was transported to the ED. Patient was placed on a Levophed drip due to significant hypotension. She found be hypoxic in the 70s 80s at best, CXR with bilateral pulmonary opacities, elevated lactate, tachycardia [id number]. ED physician spoke with patient's son stated patient is DNR, and is considering withdrawing care, waiting for sister. Allergies adhesive Allergy (Verified 01/28/20 21:31) Itching/Hives/Rash No Known Drug Allergies Allergy (Verified 01/28/20 21:31) Unknown Home Medications: Cholecalciferol (Vitamin D3) [Vitamin D 5,000 IU Cap*] 5,000 unit PO DAILY 11/13/20 Sertraline HCl 50 mg PO DAILY 11/13/20 Trazodone HCl 100 mg PO BEDTIME 11/13/20 Gabapentin 100 mg PO BID 03/15/21 Ondansetron HCl 4 mg PO Q8HR PRN 03/15/21 Acetaminophen with Codeine [Tylenol with Codeine #4 Tablet] 1 each PO Q6H PRN 06/10/21 Amino Acids/Protein Hydr/Fiber [Pro-Stat Renal Care Liquid Pkt] 30 ml PO BID 06/10/21 Cholestyramine (with Sugar) [Cholestyramine Packet] 1 packet PO DAILY 06/10/21 Famotidine 20 mg PO DAILY 06/10/21 Folic Acid/Vit B Complex and C [Renal-Abraham Tablet] 0.8 mg PO DAILY 06/10/21 Zinc Sulfate 1 tab PO DAILY 06/10/21 hydrOXYzine HCL [Atarax] 50 mg PO Q6H PRN 06/10/21 Apixaban [Eliquis *] 2.5 mg PO BID #60 tablet 06/11/21 Rohan [Rohan*] 1 pkt PO BID #60 powd.pack 06/11/21 Nepro Shake [Nepro*] 237 ml PO TID #90 can 06/11/21 Trazodone [Desyrel*] 100 mg PO BEDTIME #30 tablet 06/11/21 predniSONE [Deltasone] 20 mg PO BID #20 tab 06/11/21 - Past Medical/Surgical History Diabetic: Yes -: Diabetes mellitus type 2 -: HTN -: GERD -: Depression -: Hyperlipidemia -: Chronic diastolic congestive heart failure -: Chronic back pain -: DM -: abdominal hernia -: ESRD on HD -: heel surgery 2007 -: abdominal hernia repair -: amptuation of 5th digit on L foot 2012 -: Cholecystectomy 2012 Psychosocial/ Personal History: [facility] - Family History Father -: Heart disease Mother -: Diabetes - Social History Alcohol use: No CD- Drugs: No Caffeine use: No [facility] of [facility] Review of Systems is unable to be obtained Physical Examination - Physical Exam General: Unresponsive HEENT: Mucous membr. moist/pink (Mucous membranes dry) Neck: Supple Respiratory: Diminished, Crackles/rales Cardiovascular: No edema, Normal S1 S2 Capillary refill: >2 Seconds Gastrointestinal: Hypoactive Musculoskeletal: No contractures Integumentary: No significant lesion Neurological: Other (Unresponsive) - Studies Laboratory Data (last 24 hrs) 06/21/21 10:00: Magnesium 2.6 H D 06/21/21 10:00: PT 17.4 H, INR 1.51, APTT 36.7 06/21/21 10:00: WBC 16.80 H D, Hgb 9.9 L, Hct 31.8 L D, Plt Count 263 D 06/21/21 10:00: Sodium 140, Potassium 4.1, BUN 33 H, Creatinine 2.11 H, Glucose 149 H, Total Bilirubin 0.4, AST 21, ALT 17, Alkaline Phosphatase 127 H, Amylase 205 H*, Lipase 307 Assessment and Plan - Plan Problem List Acute hypoxemic respiratory failure secondary to pneumonia, possible acute CHF exacerbation Severe sepsis with shock Deaf/mute bedbound dementia chronic CHF, possible acute exacerbation lactic acidosis SpO2: 50-60% at times when good wave form present, otherwise not captured HR: 130-140s, MAPS: 60-65 on max levophed had long discussion with family. Son wants to continue current medications until his sister arrives - she is driving from out of town, ~1-2 hours away States patient has told him she is ready to go, health has been declining over the last several months Quality of life has declined continue current meds per patient's son. Family at bedside, Vasopressor therapy has been discontinued per family request patient is comfort measure at this time blood pressure currently 60/40 patient demise is expectant. Will admit for comfort measures/possibly hospice. Discharge Plan: Other Plan to discharge in: 48 Hours - Advance Directives Does patient have a Living Will: No Does patient have a Durable POA for Healthcare: No - Code Status/Comfort Care Code Status Assessed: Yes (DNR) Critical Care: No Time Spent Managing Pts Care (In Minutes): 55
[2021-06-22] MEDS ORDERED: ONDANSETRON 4 MG/2 ML VIAL IV PRN (05:24)
[2021-06-22] MEDS ORDERED: LORazepam 2 MG/ML VIAL IV PRN (05:24)
[2021-06-22] MEDS ORDERED: MORPHINE 2 MG/ML SYR ONE ×2 (06:59→12:48)
[2021-06-22] MEDS: MORPHINE 2 MG/ML SYR IV PRN ×2 (07:01→11:55)
[2021-06-22] MEDS ORDERED: SCOPOLAMINE HYDROBROMIDE PATCH TD SCH (09:00)
[2021-06-22 09:30] VITALS: O2SAT 75
[2021-06-22] MEDS ORDERED: LORazepam 2 MG/ML VIAL ONE (10:13)
[2021-06-22 13:56] VITALS: BP 79/40
--- NOTE | 2021-06-22 15:15 | EKG ---
Test Date: 2021-06-21 Test Time: 10:01:12 Purchasing Clerk: NANDO MEASUREMENT RESULTS: Intervals: Rate: 96 WA: 142 QRSD: 86 QT: 344 QTc: 434 [place]: P: 61 WA: 142 QRS: -8 T: 78 INTERPRETIVE STATEMENTS: Normal sinus rhythm Cannot rule out Anterior infarct, age undetermined Abnormal ECG Compared to ECG 06/09/2021 20:01:28 No significant changes Electronically Signed On 06-22-21 15:14:39 REPAIR TECH by Ender Hernandez
--- NOTE | 2021-06-22 15:20 | P.DS ---
Admission Date: 06/22/21 Discharge Date: 06/22/21 Disposition: Reason for Admission: hypoxia, hypotensive Consultations: Nephrology - Dr. Hickman Procedures: Problem List Acute hypoxemic respiratory failure secondary to pneumonia, possible acute CHF exacerbation Severe sepsis with shock Deaf/mute bedbound dementia chronic CHF, possible acute exacerbation lactic acidosis Brief History of Present Illness: 70-year-old female, PMH: ESRD on HD, DM 2, anemia chronic disease, chronic diastolic CHF, hypertension, deaf/mute, depression/anxiety brought to the ED by EMS due to being found unresponsive and dusky appearing. long-term staff initiated CPR, upon EMS arrival, a pulse was felt. Patient was transported to the ED. Patient was placed on a Levophed drip due to significant hypotension. She found be hypoxic in the 70s 80s at best, CXR with bilateral pulmonary opacities, elevated lactate, tachycardia [id number]. ED physician spoke with patient's son stated patient is DNR, and is considering withdrawing care, waiting for sister. Hospital Course: Upon arrival in the ED, patient was given fluids, antibiotics, placed on Levophed drip. Shortly after arrival, patient's son was at bedside, stated did not want any further escalation of care at this time, so patient did not receive the full sepsis bolus. Asked to continue with current level of treatment until his sister arrived. Family stated the patient's health has been declining over the last several months, and she has recently been stating that she was tired of going through all of this and ready to pass. Upon arrival of the patient's daughter, family convene and decided on comfort measures only. The Levophed and other life-sustaining medications were discontinued. Patient was continued on medications to ensure comfort. Over the course of the next several hours her blood pressure continued to decrease, her oxygen saturation remained less than 70%, and her heart rate slowly trended down from the 140s. Patient ultimately at 1428 on 06/22. Vital Signs/Physical Exam: Temp Pulse Resp BP Pulse Ox 75 9 L 79/40 L 31 L 06/22/21 12:00 06/22/21 12:00 06/22/21 12:00 06/22/21 12:00 Laboratory Data at Discharge: WBC 16.80 K/uL (4.3-10.9) H D 06/21/21 10:00 Hgb 9.9 g/dL (12.0-15.0) L 06/21/21 10:00 Hct 31.8 % (36.0-45.0) L D 06/21/21 10:00 Plt Count 263 K/uL (152-406) D 06/21/21 10:00 PT 17.4 SECONDS (9.5-12.5) H 06/21/21 10:00 INR 1.51 06/21/21 10:00 APTT 36.7 SECONDS (24.3-36.9) 06/21/21 10:00 Sodium 140 mmol/L (136-145) 06/21/21 10:00 Potassium 4.1 mmol/L (3.5-5.1) 06/21/21 10:00 BUN 33 mg/dL (7-18) H 06/21/21 10:00 Creatinine 2.11 mg/dL (0.55-1.3) H 06/21/21 10:00 Glucose 149 mg/dL (74-106) H 06/21/21 10:00 Magnesium 2.6 mg/dL (1.8-2.4) H D 06/21/21 10:00 Total Bilirubin 0.4 mg/dL (0.2-1.0) 06/21/21 10:00 AST 21 U/L (15-37) 06/21/21 10:00 ALT 17 U/L (12-78) 06/21/21 10:00 Alkaline Phosphatase 127 U/L (45-117) H 06/21/21 10:00 Amylase 205 U/L (25-115) H* 06/21/21 10:00 Lipase 307 U/L (73-393) 06/21/21 10:00 Home Medications: Cholecalciferol (Vitamin D3) [Vitamin D 5,000 IU Cap*] 5,000 unit PO DAILY 11/13/20 Sertraline HCl 50 mg PO DAILY 11/13/20 Trazodone HCl 100 mg PO BEDTIME 11/13/20 Gabapentin 100 mg PO BID 03/15/21 Ondansetron HCl 4 mg PO Q8HR PRN 03/15/21 Acetaminophen with Codeine [Tylenol with Codeine #4 Tablet] 1 each PO Q6H PRN 06/10/21 Amino Acids/Protein Hydr/Fiber [Pro-Stat Renal Care Liquid Pkt] 30 ml PO BID 06/10/21 Cholestyramine (with Sugar) [Cholestyramine Packet] 1 packet PO DAILY 06/10/21 Famotidine 20 mg PO DAILY 06/10/21 Folic Acid/Vit B Complex and C [Renal-Abraham Tablet] 0.8 mg PO DAILY 06/10/21 Zinc Sulfate 1 tab PO DAILY 06/10/21 hydrOXYzine HCL [Atarax] 50 mg PO Q6H PRN 06/10/21 Apixaban [Eliquis *] 2.5 mg PO BID #60 tablet 06/11/21 Rohan [Rohan*] 1 pkt PO BID #60 powd.pack 06/11/21 Nepro Shake [Nepro*] 237 ml PO TID #90 can 06/11/21 Trazodone [Desyrel*] 100 mg PO BEDTIME #30 tablet 06/11/21 predniSONE [Deltasone] 20 mg PO BID #20 tab 06/11/21 Followup: Sabi Reed MD [Primary Care Provider] - Time spent managing pt's care (in minutes): 45
[2021-06-22 16:17] VITALS: TEMP 97.6
== END 2021-06-22 16:10 | disposition expired | DRG 871 ==
LOC: ER 09:43 → ERHOLD 06-22 04:13
PROVIDERS: ADMIT Hospitalist; ATTEND Hospitalist
PROC: 5A12012 Performance of Cardiac Output, Single, Manual (ICD-10-PCS; principal; 2021-06-22)
DX: A41.89 Other specified sepsis (principal); U07.1 COVID-19; N18.6 End stage renal disease; J96.01 Acute respiratory failure with hypoxia; I50.33 Acute on chronic diastolic (congestive) heart failure; R65.21 Severe sepsis with septic shock; J12.82 Pneumonia due to coronavirus disease 2019; E43 Unspecified severe protein-calorie malnutrition; I13.2 Hypertensive heart and chronic kidney disease with heart failure and with stage 5 chronic kidney disease, or end stage renal disease; E87.2 Acidosis; E11.22 Type 2 diabetes mellitus with diabetic chronic kidney disease; E11.40 Type 2 diabetes mellitus with diabetic neuropathy, unspecified; K21.9 Gastro-esophageal reflux disease without esophagitis; D63.1 Anemia in chronic kidney disease; M89.9 Disorder of bone, unspecified; E78.5 Hyperlipidemia, unspecified; E83.52 Hypercalcemia; F03.90 Unspecified dementia, unspecified severity, without behavioral disturbance, psychotic disturbance, mood disturbance, and anxiety; H91.90 Unspecified hearing loss, unspecified ear; Z66 Do not resuscitate; Z79.01 Long term (current) use of anticoagulants; Z99.2 Dependence on renal dialysis; Z79.899 Other long term (current) drug therapy; Z91.048 Other nonmedicinal substance allergy status; Z79.52 Long term (current) use of systemic steroids; Z90.49 Acquired absence of other specified parts of digestive tract; Z74.01 Bed confinement status
CPT/HCPCS: 0241U; 36415; 71045; 80048; 80076; 82150; 82550; 82553; 82947; 83605; 83690; 83735; 83880; 84145; 84484; 85025; 85610; 85730; 87040; 87077; 87186; 87205; 93005; 99291; 99292; J2270; J2405; J2543; J7040; J7050